=== PATIENT | female | born 1940 | race Caucasian/White ===

== ENCOUNTER 2023-07-14 14:28 | Emergency (ER) | payer OTHER, SELFPAY ==
[2023-07-14 14:38] VITALS: BP 126/51
[2023-07-14 15:15] VITALS: BMI 24.6
--- NOTE | 2023-07-14 15:27 | ED.GENMED ---
History of Present Illness
General
Chief Complaint: Abdominal Pain
Source: patient
Exam Limitations: none
Time Seen by Provider: 07/14/23 15:16
Travel History
Have you had any contact with someone who has COVID-19?: No
Do you have any symptoms of coronavirus? Fever > 100 degrees, chills, cough, shortness of breath, sore throat, loss of taste or smell, muscle aches, or headache?: No
History of Present Illness
History of Present Illness:
83-year-old female presenting with 2 apparently independent complaints. Cough and congestion for 3 to 4 days. No shortness of breath. No pleuritic chest pain. No hemoptysis. Mostly an annoying cough. In addition she notes abdominal distention
that she has had since her 20s. Feels slightly more distended recently. However bowel movements are normal she has no abdominal pain no fever and no other complaints. She is a dialysis patient and is on dialysis Tuesday and Tuesday.
Past History
Past History
ED Past Medical History: CHF, HTN, NIDDM and Valvular disease (Moderate aortic stenosis. Moderate TR)
ED Past Surgical History: Other (Paracentesis)
Review of Systems
Review of Systems
All Other Systems: Not applicable
Respiratory: Reports cough; Denies hemoptysis or trouble breathing
Cardiac: Reports no symptoms
ABD/GI: Denies abdominal pain, diarrhea, bloody stools or black stools
Phy Exam
Physical Exam
Physical Exam:
GENERAL: Alert and oriented in no apparent distress
EYE: Orbits normal.
NECK: Supple
CARDIAC: Regular rate and rhythm with mild midsystolic murmur
LUNGS: No respiratory distress. Occasional mild expiratory wheeze. Mild coarse cough at times. However no severe cough.
ABDOMEN: Distended. Bowel sounds present. Nontender. Questionable fluid wave.
NEUROLOGICAL: Alert and oriented , grossly non-focal
SKIN: Warm and dry, small areas of ecchymosis superficially to the abdominal wall.
MUSCULOSKELETAL: Mild bilateral lower extremity pitting edema. Shunt left arm
PSYCH: Normal and appropriate interaction.
Course
Orders/Labs/Results
Orders:
Orders
07/14/23 15:26
IV Insert/Care/Rem.- Treatment PRN
CR Obstruct Series W/pa Chest Urgent
Comment:
Reason For Exam: Abdominal distention
07/14/23 15:27
US Abdomen Complete/Upper Urgent
Comment:
Reason For Exam: Abdominal distention.
07/14/23 15:31
COVID-19 Antigen Urgent
Source: Nasal Swab
Complete Blood Count/With Diff Urgent
Comprehensive Metabolic Panel Urgent
Lipase Urgent
Influenza A+B Rapid Molecular Urgent
QUAN Source: Nasal Swab
Specimen Description:
Abnormal Lab Results
07/14/23
15:31
RBC 3.03 L 10^6/uL
(4.20-5.40)
Hgb 9.9 L g/dL
(12.0-16.0)
Hct 29.1 L %
(37.0-47.0)
MCH 32.7 H pg
(27.0-31.0)
RDW 15.9 H %
(11.5-14.5)
Plt Count 123 L 10^3/uL
(130-400)
MPV 10.9 H fL
(7.4-10.4)
Absolute Lymphs (auto) 1.1 L 10^3/uL
(1.2-3.4)
Absolute Monos (auto) 0.8 H 10^3/uL
(0.1-0.6)
Lymphocytes % 17.1 L %
(20.5-51.1)
Monocytes % 12.9 H %
(1.7-9.3)
Chloride 96 L mmol/L
(98-107)
Carbon Dioxide 32 H mmol/L
(22-30)
BUN 36 H mg/dl
(7-17)
Creatinine 3.7 H mg/dL
(0.6-1.0)
Glucose 113 H mg/dl
(70-99)
AST 51 H U/L
(14-36)
Alkaline Phosphatase 276 H U/L
(38-126)
Albumin 3.2 L g/dl
(3.5-5.0)
Lipase 450 H U/L
(23-300)
07/14/23 15:31
07/14/23 15:31
Vital Signs
Initial and Last Documented VS:
Initial Vital Signs
Temp Pulse Resp BP Pulse Ox
98.6 F 73 18 126/51 95
07/14/23 14:38 07/14/23 14:38 07/14/23 14:38 07/14/23 14:38 07/14/23 14:38
Last Documented Vital Signs
Temp Pulse Resp BP Pulse Ox
98.6 F 73 18 121/53 98
07/14/23 14:38 07/14/23 14:38 07/14/23 14:38 07/14/23 18:00 07/14/23 18:30
MDM/Problems Addressed
Differential Diagnosis Includes:
To independent issues I feel are likely unrelated. Some cough and congestion most consistent with bronchitis. X-ray as part of an obstruction series. COVID and flu test. As for the abdominal distention. She clinically does not have an
obstructed abdomen. She is nontender. She has bowel sounds present. She had a bowel movement this morning. Reviewing previous record she has history of ascites which is likely to be because of this distention. Clinically highly doubt SBP.
Workup in progress
*Radiology
Radiology exam reviewed: radiology read reviewed (Ileus. Cannot rule out early SBO. Gallstones. Some gallbladder wall thickening. Moderate ascites) and other (Negative obstruction series. Except for ileus)
*Pulse Oximetry
Patient hypoxic: no
*Critical Care Note
Total Time (30-74mins, 75-104mins- exclusive of procedures): Not Applicable
Data Reviewed
Review of Other/Old Records Reveals: Labs, Records, Radiology Studies, Progress Notes and Discharge Summary
Update Note
Update Note:
Patient has remained medically stable and nontoxic. The cough appears to be a bronchitis. She is not clinically in heart failure. She is in no respiratory distress. Her pulse ox is good. She is not in CHF. As for the abdomen she is totally
nontender. She has no findings consistent with acute cholecystitis. She has no white count. Her LFTs are mildly off but stable. She does have gallbladder wall thickening but I do not feel this indicates acute cholecystitis. She has moderate
ascites which she has had in the past. No findings to support SBP. Discussed with GI who will call tomorrow for close follow-up. She is clinically not obstructed. She is nontender she has no nausea or vomiting. She had bowel movement this
morning.
1952... Patient ambulated from the ER in no distress
ED Attending Note
-
Portions of this chart may have been created with voice recognition software.� Occasional wrong word or��sound alike� substitutions may have occurred due to the inherent limitations of voice recognition software.
Discharge Plan
Departure
Patient Disposition: Home (Routine Discharge)
Date of Disposition: 07/14/23
Time of Disposition: 19:07
Patient with high blood pressure during this ER visit?: Yes
Discharge Problem:
Ascites, Bronchitis, Cirrhosis, Chronic renal failure, Chronic anemia
Instructions: Fluid in the belly (ascites), Acute Bronchitis, Adult (DC), BLOOD PRESSURE
Prescriptions:
No Action
isosorbide mononitrate 30 mg tablet extended release 24 hr
15 mg PO DAILY
ferrous sulfate 325 mg (65 mg iron) Tablet
325 mg PO DAILY
montelukast 10 mg tablet
10 mg PO DAILY
insulin aspart U-100 [Novolog FlexPen U-100 Insulin] 100 unit/mL (3 mL) insulin pen
5 unit SC AC
rosuvastatin 10 mg Tablet
10 mg PO HS
I-Chioma 300 mcg-200 mg-27 mg-2 mg Tablet
1 tab PO BID
carvedilol 3.125 mg Tablet
3.125 mg PO BID Qty: 30 0RF
furosemide 40 mg Tablet
40 mg PO DAILY
polyethylene glycol 3350 17 gram Powder In Packet
17 g PO DAILY
magnesium oxide 400 mg (241.3 mg magnesium) Tablet
400 mg PO DAILY
insulin glargine [Lantus Solostar U-100 Insulin] 100 unit/mL (3 mL) Insulin Pen
10 unit SC HS
ergocalciferol (vitamin D2) 1,250 mcg (50,000 unit) Capsule
1,250 mcg PO WEEKLY
nifedipine 30 mg Tablet Extended Release 24hr
30 mg PO HS
loperamide 2 mg Capsule
2 mg PO Q4H PRN (Reason: loose stools)
calcium acetate(phosphat bind) 667 mg Capsule
667 mg PO MEALS
Referrals:
Marcia Padilla MD [Active] - Follow up in 2-3 days
Lee Stoner MD [Family Provider] - Follow up in 2-3 days
Activity Restrictions/Additional Instructions:
The GI group should call you tomorrow for close follow-up
Interventions
Interventions:
*Risk Screen - Suicide Last Done: 07/14/23 15:15
*General Assessment Last Done: 07/14/23 15:15
*Neglect/Abuse Screening Last Done: 07/14/23 15:15
ED- Fall Risk Assessment Last Done: 07/14/23 16:28
*ED COVID-19 Vaccine History Last Done: 07/14/23 15:15
YA-Balqeg-Qoqrjfevor Assessment Last Done: 07/14/23 15:15
ED- Pulmonary Assessment Last Done: 07/14/23 15:15
[2023-07-14 15:48] LABS: % Basophils 0.9 % (0-2); % Eosinophils 5.5 % (0-6); % Immature Granulocytes 0.3 % (0-0.5); % Lymphocytes 17.1 % (20.5-51.1); % Monocytes 12.9 % (1.7-9.3); % Neutrophils 63.3 % (42.2-75.2); Absolute Basophils 0.1 10^3/uL (0-0.2); Absolute Eosinophils 0.4 10^3/uL (0-0.7); Absolute Lymphocytes 1.1 10^3/uL (1.2-3.4); Absolute Monocytes 0.8 10^3/uL (0.1-0.6); Absolute Neutrophils 4.1 10^3/uL (1.4-6.5); Hematocrit 29.1 % (37.0-47.0); Hemoglobin 9.9 g/dL (12.0-16.0); Mean Corpuscular Hgb 32.7 pg (27.0-31.0); Mean Platelet Volume 10.9 fL (7.4-10.4); Nucleated Red Blood Cells % 0 %; Platelet Count 123 10^3/uL (130-400); Red Blood Cell Count 3.03 10^6/uL (4.20-5.40); Red Cell Dist. Width 15.9 % (11.5-14.5); White Blood Cell Count 6.5 10^3/uL (4.8-10.8)
[2023-07-14 16:03] LABS: ALT (SGPT) 34 U/L (0-35); AST (SGOT) 51 U/L (14-36); Albumin 3.2 g/dl (3.5-5.0); Alkaline Phosphatase 276 U/L (38-126); Blood Urea Nitrogen 36 mg/dl (7-17); Calcium 8.6 mg/dl (8.4-10.2); Carbon Dioxide 32 mmol/L (22-30); Chloride 96 mmol/L (98-107); Estimated Creatinine Clearance 10 ml/min; Glucose 113 mg/dl (70-99); Potassium 3.5 mmol/L (3.5-5.1); Sodium 138 mmol/L (135-145); Total Bilirubin 1.3 mg/dl (0.2-1.3); Total Protein 7.1 g/dl (6.3-8.2); eGFR 11.77
[2023-07-14 16:05] LABS: Lipase 450 U/L (23-300)
[2023-07-14 16:07] LABS: COVID-19 Antigen Negative (Negative)
[2023-07-14 16:49] VITALS: BP 156/62
[2023-07-14 17:00] VITALS: BP 132/52
[2023-07-14 18:00] VITALS: BP 121/53
[2023-07-14 19:00] VITALS: BP 140/59
== END 2023-07-14 20:01 | disposition home or self-care (01) ==
LOC: EMR 14:28
PROVIDERS: EMERGENCY PHYSICIAN Emergency Medicine; FAMILY PHYSICIAN Internal Medicine Cardiovascular Disease
DX: R18.8 Other ascites (principal); J40 Bronchitis, not specified as acute or chronic; N18.6 End stage renal disease; D64.9 Anemia, unspecified; I13.2 Hypertensive heart and chronic kidney disease with heart failure and with stage 5 chronic kidney disease, or end stage renal disease; I50.9 Heart failure, unspecified; E11.22 Type 2 diabetes mellitus with diabetic chronic kidney disease; I38 Endocarditis, valve unspecified; I35.0 Nonrheumatic aortic (valve) stenosis; Z99.2 Dependence on renal dialysis; K74.60 Unspecified cirrhosis of liver
CPT/HCPCS: 99284; 74022; 76700; 80053; 83690; 85025; 87502; 87811

== ENCOUNTER 2023-07-17 19:54 | Inpatient (IN) | payer OTHER, SELFPAY ==
[2023-07-17] VITALS (7 sets, daily range): BP systolic 101–123; BP diastolic 44–54; BMI 25.7; BMI 24.7
[2023-07-17 16:40] LABS: % Basophils 0.7 % (0-2); % Eosinophils 3.7 % (0-6); % Immature Granulocytes 0.4 % (0-0.5); % Lymphocytes 13.9 % (20.5-51.1); % Monocytes 12.3 % (1.7-9.3); Absolute Basophils 0.1 10^3/uL (0-0.2); Absolute Eosinophils 0.3 10^3/uL (0-0.7); Absolute Lymphocytes 1.1 10^3/uL (1.2-3.4); Absolute Neutrophils 5.5 10^3/uL (1.4-6.5); Hematocrit 25.7 % (37.0-47.0); Hemoglobin 8.9 g/dL (12.0-16.0); Mean Corp Hgb Conc. 34.6 g/dL (33.0-37.0); Mean Corpuscular Hgb 33.1 pg (27.0-31.0); Mean Corpuscular Volume 95.5 fL (81.0-99.0); Mean Platelet Volume 10.9 fL (7.4-10.4); Nucleated Red Blood Cells % 0 %; Platelet Count 126 10^3/uL (130-400); Red Blood Cell Count 2.69 10^6/uL (4.20-5.40); Red Cell Dist. Width 15.9 % (11.5-14.5)
[2023-07-17 17:01] LABS: NT-proBNP 5520 pg/ml
[2023-07-17 17:09] LABS: ALT (SGPT) 24 U/L (0-35); AST (SGOT) 42 U/L (14-36); Alkaline Phosphatase 176 U/L (38-126); Blood Urea Nitrogen 56 mg/dl (7-17); Calcium 8.5 mg/dl (8.4-10.2); Carbon Dioxide 27 mmol/L (22-30); Chloride 96 mmol/L (98-107); Estimated Creatinine Clearance 7 ml/min; Glucose 72 mg/dl (70-99); Potassium 3.9 mmol/L (3.5-5.1); Sodium 137 mmol/L (135-145); Total Bilirubin 1.3 mg/dl (0.2-1.3); Total Protein 6.6 g/dl (6.3-8.2); eGFR 7.83
[2023-07-17 17:13] LABS: Troponin I 0.073 ng/ml
--- NOTE | 2023-07-17 17:14 | ED.GENMED ---
History of Present Illness
General
Chief Complaint: Abdominal Symptoms
Source: patient
Exam Limitations: none
Time Seen by Provider: 07/17/23 17:09
Travel History
Have you had any contact with someone who has COVID-19?: No
Do you have any symptoms of coronavirus? Fever > 100 degrees, chills, cough, shortness of breath, sore throat, loss of taste or smell, muscle aches, or headache?: Yes
Symptoms:: cough
History of Present Illness
History of Present Illness:
See MDM
Past History
Past History
ED Past Medical History: CHF, HTN, NIDDM, Valvular disease (Moderate aortic stenosis. Moderate TR) and Other (ESRD)
ED Past Surgical History: Other (Paracentesis)
Social History
Tobacco: Non-smoker
Alcohol: None
Phy Exam
Physical Exam
Physical Exam:
See MDM
Course
Orders/Labs/Results
Orders:
Orders
07/17/23 16:28
Electrocardiogram (*1) Urgent
Reason for Study: Other
Other Reason for Exam: Respiratory Distress
EKG- Treatment ONCE
07/17/23 16:34
Complete Blood Count/With Diff Urgent
Comprehensive Metabolic Panel Urgent
Lipase Urgent
Comment: ADD ON
NT-proBNP Urgent
Troponin I Urgent
Comment: ADD-ON
07/17/23 16:42
Add On- LAB Stat
Comments:: troponin - blood in lab
Tests Added?: troponin
07/17/23 17:10
Add On- LAB Urgent
Tests Added?: Lipase
07/17/23 17:14
Furosemide [Lasix] 80 mg IV NOW STA
CR Chest - 2 Views Urgent
Comment:
Reason For Exam: SOB, Cough, ESRD
07/17/23 18:10
COVID-19 Antigen Urgent
Source: Nasal Swab
Influenza A+B Rapid Molecular Urgent
QUAN Source: Nasal Swab
Specimen Description:
Abnormal Lab Results
07/17/23
16:34
RBC 2.69 L 10^6/uL
(4.20-5.40)
Hgb 8.9 L g/dL
(12.0-16.0)
Hct 25.7 L %
(37.0-47.0)
MCH 33.1 H pg
(27.0-31.0)
RDW 15.9 H %
(11.5-14.5)
Plt Count 126 L 10^3/uL
(130-400)
MPV 10.9 H fL
(7.4-10.4)
Absolute Lymphs (auto) 1.1 L 10^3/uL
(1.2-3.4)
Absolute Monos (auto) 1.0 H 10^3/uL
(0.1-0.6)
Lymphocytes % 13.9 L %
(20.5-51.1)
Monocytes % 12.3 H %
(1.7-9.3)
Chloride 96 L mmol/L
(98-107)
BUN 56 H mg/dl
(7-17)
Creatinine 5.2 H* mg/dL
(0.6-1.0)
AST 42 H U/L
(14-36)
Alkaline Phosphatase 176 H U/L
(38-126)
Troponin I 0.073 H* ng/ml
Albumin 3.0 L g/dl
(3.5-5.0)
07/17/23 16:34
07/17/23 16:34
Vital Signs
Initial and Last Documented VS:
Initial Vital Signs
Temp Pulse Resp BP Pulse Ox
98.3 F 65 26 119/51 92
07/17/23 16:30 07/17/23 16:30 07/17/23 16:30 07/17/23 16:30 07/17/23 16:30
Last Documented Vital Signs
Temp Pulse Resp BP Pulse Ox
98.3 F 62 16 101/44 90
07/17/23 16:30 07/17/23 17:30 07/17/23 17:30 07/17/23 17:00 07/17/23 17:30
MDM/Problems Addressed
Differential Diagnosis Includes:
HPI and MDM Narrative:
83-year-old female presenting with shortness of breath and cough and worsening abdominal distention. She has a history of end-stage renal disease and currently on hemodialysis (M/W/F). Patient states her last dialysis was Tuesday and she is due
tomorrow. She complains of cough and chest pain. She states the chest pain occurs when she coughs. On exam, she has distended and palpable ascites on her abdomen. She is a nontender abdomen. She is a rhonchorous cough and pitting edema in both
legs. Patient states she does not make urine but prior records indicate that she is on 40 mg of Lasix a day. Given the obvious fluid overload state, will give IV Lasix. Will obtain chest x-ray and ultimately admit for dialysis and likely
paracentesis
Physical exam
General: Weak and fatigued
HEENT: protecting airway
Neck: supple
CV: No evidence of cyanosis. Regular rate and rhythm
Resp: No accessory muscle use. Rhonchorous breath sounds, crackles at bases
Abd: Distended and soft
Extremities: +2 pitting edema bilateral lower extremities
Neuro: alert
Psych: Normal affect
Skin: Intact
Problems Addressed including Acute and Chronic Conditions affecting care:
1. Pulm edema
Acuity: acute
Prognosis: unstable
Details: Patient given 80 mg IV Lasix.
2. Ascites
Acuity: acute
Prognosis: unstable
Details: Patient will require interventional radiology evaluation tomorrow to discuss paracentesis
Updates
Chest x-ray consistent with cardiomegaly and increased pulmonary vasculature. Patient already given IV Lasix. Given her symptoms and worsening ascites, will admit
Differential Diagnosis (but not limited to): Pulm edema, pneumonia, viral syndrome, ascites
Testing considered: CT abdomen/pelvis but no tenderness elicited
Drug therapy (if applicable): OTC meds, please see d/c instruction regarding Rx drugs
Amount and/or Complexity of Data Reviewed
Clinical info obtained from: Patient
External data reviewed: History of ascites requiring paracentesis in the past
Labs I independently reviewed (but not limited to): Elevated BNP. Troponin chronically elevated
Radiology: X-ray independently reviewed: Chest x-ray shows pulmonary edema and cardiomegaly
Pulse Ox: not hypoxic
EKG independently reviewed: Sinus rhythm, left axis, no STEMI, right bundle branch block
Label Press Operator: Sinus rhythm
Critical Care: The high probability of a clinically significant, sudden or life threatening deterioration of the cardiopulmonary system(s) required my full and direct attention, intervention and personal management. The aggregate critical care time
was 33 minutes. This time is in addition to time spent performing reported procedures but includes the following:
[x] Data Review and interpretation
[x] Patient assessment and monitoring of vital signs
[x] Documentation
[x] Medication orders and management
Risk of Complication:
Social Determinants of health: Good social support
Discussed with other providers: Hospitalist
Escalation of Care includes Admit/Obs: Given worsening shortness of breath and worsening ascites, will admit
Occasional wrong word or 'sound a like' substitutions may have occurred due to the inherent limitations of voice recognition software. Read the chart carefully and recognize, using context, where substitutions have occurred.
*Critical Care Note
Total Time (30-74mins, 75-104mins- exclusive of procedures): 33 min
ED Attending Note
-
Portions of this chart may have been created with voice recognition software.� Occasional wrong word or��sound alike� substitutions may have occurred due to the inherent limitations of voice recognition software.
Discharge Plan
Departure
Patient Disposition: Admit
Date of Disposition: 07/17/23
Time of Disposition: 18:14
Presentation/result/management discussed w/ accepting MD/DO: Hospitalist
Discharge Problem:
Ascites, Pulmonary edema, ESRD (end stage renal disease) on dialysis
Prescriptions:
No Action
isosorbide mononitrate 30 mg tablet extended release 24 hr
15 mg PO DAILY
ferrous sulfate 325 mg (65 mg iron) Tablet
325 mg PO DAILY
montelukast 10 mg tablet
10 mg PO DAILY
insulin aspart U-100 [Novolog FlexPen U-100 Insulin] 100 unit/mL (3 mL) insulin pen
5 unit SC AC
rosuvastatin 10 mg Tablet
10 mg PO HS
I-Chioma 300 mcg-200 mg-27 mg-2 mg Tablet
1 tab PO BID
carvedilol 3.125 mg Tablet
3.125 mg PO BID Qty: 30 0RF
furosemide 40 mg Tablet
40 mg PO DAILY
polyethylene glycol 3350 17 gram Powder In Packet
17 g PO DAILY
magnesium oxide 400 mg (241.3 mg magnesium) Tablet
400 mg PO DAILY
insulin glargine [Lantus Solostar U-100 Insulin] 100 unit/mL (3 mL) Insulin Pen
10 unit SC HS
ergocalciferol (vitamin D2) 1,250 mcg (50,000 unit) Capsule
1,250 mcg PO WE
nifedipine 30 mg Tablet Extended Release 24hr
30 mg PO HS
loperamide 2 mg Capsule
2 mg PO Q4H PRN (Reason: loose stools)
calcium acetate(phosphat bind) 667 mg Capsule
667 mg PO MEALS
Referrals:
UNKNOWN - PT NOT,INTERVIEWE [Family Provider] -
Interventions
Interventions:
*Risk Screen - Suicide Last Done: 07/17/23 16:38
*General Assessment Last Done: 07/17/23 16:38
*Neglect/Abuse Screening Last Done: 07/17/23 16:38
*ED COVID-19 Vaccine History Last Done: 07/17/23 16:38
YH-Mytqrl-Dyutkpqhhl Assessment Last Done: 07/17/23 16:38
ED- Pulmonary Assessment Last Done: 07/17/23 16:38
[2023-07-17 18:06] LABS: Lipase 127 U/L (23-300)
[2023-07-17] MEDS: LASIX 80 MG IV (18:22)
[2023-07-17 18:52] LABS: COVID-19 Antigen Negative (Negative)
--- NOTE | 2023-07-17 19:08 | HPS.HSE ---
Addendum entered and electronically signed by Shan Brown MD 07/17/23 19:46:
SOB, ESRD, Cirrhosis. No chest pain
Pt seen independently and agree with PA note
Chest profound supraclvicular muscle wasting
Lungs bibasilar rales on shallow respirations
CV reg 2/6 ritika
Abd marked ascites
Ext 1-2+edema
Imp:CHF
ESRD
ascites
P:dialysis, renal consult
paracentesis
post paracentesis consider empiric abx for potential SBP
Original Note:
Family Physician
-
Family Physician: INTERVIEWE UNKNOWN - PT NOT
Chief Complaint
-
Cough and Shortness of Breath
History of Present Illness
Pt is an 83yo F with a past medical history of HTN, HLD, ESRD, Cirrhosis, and DM-II who is presenting to the ED c/o SOB and Cough x 2-3 weeks. She states she has been experiencing a productive cough for 2-3 weeks and has not tried anything to
improve her symptoms. She states the shortness of breath has been consistent for just as long and she does not feel that she can 'fully inflate her lungs.' She admits abdominal distension which is worse recently. She denies fever, sweats or chills.
She denies abdominal pain.
Medical History
Past Medical History
Past Medical History: Reports Other
Additional Past Medical History:
ESRD on HD
Cirrhosis
Coronary Artery Disease
Chronic Diastolic Heart Failure
Essential Hypertension
Hyperlipidemia
Diabetes Mellitus, Insulin-Dependent
Anemia of Chronic Disease
Past Surgical History: Reports Other
Additional Past Surgical History:
Left Upper Ext AV Fistula
Social History
Tobacco: Non-smoker
Living: Assisted Living
Family History
Family History: Not pertinent
Allergies / Home Medications
Allergies reflects when Allergies were last updated in [facility].
Home Medications with original date entered in [facility]
Allergy/Medication List:
Allergies
Allergy/AdvReac Type Severity Reaction Status Date / Time
No Known Allergies Allergy Verified 07/17/23 16:27
Home Medications
ferrous sulfate 325 mg (65 mg iron) tablet 325 mg PO DAILY Supplement 11/26/22
insulin aspart U-100 100 unit/mL (3 mL) subcutaneous pen (Novolog FlexPen U-100 Insulin aspart) 5 unit SC AC Diabetes 11/26/22
isosorbide mononitrate 30 mg tablet,extended release 24 hr 15 mg PO DAILY Heart Disease/Condition 11/26/22
montelukast 10 mg tablet 10 mg PO DAILY Allergies 11/26/22
rosuvastatin 10 mg tablet 10 mg PO HS High Cholesterol 11/26/22
vit A 300 mcg-C 200 mg-E 27 mg-lutein 2 mg and minerals tablet (I-Chioma) 1 tab PO BID Supplement 11/26/22
carvedilol 3.125 mg tablet 3.125 mg PO BID #30 tabs 12/14/22
furosemide 40 mg tablet 40 mg PO DAILY 01/25/23
insulin glargine 100 unit/mL (3 mL) subcutaneous pen (Lantus Solostar U-100 Insulin) 10 unit SC HS 01/25/23
magnesium oxide 400 mg (241.3 mg magnesium) tablet 400 mg PO DAILY 01/25/23
polyethylene glycol 3350 17 gram oral powder packet 17 g PO DAILY 01/25/23
ergocalciferol (vitamin D2) 1,250 mcg (50,000 unit) capsule 1,250 mcg PO WE 01/27/23
calcium acetate(phosphat bind) 667 mg capsule 667 mg PO MEALS 07/14/23
loperamide 2 mg capsule 2 mg PO Q4H PRN loose stools 07/14/23
nifedipine 30 mg tablet,extended release 24 hr 30 mg PO HS 07/14/23
Review of Systems
-
A 12 point ROS was completed and negative except as noted: Yes
Constitutional: Denies Fever or Chills
Respiratory: Reports Cough and Trouble Breathing
Cardiac: Denies Chest Pain or Palpitations
Abdomen/GI: Denies Abdominal Pain, Nausea or Vomiting
Physical Exam
Vital Signs
Vital Signs
Temp Pulse Resp BP Pulse Ox
98.3 F 63 17 105/54 96
07/17/23 16:30 07/17/23 18:45 07/17/23 18:45 07/17/23 18:22 07/17/23 18:45
Physical Exam
General: Comfortable and Conversant
HEENT: Anicteric, Moist mucous membranes and Oxygen (Nasal Cannula)
Respiratory: Non Labored Respirations and Decreased Breath Sounds (Bilateral Bases); No Wheezes
Cardiac: S1/S2 and Regular Rhythm
GI: Soft, Non Tender and Distended (Positive fluid wave)
Rectal: Deferred by Provider
Musculoskeletal: Other (+1 pitting edema bilateral lower ext)
Skin: Warm and Dry
Neuro: Awake, Alert, Oriented and Nonfocal/grossly intact
Psych: Calm
Laboratory Results
-
07/17/23 16:34
07/17/23 16:34
Laboratory Results
Total Bilirubin 1.3 mg/dl (0.2-1.3) 07/17/23 16:34
AST 42 U/L (14-36) H 07/17/23 16:34
ALT 24 U/L (0-35) 07/17/23 16:34
Alkaline Phosphatase 176 U/L (38-126) H 07/17/23 16:34
Troponin I 0.073 ng/ml H* 07/17/23 16:34
Lipase 127 U/L (23-300) 07/17/23 16:34
Data Reviewed
-
Diagnostic Radiology: Report Reviewed by me
Lab Data: Labs Reviewed by me
Impression/Plan
-
Volume Overload with Ascites and Lower Extremity Edema
-Patient received Lasix 80mg IV in ED
-Consult IR for paracentesis
-Attempt to manage additional volume wit HD
-Continue usual Lasix dose
ESRD on HD on
-Consult Nephrology
-Continue calcium acetate
Coronary Artery Disease
-Continue isosorbide mononitrate
Chronic Diastolic Heart Failure
Echo November 2022: EF 70-75. Moderate Aortic Stenosis. Severe Pulmonary Hypertension. Stage II Diastolic Dysfunction
-Monitor Is&Os and Daily Weights
Essential Hypertension
-Continue carvedilol, and nifedipine
Hyperlipidemia
-Continue rosuvastatin
Diabetes Mellitus, Insulin-Dependent
-Continue Lantus
-Monitor sugars and continue coverage insulin
Anemia of Chronic Disease
-Hgb at baseline
-Continue iron supplement
DVT proph: SC Heparin
Code Status: Full Code
[2023-07-17] MEDS: PROCARDIA XL (EXTENDED RELEASE) 30 MG PO (21:41)
[2023-07-17 21:42] LABS: Glucose - Point of Care 97 mg/dl (70-99)
[2023-07-17] MEDS: CRESTOR 10 MG PO (21:43)
[2023-07-17] MEDS: COREG 3.125 MG PO (21:47)
[2023-07-17] MEDS: LANTUS 0.100000000000000006 UNITS SC (21:47)
[2023-07-17] MEDS: ROBITUSSIN DM 5 ML PO (22:21)
[2023-07-17] MEDS: HEPARIN 5000 UNITS SC (23:35)
[2023-07-17 23:54] LABS: Troponin I 0.063 ng/ml
[2023-07-18] VITALS (7 sets, daily range): BP systolic 96–145; BP diastolic 40–68; BMI 24.6; BMI 24.7
[2023-07-18 07:07] LABS: Hematocrit 28.7 % (37.0-47.0); Hemoglobin 9.6 g/dL (12.0-16.0); Mean Corp Hgb Conc. 33.4 g/dL (33.0-37.0); Mean Corpuscular Hgb 32.8 pg (27.0-31.0); Mean Platelet Volume 11.7 fL (7.4-10.4); Platelet Count 132 10^3/uL (130-400); Red Blood Cell Count 2.93 10^6/uL (4.20-5.40); Red Cell Dist. Width 15.6 % (11.5-14.5); White Blood Cell Count 7.1 10^3/uL (4.8-10.8)
[2023-07-18 07:30] LABS: Troponin I 0.061 ng/ml
[2023-07-18 07:31] LABS: Blood Urea Nitrogen 59 mg/dl (7-17); Carbon Dioxide 26 mmol/L (22-30); Chloride 101 mmol/L (98-107); Estimated Creatinine Clearance 6 ml/min; Glucose 88 mg/dl (70-99); Magnesium 2.3 mg/dl (1.6-2.3); Potassium 3.8 mmol/L (3.5-5.1); Sodium 134 mmol/L (135-145); eGFR 7.01
[2023-07-18 08:21] LABS: Glucose - Point of Care 109 mg/dl (70-99)
[2023-07-18 08:50] LABS: Glycohemoglobin (HgbA1c) 5.6 % (4.0-5.6)
[2023-07-18] MEDS: NOVOLOG FLEXPEN-MODERATE RESISTANCE SC ×3 (09:14→16:35)
[2023-07-18] MEDS: SINGULAIR 10 MG PO (09:16)
[2023-07-18] MEDS: NOVOLOG FLEXPEN 5 UNITS SC ×2 (09:16→16:42)
[2023-07-18] MEDS: MAG-TAB SR 84 MG PO (09:16)
[2023-07-18] MEDS: FEOSOL 325 MG PO (09:17)
[2023-07-18] MEDS: IMDUR (EXTENDED RELEASE) 15 MG PO (09:17)
[2023-07-18] MEDS: COREG 3.125 MG PO ×2 (09:18→20:07)
[2023-07-18] MEDS: LASIX 40 MG PO (09:18)
[2023-07-18] MEDS: PHOSLO 667 MG PO ×2 (09:19→16:44)
[2023-07-18] MEDS: MIRALAX 17 GRAMS PO (09:19)
[2023-07-18] MEDS: HEPARIN 5000 UNITS SC ×3 (09:20→23:20)
[2023-07-18] MEDS: ROBITUSSIN DM 5 ML PO ×2 (10:41→20:11)
[2023-07-18 12:39] LABS: Glucose - Point of Care 141 mg/dl (70-99)
[2023-07-18] MEDS: NOVOLOG FLEXPEN SC (12:53)
[2023-07-18] MEDS: PHOSLO PO (12:53)
[2023-07-18] MEDS: MANNITOL 12.5 GRAMS IV ×2 (13:03→14:01)
[2023-07-18] MEDS: FLEXBUMIN 25% FOR HEMODIALYSIS 12.5 GRAMS IV ×2 (13:24→15:01)
--- NOTE | 2023-07-18 13:48 | W.CON.NEPH ---
Consultation
-
Date/Time Consultation Requested: 05/16 20:23
Date/Time Consultation Performed: 05/17 1:00 PM
Requesting Provider: Stella Fountain
Performing Provider: Verna Gottlieb
Reason for Consultation: ESRD on HD
Medical History
-
Chief Complaint: ESRD on HD, volume overload
History of Present Illness:
This is an 83-year-old female who has history of hypertension on carvedilol, nifedipine, suspected CAD on Imdur and statin, ESRD (dialysis was started in December 2022Tuesday,Tuesday, Tuesday at [facility]), D:DRobert Sofia amd T2D who presents
to the hospital with worsening cough and concern for volume overload. �She admits abdominal distension which is worse recently. She denies fever, sweats or chills.� She denies abdominal pain. In the outpatient HD unit, they have been trying to
decrease her dry weight but have been limited by her hypotension. She is scheduled for HD today per her [facility] schedule.
She states that her biggest concern is her distended belly and worsening cough. She continues to make urine. Denies nausea or vomitting.
Past Medical History
1. PE.
2. Hypertension.
3. Hyperlipidemia.
4. Diastolic CHF.
5. 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
6. Nbnl-xn-lzygsnps aortic stenosis.
7. Severe pulmonary hypertension.
8. Chronic thrombocytopenia.
9. Cardiogenic cirrhosis.
10.History of ascites and paracentesis.
11.Type 2 diabetes.
12.Probably history of CAD.
Social History
Tobacco: Non-Smoker
Alcohol: None
Drug: None
Family History
One brother on HD
Family History: Not Pertinent
Allergies / Home Medications
Allergy/AdvReac Type Severity Reaction Status Date / Time
No Known Allergies Allergy Verified 02/11/24 16:27
Medication Instructions Recorded Confirmed Type
ferrous sulfate 325 mg (65 mg 325 mg PO DAILY Supplement 11/26/22 07/17/23 History
iron) tablet
insulin aspart U-100 100 unit/mL 5 unit SC AC Diabetes 11/26/22 07/17/23 History
(3 mL) subcutaneous pen (Novolog
FlexPen U-100 Insulin aspart)
isosorbide mononitrate 30 mg 15 mg PO DAILY Heart 11/26/22 07/17/23 History
tablet,extended release 24 hr Disease/Condition
montelukast 10 mg tablet 10 mg PO DAILY Allergies 11/26/22 07/17/23 History
rosuvastatin 10 mg tablet 10 mg PO HS High Cholesterol 11/26/22 07/17/23 History
vit A 300 mcg-C 200 mg-E 27 1 tab PO BID Supplement 11/26/22 07/17/23 History
mg-lutein 2 mg and minerals tablet
(I-Chioma)
carvedilol 3.125 mg tablet 3.125 mg PO BID #30 tabs 12/14/22 07/17/23 Rx
furosemide 40 mg tablet 40 mg PO DAILY Fluid 01/25/23 07/17/23 History
Retention/Swelling
insulin glargine 100 unit/mL (3 10 unit SC HS Diabetes 01/25/23 07/17/23 History
mL) subcutaneous pen (Lantus
Solostar U-100 Insulin)
magnesium oxide 400 mg (241.3 mg 400 mg PO DAILY Electrolyte 01/25/23 07/17/23 History
magnesium) tablet Repletion
polyethylene glycol 3350 17 gram 17 g PO DAILY Constipation 01/25/23 07/17/23 History
oral powder packet
ergocalciferol (vitamin D2) 1,250 1,250 mcg PO WE Supplement 01/27/23 07/17/23 History
mcg (50,000 unit) capsule
calcium acetate(phosphat bind) 667 667 mg PO MEALS Kidney Disease 07/14/23 07/17/23 History
mg capsule
loperamide 2 mg capsule 2 mg PO Q4H PRN loose stools 07/14/23 07/17/23 History
nifedipine 30 mg tablet,extended 30 mg PO HS Blood Pressure 07/14/23 07/17/23 History
release 24 hr
Review of Systems
-
History Source: Patient
Constitutional: Weight Gain
Respiratory: Cough
Cardiac: No Symptoms
Abdomen/GI: Other (distension)
: No Symptoms
Musculoskeletal: Edema
Physical Exam
Vital Signs
Vital Signs
Temp Pulse Resp BP Pulse Ox
97.1 F 55 16 96/47 97
07/18/23 07:20 07/18/23 13:08 07/18/23 07:20 07/18/23 13:08 07/18/23 09:07
Lab Results
WBC 7.1 10^3/uL (4.8-10.8) 07/18/23 06:36
RBC 2.93 10^6/uL (4.20-5.40) L 07/18/23 06:36
Hgb 9.6 g/dL (12.0-16.0) L 07/18/23 06:36
Hct 28.7 % (37.0-47.0) L 07/18/23 06:36
Plt Count 132 10^3/uL (130-400) 07/18/23 06:36
Sodium 134 mmol/L (135-145) L 07/18/23 06:36
Potassium 3.8 mmol/L (3.5-5.1) 07/18/23 06:36
Chloride 101 mmol/L (98-107) 07/18/23 06:36
Carbon Dioxide 26 mmol/L (22-30) 07/18/23 06:36
BUN 59 mg/dl (7-17) H 07/18/23 06:36
Creatinine 5.7 mg/dL (0.6-1.0) H* 07/18/23 06:36
eGFR 7.01 07/18/23 06:36
Glucose 88 mg/dl (70-99) 07/18/23 06:36
Calcium 8.0 mg/dl (8.4-10.2) L 07/18/23 06:36
Phosphorus 7.0 mg/dl (2.5-4.5) H 07/18/23 06:36
Oco-Z-Jyjurmwqzfo Pept 5520 pg/ml 07/17/23 16:34
Albumin 3.0 g/dl (3.5-5.0) L 07/17/23 16:34
Physical Exam
General: Awake, Alert and Oriented
HEENT: PERRL, EOMI and Anicteric
Respiratory: Clear
Cardiac: S1/S2
Breast: Deferred by me
Abdomen: Soft, Nontender and Nondistended
Rectal: Deferred by Provider
Genito-urinary: No Costovertebral Tender
Musculoskeletal: No Edema
Skin: No Rash, Warm and Dry
Neuro: Nonfocal/Grossly Intact
Hematologic/Lymphatic: No Cervical Lymphadenopathy
Psych: Mood/afflect pleasant
Assessment/Plan
-
Assessment:
ESRD-from 12/2022 MWF HD at [facility]
LUE AVF created 01/26
Hypokalemia
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
h/o Ascites and paracentesis
History DCHF
Type 2 diabetes
Primary hypertension
Likely history of coronary artery disease
History of heart valve problem
Severe pulmonary hypertension
Mild to moderate aortic stenosis
Moderate TR
Chronic thrombocytopenia
HLD
Plan:
HD today with 2L UF as tolerated (limited by BP)
Continue calcium acetate
Hold nifedipine on HD days
replace K PRN
Agree with para with IR
Data Reviewed
-
Radiology: Image Personally Visualized and interpreted
Labs: Labs Reviewed by me
Old Records: Reviewed
--- NOTE | 2023-07-18 14:08 | W.PN.NEPH.HD ---
Progress Note - Hemodialysis
-
Date of Service: July 18, 2023
Duration: 30 minutes and 3 hours
Potassium Bath: 3
Calcium Bath: 2.5
Opti-Dialyzer: 160
Ultrafiltration: Other
Blood Flow: 400
Dialysate Flow: 600
Heparin: none
EPO: none
--- NOTE | 2023-07-18 14:11 | W.PN.HOSP.TC ---
Today's Communication/Plan
-
see outlined plan
Assessment / Plan
Assessment / Plan
Assessment:
Acute hypoxic respiratory insufficiency on 5L
- CXR: Very mild pulmonary edema and cardiomegaly. No focal airspace process.
- wean O2 as able
Volume Overload with ascites and LE edema
Cardiogenic cirrhosis
ESRD on HD
- Nephrology following; 2L UF with HD today; hold CCB on HD days
- continue Lasix 40mg daily
- IR to perform paracentesis
Non-TN troponin elevation
- peaked at .073
Coronary Artery Disease
- continue isosorbide mononitrate
Chronic Diastolic Heart Failure
Echo November 2022: EF 70-75.� Moderate Aortic Stenosis. Severe Pulmonary Hypertension. Stage II Diastolic Dysfunction
- Monitor Is&Os and Daily Weights
- volumed managed by HD
Essential Hypertension
- continue carvedilol, and nifedipine
Hyperlipidemia
- continue rosuvastatin
type 2 Diabetes Mellitus, Insulin-Dependent
- continue Lantus
- monitor sugars and continue coverage insulin
Anemia of Chronic Disease
- Hgb at baseline
- continue iron supplement
Hypokalemia prn
DVT ppx: SC heparin
Code: Full
Anticipated Discharge: > 48 hours
Subjective/Interval History
-
Date of Service: July 18, 2023
reports distended abdomen, mild SOB with cough, asking for cough medication.
Objective Data
-
Labs:
Laboratory Results
07/18/23
06:36
WBC 7.1
Hgb 9.6 L
Hct 28.7 L
Plt Count 132
Sodium 134 L
Potassium 3.8
Chloride 101
Carbon Dioxide 26
BUN 59 H
Creatinine 5.7 H*
Glucose 88
Calcium 8.0 L
Vital Signs:
Vital Signs
Temp Pulse Resp BP Pulse Ox
97.1 F 55 16 96/47 97
07/18/23 07:20 07/18/23 13:08 07/18/23 07:20 07/18/23 13:08 07/18/23 09:07
I&O
07/17/23 07/18/23 07/19/23
06:59 06:59 06:59
Intake Total 480 / 480
Balance 480 / 480
Physical Exam
-
General: Appears Chronically Ill
HEENT: Normocephalic and Atraumatic
Respiratory: Negative Wheezes
Cardiac: Regular Rhythm and S1/S2
GI: Distended
Neuro: AO x 3
Psych: Calm
Data Reviewed
-
Total Time Spent with Patient (in minutes): 45
Labs: Labs Reviewed by me
--- NOTE | 2023-07-18 15:47 | CM ---
Spoke with patient bedside.
Patient coughing and requiring oxygen.
Patient stated she does go to HD at [address]
TC to [facility], patient is in the assisted living.
Spoke with Jorgenataliaguillermina/she is the call or contact centre manager M-F 8 am- 4 pm.
Per Geetha patient is usually independent but recently has required more care.
Ambulates with a RW.
T provides transportation to and from HD.
Patient had [facility] VN in the past.
Plan: back to [place] when stable, resume outpatient HD, possible VN needs.
[facility] (ask for Geetha)
P#[phone]
F# [phone]
[facility] ([id number], Shannan)
p#[phone]
[address]
--- NOTE | 2023-07-18 16:13 | PTCARENOTE ---
Pt AAO x3, sl forgetful at times; responds slowly; TUNICA-BILOXI. SYKES well, OOB to BR with assist x1, no c/o weakness/dizziness. VSS. Telemetry:NSR. On nc 2 lpm- pulse ox 94%, pt with occ loose, productive cough- small amts yellow mucus. Encouraging use
of IS q 1 hr while awake. Pt denies SOB; has (+) BROWN. Abd rounded, firm, octavio PO. Voiding clear yellow urine in small amts. Resting in bed at present; receiving HD; no c/o. Will continue to monitor.
[2023-07-18 16:28] LABS: Glucose - Point of Care 122 mg/dl (70-99)
[2023-07-18 21:31] LABS: Glucose - Point of Care 105 mg/dl (70-99)
[2023-07-18] MEDS: CRESTOR 10 MG PO (21:36)
[2023-07-18] MEDS: PROCARDIA XL (EXTENDED RELEASE) 30 MG PO (21:36)
[2023-07-18] MEDS: LANTUS 0.100000000000000006 UNITS SC (21:37)
[2023-07-19] VITALS (12 sets, daily range): BP systolic 57–138; BP diastolic 37–79; PULSE 55; O2SAT 97–98; BMI 24.0
[2023-07-19 07:23] LABS: Hematocrit 26.5 % (37.0-47.0); Hemoglobin 8.9 g/dL (12.0-16.0); Mean Corp Hgb Conc. 33.6 g/dL (33.0-37.0); Mean Corpuscular Hgb 33.1 pg (27.0-31.0); Mean Corpuscular Volume 98.5 fL (81.0-99.0); Platelet Count 114 10^3/uL (130-400); Red Blood Cell Count 2.69 10^6/uL (4.20-5.40); Red Cell Dist. Width 15.9 % (11.5-14.5); White Blood Cell Count 6.7 10^3/uL (4.8-10.8)
[2023-07-19 07:31] LABS: Glucose - Point of Care 82 mg/dl (70-99)
[2023-07-19 07:45] LABS: Chloride 97 mmol/L (98-107); Potassium 3.7 mmol/L (3.5-5.1); Sodium 135 mmol/L (135-145)
[2023-07-19] MEDS: NOVOLOG FLEXPEN-MODERATE RESISTANCE SC ×2 (07:55→11:32)
[2023-07-19] MEDS: MIRALAX 17 GRAMS PO (07:56)
[2023-07-19] MEDS: SINGULAIR 10 MG PO (07:56)
[2023-07-19] MEDS: PHOSLO 667 MG PO ×3 (07:56→17:01)
[2023-07-19] MEDS: HEPARIN 5000 UNITS SC ×3 (07:56→23:11)
[2023-07-19] MEDS: MAG-TAB SR 84 MG PO (07:56)
[2023-07-19] MEDS: FEOSOL 325 MG PO (07:56)
[2023-07-19] MEDS: IMDUR (EXTENDED RELEASE) 15 MG PO (07:57)
[2023-07-19 08:04] LABS: Blood Urea Nitrogen 35 mg/dl (7-17); Calcium 7.9 mg/dl (8.4-10.2); Carbon Dioxide 27 mmol/L (22-30); Estimated Creatinine Clearance 9 ml/min; Glucose 82 mg/dl (70-99); eGFR 10.11
[2023-07-19] MEDS: COREG 3.125 MG PO ×2 (08:05→21:32)
[2023-07-19] MEDS: LASIX 40 MG PO (08:06)
[2023-07-19] MEDS: NOVOLOG FLEXPEN 5 UNITS SC ×2 (08:08→17:03)
[2023-07-19 10:08] LABS: Body Fluid Albumin 1.1 g/dl; Body Fluid Amylase < 30 U/L; Body Fluid LDH 100 U/L; Body Fluid Protein 2.9 g/dl
[2023-07-19 10:20] LABS: Body Fluid Mononuclear 84.9 %; Body Fluid Polymorphonuclear 15.1 %; Body Fluid WBC 252 /CUMM
[2023-07-19 10:30] LABS: Body Fluid Second Tech SD
[2023-07-19 11:27] LABS: Glucose - Point of Care 41 mg/dl (70-99)
[2023-07-19] MEDS: NOVOLOG FLEXPEN SC (11:32)
[2023-07-19 11:43] LABS: Glucose - Point of Care 60 mg/dl (70-99)
[2023-07-19 11:57] LABS: Glucose - Point of Care 72 mg/dl (70-99)
[2023-07-19] MEDS: ROBITUSSIN DM 5 ML PO ×2 (12:23→21:31)
--- NOTE | 2023-07-19 12:44 | W.PN.NEPH.PH ---
Today's Communication / Plan
-
- albumin today
- plan for HD tomorrow
Assessment/Plan
-
Assessment:
ESRD-from 12/2022 MWF HD at [facility]
LUE AVF created 01/26
Hypokalemia
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
h/o Ascites and paracentesis
History DCHF
Type 2 diabetes
Primary hypertension
Likely history of coronary artery disease
History of heart valve problem
Severe pulmonary hypertension
Mild to moderate aortic stenosis
Moderate TR
Chronic thrombocytopenia
HLD
Plan:
HD tomorrow, ordered provided
Continue calcium acetate
Hold nifedipine on HD days
replace K PRN
s/p para with 5.5L removed, albumin today
-
-
Date of Service: July 19, 2023
CC / HPI / ROS
-
Chief Complaint:
ESRD on HD
History of Present Illness:
Ascites
acute hypoxic respiratory failure on 5L
volume overload
Review of Systems:
feeling improved s/p para
HD tomorrow
Labs
-
Labs:
WBC 6.7 10^3/uL (4.8-10.8) 07/19/23 07:04
RBC 2.69 10^6/uL (4.20-5.40) L 07/19/23 07:04
Hgb 8.9 g/dL (12.0-16.0) L 07/19/23 07:04
Hct 26.5 % (37.0-47.0) L 07/19/23 07:04
Plt Count 114 10^3/uL (130-400) L 07/19/23 07:04
Sodium 135 mmol/L (135-145) 07/19/23 07:04
Potassium 3.7 mmol/L (3.5-5.1) 07/19/23 07:04
Chloride 97 mmol/L (98-107) L 07/19/23 07:04
Carbon Dioxide 27 mmol/L (22-30) 07/19/23 07:04
BUN 35 mg/dl (7-17) H 07/19/23 07:04
Creatinine 4.2 mg/dL (0.6-1.0) H* 07/19/23 07:04
eGFR 10.11 07/19/23 07:04
Glucose 82 mg/dl (70-99) 07/19/23 07:04
Calcium 7.9 mg/dl (8.4-10.2) L 07/19/23 07:04
Phosphorus 7.0 mg/dl (2.5-4.5) H 07/18/23 06:36
Wci-G-Chujwbsbkmu Pept 5520 pg/ml 07/17/23 16:34
Albumin 3.0 g/dl (3.5-5.0) L 07/17/23 16:34
Physical Exam
-
Vital Signs:
Vital Signs
Temp Pulse Resp BP Pulse Ox
98.2 F 56 16 110/49 95
07/19/23 10:48 07/19/23 10:48 07/19/23 10:48 07/19/23 10:48 07/19/23 10:48
Respiratory:: Bilateral: CTA
Lung Excursion:: Normal
Abdomen:: Nontender and Soft
Bowel Sounds:: Normal
Extremity Edema:: +1: Bilateral:
Gross Catheter: No
[2023-07-19 12:53] LABS: Glucose - Point of Care 177 mg/dl (70-99)
--- NOTE | 2023-07-19 13:03 | W.PN.HOSP.TC ---
Today's Communication/Plan
-
hold lantus
IV Albumin
PT/OT
HD tomorrow
wean O2
Assessment / Plan
Assessment / Plan
Assessment:
Acute hypoxic respiratory insufficiency on 5L
- CXR: Very mild pulmonary edema and cardiomegaly. No focal airspace process.
- wean O2 as able; currently on 1L
Volume Overload with ascites and LE edema
Cardiogenic cirrhosis
ESRD on HD
- Nephrology following for HD/UF needs; hold CCB on HD days
- continue Lasix 40mg daily
- s/p paracentesis 07/19; 5.5L removed, no evidence of SBP. provide Albumin today
Non-IN troponin elevation
- peaked at .073
Coronary Artery Disease
- continue isosorbide mononitrate
Chronic Diastolic Heart Failure
Echo November 2022: EF 70-75.� Moderate Aortic Stenosis. Severe Pulmonary Hypertension. Stage II Diastolic Dysfunction
- Monitor Is&Os and Daily Weights
- volumed managed by HD
Essential Hypertension
- continue carvedilol and nifedipine
Hyperlipidemia
- continue rosuvastatin
type 2 Diabetes Mellitus, Insulin-Dependent
- hold Lantus due to hypoglycemia on 07/19
- monitor sugars and continue coverage insulin
Anemia of Chronic Disease
- Hgb at baseline
- continue iron supplement
Hypokalemia prn
DVT ppx: SC heparin
Code: Full
Anticipated Discharge: > 48 hours
Subjective/Interval History
-
Date of Service: July 19, 2023
s/p paracentesis 5.5 L removed
patient feels much improved
Objective Data
-
Labs:
Laboratory Results
07/19/23
07:04
WBC 6.7
Hgb 8.9 L
Hct 26.5 L
Plt Count 114 L
Sodium 135
Potassium 3.7
Chloride 97 L
Carbon Dioxide 27
BUN 35 H
Creatinine 4.2 H*
Glucose 82
Calcium 7.9 L
Vital Signs:
Vital Signs
Temp Pulse Resp BP Pulse Ox
98.2 F 56 16 110/49 95
07/19/23 10:48 07/19/23 10:48 07/19/23 10:48 07/19/23 10:48 07/19/23 10:48
I&O
07/18/23 07/19/23 07/20/23
06:59 06:59 06:59
Intake Total 1320 / 1320
Balance 1320 / 1320
Physical Exam
-
General: No Apparent Distress
HEENT: Normocephalic and Atraumatic
Respiratory: Negative Wheezes
Cardiac: Regular Rhythm and S1/S2
GI: Soft
Genito-urinary: No Costovertebral Tender
Neuro: AO x 3
Hematologic / Lymphatic: No Lymphadenopathy
Psych: Calm
Data Reviewed
-
Total Time Spent with Patient (in minutes): 46
Labs: Labs Reviewed by me
--- NOTE | 2023-07-19 13:21 | PN.CDI ---
CDI
- -
CDI:
Physician Documentation Request
Admit Date: 07/17/23 19:54
Dear Doctor Carri,
Patient admitted with volume overload with ascites and LE edema.
H&P,' She states the shortness of breath has been consistent for just as long and she does not feel that she can 'fully inflate her lungs.'
07/19 PN, 'Acute hypoxic respiratory insufficiency on 5L...'
Selected Entries
07/18/23
03:00 07/18/23
07:20 07/18/23
11:25
Nasal Cannula flow liters per minute 5 5 5
07/18/23
15:10 07/18/23
19:30 07/18/23
23:00
Nasal Cannula flow liters per minute 5 5 5
07/19/23
03:00
Nasal Cannula flow liters per minute 5
Please clarify which of the following accurately represents the patient's respiratory status:
Acute hypoxic respiratory failure
Hypoxia only
Other
Additional information for Respiratory Failure:
Recognized criteria for Respiratory Failure (Source: [facility] Apr 2013)
Symptoms
1. Tachypnea, SOB, dyspnea
2. Use of accessory muscles
3. Pallor or cyanosis
4. Anxiety or restlessness
5. Unable to speak in full sentences
Supplemental O2 of >40% (5 LPM)
Use of terms such as suspected, likely, concern for, or probable (associated with a specific diagnosis that is being evaluated, monitored, or treated as if it exists) are acceptable and can be coded in the inpatient setting, when documented at the
time of discharge.
Thank you,
Kacie MELGAR,RN,CCDS
CDI Specialist
Available via [place] text
Please use your independent medical judgment in providing your response.
--- NOTE | 2023-07-19 13:40 | PN.CDI ---
CDI
- -
CDI:
Physician Documentation Request
Admit Date: 07/17/23 19:54
Dear Doctor Carri,
Patient admitted with volume overload.
07/19 PN,' Chronic Diastolic Heart Failure...LE edema...Monitor Is&Os and Daily Weights.'
07/17 Pro BNP 5520.
07/17 Patient received IV Lasix 80 mg IV.
Please clarify in your note the diagnosis associated with the above findings:
Acute on chronic diastolic CHF
Volume overload only
Other (please specify)
Use of terms such as suspected, likely, concern for, or probable (associated with a specific diagnosis that is being evaluated, monitored, or treated as if it exists) are acceptable and can be coded in the inpatient setting, when documented at the
time of discharge.
Thank you,
Kacie MELGAR,RN,CCDS
CDI Specialist
Available via [place] text
Please use your independent medical judgment in providing your response.
[2023-07-19] MEDS: FLEXBUMIN 100 IV (14:08)
[2023-07-19] MEDS: FLEXBUMIN 50 IV (16:22)
[2023-07-19 16:48] LABS: Glucose - Point of Care 171 mg/dl (70-99)
[2023-07-19] MEDS: NOVOLOG FLEXPEN-MODERATE RESISTANCE 1 UNITS SC (17:03)
[2023-07-19 21:30] LABS: Glucose - Point of Care 168 mg/dl (70-99)
[2023-07-19] MEDS: LANTUS 0.100000000000000006 UNITS SC (21:32)
[2023-07-19] MEDS: PROCARDIA XL (EXTENDED RELEASE) 30 MG PO (21:32)
[2023-07-19] MEDS: CRESTOR 10 MG PO (21:32)
[2023-07-20] VITALS (7 sets, daily range): BP systolic 88–154; BP diastolic 41–64; BMI 21.7
--- NOTE | 2023-07-20 01:06 | PTCARENOTE ---
Patient switched from NSR to AFib. EKG done per ROAD SUPERVISOR OF ENGINES. See documented vital signs. Patient asymptomatic. ROAD SUPERVISOR OF ENGINES aware.
--- NOTE | 2023-07-20 05:06 | W.PN.UPDATE ---
Update Note
Progress Note Update
At 0026, nursing addressed patient A-fib on the monitor. Advised EKG. EKG noted Afib with right bundle branch block. Patient was NSR previously. noted Hx of AFib in the past on one EKG 12/09/22. will do another EKG in AM, not on any anticoagulants at
home. Patient denies any chest pain, shortness of breath. stable VS.
[2023-07-20 07:25] LABS: Glucose - Point of Care 164 mg/dl (70-99)
[2023-07-20] MEDS: COREG PO (07:41)
[2023-07-20] MEDS: IMDUR (EXTENDED RELEASE) PO (07:51)
[2023-07-20] MEDS: PHOSLO 667 MG PO ×3 (07:54→17:09)
[2023-07-20] MEDS: SINGULAIR 10 MG PO (07:54)
[2023-07-20] MEDS: MAG-TAB SR 84 MG PO (07:54)
[2023-07-20] MEDS: FEOSOL 325 MG PO (07:54)
[2023-07-20] MEDS: MIRALAX 17 GRAMS PO (07:55)
[2023-07-20] MEDS: HEPARIN 5000 UNITS SC (07:55)
[2023-07-20] MEDS: NOVOLOG FLEXPEN 5 UNITS SC ×3 (07:58→17:09)
[2023-07-20] MEDS: NOVOLOG FLEXPEN-MODERATE RESISTANCE 1 UNITS SC ×2 (07:58→11:35)
[2023-07-20 07:59] LABS: Hematocrit 30.1 % (37.0-47.0); Hemoglobin 10.3 g/dL (12.0-16.0); Mean Corp Hgb Conc. 34.2 g/dL (33.0-37.0); Mean Corpuscular Hgb 32.7 pg (27.0-31.0); Mean Corpuscular Volume 95.6 fL (81.0-99.0); Platelet Count 164 10^3/uL (130-400); Red Blood Cell Count 3.15 10^6/uL (4.20-5.40); White Blood Cell Count 7.3 10^3/uL (4.8-10.8)
[2023-07-20 08:48] LABS: Blood Urea Nitrogen 50 mg/dl (7-17); Calcium 8.3 mg/dl (8.4-10.2); Carbon Dioxide 24 mmol/L (22-30); Chloride 96 mmol/L (98-107); Estimated Creatinine Clearance 6 ml/min; Glucose 137 mg/dl (70-99); Magnesium 2.3 mg/dl (1.6-2.3); Potassium 3.8 mmol/L (3.5-5.1); Sodium 135 mmol/L (135-145); eGFR 7.01
--- NOTE | 2023-07-20 09:07 | CON.CAR ---
Addendum entered and electronically signed by Rogelio Al MD 07/20/23 11:23:
I saw and examined the patient.
The SALES AND MARKETING ASSOCIATE's note was reviewed and I agree with the note.
Comment: 83 y/o female with HFpEF, mild to moderate , moderate TR, severe pulm HTN, ESRD on HD, hypertension, DM2, HLD, RBBB, anemia, cirrhosis. Here with volume overload and ascites. Recently underwent paracentesis yesterday for 5.5 L.
Overnight, she developed atrial fibrillation she is not aware of the rhythm. She is rate controlled with no agents currently. Blood pressure is low normal but. Suspect this is due to fluid shifts rather than her rhythm as rates are in the 80s to
90s as I monitor her telemetry during record review. On exam, she has an irregularly irregular rhythm with a normal S1-S2. Lungs have mild bibasilar rales. Abdomen is distended but soft. We discussed the new diagnosis of atrial fibrillation.
This incurs a higher stroke risk. Therefore, anticoagulation is recommended. Eliquis will be started. Meanwhile we will continue to monitor heart rates and transition her Coreg to metoprolol when indicated for better rate control. Volume is
being controlled by nephrology. We will update her echocardiogram. Will continue to follow. Recommendations discussed with Dr. Christina.
Original Note:
Consultation
Consultation Request
Date/Time Consultation Requested: 07/20/23822
Date/Time Consultation Performed: 07/20/23839
Requesting Provider: Dr. Christina
Performing Provider: Kavita LISA for Dr. Al
Reason for Consultation: AFIB
Medical History
-
Chief Complaint: SOB, cough, abdominal distension
History of Present Illness:
83 y/o female with HFpEF, mild to moderate , moderate TR, severe pulm HTN, ESRD on HD, hypertension, DM2, HLD, RBBB, anemia, cirrhosis. She is a patient of Dr. Stoner. She presented to the hospital from [facility] with SOB,
cough, abdominal distension. She was volume overloaded and was treated with lasix, HD, and paracentesis for 5.5 L 07/19/23. She feels improved. We are consulted since she is noted to have AFIB overnight. She is not symptomatic. HR 90's-110's.
Past Medical History
Past Medical History: Other (as above)
Social History
Tobacco: Non-Smoker
Living: Assisted Living
Family History
Family History: Reviewed & Not Pertinent
Allergies / Home Medications
Allergy/AdvReac Type Severity Reaction Status Date / Time
No Known Allergies Allergy Verified 07/17/23 16:27
Medication Instructions Recorded Confirmed Type
ferrous sulfate 325 mg (65 mg 325 mg PO DAILY Supplement 11/26/22 07/17/23 History
iron) tablet
insulin aspart U-100 100 unit/mL 5 unit SC AC Diabetes 11/26/22 07/17/23 History
(3 mL) subcutaneous pen (Novolog
FlexPen U-100 Insulin aspart)
isosorbide mononitrate 30 mg 15 mg PO DAILY Heart 11/26/22 07/17/23 History
tablet,extended release 24 hr Disease/Condition
montelukast 10 mg tablet 10 mg PO DAILY Allergies 11/26/22 07/17/23 History
rosuvastatin 10 mg tablet 10 mg PO HS High Cholesterol 11/26/22 07/17/23 History
vit A 300 mcg-C 200 mg-E 27 1 tab PO BID Supplement 11/26/22 07/17/23 History
mg-lutein 2 mg and minerals tablet
(I-Chioma)
carvedilol 3.125 mg tablet 3.125 mg PO BID #30 tabs 12/14/22 07/17/23 Rx
furosemide 40 mg tablet 40 mg PO DAILY Fluid 01/25/23 07/17/23 History
Retention/Swelling
insulin glargine 100 unit/mL (3 10 unit SC HS Diabetes 01/25/23 07/17/23 History
mL) subcutaneous pen (Lantus
Solostar U-100 Insulin)
magnesium oxide 400 mg (241.3 mg 400 mg PO DAILY Electrolyte 01/25/23 07/17/23 History
magnesium) tablet Repletion
polyethylene glycol 3350 17 gram 17 g PO DAILY Constipation 01/25/23 07/17/23 History
oral powder packet
ergocalciferol (vitamin D2) 1,250 1,250 mcg PO WE Supplement 01/27/23 07/17/23 History
mcg (50,000 unit) capsule
calcium acetate(phosphat bind) 667 667 mg PO MEALS Kidney Disease 07/14/23 07/17/23 History
mg capsule
loperamide 2 mg capsule 2 mg PO Q4H PRN loose stools 07/14/23 07/17/23 History
nifedipine 30 mg tablet,extended 30 mg PO HS Blood Pressure 07/14/23 07/17/23 History
release 24 hr
Review of Systems
-
History Source: Patient and Other (and chart)
All other systems: Negative unless noted
Respiratory: Cough and Trouble Breathing
Abdomen/GI: Other (distension)
Physical Exam
Vital Signs
Temp Pulse Resp BP Pulse Ox
98.0 F 125 18 89/49 94
07/20/23 07:55 07/20/23 07:55 07/20/23 07:55 07/20/23 07:55 07/20/23 07:55
Lab Results
07/20/23 07:27
07/20/23 07:26
Troponin I 0.061 ng/ml H* 07/18/23 06:36
Tkf-R-Jpqobzgmuou Pept 5520 pg/ml 07/17/23 16:34
Physical Exam
General: Well Developed, Well Nourished and No Apparent Distress
HEENT: Normocephalic and Anicteric
Respiratory: Other (coarse breath sounds, on O2 by NC, still with coughing)
Cardiac: Irregular Rhythm and Murmur (II/ systolic murmur)
Musculoskeletal: No Edema
Skin: Warm and Dry
Neuro: Awake, Alert and Oriented
Psych: Calm
Impression / Plan
-
Volume overload, ascites:
-improved with HD, lasix, paracentesis (5.5 L 07/19/23)
-hx cirrhosis, HFpEF, renal failure
AFIB, paroxysmal:
-asymptomatic. HR 90's-110's. On coreg, but held for low BP's today. Adjust to metoprolol as below. If BP remains low today, can consider amio instead.
-[id number] score is at least 6 for age, female, HTN, DM, CHF. Denies bleeding or falls. Does have history of anemia/thrombocytopenia, so would have to monitor this over time, but would recommend Eliquis 2.5 mg PO BID. With hx cirrhosis, will check
INR first to ensure it is not very elevated.
-TSH pending
-recent echo as below- will update
HTN:
-on nifedipine, isosorbide, and coreg. Held this AM with low BP (had paracentesis yesterday for 5.5 L, and down 7.7 kg since admit)- did get some albumin. Hold CCB and Nitrate. Will transition from coreg to metoprolol tonight, with hold parameters.
ESRD:
-on HD, nephro following
DM2:
-on insulin
-management per primary team
Abnormal troponin:
-.073 peak. Has been higher in past.
-likely non-ischemic troponin elevation with excess volume, ESRD
Chronic HFpEF:
-most recent echo as below
-volume managed with HD, also on lasix
Data Reviewed
-
EKG: Tracing Personally Visualized and interpreted (AFIB bifasicular block 91 BPM)
Radiology: Report Reviewed by me (CXR 07/17/23: Very mild pulmonary edema and cardiomegaly. No focal airspace process.)
Medical Tests (Nuc Med, Echo etc): Report Reviewed by me (Echo 12/01/23: Echo 12/01/23: Hyperdynamic left ventricular systolic function, Probably stage II diastolic dysfunction, Enlarged right ventricular size, Normal function. Very dense MAC. Mild
to moderate aortic stenosis. Moderate tricuspid regurgitation.�Severe pulmonary HTN, estimated PASP 69 mmHg.)
Labs: Labs Reviewed by me
Old Records: Reviewed (Dr. Stoner OV note 01/2023: no report of hx CAD. continue current HFpEF management)
[2023-07-20 09:54] LABS: TSH Reflex To Free T4 0.88 uIU/ml (0.47-4.68)
[2023-07-20] MEDS: LASIX PO (10:03)
[2023-07-20 10:41] LABS: INR 1.32; PT 16.4 Sec (11.4-14.6)
--- NOTE | 2023-07-20 11:24 | CM ---
Addendum entered by Joanne Villar 07/20/23 16:39:
Plan: back to [place] when stable, resume outpatient HD, possible VN needs.
[place] [facility]BARAD[facility] (ask for Geetha)
P#[phone]
F# [phone]
[facility] ([id number], Shannan)
p#[phone]
[address]
M-W-

Addendum entered by Joanne Villar 07/20/23 12:58:
TC to [facility] to check costs, they need script submitted.
TC to Geetha at [place], she said there is no way she would no if it will be covered, will need to be submitted to pharmacy.
TT sent to BUSINESS DEVELOPMENT COORDINATOR.
Original Note:
Left message at [place] for Geetha Del Angelis and costs.
Await TCB.
[2023-07-20 11:32] LABS: Glucose - Point of Care 161 mg/dl (70-99)
[2023-07-20] MEDS: ROBITUSSIN DM 5 ML PO ×2 (11:34→17:53)
[2023-07-20] MEDS: ELIQUIS 2.5 MG PO ×2 (11:34→19:58)
[2023-07-20] MEDS: MANNITOL 12.5 GRAMS IV ×2 (12:30→13:53)
[2023-07-20] MEDS: FLEXBUMIN 25% FOR HEMODIALYSIS 12.5 GRAMS IV ×2 (12:35→13:52)
--- NOTE | 2023-07-20 12:41 | W.PN.HOSP.TC ---
Today's Communication/Plan
-
HD today
Echo
Assessment / Plan
Assessment / Plan
Assessment:
Acute hypoxic respiratory failure on 5L
- CXR: Very mild pulmonary edema and cardiomegaly. No focal airspace process.
- wean O2 as able; currently on 1L
Volume Overload with ascites and LE edema
Cardiogenic cirrhosis
ESRD on HD
- Nephrology following for HD/UF needs; hold CCB on HD days. Give Midodrine today
- continue Lasix 40mg daily
- s/p paracentesis 07/19; 5.5L removed, no evidence of SBP. provided Albumin post-paracentesis.
New onset Afib
- continue Coreg, possible switch to Metoprolol
- Eliquis started
- CBC Cardiology following
- Echo: pending
Non-AZ troponin elevation
- peaked at .073
Coronary Artery Disease
- continue isosorbide mononitrate
acute on chronic Diastolic Heart Failure
Echo November 2022: EF 70-75.� Moderate Aortic Stenosis. Severe Pulmonary Hypertension. Stage II Diastolic Dysfunction
- Monitor Is&Os and Daily Weights
- volumed managed by HD
Essential Hypertension
- continue carvedilol and nifedipine
Hyperlipidemia
- continue rosuvastatin
type 2 Diabetes Mellitus, Insulin-Dependent
- hold Lantus due to hypoglycemia on 07/19
- monitor sugars and continue coverage insulin
Anemia of Chronic Disease
- Hgb at baseline
- continue iron supplement
Hypokalemia prn
DVT ppx: SC heparin
Code: Full
Anticipated Discharge: 24 - 48 hours
Subjective/Interval History
-
Date of Service: July 20, 2023
overnight went into new Afib, asymptomatic
denies any new complaints
BP low on HD, midodrine/albumin given
Objective Data
-
Labs:
Laboratory Results
07/20/23 07/20/23 07/20/23
07:26 07:27 10:12
WBC 7.3
Hgb 10.3 L
Hct 30.1 L
Plt Count 164 D
PT 16.4 H
INR 1.32
Sodium 135
Potassium 3.8
Chloride 96 L
Carbon Dioxide 24
BUN 50 H
Creatinine 5.7 H*
Glucose 137 H
Calcium 8.3 L
Vital Signs:
Vital Signs
Temp Pulse Resp BP Pulse Ox
97.9 F 93 18 88/41 95
07/20/23 11:30 07/20/23 11:30 07/20/23 11:30 07/20/23 11:30 07/20/23 11:30
I&O
07/19/23 07/20/23 07/21/23
06:59 06:59 06:59
Intake Total 1320 / 1320 720 / 720
Balance 1320 / 1320 720 / 720
Physical Exam
-
General: No Apparent Distress
HEENT: Normocephalic and Atraumatic
Respiratory: Negative Wheezes or Rales
Cardiac: Irregular Rhythm
GI: Soft
Genito-urinary: No Costovertebral Tender
Hematologic / Lymphatic: No Lymphadenopathy
Psych: Calm
Data Reviewed
-
Total Time Spent with Patient (in minutes): 45
Labs: Labs Reviewed by me
[2023-07-20] MEDS: ProAmatine 10 MG PO (13:04)
--- NOTE | 2023-07-20 13:04 | W.PN.NEPH.HD ---
Assessment
-
Patient seen on HD
sbp 101 at current u/f
5L paracentesis yesterday, did receive albumin post
10mg midodrine to be provided
Progress Note - Hemodialysis
-
Date of Service: July 20, 2023
Duration: 30 minutes and 3 hours
Potassium Bath: 3
Calcium Bath: 2.5
Opti-Dialyzer: 160
Ultrafiltration: Other (even as sbp less then 100 )
Blood Flow: 400
Dialysate Flow: 600
Heparin: none
EPO: none
[2023-07-20 16:52] LABS: Glucose - Point of Care 142 mg/dl (70-99)
[2023-07-20] MEDS: NOVOLOG FLEXPEN-MODERATE RESISTANCE SC (16:53)
[2023-07-20] MEDS: TOPROL XL 25 MG PO (17:44)
[2023-07-20 21:15] LABS: Glucose - Point of Care 125 mg/dl (70-99)
[2023-07-20] MEDS: CRESTOR 10 MG PO (21:27)
[2023-07-20] MEDS: LANTUS 0.0500000000000000028 UNITS SC (21:51)
[2023-07-21] MEDS: ROBITUSSIN DM 5 ML PO (02:03)
[2023-07-21 02:51] VITALS: BP 147/60
[2023-07-21 06:00] VITALS: BMI 21.9
[2023-07-21 06:20] VITALS: BP 118/40
[2023-07-21 06:57] LABS: Hematocrit 27.2 % (37.0-47.0); Hemoglobin 9.5 g/dL (12.0-16.0); Mean Corp Hgb Conc. 34.9 g/dL (33.0-37.0); Mean Corpuscular Hgb 34.1 pg (27.0-31.0); Mean Corpuscular Volume 97.5 fL (81.0-99.0); Mean Platelet Volume 11.7 fL (7.4-10.4); Platelet Count 123 10^3/uL (130-400); Red Blood Cell Count 2.79 10^6/uL (4.20-5.40); Red Cell Dist. Width 16.1 % (11.5-14.5); White Blood Cell Count 6.9 10^3/uL (4.8-10.8)
[2023-07-21 07:31] LABS: Blood Urea Nitrogen 31 mg/dl (7-17); Calcium 8.4 mg/dl (8.4-10.2); Carbon Dioxide 25 mmol/L (22-30); Chloride 98 mmol/L (98-107); Estimated Creatinine Clearance 10 ml/min; Glucose 125 mg/dl (70-99); Potassium 3.8 mmol/L (3.5-5.1); Sodium 135 mmol/L (135-145); eGFR 12.59
[2023-07-21] MEDS: MIRALAX PO ×2 (07:57→08:01)
[2023-07-21] MEDS: PHOSLO 667 MG PO ×2 (07:57→13:04)
[2023-07-21] MEDS: FEOSOL 325 MG PO (07:58)
[2023-07-21] MEDS: MAG-TAB SR 84 MG PO (07:58)
[2023-07-21] MEDS: SINGULAIR 10 MG PO (07:58)
[2023-07-21] MEDS: ELIQUIS 2.5 MG PO (07:58)
[2023-07-21 08:09] LABS: Glucose - Point of Care 104 mg/dl (70-99)
[2023-07-21] MEDS: NOVOLOG FLEXPEN-MODERATE RESISTANCE SC (08:12)
[2023-07-21] MEDS: LASIX 40 MG PO (09:12)
[2023-07-21] MEDS: NOVOLOG FLEXPEN 5 UNITS SC ×2 (09:12→13:05)
--- NOTE | 2023-07-21 10:10 | W.PN.HOSP.TC ---
Today's Communication/Plan
-
await Echo and likely DC thereafter
Assessment / Plan
Assessment / Plan
Assessment:
Acute hypoxic respiratory failure on 5L
- CXR: Very mild pulmonary edema and cardiomegaly. No focal airspace process.
- wean O2 as able; currently on RA
Volume Overload with ascites and LE edema
Cardiogenic cirrhosis
ESRD on HD
- Nephrology following for HD/UF needs; hold CCB on HD days. Midodrine on HD days
- continue Lasix 40mg daily
- s/p paracentesis 07/19; 5.5L removed, no evidence of SBP. provided Albumin post-paracentesis.
- Echo: pending
New onset Afib
- continue Coreg, possible switch to Metoprolol
- Eliquis started
- CBC Cardiology following
- Echo: pending
Non-AZ troponin elevation
- peaked at .073
Coronary Artery Disease
- continue isosorbide mononitrate
acute on chronic Diastolic Heart Failure
Echo November 2022: EF 70-75.� Moderate Aortic Stenosis. Severe Pulmonary Hypertension. Stage II Diastolic Dysfunction
- Monitor Is&Os and Daily Weights
- volumed managed by HD
Essential Hypertension
- continue carvedilol and nifedipine
Hyperlipidemia
- continue rosuvastatin
type 2 Diabetes Mellitus, Insulin-Dependent
- hold Lantus due to hypoglycemia on 07/19
- monitor sugars and continue coverage insulin
Anemia of Chronic Disease
- Hgb at baseline
- continue iron supplement
Hypokalemia prn
DVT ppx: SC heparin
Code: Full
Anticipated Discharge: 24 - 48 hours
Subjective/Interval History
-
Date of Service: July 21, 2023
denies any complaints
Objective Data
-
Labs:
Laboratory Results
07/21/23
06:11
WBC 6.9
Hgb 9.5 L
Hct 27.2 L
Plt Count 123 L D
Sodium 135
Potassium 3.8
Chloride 98
Carbon Dioxide 25
BUN 31 H
Creatinine 3.5 H
Glucose 125 H
Calcium 8.4
Vital Signs:
Vital Signs
Temp Pulse Resp BP Pulse Ox
97.8 F 58 18 130/45 97
07/21/23 06:20 07/21/23 09:12 07/21/23 06:20 07/21/23 09:12 07/21/23 06:20
I&O
07/20/23 07/21/23 07/22/23
06:59 06:59 06:59
Intake Total 720 / 720 1500 / 1500
Output Total 350 / 350
Balance 720 / 720 1150 / 1150
Physical Exam
-
General: No Apparent Distress
HEENT: Normocephalic and Atraumatic
Respiratory: Negative Wheezes or Rales
Cardiac: Regular Rhythm and S1/S2
GI: Soft
Genito-urinary: No Costovertebral Tender
Musculoskeletal: No Edema
Neuro: AO x 3
Hematologic / Lymphatic: No Lymphadenopathy
Psych: Calm
Data Reviewed
-
Total Time Spent with Patient (in minutes): 45
Labs: Labs Reviewed by me
--- NOTE | 2023-07-21 10:35 | W.DS.TRANS ---
DC Summary - [employer]
-
Discharge Instructions:
Discharge Diagnosis/Procedures ascites s/p paracentesis 07/19, ESRD on HD, new
Afib
Diet 2 Gram Sodium,Restrict fluids to 48 oz
Additional Diets low potassium
Activity As tolerated
Bathing Restrictions None
Other Services VN
Specialty Instructions Weigh Daily
Instructions: *PCP/Other [employer] Officer Heart Failure Instructions
Stand-Alone Forms:
Changes to Home Medications: Yes
Discharge Medications:
DC Medications w/original date entered in [employer]
ferrous sulfate 325 mg (65 mg iron) tablet 325 mg PO DAILY Supplement 11/26/22
insulin aspart U-100 100 unit/mL (3 mL) subcutaneous pen (Novolog FlexPen U-100 Insulin aspart) 5 unit SC AC Diabetes 11/26/22
isosorbide mononitrate 30 mg tablet,extended release 24 hr 15 mg PO DAILY Heart Disease/Condition 11/26/22
montelukast 10 mg tablet 10 mg PO DAILY Allergies 11/26/22
rosuvastatin 10 mg tablet 10 mg PO HS High Cholesterol 11/26/22
vit A 300 mcg-C 200 mg-E 27 mg-lutein 2 mg and minerals tablet (I-Chioma) 1 tab PO BID Supplement 11/26/22
furosemide 40 mg tablet 40 mg PO DAILY Fluid Retention/Swelling 01/25/23
insulin glargine 100 unit/mL (3 mL) subcutaneous pen (Lantus Solostar U-100 Insulin) 10 unit SC HS Diabetes 01/25/23
magnesium oxide 400 mg (241.3 mg magnesium) tablet 400 mg PO DAILY Electrolyte Repletion 01/25/23
polyethylene glycol 3350 17 gram oral powder packet 17 g PO DAILY Constipation 01/25/23
ergocalciferol (vitamin D2) 1,250 mcg (50,000 unit) capsule 1,250 mcg PO WE Supplement 01/27/23
calcium acetate(phosphat bind) 667 mg capsule 667 mg PO MEALS Kidney Disease 07/14/23
loperamide 2 mg capsule 2 mg PO Q4H PRN loose stools 07/14/23
nifedipine 30 mg tablet,extended release 24 hr 30 mg PO HS Blood Pressure 07/14/23
apixaban 2.5 mg tablet (Eliquis) 2.5 mg PO BID #60 tabs 07/21/23
dextromethorphan-guaifenesin 10 mg-100 mg/5 mL oral syrup 5 ml PO Q6HPRN PRN cough #120 mL 07/21/23
metoprolol succinate 25 mg tablet,extended release 24 hr 25 mg PO QPM #30 tabs 07/21/23
sodium chloride 0.65 % nasal spray aerosol (Saline Nasal) 2 spray intranasal QIDPRN PRN nasal congestion #44 mL 07/21/23
Home Medication Changes
Toprol in place of Coreg
Pending Results: Yes
Total time spent discharging patient (in min): 45
[2023-07-21 11:15] VITALS: BP 124/64
[2023-07-21 11:30] LABS: Glucose - Point of Care 179 mg/dl (70-99)
[2023-07-21 12:04] VITALS: BP 121/40; PULSE 53; O2SAT 98
[2023-07-21] MEDS: NOVOLOG FLEXPEN-MODERATE RESISTANCE 1 UNITS SC (13:04)
--- NOTE | 2023-07-21 13:07 | CM ---
Addendum entered by Lyndsey Brown 07/21/23 13:26:
spoke with brother elsa who will transport patient back to [facility] in about 1 hour.notifed attending and floor nurse.
Original Note:
patient for discharge today back to [facility].therapy notes and clinicals reviewed by barber.
pt/ot rec home care.referral sent to [facility].
[facility] transport notified to resume dialysis transport tomorrow.
kevin from [facility] notified of discharge.
imm signed and added to chart.
[facility] (ask for Barber)
P#[phone]
F# [phone]
[facility] ([id number], Shannan)
p#[phone]
[facility]
--

[facility] home care [facility]
fax [phone].
== END 2023-07-21 15:07 | disposition home health service (06) | DRG 291 ==
LOC: 4 WEST ACU 19:54
PROVIDERS: Emergency Medicine; Nurse Practitioner; Physician Assistant Medical; Radiology Vascular & Interventional Radiology; Specialist; ADMITTING PHYSICIAN Internal Medicine; ATTENDING PHYSICIAN Internal Medicine; CONSULT PHYSICIAN Internal Medicine Cardiovascular Disease; EMERGENCY PHYSICIAN Student in an Organized Health Care Education/Training Program; OTHER PHYSICIAN Student in an Organized Health Care Education/Training Program
PROC: 5A1D70Z Performance of Urinary Filtration, Intermittent, Less than 6 Hours Per Day (ICD-10-PCS; 2023-07-18)
PROC: 0W9G3ZZ Drainage of Peritoneal Cavity, Percutaneous Approach (ICD-10-PCS; 2023-07-19)
DX: I13.2 Hypertensive heart and chronic kidney disease with heart failure and with stage 5 chronic kidney disease, or end stage renal disease (principal); I50.33 Acute on chronic diastolic (congestive) heart failure; J96.01 Acute respiratory failure with hypoxia; N18.6 End stage renal disease; R18.8 Other ascites; I5A Non-ischemic myocardial injury (non-traumatic); Z11.52 Encounter for screening for COVID-19; Z99.2 Dependence on renal dialysis; E11.22 Type 2 diabetes mellitus with diabetic chronic kidney disease; K74.60 Unspecified cirrhosis of liver; I25.10 Atherosclerotic heart disease of native coronary artery without angina pectoris; Z79.4 Long term (current) use of insulin; D63.8 Anemia in other chronic diseases classified elsewhere; I08.3 Combined rheumatic disorders of mitral, aortic and tricuspid valves; I27.20 Pulmonary hypertension, unspecified; I48.91 Unspecified atrial fibrillation; E78.00 Pure hypercholesterolemia, unspecified; E87.6 Hypokalemia; D69.6 Thrombocytopenia, unspecified; E87.70 Fluid overload, unspecified
CPT/HCPCS: 88305; 49083; 71046; 80048; 80053; 82042; 82150; 82962; 83036; 83615; 83690; 83735; 83880; 84100; 84157; 84443; 84484; 85025; 85027; 85610; 87015; 87070; 87205; 87502; 87811; 88112; 88341; 88342; 89051; 93005; 93306; 96374; 97116; 97162; 97166; 97530; 99291; G0257; P9047

== ENCOUNTER 2023-11-03 09:42 | Outpatient (RCR) | payer OTHER, SELFPAY ==
[2023-11-03 10:05] VITALS: BP 112/37
[2023-11-03] MEDS: FLEXBUMIN 100 IV (10:30)
[2023-11-03 10:35] VITALS: BP 112/37
[2023-11-03 12:00] VITALS: BP 109/38
== END 2023-11-04 23:59 | disposition home or self-care (01) ==
LOC: OID 09:42
PROVIDERS: ATTENDING PHYSICIAN Nurse Practitioner Family; FAMILY PHYSICIAN Family Medicine
DX: R18.8 Other ascites (principal); K74.60 Unspecified cirrhosis of liver; N18.6 End stage renal disease
CPT/HCPCS: 49083; 87015; 87070; 87205; 89051; 96365; 96366; P9047

== ENCOUNTER 2023-11-04 18:05 | Inpatient (IN) | payer OTHER, SELFPAY ==
[2023-11-04] VITALS (22 sets, daily range): BP systolic 79–118; BP diastolic 39–64; BMI 19.5; BMI 21.7
[2023-11-04] MEDS: NSS 500 IV (15:33)
--- NOTE | 2023-11-04 15:43 | ED.GENMED ---
History of Present Illness
<Kodak Ward PA-C - Last Filed: 11/04/23 17:56>
General
Chief Complaint: Blood Pressure Problem
Source: patient
Exam Limitations: none
Time Seen by Provider: 11/04/23 15:23
Travel History
Have you had any contact with someone who has COVID-19?: No
Do you have any symptoms of coronavirus? Fever > 100 degrees, chills, cough, shortness of breath, sore throat, loss of taste or smell, muscle aches, or headache?: No
History of Present Illness
History of Present Illness:
83-year-old female presents from dialysis center after becoming hypotensive usp through her dialysis. She then vomited en route. She denies headache chest pain or shortness of breath. She denies abdominal discomfort.
No fevers recently. No other complaints at this time
Past History
<Kodak Ward PA-C - Last Filed: 11/04/23 17:56>
Past History
ED Past Medical History: CHF, HTN, NIDDM, Valvular disease (Moderate aortic stenosis. Moderate TR) and Other (ESRD)
ED Past Surgical History: Other (Paracentesis)
Social History
Tobacco: Non-smoker
Alcohol: None
Phy Exam
<Kodak Ward PA-C - Last Filed: 11/04/23 17:56>
Physical Exam
Physical Exam:
General: Well-appearing female no acute respiratory distress
HEENT: Normocephalic atraumatic mucosa dry
Heart: Tachycardic
Lungs: Clear no obvious wheeze or rales
Abdomen soft mildly distended
Extremities: No cyanosis or edema
Course
<Kodak Ward PA-C - Last Filed: 11/04/23 17:56>
Orders/Labs/Results
Orders:
Orders
11/04/23 Dinner
Regular
11/04/23 15:29
Ammonia Urgent
Complete Blood Count/With Diff Urgent
Comprehensive Metabolic Panel Urgent
Magnesium Urgent
TSH Reflex To Free T4 Urgent
11/04/23 15:33
Electrocardiogram (*1) Urgent
Reason for Study: Fatigue / Weakness
EKG- Treatment ONCE
0.9% Sodium Chloride 500 ml [Nss] 500 ml IV BOLUS
CXR2 [CR Chest - 2 Views ] Urgent
Comment:
Reason For Exam: shortness of breath
11/04/23 17:57
Admit/Transfer Patient As Directed
Co-Sign Provider:
Level of Care: Inpatient admission
Assign to:: Telemetry
Physician / Group: Hospitalist
Diagnosis: Hypotension
Reason for Telemetry: Medication for Arrhythmia
Date to Stop Telemetry: 11/06/23
Time to Stop Telemetry: 11:00
Reason for Hospitalization: .
Expected length of stay greater than two midnights?: Yes
ELOS- Estimated Length of Stay in days: 3
I certify the patient meets the requirements for IP care: Yes
11/04/23 19:42
Ondansetron Injectable [Zofran] 4 mg IV Q6HPRN PRN
11/04/23 19:42
Consult Nephrology [NEPHROLOGY CONSULT] Routine
Consulting Provider: Angel Murrieta
Was physician already notified: Yes
Reason for consult: Renal fialure, hypokalemia
DX Deep Vein Thrombosis Video Routine
11/04/23 20:00
Heparin 5,000 units SC Q12
11/04/23 22:00
Rosuvastatin Calcium [Crestor] 10 mg PO HS
insulin glargine [Lantus Solostar U-100 Insulin] 10 unit SC HS
11/05/23 06:00
BMP [Basic Metabolic Panel] IN AM
11/05/23 07:30
Insulin Aspart Pen [Novolog Flexpen] 5 units SC AC
11/05/23 08:00
Calcium Acetate [Phoslo] 667 mg PO MEALS
11/06/23 11:00
DC Protocol for Telemetry ONCE
Abnormal Lab Results
11/04/23
15:29
RBC 2.45 L 10^6/uL
(4.20-5.40)
Hgb 7.9 L g/dL
(12.0-16.0)
Hct 23.9 L %
(37.0-47.0)
MCH 32.2 H pg
(27.0-31.0)
RDW 14.7 H %
(11.5-14.5)
Plt Count 111 L 10^3/uL
(130-400)
MPV 11.6 H fL
(7.4-10.4)
Abs Immat Gran (auto) 0.1 H 10^3/uL
(0-0.05)
Absolute Neuts (auto) 7.5 H 10^3/uL
(1.4-6.5)
Absolute Lymphs (auto) 1.0 L 10^3/uL
(1.2-3.4)
Absolute Monos (auto) 1.0 H 10^3/uL
(0.1-0.6)
Immature Gran % 0.8 H %
(0-0.5)
Neutrophils % 75.9 H %
(42.2-75.2)
Lymphocytes % 10.3 L %
(20.5-51.1)
Monocytes % 10.2 H %
(1.7-9.3)
Sodium 132 L mmol/L
(135-145)
Potassium 2.8 L mmol/L
(3.5-5.1)
Chloride 90 L mmol/L
(98-107)
BUN 28 H mg/dl
(7-17)
Creatinine 2.5 H mg/dL
(0.6-1.0)
Glucose 139 H mg/dl
(70-99)
Calcium 8.1 L mg/dl
(8.4-10.2)
AST 54 H U/L
(14-36)
Alkaline Phosphatase 371 H U/L
(38-126)
Ammonia < 9 L umol/L
(9-30)
Albumin 3.3 L g/dl
(3.5-5.0)
11/04/23 15:29
11/04/23 15:29
Vital Signs
Initial and Last Documented VS:
Initial Vital Signs
BP
79/39
11/04/23 15:25
Last Documented Vital Signs
Temp Pulse Resp BP Pulse Ox
97.1 F 109 18 108/64 97
11/04/23 17:38 11/04/23 19:25 11/04/23 19:25 11/04/23 19:25 11/04/23 19:25
Serenitylt;Richard Briones MD - Last Filed: 11/04/23 19:59>
Orders/Labs/Results
Orders:
Orders
11/04/23 Dinner
Regular
11/04/23 15:29
Ammonia Urgent
Complete Blood Count/With Diff Urgent
Comprehensive Metabolic Panel Urgent
Magnesium Urgent
TSH Reflex To Free T4 Urgent
11/04/23 15:33
Electrocardiogram (*1) Urgent
Reason for Study: Fatigue / Weakness
EKG- Treatment ONCE
0.9% Sodium Chloride 500 ml [Nss] 500 ml IV BOLUS
CXR2 [CR Chest - 2 Views ] Urgent
Comment:
Reason For Exam: shortness of breath
11/04/23 17:57
Admit/Transfer Patient As Directed
Co-Sign Provider:
Level of Care: Inpatient admission
Assign to:: Telemetry
Physician / Group: Hospitalist
Diagnosis: Hypotension
Reason for Telemetry: Medication for Arrhythmia
Date to Stop Telemetry: 11/06/23
Time to Stop Telemetry: 11:00
Reason for Hospitalization: .
Expected length of stay greater than two midnights?: Yes
ELOS- Estimated Length of Stay in days: 3
I certify the patient meets the requirements for IP care: Yes
11/04/23 19:42
Ondansetron Injectable [Zofran] 4 mg IV Q6HPRN PRN
11/04/23 19:42
Consult Nephrology [NEPHROLOGY CONSULT] Routine
Consulting Provider: Angel Murrieta
Was physician already notified: Yes
Reason for consult: Renal fialure, hypokalemia
DX Deep Vein Thrombosis Video Routine
11/04/23 20:00
Heparin 5,000 units SC Q12
11/04/23 22:00
Rosuvastatin Calcium [Crestor] 10 mg PO HS
insulin glargine [Lantus Solostar U-100 Insulin] 10 unit SC HS
11/05/23 06:00
BMP [Basic Metabolic Panel] IN AM
11/05/23 07:30
Insulin Aspart Pen [Novolog Flexpen] 5 units SC AC
11/05/23 08:00
Calcium Acetate [Phoslo] 667 mg PO MEALS
11/06/23 11:00
DC Protocol for Telemetry ONCE
Abnormal Lab Results
11/04/23
15:29
RBC 2.45 L 10^6/uL
(4.20-5.40)
Hgb 7.9 L g/dL
(12.0-16.0)
Hct 23.9 L %
(37.0-47.0)
MCH 32.2 H pg
(27.0-31.0)
RDW 14.7 H %
(11.5-14.5)
Plt Count 111 L 10^3/uL
(130-400)
MPV 11.6 H fL
(7.4-10.4)
Abs Immat Gran (auto) 0.1 H 10^3/uL
(0-0.05)
Absolute Neuts (auto) 7.5 H 10^3/uL
(1.4-6.5)
Absolute Lymphs (auto) 1.0 L 10^3/uL
(1.2-3.4)
Absolute Monos (auto) 1.0 H 10^3/uL
(0.1-0.6)
Immature Gran % 0.8 H %
(0-0.5)
Neutrophils % 75.9 H %
(42.2-75.2)
Lymphocytes % 10.3 L %
(20.5-51.1)
Monocytes % 10.2 H %
(1.7-9.3)
Sodium 132 L mmol/L
(135-145)
Potassium 2.8 L mmol/L
(3.5-5.1)
Chloride 90 L mmol/L
(98-107)
BUN 28 H mg/dl
(7-17)
Creatinine 2.5 H mg/dL
(0.6-1.0)
Glucose 139 H mg/dl
(70-99)
Calcium 8.1 L mg/dl
(8.4-10.2)
AST 54 H U/L
(14-36)
Alkaline Phosphatase 371 H U/L
(38-126)
Ammonia < 9 L umol/L
(9-30)
Albumin 3.3 L g/dl
(3.5-5.0)
11/04/23 15:29
11/04/23 15:29
Vital Signs
Initial and Last Documented VS:
Initial Vital Signs
BP
79/39
11/04/23 15:25
Last Documented Vital Signs
Temp Pulse Resp BP Pulse Ox
97.1 F 109 18 108/64 97
11/04/23 17:38 11/04/23 19:25 11/04/23 19:25 11/04/23 19:25 11/04/23 19:25
<Kodak Ward PA-C - Last Filed: 11/04/23 17:56>
MDM/Problems Addressed
Differential Diagnosis Includes:
Patient with fatigue and hypotensive from dialysis center. She was unable to complete her full session of dialysis. Initial pressures here 79/49. She is tachycardic. She is alert and answering questions. Will try small fluid bolus EKG and labs
<Kodak Ward PA-C - Last Filed: 11/04/23 17:56>
*Critical Care Note
Total Time (30-74mins, 75-104mins- exclusive of procedures): Not Applicable
<Kodak Ward PA-C - Last Filed: 11/04/23 17:56>
Update Note
Update Note:
Patient reexamined multiple times. She responds to verbal stimuli but remains fatigued. Blood pressure improved after fluid bolus. Hemoglobin 7.9 potassium is 2.8. Discussed this with nephrology. She recommended holding off on replenishing
potassium as the initial blood draw was done right after dialysis was performed. Recommendation was to wait 6 hours from initial draw and recheck potassium and replace potassium if needed based on those results. Nonetheless, patient is volume
depleted hypotensive as well will admit for further evaluation
Updated patient's brother, Kenneth Salas at [phone]
ED Attending Note
<Kodak Ward PA-C - Last Filed: 11/04/23 17:56>
-
Portions of this chart may have been created with voice recognition software.� Occasional wrong word or��sound alike� substitutions may have occurred due to the inherent limitations of voice recognition software.
<Richard Briones MD - Last Filed: 11/04/23 19:59>
ED Attending Note
Patient seen and examined by attending physician: Yes
ED Attending Note:
Patient with history of end-stage renal disease on hemodialysis (Tuesday, Tuesday, Tuesday), presents to ED from dialysis center secondary to low blood pressure noted, approximately usp through her dialysis session. Patient reports having had
nausea sensation, which caused her to have 1 vomiting episode, in route to the hospital. Denies dizziness/chest pain/sob/palpitations. Denies recent illness. Denies recent change in medications.
Physical Exam
General: no apparent distress, not acutely ill. afebrile. hypotensive. weak appearing.
Head: nc/at. eomi
Neck: supple. no meningeal signs.
Heart: s1/s2 regular rate and rhythm, no murmur. equal radial pulses.
Lungs: no acute respiratory distress. clear bilaterally
Abdomen: normal bowel sounds. not tender. no distention.
Neuro: alert and oriented. no focal neurological deficits
Skin: no rash
Psychiatric: well kept. interactive and cooperative
Extremities: no edema. no calf tenderness.
During observation, patient noted to have a large heme positive melena, along with worsening anemia. Pt will require further evaluation and treatment.
Type and screen ordered. Protonix gtt started.
GI () notified via [employer].
Discharge Plan
Departure
Patient Disposition: Admit
Date of Disposition: 11/04/23
Time of Disposition: 17:55
Presentation/result/management discussed w/ accepting MD/DO: Hospitalist
Discharge Problem:
Hypotension
Interventions
Interventions:
*Risk Screen - Suicide Last Done: 11/04/23 15:27
*General Assessment Last Done: 11/04/23 15:27
*Neglect/Abuse Screening Last Done: 11/04/23 15:27
ED- Fall Risk Assessment Last Done: 11/04/23 15:27
*ED COVID-19 Vaccine History Last Done: 11/04/23 15:27
*Nursing Disposition Last Done: 11/04/23 19:25
ED- Cardiac Assessment Last Done: 11/04/23 15:27
ED- Neurological Assessment Last Done: 11/04/23 15:27
ED- Pulmonary Assessment Last Done: 11/04/23 15:27
Discharge Date and Time
Discharge Date/Time: 11/04/23 19:41
[2023-11-04 15:47] LABS: % Basophils 0.5 % (0-2); % Eosinophils 2.3 % (0-6); % Immature Granulocytes 0.8 % (0-0.5); % Lymphocytes 10.3 % (20.5-51.1); % Monocytes 10.2 % (1.7-9.3); % Neutrophils 75.9 % (42.2-75.2); Absolute Basophils 0.1 10^3/uL (0-0.2); Absolute Eosinophils 0.2 10^3/uL (0-0.7); Absolute Immature Granulocytes 0.1 10^3/uL (0-0.05); Absolute Neutrophils 7.5 10^3/uL (1.4-6.5); Hematocrit 23.9 % (37.0-47.0); Hemoglobin 7.9 g/dL (12.0-16.0); Mean Corp Hgb Conc. 33.1 g/dL (33.0-37.0); Mean Corpuscular Hgb 32.2 pg (27.0-31.0); Mean Corpuscular Volume 97.6 fL (81.0-99.0); Mean Platelet Volume 11.6 fL (7.4-10.4); Nucleated Red Blood Cells % 0 %; Platelet Count 111 10^3/uL (130-400); Red Blood Cell Count 2.45 10^6/uL (4.20-5.40); Red Cell Dist. Width 14.7 % (11.5-14.5); White Blood Cell Count 9.9 10^3/uL (4.8-10.8)
[2023-11-04 16:03] LABS: ALT (SGPT) 33 U/L (0-35); AST (SGOT) 54 U/L (14-36); Albumin 3.3 g/dl (3.5-5.0); Alkaline Phosphatase 371 U/L (38-126); Blood Urea Nitrogen 28 mg/dl (7-17); Calcium 8.1 mg/dl (8.4-10.2); Carbon Dioxide 29 mmol/L (22-30); Chloride 90 mmol/L (98-107); Estimated Creatinine Clearance 16 ml/min; Glucose 139 mg/dl (70-99); Magnesium 1.9 mg/dl (1.6-2.3); Potassium 2.8 mmol/L (3.5-5.1); Sodium 132 mmol/L (135-145); Total Bilirubin 1.3 mg/dl (0.2-1.3); Total Protein 6.6 g/dl (6.3-8.2); eGFR 18.85
[2023-11-04 16:10] LABS: Ammonia < 9 umol/L (9-30)
[2023-11-04 16:45] LABS: TSH Reflex To Free T4 1.42 uIU/ml (0.47-4.68)
--- NOTE | 2023-11-04 17:17 | PHANOTE ---
med rec note- called rubi at [phone], spoke to nurse who's going to fax patient medication list over
--- NOTE | 2023-11-04 17:56 | HPS.HSE ---
Family Physician
-
Family Physician: Chris Rasheed
Chief Complaint
-
Vomiting during dialysis
History of Present Illness
83 years old female was transferred from dialysis unit after experiencing vomiting and low blood pressure during dialysis. Patient lives at [place]. patient denied chest pain or abdominal pain. She denied diarrhea but reported constipation. She
was not nauseous at time I saw her. In the ER she was hypotensive and responded to IV fluid. She was also noted to have hypokalemia. Patient denies fever or chills. She did not have leukocytosis. No diarrhea in the emergency room.
Medical History
Past Medical History
Past Medical History: Reports Other (End-stage renal disease on dialysis, hypertension, hyperlipidemia, diastolic heart failure, moderate TR/mild to moderate aortic stenosis, severe pulmonary hypertension, diabetes, history of ascites and
cardiogenic cirrhosis, chronic thrombocytopenia, history of PE,)
Past Surgical History: Reports Other (No recent major surgery)
Social History
Tobacco: Non-smoker
Alcohol: None
Drug: None
Personal: Single
Living: Long Term
Employment: Not Employed
Family History
Family History: Not pertinent
Allergies / Home Medications
Allergies reflects when Allergies were last updated in [facility].
Home Medications with original date entered in [facility]
Allergy/Medication List:
Allergies
Allergy/AdvReac Type Severity Reaction Status Date / Time
No Known Allergies Allergy Verified 07/17/23 16:27
Home Medications
insulin aspart U-100 100 unit/mL (3 mL) subcutaneous pen (Novolog FlexPen U-100 Insulin aspart) 5 unit SC AC Diabetes 11/26/22
isosorbide mononitrate 30 mg tablet,extended release 24 hr 15 mg PO DAILY Heart Disease/Condition 11/26/22
montelukast 10 mg tablet 10 mg PO DAILY Allergies 11/26/22
rosuvastatin 10 mg tablet 10 mg PO HS High Cholesterol 11/26/22
vit A 300 mcg-C 200 mg-E 27 mg-lutein 2 mg and minerals tablet (I-Chioma) 1 tab PO BID Supplement 11/26/22
furosemide 40 mg tablet 40 mg PO DAILY Fluid Retention/Swelling 01/25/23
insulin glargine 100 unit/mL (3 mL) subcutaneous pen (Lantus Solostar U-100 Insulin) 10 unit SC HS Diabetes 01/25/23
magnesium oxide 400 mg (241.3 mg magnesium) tablet 400 mg PO DAILY Electrolyte Repletion 01/25/23
polyethylene glycol 3350 17 gram oral powder packet 17 g PO DAILY Constipation 01/25/23
ergocalciferol (vitamin D2) 1,250 mcg (50,000 unit) capsule 1,250 mcg PO WE Supplement 01/27/23
calcium acetate(phosphat bind) 667 mg capsule 667 mg PO MEALS Kidney Disease 07/14/23
loperamide 2 mg capsule 2 mg PO Q4H PRN loose stools 07/14/23
carvedilol 3.125 mg tablet 3.125 mg PO BID 11/04/23
Review of Systems
-
History Source: Patient
A 12 point ROS was completed and negative except as noted: Yes
Constitutional: Denies Fever
EENT: Denies Sore Throat
Respiratory: Denies Cough
Cardiac: Denies Chest Pain
Abdomen/GI: Reports Vomiting and Constipated; Denies Abdominal Pain
: Denies Dysuria
Musculoskeletal: Denies Joint Pain
Skin: Denies Itching
Neurological: Reports Weakness; Denies Numbness
Endocrine: Denies Temp Intolerance
Hematologic/Lymphatic: Denies Bruising
Psych: Denies Panic Disorder
Physical Exam
Vital Signs
Vital Signs
Temp Pulse Resp BP Pulse Ox
97.1 F 103 20 118/51 100
11/04/23 17:38 11/04/23 17:38 11/04/23 17:38 11/04/23 17:38 11/04/23 17:38
Physical Exam
General: No Apparent Distress, Comfortable and Appears Chronically Ill
HEENT: Moist mucous membranes and Atraumatic
Respiratory: Decreased Breath Sounds; No Wheezes
Cardiac: S1/S2 and Regular Rhythm
GI: Soft, Non Tender and Distended
Rectal: No Maroon Stools
Genito-urinary: No costovertebral tender
Musculoskeletal: No Cyanosis and No Edema
Neuro: Awake, Alert and Oriented; No Slurred Speech, Facial Droop or Tremors
Psych: Calm and Intact Judgment/Insight; No Agitated
Laboratory Results
-
11/04/23 15:
11/04/23 15:
Laboratory Results
Total Bilirubin 1.3 mg/dl (0.2-1.3) 11/04/23 15:
AST 54 U/L (14-36) H 11/04/23 15:
ALT 33 U/L (0-35) 11/04/23 15:
Alkaline Phosphatase 371 U/L (38-126) H 11/04/23 15:29
Impression/Plan
-
83 years old female who had an episode of hypotension and vomiting during dialysis
#Vomiting
Patient denied abdominal pain. She reported chronic constipation but no recent diarrhea. No fever or chills. No leukocytosis.
Probably suffered vasovagal episode during dialysis and threw up. Will continue with as needed Zofran for now. Will check abdominal x-ray. Patient has history of chronic ascites/cardiogenic cirrhosis.
# Hypotension. Likely hypovolemic versus Bp medication induced. Patient has history of hypertension in the past. She is on blood pressure medication. Will hold them. Will give fluid limited volume. Currently blood pressure, systolic around 101
in the emergency room.
Because of chronic medical conditions. Will check blood culture. Will also check urine culture if possible. Patient denied abdominal pain or chest pain.
Check a.m. cortisol/ACTH test.
Eventual PT/OT
#Cirrhosis , cardiogenic
#History CHF -preserved EF
Echo November 2022: EF 70-75%.
# Hypokalemia, replace
# Hyponatremia, give mild IVF, recheck BMP
# Hx of Metabolic acidosis
# Hyperlipidemia
# Type 2 diabetes
Continue with insulin monitor blood pressure. Avoid hypoglycemia
# Hx of Primary hypertension
# Anemia of chronic disease
#Severe pulmonary hypertension
No hypoxia while resting
Check ambulatory oxygen level
#Mild to moderate aortic stenosis
Moderate TR
# History of thrombocytopenia
Total time spent to see the patient, examine the patient on the floor, review data and lab results, discuss treatment plan with patient, ER doctor, nursing staff around 75 minutes
[2023-11-04] MEDS: VANCOCIN 300 MG IV (18:42)
[2023-11-04] MEDS: VANCOCIN 300 ML IV (18:42)
[2023-11-04] MEDS: KCL 270 MEQ IV (19:15)
[2023-11-04] MEDS: PROTONIX IV 80 MG IV (19:17)
[2023-11-04] MEDS: PROTONIX 100 IV (19:28)
--- NOTE | 2023-11-04 20:50 | PTCARENOTE ---
Pt arrived to floor from ER via stretcher. pt stood and took a few steps to the bed with assistance. Pt aox3, placed on tele, HR elevated at 125, hypotensive 102/40. Pt asymptomatic, but with some weakness and very drowsy. MARIA L Lucia aware. Will
review chart and follow plan of care.
[2023-11-04 20:56] LABS: Hematocrit 22.4 % (37.0-47.0); Hemoglobin 7.9 g/dL (12.0-16.0)
[2023-11-04 21:16] LABS: Glucose - Point of Care 177 mg/dl (70-99)
[2023-11-04] MEDS: HEPARIN 5000 UNITS SC (22:01)
[2023-11-04] MEDS: CRESTOR 10 MG PO (22:03)
[2023-11-04] MEDS: LANTUS 0.100000000000000006 UNITS SC (22:20)
[2023-11-05] VITALS (9 sets, daily range): BP systolic 98–110; BP diastolic 38–79; PULSE 70; O2SAT 100; BMI 21.8
--- NOTE | 2023-11-05 08:15 | CON.GI ---
Addendum entered and electronically signed by Damian Johnson MD 11/05/23 09:30:
Patient seen and examined, agree with PA note. Patient presents from dialysis with hypotension and vomiting. On presentation emergency room she was hypotensive, did respond to fluid bolus. She had had a paracentesis the day before which was
negative for SBP. She did have vomiting, though denies any hematemesis. She had a large dark brown bowel movement by her report which was heme positive. She has brown stool today which is also heme positive though again no gross bleeding. She
had seen Dr. Lam in the past for cardiogenic cirrhosis, and had declined endoscopy for varices evaluation in the past. She is feeling much better today, and denies any further lightheadedness, abdominal pain, has no fevers or chills, and
feeling well. On exam she has mild ascites that was nontender, had brown heme positive stool per PA. Her hemoglobin is slightly lower than her baseline though she is been hemodynamically stable. At this point her hypotension was likely
combination of paracentesis and dialysis, without signs of significant bleeding now, no hematemesis and brown stool. Will continue supportive care, and close observation, though hold on endoscopy for now.
Original Note:
Consultation
-
Date/Time Consultation Requested: 11/05/23 0151
Date/Time Consultation Performed: 11/05/23 0800
Requesting Provider: Linda LISA
Performing Provider: Dr. Johnson / Alyssa Rodriguez PA-C
Reason for Consultation: melena
Medical History
Chief Complaint / HPI
Chief Complaint: melena
History of Present Illness:
This is an 83 year old female with a past medical history of cardiogenic cirrhosis, CHF, DM, HTN, PAD, ESRD (on HD ), atrial fibrillation (on Eliquis), severe pulmonary hypertension, , chronic anemia who presented from hemodialysis yesterday
with vomiting and hypotension. She responded to fluids in the ER, BP improved. Vomiting has resolved and patient denies any abdominal pain, nausea, fevers or chills. No diarrhea or constipation currently, but does get some alternating bowel habits.
Patient denies seeing any black or bloody stools. Patient is known to our GI practice and sees Dr. Lam, last seen in the office on 10/11/23. She sees Cardiology, Dr. Stoner, at [place]. She underwent outpatient paracentesis on 11/03/23 for
ascites and reports feeling better afterwards. Labs reviewed: hemoglobin 7.9 with normal MCV (baseline Hgb 8-10), WBC 9.9, platelets 111, Na 132, K 2.8, Cl 90, CO2 29, BUN 28, creatinine 2.5, bili 1.3, AST 54, ALT 33, alk phos 371. Ammonia <9. Her
last dose of Eliquis was 11/03 in the AM (called [facility] to confirm).
Past Medical History
Past Medical History: Other (cardiogenic cirrhosis, CHF, DM, HTN, PAD, ESRD (on HD --), atrial fibrillation (on Eliquis), severe pulmonary hypertension, , chronic anemia)
Past Surgical History: Other (AV fistula for hemodialysis, paracentesis)
Social History
Tobacco: Non-Smoker
Alcohol: None
Drug: None
Living: Care Home
Family History
Family History: Other (No family history of GI malignancies)
Allergies / Home Medications
Allergy/AdvReac Type Severity Reaction Status Date / Time
No Known Allergies Allergy Verified 07/17/23 16:27
�Medication �Instructions �Recorded
insulin aspart U-100 100 unit/mL 5 unit SC AC Diabetes 11/26/22
(3 mL) subcutaneous pen (Novolog
FlexPen U-100 Insulin aspart)
isosorbide mononitrate 30 mg 15 mg PO DAILY Heart 11/26/22
tablet,extended release 24 hr Disease/Condition
montelukast 10 mg tablet 10 mg PO DAILY Allergies 11/26/22
rosuvastatin 10 mg tablet 10 mg PO HS High Cholesterol 11/26/22
vit A 300 mcg-C 200 mg-E 27 1 tab PO BID Supplement 11/26/22
mg-lutein 2 mg and minerals tablet
(I-Chioma)
furosemide 40 mg tablet 40 mg PO DAILY Fluid 01/25/23
Retention/Swelling
insulin glargine 100 unit/mL (3 10 unit SC HS Diabetes 01/25/23
mL) subcutaneous pen (Lantus
Solostar U-100 Insulin)
magnesium oxide 400 mg (241.3 mg 400 mg PO DAILY Electrolyte 01/25/23
magnesium) tablet Repletion
polyethylene glycol 3350 17 gram 17 g PO DAILYPRN PRN CONSTIPATION 01/25/23
oral powder packet
ergocalciferol (vitamin D2) 1,250 1,250 mcg PO WEEKLY Supplement 01/27/23
mcg (50,000 unit) capsule
calcium acetate(phosphat bind) 667 667 mg PO MEALS Kidney Disease 07/14/23
mg capsule
loperamide 2 mg capsule 2 mg PO Q4HPRN PRN loose stools 07/14/23
apixaban 2.5 mg tablet (Eliquis) 2.5 mg PO BID Blood Clot 11/04/23
Prevention/Tx
carvedilol 3.125 mg tablet 3.125 mg PO BID Blood Pressure 11/04/23
dextromethorphan-guaifenesin 10 5 ml PO Q6HPRN PRN COUGH 11/04/23
mg-100 mg/5 mL oral syrup (Chest
Congestion Relief DM)
metoprolol succinate 25 mg 25 mg PO QPM Blood Pressure 11/04/23
tablet,extended release 24 hr
(Toprol XL)
midodrine 5 mg tablet 5 mg PO DAILYPRN PRN FOR LOW BP 11/04/23
LESS THAN 100
sodium chloride 0.65 % nasal spray 2 spray intranasal QIDPRN PRN 11/04/23
aerosol DRYNESS
Review of Systems
-
History Source: Patient
All other systems: A 12 pt ROS was Negative except as stated above in HPI
Vital Signs
Temp Pulse Resp BP Pulse Ox
97.6 F 70 12 99/39 96
11/05/23 03:00 11/05/23 03:00 11/05/23 03:00 11/05/23 03:00 11/05/23 03:00
Physical Exam
Exam
General: Well Developed, Well Nourished and No Apparent Distress
Respiratory: Clear
Cardiac: Regular Rhythm
GI: Soft, Non Tender, Normal Bowel Sounds and Distended
Rectal: Brown and Hem Positive
Skin: Warm and Dry
Neuro: Awake, Alert and Oriented
Psych: Calm
Results
WBC 9.9 10^3/uL (4.8-10.8) 11/04/23 15:29
Hgb Cancelled 11/04/23 22:00
Hct Cancelled 11/04/23 22:00
MCV 97.6 fL (81.0-99.0) 11/04/23 15:29
Plt Count 111 10^3/uL (130-400) L 11/04/23 15:29
Absolute Neuts (auto) 7.5 10^3/uL (1.4-6.5) H 11/04/23 15:29
Sodium 132 mmol/L (135-145) L 11/04/23 15:
Potassium 2.8 mmol/L (3.5-5.1) L 11/04/23 15:
Chloride 90 mmol/L (98-107) L 11/04/23 15:29
Carbon Dioxide 29 mmol/L (22-30) 11/04/23 15:
BUN 28 mg/dl (7-17) H 11/04/23 15:
Creatinine 2.5 mg/dL (0.6-1.0) H 11/04/23 15:
Calcium 8.1 mg/dl (8.4-10.2) L 11/04/23 15:
Total Bilirubin 1.3 mg/dl (0.2-1.3) 11/04/23 15:29
AST 54 U/L (14-36) H 11/04/23 15:29
ALT 33 U/L (0-35) 11/04/23 15:29
Alkaline Phosphatase 371 U/L (38-126) H 11/04/23 15:29
Diagnostic Image Results:
Prior GI Procedures: No records available.
EGD: 'years ago'
Colonoscopy: 'years ago'
Assessment / Plan
-
83 year old female with a history of cardiogenic cirrhosis, CHF, DM, HTN, PAD, ESRD (on HD ), atrial fibrillation (on Eliquis), severe pulmonary hypertension, , chronic anemia who presented from hemodialysis yesterday with vomiting and
hypotension. Vomiting has resolved and patient denies any abdominal pain, nausea, fevers or chills. No diarrhea or constipation currently, but does get some alternating bowel habits. No black or bloody stools. Patient is known to our GI practice and
sees Dr. Lam, last seen in the office on 10/11/23. At that time, endoscopy for surveillance of esophageal varices was considered but per Dr. Lam, decision was made to hold off on this due to patient's age and significant comorbidities. She
sees Cardiology, Dr. Stoner, at [place]. She underwent outpatient paracentesis on 11/03/23 for ascites and reports feeling better afterwards. Labs reviewed: hemoglobin 7.9 with normal MCV (baseline Hgb 8-10), WBC 9.9, platelets 111, Na 132, K 2.8,
Cl 90, CO2 29, BUN 28, creatinine 2.5, bili 1.3, AST 54, ALT 33, alk phos 371. Ammonia <9. Her last dose of Eliquis was 11/03 in the AM.
IMPRESSION / PLAN:
Anemia, acute on chronic with heme-positive stools (on anticoagulation)
- Hgb 7.9, not far from her baseline 8-10
- continue to trend Hgb, transfuse if falls below 7
- hold Eliquis (last dose 11/03 AM)
- to consider endoscopy after Eliquis washout, although patient with multiple significant comorbidities -- to discuss further with Dr. Johnson
Cirrhosis, cardiogenic
- pt underwent paracentesis 11/02
- AST 54, ALT 33, alk phos 371. Ammonia <9
- platelets 111
- will order PT/INR
Vomiting - resolved
Other medical problems managed as per hospitalist. We will follow.
-
-
Thank you for consultation and allowing me to participate in the patient's care. Please call the director of curriculum and instruction GI physician during the after hours with any questions or concerns.
[2023-11-05 08:21] LABS: Glucose - Point of Care 160 mg/dl (70-99)
[2023-11-05 08:47] LABS: % Basophils 0.6 % (0-2); % Eosinophils 1.6 % (0-6); % Immature Granulocytes 0.3 % (0-0.5); % Lymphocytes 9.6 % (20.5-51.1); % Monocytes 10.1 % (1.7-9.3); % Neutrophils 77.8 % (42.2-75.2); Absolute Basophils 0.1 10^3/uL (0-0.2); Absolute Eosinophils 0.1 10^3/uL (0-0.7); Absolute Lymphocytes 0.8 10^3/uL (1.2-3.4); Absolute Monocytes 0.9 10^3/uL (0.1-0.6); Absolute Neutrophils 6.8 10^3/uL (1.4-6.5); Hematocrit 21.2 % (37.0-47.0); Mean Corpuscular Hgb 33.2 pg (27.0-31.0); Mean Corpuscular Volume 100.5 fL (81.0-99.0); Mean Platelet Volume 11.3 fL (7.4-10.4); Nucleated Red Blood Cells % 0 %; Platelet Count 104 10^3/uL (130-400); Red Blood Cell Count 2.11 10^6/uL (4.20-5.40); Red Cell Dist. Width 15.1 % (11.5-14.5); White Blood Cell Count 8.7 10^3/uL (4.8-10.8)
[2023-11-05 09:05] LABS: Blood Urea Nitrogen 37 mg/dl (7-17); Calcium 6.6 mg/dl (8.4-10.2); Carbon Dioxide 24 mmol/L (22-30); Chloride 103 mmol/L (98-107); Estimated Creatinine Clearance 13 ml/min; Glucose 126 mg/dl (70-99); Potassium 3.7 mmol/L (3.5-5.1); Sodium 136 mmol/L (135-145); eGFR 15.77
[2023-11-05] MEDS: NSS (PRESERVATIVE FREE) 1 ML IV (09:30)
[2023-11-05] MEDS: CORTROSYN 0.25 MG IV (09:30)
[2023-11-05 09:37] LABS: ACTH Stim Cortisol 0 Min 37.9 ug/dl
[2023-11-05] MEDS: HEPARIN 5000 UNITS SC ×2 (09:40→21:04)
[2023-11-05] MEDS: PHOSLO 667 MG PO ×3 (09:41→17:03)
[2023-11-05] MEDS: PROTONIX IV 40 MG IV (09:41)
[2023-11-05] MEDS: NSS (PRESERVATIVE FREE) 10 ML IV (09:41)
[2023-11-05] MEDS: NOVOLOG FLEXPEN 5 UNITS SC ×3 (10:59→17:03)
[2023-11-05 11:02] LABS: ACTH Stim Cortisol 30 Min 55.2 ug/dl
[2023-11-05 11:06] LABS: INR 1.53; PT 18.2 Sec (11.4-14.6)
--- NOTE | 2023-11-05 11:25 | W.PN.HOSP.TC ---
Today's Communication/Plan
-
.
Assessment / Plan
Assessment / Plan
Physical Exam
General: No Apparent Distress, Comfortable and Appears Chronically Ill
HEENT: Moist mucous membranes and Atraumatic
Respiratory: Decreased Breath Sounds; No Wheezes
Cardiac: S1/S2 and Regular Rhythm
GI: Soft, Non Tender and Distended
Rectal: No Maroon Stools
Genito-urinary: No costovertebral tender
Musculoskeletal: No Cyanosis and No Edema
Neuro: Awake, Alert and Oriented; No Slurred Speech, Facial Droop or Tremors
Psych: Calm and Intact Judgment/Insight; No Agitated
83 years old female who had an episode of hypotension and vomiting during dialysis
#Vomiting
No Nausea this morning
abdominal pain. She reported chronic constipation but no recent diarrhea. No fever or chills. No leukocytosis. She had BM in hospital
Probably suffered vasovagal episode during dialysis and threw up. C/W as needed Zofran / IV PPI for now. Patient has history of chronic ascites/cardiogenic cirrhosis.
# Hypotension. Likely hypovolemic. Patient has history of hypertension in the past. She is on blood pressure medication. Normal reaction to ACTH test.
Resume low dose BB.
Blood culture is pending. Patient denied abdominal pain or chest pain.
Eventual PT/OT
# ESRD on HD
Next HD on Tuesday
Appreciate nephrology help
# Anemia of chronic disease with chronic blood loss anemia form GI loss
With hx of liver cirrhosis, will avoid blood transfusion unless HGB less than 7
c/w PPI
Check iron level.
#Cirrhosis , cardiogenic
with hx of recurrent ascites.
#History CHF -preserved EF
Echo November 2022: EF 70-75%.
# Hypokalemia, s/p IV KCl.
# Hyponatremia, s/p IVF.
# Hyperlipidemia
# Type 2 diabetes
Continue with insulin monitor blood pressure. Avoid hypoglycemia
# Hx of Primary hypertension, now hypotension.
Lower dose of BB to avoid tachycardia, hold Lasix and Imdur
#Severe pulmonary hypertension
No hypoxia while resting
Check ambulatory oxygen level upon dc.
#Mild to moderate aortic stenosis
Moderate TR
# History of thrombocytopenia
Total time spent to see the patient, examine the patient on the floor, review data and lab results, discuss treatment plan with patient, nursing staff around 55 minutes
Anticipated Discharge: 24 - 48 hours
Subjective/Interval History
-
Date of Service: November 05, 2023
No chest pain
No abdominal pain
She feels better, denies nausea
Objective Data
-
Labs:
Laboratory Results
11/05/23 11/05/23
08:23 10:34
WBC 8.7
Hgb 7.0 L
Hct 21.2 L
Plt Count 104 L
PT 18.2 H
INR 1.53
Sodium 136
Potassium 3.7 D
Chloride 103
Carbon Dioxide 24
BUN 37 H
Creatinine 2.9 H
Glucose 126 H
Calcium 6.6 L* D
Vital Signs:
Vital Signs
Temp Pulse Resp BP Pulse Ox
98.3 F 71 14 102/42 95
11/05/23 07:00 11/05/23 07:00 11/05/23 07:00 11/05/23 07:00 11/05/23 07:00
I&O
11/04/23 11/05/23 11/06/23
06:59 06:59 06:59
Intake Total 910 / 910
Balance 910 / 910
[2023-11-05 11:30] LABS: ACTH Stim Cortisol 60 Min 57.3 ug/dl
--- NOTE | 2023-11-05 11:35 | W.CON.NEPH ---
Consultation
-
Date/Time Consultation Requested: 11/04/2023 19:42
Date/Time Consultation Performed: 11/05/2023 11:36AM
Requesting Provider: Christine Danielle
Performing Provider: Verna Gottlieb
Reason for Consultation: ESRD on HD
Medical History
-
Chief Complaint: ESRD on HD
History of Present Illness:
Ms. Salas is an 83 YOF with PMH of ESRD on HD, HTN, DLD, HFpEF, hx of PE who presents to the hospital after experiencing vomiting and low blood pressure during dialysis. She states that she feels back to her normal self at this point. She responded
well to IVF. Her K was low on initial presentation (checked immediately after HD), but now has normalized without supplementation.
Past Medical History
End-stage renal disease on dialysis
hypertension
hyperlipidemia
diastolic heart failure
moderate TR/mild to moderate aortic stenosis
severe pulmonary hypertension
diabetes
history of ascites and cardiogenic cirrhosis
chronic thrombocytopenia
history of PE
Past Medical History: Other
Past Surgical History: None
Social History
Tobacco: Non-Smoker
Alcohol: None
Drug: None
Personal: Single
Living: [facility]
Employment: Not Employed
Family History
Family History: Not Pertinent
Allergies / Home Medications
Allergy/AdvReac Type Severity Reaction Status Date / Time
No Known Allergies Allergy Verified 07/17/23 16:27
�Medication �Instructions �Recorded �Confirmed �Type
insulin aspart U-100 100 unit/mL 5 unit SC AC Diabetes 11/26/22 11/04/23 History
(3 mL) subcutaneous pen (Novolog
FlexPen U-100 Insulin aspart)
isosorbide mononitrate 30 mg 15 mg PO DAILY Heart 11/26/22 11/04/23 History
tablet,extended release 24 hr Disease/Condition
montelukast 10 mg tablet 10 mg PO DAILY Allergies 11/26/22 11/04/23 History
rosuvastatin 10 mg tablet 10 mg PO HS High Cholesterol 11/26/22 11/04/23 History
vit A 300 mcg-C 200 mg-E 27 1 tab PO BID Supplement 11/26/22 11/04/23 History
mg-lutein 2 mg and minerals tablet
(I-Chioma)
furosemide 40 mg tablet 40 mg PO DAILY Fluid 01/25/23 11/04/23 History
Retention/Swelling
insulin glargine 100 unit/mL (3 10 unit SC HS Diabetes 01/25/23 11/04/23 History
mL) subcutaneous pen (Lantus
Solostar U-100 Insulin)
magnesium oxide 400 mg (241.3 mg 400 mg PO DAILY Electrolyte 01/25/23 11/04/23 History
magnesium) tablet Repletion
polyethylene glycol 3350 17 gram 17 g PO DAILYPRN PRN CONSTIPATION 01/25/23 11/04/23 History
oral powder packet
ergocalciferol (vitamin D2) 1,250 1,250 mcg PO WEEKLY Supplement 01/27/23 11/04/23 History
mcg (50,000 unit) capsule
calcium acetate(phosphat bind) 667 667 mg PO MEALS Kidney Disease 07/14/23 11/04/23 History
mg capsule
loperamide 2 mg capsule 2 mg PO Q4HPRN PRN loose stools 07/14/23 11/04/23 History
apixaban 2.5 mg tablet (Eliquis) 2.5 mg PO BID Blood Clot 11/04/23 11/04/23 History
Prevention/Tx
carvedilol 3.125 mg tablet 3.125 mg PO BID Blood Pressure 11/04/23 11/04/23 History
dextromethorphan-guaifenesin 10 5 ml PO Q6HPRN PRN COUGH 11/04/23 11/04/23 History
mg-100 mg/5 mL oral syrup (Chest
Congestion Relief DM)
metoprolol succinate 25 mg 25 mg PO QPM Blood Pressure 11/04/23 11/04/23 History
tablet,extended release 24 hr
(Toprol XL)
midodrine 5 mg tablet 5 mg PO DAILYPRN PRN FOR LOW BP 11/04/23 11/04/23 History
LESS THAN 100
sodium chloride 0.65 % nasal spray 2 spray intranasal QIDPRN PRN 11/04/23 11/04/23 History
aerosol DRYNESS
Review of Systems
-
History Source: Patient
All other systems: Negative unless noted
Constitutional: Fatigue
Abdomen/GI: Vomiting and Constipated
Physical Exam
Vital Signs
Vital Signs
Temp Pulse Resp BP Pulse Ox
98.3 F 71 14 102/42 95
11/05/23 07:00 11/05/23 07:00 11/05/23 07:00 11/05/23 07:00 11/05/23 07:00
Lab Results
WBC 8.7 10^3/uL (4.8-10.8) 11/05/23 08:23
RBC 2.11 10^6/uL (4.20-5.40) L 11/05/23 08:23
Hgb 7.0 g/dL (12.0-16.0) L 11/05/23 08:23
Hct 21.2 % (37.0-47.0) L 11/05/23 08:23
Plt Count 104 10^3/uL (130-400) L 11/05/23 08:23
Sodium 136 mmol/L (135-145) 11/05/23 08:23
Potassium 3.7 mmol/L (3.5-5.1) D 11/05/23 08:23
Chloride 103 mmol/L (98-107) 11/05/23 08:23
Carbon Dioxide 24 mmol/L (22-30) 11/05/23 08:23
BUN 37 mg/dl (7-17) H 11/05/23 08:23
Creatinine 2.9 mg/dL (0.6-1.0) H 11/05/23 08:23
eGFR 15.77 11/05/23 08:23
Glucose 126 mg/dl (70-99) H 11/05/23 08:23
Calcium 6.6 mg/dl (8.4-10.2) L* D 11/05/23 08:23
Albumin 3.3 g/dl (3.5-5.0) L 11/04/23 15:29
Physical Exam
General: Awake, Alert, Oriented, No Distress and Nontoxic
HEENT: PERRL, EOMI, Anicteric, Conjunctivae Clear, Ear/Nose Intact, Hearing Normal, Oropharynx Clear/Moist, Dentition Intact, Facial Symmetry, Neck Supple, Trachea Midline, No JVD and No Thyromegaly
Respiratory: Clear and Wheezes
Cardiac: S1/S2, Regular Rate/Rhythm and No Edema
Breast: Deferred by me
Abdomen: Soft, Nontender, Normal Bowel Sounds and Other (distended)
Rectal: Hem Positive and Deferred by Provider
Genito-urinary: No Costovertebral Tender
Musculoskeletal: No Clubbing, No Cyanosis and No Edema
Skin: No Rash, Warm, Dry, No Clubbing and No Cyanosis
Neuro: Nonfocal/Grossly Intact
Hematologic/Lymphatic: No Cervical Lymphadenopathy
Psych: Mood/afflect pleasant
Data Reviewed
-
Radiology: Image Personally Visualized and interpreted (some congestion noted)
Labs: Labs Reviewed by me, Discussed with Physician and Discussed with Patient
Old Records: Reviewed
Assessment/Plan
-
Assessment:
ESRD-from 12/2022 MWF HD at [facility]
LUE AVF created 01/26
Hypokalemia
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
h/o Ascites and paracentesis
History DCHF
Type 2 diabetes
Primary hypertension
Likely history of coronary artery disease
History of heart valve problem
Severe pulmonary hypertension
Mild to moderate aortic stenosis
Moderate TR
Chronic thrombocytopenia
HLD
Plan:
HD planned for Tuesday
patient feels much improved
calcium low (replete as able)
Continue calcium acetate
replace K if needed
[2023-11-05 12:30] LABS: Glucose - Point of Care 216 mg/dl (70-99)
--- NOTE | 2023-11-05 16:24 | CM ---
Reviewed chart, patient lives aloneeeeee
--- NOTE | 2023-11-05 16:26 | CM ---
Reviewed chart, met with patient to obtain information for assessment. Patient stated that she lives alone at [facility]. No steps to enter apartment. She described herself as independent with her ADLs, personal care, dressing and bathing.
She uses a walker for long distances. She can do some laundry and she receives her meals in the dining room. It sounded like she gets some assistance with cleaning.
Patient stated that she is current with [facility] (Will double check)
She believes that she has been to a SNF but was not positive. (Patient appeared a little forgetful).
Patient has a prescription plan and uses [facility] for her medications.
Her PCP is, Dr. Chris Rasheed.
Patient stated that she would like to return home with resumption of services through [facility]. Will need to watch for other needs.
Plan: Case management will continue to follow and assist with discharge planning. Tentative home with services.
--- NOTE | 2023-11-05 16:30 | PTCARENOTE ---
Please coordinate discharge with brother, Kenneth Salas [phone] he will provide transportation at time of discharge.
[2023-11-05 17:03] LABS: Glucose - Point of Care 264 mg/dl (70-99)
[2023-11-05] MEDS: CRESTOR 10 MG PO (21:04)
[2023-11-05 21:20] LABS: Glucose - Point of Care 206 mg/dl (70-99)
[2023-11-05] MEDS: LANTUS 0.100000000000000006 UNITS SC (22:11)
[2023-11-06 03:00] VITALS: BP 117/56
[2023-11-06 06:00] VITALS: BMI 22.1
[2023-11-06 06:30] LABS: Hematocrit 22.1 % (37.0-47.0); Hemoglobin 7.6 g/dL (12.0-16.0); Mean Corp Hgb Conc. 34.4 g/dL (33.0-37.0); Mean Corpuscular Hgb 33.2 pg (27.0-31.0); Mean Corpuscular Volume 96.5 fL (81.0-99.0); Mean Platelet Volume 11.6 fL (7.4-10.4); Platelet Count 132 10^3/uL (130-400); Red Blood Cell Count 2.29 10^6/uL (4.20-5.40); Red Cell Dist. Width 14.7 % (11.5-14.5); White Blood Cell Count 13.2 10^3/uL (4.8-10.8)
[2023-11-06 06:48] LABS: Blood Urea Nitrogen 65 mg/dl (7-17); Calcium 7.9 mg/dl (8.4-10.2); Carbon Dioxide 26 mmol/L (22-30); Chloride 91 mmol/L (98-107); Estimated Creatinine Clearance 8 ml/min; Glucose 164 mg/dl (70-99); Iron 76 ug/dl (37-170); Potassium 4.3 mmol/L (3.5-5.1); Sodium 132 mmol/L (135-145); eGFR 8.62
[2023-11-06 07:00] VITALS: BP 104/30
[2023-11-06 08:21] LABS: Glucose - Point of Care 143 mg/dl (70-99)
[2023-11-06] MEDS: NSS (PRESERVATIVE FREE) 10 ML IV (08:25)
[2023-11-06] MEDS: HEPARIN 5000 UNITS SC (08:26)
[2023-11-06] MEDS: PROTONIX IV 40 MG IV (08:26)
[2023-11-06] MEDS: PHOSLO 667 MG PO ×3 (08:26→17:02)
[2023-11-06] MEDS: NOVOLOG FLEXPEN 5 UNITS SC ×3 (08:32→17:05)
--- NOTE | 2023-11-06 10:51 | W.PN.NEPH.PH ---
Today's Communication / Plan
-
- HD tomorrow
Assessment/Plan
-
Assessment:
ESRD-from 12/2022 MWF HD at [facility]
LUE AVF created 01/26
Hypokalemia
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
h/o Ascites and paracentesis
History DCHF
Type 2 diabetes
Primary hypertension
Likely history of coronary artery disease
History of heart valve problem
Severe pulmonary hypertension
Mild to moderate aortic stenosis
Moderate TR
Chronic thrombocytopenia
HLD
Plan:
HD planned for Tuesday
patient feels much improved
calcium low (replete as able)
Continue calcium acetate
replace K if needed
-
-
Date of Service: November 06, 2023
CC / HPI / ROS
-
Chief Complaint:
ESRD on HD
History of Present Illness:
presented with n/v in HD, now resolved
MWF HD
Review of Systems:
comfortable
no complaints
Labs
-
Labs:
WBC 13.2 10^3/uL (4.8-10.8) H 11/06/23 05:48
RBC 2.29 10^6/uL (4.20-5.40) L 11/06/23 05:48
Hgb 7.6 g/dL (12.0-16.0) L 11/06/23 05:48
Hct 22.1 % (37.0-47.0) L 11/06/23 05:48
Plt Count 132 10^3/uL (130-400) D 11/06/23 05:48
Sodium 132 mmol/L (135-145) L 11/06/23 05:48
Potassium 4.3 mmol/L (3.5-5.1) 11/06/23 05:48
Chloride 91 mmol/L (98-107) L 11/06/23 05:48
Carbon Dioxide 26 mmol/L (22-30) 11/06/23 05:48
BUN 65 mg/dl (7-17) H 11/06/23 05:48
Creatinine 4.8 mg/dL (0.6-1.0) H* 11/06/23 05:48
eGFR 8.62 11/06/23 05:48
Glucose 164 mg/dl (70-99) H 11/06/23 05:48
Calcium 7.9 mg/dl (8.4-10.2) L 11/06/23 05:48
Albumin 3.3 g/dl (3.5-5.0) L 11/04/23 15:29
Physical Exam
-
Vital Signs:
Vital Signs
Temp Pulse Resp BP Pulse Ox
98.0 F 70 15 104/30 97
11/06/23 07:00 11/06/23 07:00 11/06/23 07:00 11/06/23 07:00 11/06/23 07:00
Cardiovascular:: Regular rate and rhythm
Respiratory:: Bilateral: Coarse
Lung Excursion:: Normal
Abdomen:: Nontender and Soft
Bowel Sounds:: Normal
Extremity Edema:: None: Bilateral:
Gross Catheter: No
[2023-11-06 11:32] LABS: Glucose - Point of Care 214 mg/dl (70-99)
--- NOTE | 2023-11-06 13:02 | W.PN.HOSP.TC ---
Addendum entered and electronically signed by Lolis King MD 11/06/23 16:13:
Addendum
d/w GI, ok to resume Eliquis.
End
Addendum entered and electronically signed by Lolis King MD 11/06/23 14:53:
Addendum
Severe protein caloric malnutrition due to chronic illness
End
Original Note:
Today's Communication/Plan
-
.
Assessment / Plan
Assessment / Plan
Physical Exam
General: No Apparent Distress, Comfortable and Appears Chronically Ill
HEENT: Moist mucous membranes and Atraumatic
Respiratory: Decreased Breath Sounds; No Wheezes
Cardiac: S1/S2 and Regular Rhythm
GI: Soft, Non Tender and Distended
Rectal: No Maroon Stools
Genito-urinary: No costovertebral tender
Musculoskeletal: No Cyanosis and No Edema
Neuro: Awake, Alert and Oriented; No Slurred Speech, Facial Droop or Tremors
Psych: Calm and Intact Judgment/Insight; No Agitated
83 years old female who had an episode of hypotension and vomiting during dialysis
#Vomiting, resolved. She is tolerating diet. No Nausea this morning
No abdominal pain. She reported chronic constipation but no recent diarrhea. No fever or chills. No leukocytosis. She had BM in hospital
Probably suffered vasovagal episode during dialysis and threw up. C/W as needed Zofran / IV PPI for now. Patient has history of chronic ascites/cardiogenic cirrhosis. Negative C. difficile ( no diarrhea in hospital or at home).
# Hypotension. Likely hypovolemic. Patient has history of hypertension in the past. She is on blood pressure medication. Normal reaction to ACTH test.
Resume low dose BB with holding parameters.
Blood culture is no growth . Patient denied abdominal pain or chest pain.
Eventual PT/OT
# ESRD on HD
Next HD on Tuesday
Appreciate nephrology help
# Anemia of chronic disease with chronic blood loss anemia form GI loss
With hx of liver cirrhosis, will avoid blood transfusion unless HGB less than 7
c/w PPI
Normal iron level.
#Cirrhosis , cardiogenic
with hx of recurrent ascites.
She had paracentesis on November 02 but reported did not show that amount to drain, Can call IR on Tuesday.
#History CHF -preserved EF
Echo November 2022: EF 70-75%.
# Hypokalemia, s/p IV KCl.
# Hyponatremia, s/p IVF.
# Hyperlipidemia
# Type 2 diabetes
Continue with insulin monitor blood pressure. Avoid hypoglycemia
# Hx of Primary hypertension, now hypotension.
Lower dose of BB to avoid tachycardia, hold Lasix and Imdur
#Severe pulmonary hypertension
No hypoxia while resting
Check ambulatory oxygen level upon dc.
#Mild to moderate aortic stenosis
Moderate TR
# History of thrombocytopenia
Total time spent to see the patient, examine the patient on the floor, review data and lab results, discuss treatment plan with patient, nursing staff around 55 minutes
Anticipated Discharge: 24 - 48 hours
Subjective/Interval History
-
Date of Service: November 06, 2023
Objective Data
-
Labs:
Laboratory Results
11/06/23
05:48
WBC 13.2 H
Hgb 7.6 L
Hct 22.1 L
Plt Count 132 D
Sodium 132 L
Potassium 4.3
Chloride 91 L
Carbon Dioxide 26
BUN 65 H
Creatinine 4.8 H*
Glucose 164 H
Calcium 7.9 L
Vital Signs:
Vital Signs
Temp Pulse Resp BP Pulse Ox
98.0 F 70 15 104/30 97
11/06/23 07:00 11/06/23 07:00 11/06/23 07:00 11/06/23 07:00 11/06/23 07:00
I&O
11/05/23 11/06/23 11/07/23
06:59 06:59 06:59
Intake Total 1769
Balance 1769
[2023-11-06 15:00] VITALS: BP 105/40
--- NOTE | 2023-11-06 16:09 | W.PN.GI.CBS2 ---
Today's Communication / Plan
-
possible para mon cardiac cirrhosis, resume eliquis, gi signing off
Assessment / Plan
-
83 year old female with a history of cardiogenic cirrhosis, CHF, DM, HTN, PAD, ESRD (on HD --), atrial fibrillation (on Eliquis), severe pulmonary hypertension, , chronic anemia who presented from hemodialysis yesterday with vomiting and
hypotension. Vomiting has resolved and patient denies any abdominal pain, nausea, fevers or chills. No diarrhea or constipation currently, but does get some alternating bowel habits. No black or bloody stools. Patient is known to our GI practice and
sees Dr. Lam, last seen in the office on 10/11/23. At that time, endoscopy for surveillance of esophageal varices was considered but per Dr. Lam, decision was made to hold off on this due to patient's age and significant comorbidities. She
sees Cardiology, Dr. Stoner, at [place]. She underwent outpatient paracentesis on 11/03/23 for ascites and reports feeling better afterwards. Labs reviewed: hemoglobin 7.9 with normal MCV (baseline Hgb 8-10), WBC 9.9, platelets 111, Na 132, K 2.8,
Cl 90, CO2 29, BUN 28, creatinine 2.5, bili 1.3, AST 54, ALT 33, alk phos 371. Ammonia <9. Her last dose of Eliquis was 11/03 in the AM.
IMPRESSION / PLAN:
Anemia, acute on chronic with heme-positive stools (on anticoagulation)
- Hgb in 7s, not far from her baseline 8-10
- OK to resume Eliquis
Cirrhosis, cardiogenic
- pt underwent paracentesis 11/02 - may need repeat on Tuesday
- has outpatient cardiology appt
Vomiting - resolved
GI will sign off pls call with ?s
Subjective
Subjective
Date of Service: November 06, 2023
brown BM recorded in flowsheet
pt with no complaints
Objective
Data Reviewed
Laboratory Data:
Laboratory Results
11/06/23 05:48
11/06/23 05:48
Laboratory Results
PT 18.2 Sec (11.4-14.6) H 11/05/23 10:34
INR 1.53 11/05/23 10:34
Magnesium 1.9 mg/dl (1.6-2.3) 11/04/23 15:29
Total Bilirubin 1.3 mg/dl (0.2-1.3) 11/04/23 15:29
AST 54 U/L (14-36) H 11/04/23 15:29
ALT 33 U/L (0-35) 11/04/23 15:29
Alkaline Phosphatase 371 U/L (38-126) H 11/04/23 15:29
Vital Signs and I&O:
Vital Signs
Temp Pulse Resp BP Pulse Ox
97.8 F 66 16 105/40 100
11/06/23 15:00 11/06/23 15:00 11/06/23 15:00 11/06/23 15:00 11/06/23 15:00
I&O
11/05/23 11/06/23 11/07/23
06:59 06:59 06:59
Intake Total 910 / 910 1770 / 1770
Balance 910 / 910 1770 / 1770
Physical Exam
Physical Exam
GI: Distended and Non Tender
[2023-11-06 16:31] LABS: Glucose - Point of Care 202 mg/dl (70-99)
[2023-11-06] MEDS: CRESTOR 10 MG PO (20:33)
[2023-11-06] MEDS: COREG 1.5625 MG PO (20:33)
[2023-11-06] MEDS: ELIQUIS 2.5 MG PO (20:36)
[2023-11-06 21:50] LABS: Glucose - Point of Care 213 mg/dl (70-99)
[2023-11-06] MEDS: LANTUS 0.100000000000000006 UNITS SC (22:09)
[2023-11-06 23:00] VITALS: BP 127/56
[2023-11-06 23:31] VITALS: BP 127/56
[2023-11-07 06:17] VITALS: BMI 22.5
[2023-11-07 07:06] VITALS: BP 121/50
[2023-11-07] MEDS: PROTONIX IV 40 MG IV (07:17)
[2023-11-07] MEDS: NSS (PRESERVATIVE FREE) 10 ML IV (07:17)
[2023-11-07] MEDS: PHOSLO 667 MG PO ×3 (07:17→17:25)
[2023-11-07] MEDS: ELIQUIS 2.5 MG PO ×2 (07:17→20:32)
[2023-11-07] MEDS: COREG 1.5625 MG PO (07:20)
[2023-11-07 08:27] LABS: Glucose - Point of Care 162 mg/dl (70-99)
[2023-11-07] MEDS: NOVOLOG FLEXPEN 5 UNITS SC ×3 (08:41→17:25)
--- NOTE | 2023-11-07 08:56 | W.PN.HOSP.TC ---
Today's Communication/Plan
-
Plan for abdominal paracentesis.
Assessment / Plan
Assessment / Plan
Physical Exam
General: No Apparent Distress, Comfortable and Appears Chronically Ill
HEENT: Moist mucous membranes and Atraumatic
Respiratory: Decreased Breath Sounds; No Wheezes
Cardiac: S1/S2 and Regular Rhythm
GI: Soft, Non Tender and Distended
Rectal: No Maroon Stools
Genito-urinary: No costovertebral tender
Musculoskeletal: No Cyanosis and No Edema
Neuro: Awake, Alert and Oriented; No Slurred Speech, Facial Droop or Tremors
Psych: Calm and Intact Judgment/Insight; No Agitated
A/P:
83 years old female who had an episode of hypotension and vomiting during dialysis
#Cirrhosis , cardiogenic
with hx of recurrent ascites.
She had paracentesis on November 02 but reported did not show that amount to drain. Called IR today and planning for paracentesis tomorrow.
#Vomiting, resolved. She is tolerating diet. No Nausea this morning
No abdominal pain. She reported chronic constipation but no recent diarrhea. No fever or chills. No leukocytosis. She had BM in hospital
Probably suffered vasovagal episode during dialysis and threw up. C/W as needed Zofran / IV PPI for now. Patient has history of chronic ascites/cardiogenic cirrhosis. Negative C. difficile ( no diarrhea in hospital or at home).
# Hypotension. Likely hypovolemic. Patient has history of hypertension in the past. She is on blood pressure medication. Normal reaction to ACTH test.
Resume low dose BB with holding parameters.
Blood culture is no growth . Patient denied abdominal pain or chest pain.
Eventual PT/OT
# ESRD on HD
Next HD on Tuesday
Appreciate nephrology help
# Anemia of chronic disease with chronic blood loss anemia form GI loss
With hx of liver cirrhosis, will avoid blood transfusion unless HGB less than 7
c/w PPI
Normal iron level.
#History CHF -preserved EF
Echo November 2022: EF 70-75%.
# Hypokalemia, s/p IV KCl.
# Hyponatremia, s/p IVF.
# Hyperlipidemia
# Type 2 diabetes
Continue with insulin monitor blood pressure. Avoid hypoglycemia
# Hx of Primary hypertension, now hypotension.
Lower dose of BB to avoid tachycardia, hold Lasix and Imdur
#Severe pulmonary hypertension
No hypoxia while resting
Check ambulatory oxygen level upon dc.
#Mild to moderate aortic stenosis
Moderate TR
# History of thrombocytopenia
Total time spent to see the patient, examine the patient on the floor, review data and lab results, discuss treatment plan with patient, nursing staff around 55 minutes
Anticipated Discharge: 24 - 48 hours
Subjective/Interval History
-
Date of Service: November 07, 2023
Patient complains of cough, complains of abdominal distention. Afebrile
Objective Data
-
Vital Signs:
Vital Signs
Temp Pulse Resp BP Pulse Ox
98.6 F 69 16 127/56 99
11/06/23 23:00 11/06/23 23:00 11/06/23 23:00 11/06/23 23:00 11/06/23 23:00
I&O
11/06/23 11/07/23 11/08/23
06:59 06:59 06:59
Intake Total 1770 / 1770 1140 / 1140
Balance 1770 / 1770 1140 / 1140
[2023-11-07] MEDS: ROBITUSSIN 100 MG PO (12:09)
[2023-11-07] MEDS: ProAmatine 5 MG PO (12:32)
--- NOTE | 2023-11-07 12:58 | W.PN.NEPH.HD ---
Assessment
-
pt seen during HD
vitals stable but BPs soft
will give midodrine to aid in UF
for paracentesis today after HD
she seem to have cardiogenic cirrhosis per GI
d/c plan
Progress Note - Hemodialysis
-
Date of Service: November 07, 2023
Duration: 30 minutes and 3 hours
Potassium Bath: 3
Calcium Bath: 2.5
Opti-Dialyzer: 160
Ultrafiltration: Other (2kg)
Blood Flow: 400
Dialysate Flow: 600
Heparin: no
EPO: 6000
[2023-11-07 13:11] LABS: Glucose - Point of Care 158 mg/dl (70-99)
[2023-11-07] MEDS: RETACRIT 6000 UNITS IV (13:41)
--- NOTE | 2023-11-07 13:59 | CM ---
Reviewed chart, patient doing well in PT/OT per notes. Will return back to [facility].
Plan: Case management will continue to follow and assist with discharge planning. Home when stable.
[2023-11-07] MEDS: FLEXBUMIN 25% FOR HEMODIALYSIS 12.5 GRAMS IV ×2 (14:27→15:19)
[2023-11-07 15:10] VITALS: BP 115/54
[2023-11-07 17:34] LABS: Glucose - Point of Care 142 mg/dl (70-99)
[2023-11-07 20:09] LABS: Hepatitis B Surface Antigen Negative (Negative)
[2023-11-07] MEDS: COREG PO (20:32)
[2023-11-07] MEDS: CRESTOR 10 MG PO (20:32)
[2023-11-07 21:25] LABS: Glucose - Point of Care 233 mg/dl (70-99)
[2023-11-07] MEDS: LANTUS 0.100000000000000006 UNITS SC (21:44)
[2023-11-07 23:04] VITALS: BP 113/51
[2023-11-08 06:00] VITALS: BMI 22.0
[2023-11-08 07:03] LABS: Glucose - Point of Care 135 mg/dl (70-99)
[2023-11-08 07:34] VITALS: BP 104/65
[2023-11-08] MEDS: PHOSLO 667 MG PO ×2 (08:01→11:52)
[2023-11-08] MEDS: ELIQUIS 2.5 MG PO (08:01)
[2023-11-08] MEDS: NOVOLOG FLEXPEN 5 UNITS SC ×2 (08:01→11:52)
[2023-11-08] MEDS: COREG 1.5625 MG PO (08:01)
[2023-11-08 08:02] LABS: Hematocrit 23.2 % (37.0-47.0); Hemoglobin 7.7 g/dL (12.0-16.0); Mean Corp Hgb Conc. 33.2 g/dL (33.0-37.0); Mean Corpuscular Hgb 33.6 pg (27.0-31.0); Mean Corpuscular Volume 101.3 fL (81.0-99.0); Mean Platelet Volume 11.4 fL (7.4-10.4); Platelet Count 126 10^3/uL (130-400); Red Blood Cell Count 2.29 10^6/uL (4.20-5.40); White Blood Cell Count 10.5 10^3/uL (4.8-10.8)
[2023-11-08] MEDS: PROTONIX 40 MG PO (08:02)
--- NOTE | 2023-11-08 08:15 | W.PN.HOSP.TC ---
Today's Communication/Plan
-
Discharge planning today
Assessment / Plan
Assessment / Plan
Physical Exam
General: No Apparent Distress, Comfortable and Appears Chronically Ill
HEENT: Moist mucous membranes and Atraumatic
Respiratory: Decreased Breath Sounds; No Wheezes
Cardiac: S1/S2 and Regular Rhythm
GI: Soft, Non Tender and Distended
Rectal: No Maroon Stools
Genito-urinary: No costovertebral tender
Musculoskeletal: No Cyanosis and No Edema
Neuro: Awake, Alert and Oriented; No Slurred Speech, Facial Droop or Tremors
Psych: Calm and Intact Judgment/Insight; No Agitated
A/P:
83 years old female who had an episode of hypotension and vomiting during dialysis
#Cirrhosis , cardiogenic
with hx of recurrent ascites.
She had paracentesis on November 02 but reported did not show that amount to drain. Paracentesis today. Seen post paracentesis and doing well. Plan to discharge today.
#Vomiting, resolved. She is tolerating diet. No Nausea this morning
No abdominal pain. She reported chronic constipation but no recent diarrhea. No fever or chills. No leukocytosis. She had BM in hospital
Probably suffered vasovagal episode during dialysis and threw up. C/W as needed Zofran / IV PPI for now. Patient has history of chronic ascites/cardiogenic cirrhosis. Negative C. difficile ( no diarrhea in hospital or at home).
# Hypotension. Likely hypovolemic. Patient has history of hypertension in the past. She is on blood pressure medication. Normal reaction to ACTH test.
Resume low dose BB with holding parameters.
Blood culture is no growth . Patient denied abdominal pain or chest pain.
Eventual PT/OT
# ESRD on HD
Next HD on Tuesday
Appreciate nephrology help
# Anemia of chronic disease with chronic blood loss anemia form GI loss
With hx of liver cirrhosis, will avoid blood transfusion unless HGB less than 7
c/w PPI
Normal iron level.
#History CHF -preserved EF
Echo November 2022: EF 70-75%.
# Hypokalemia, s/p IV KCl.
# Hyponatremia, s/p IVF.
# Hyperlipidemia
# Type 2 diabetes
Continue with insulin monitor blood pressure. Avoid hypoglycemia
# Hx of Primary hypertension, now hypotension.
Lower dose of BB to avoid tachycardia, hold Lasix and Imdur
#Severe pulmonary hypertension
No hypoxia while resting
Check ambulatory oxygen level upon dc.
#Mild to moderate aortic stenosis
Moderate TR
# History of thrombocytopenia
Anticipated Discharge: Today
Subjective/Interval History
-
Date of Service: November 08, 2023
No new complaints. Feels well and conversant today.
Objective Data
-
Labs:
Laboratory Results
11/08/23
07:15
WBC 10.5
Hgb 7.7 L
Hct 23.2 L
Plt Count 126 L
Sodium Pending
Potassium Pending
Chloride Pending
Carbon Dioxide Pending
BUN Pending
Creatinine Pending
Glucose Pending
Calcium Pending
Total Bilirubin Pending
AST Pending
ALT Pending
Alkaline Phosphatase Pending
Vital Signs:
Vital Signs
Temp Pulse Resp BP Pulse Ox
98.3 F 80 17 104/65 97
11/08/23 07:34 11/08/23 07:34 11/08/23 07:34 11/08/23 08:01 11/08/23 07:34
I&O
11/07/23 11/08/23 11/09/23
06:59 06:59 06:59
Intake Total 1140 / 1140 1080 / 1080
Balance 1140 / 1140 1080 / 1080
[2023-11-08 08:33] LABS: ALT (SGPT) 28 U/L (0-35); AST (SGOT) 37 U/L (14-36); Albumin 3.2 g/dl (3.5-5.0); Alkaline Phosphatase 200 U/L (38-126); Blood Urea Nitrogen 56 mg/dl (7-17); Calcium 8.7 mg/dl (8.4-10.2); Carbon Dioxide 24 mmol/L (22-30); Chloride 93 mmol/L (98-107); Estimated Creatinine Clearance 7 ml/min; Glucose 115 mg/dl (70-99); Sodium 132 mmol/L (135-145); Total Bilirubin 1.3 mg/dl (0.2-1.3); Total Protein 6.4 g/dl (6.3-8.2); eGFR 8.01
[2023-11-08 10:00] VITALS: BP 105/75; BP_SYST 71
[2023-11-08 11:14] VITALS: BP 91/43
[2023-11-08 11:44] LABS: Glucose - Point of Care 206 mg/dl (70-99)
[2023-11-08 11:46] LABS: Body Fluid Mononuclear 88.8 %; Body Fluid Polymorphonuclear 11.2 %; Body Fluid WBC 600 /CUMM
[2023-11-08 11:58] LABS: Body Fluid Second Tech CMB
--- NOTE | 2023-11-08 12:06 | W.DCSUMMARY ---
Discharge Summary
Discharge Data
Date of Admission: 11/04/23
Date of Discharge: 11/08/23
-
Pending Results: No
Hospital Course
Patient 83 years old female with history of cardiogenic cirrhosis, CHF, diabetes mellitus, hypertension, PVD, end-stage renal disease on hemodialysis, atrial fibrillation, pulmonary hypertension, , who came into the hospital with episode of
hypotension and nausea and vomiting during dialysis prior to admission. GI was consulted. Blood cultures and stool cultures negative. Patient responded to fluid bolus and GI also noticed she had a paracentesis day before that was negative for
SBP. She did have some heme positive stool but GI also noticed there was no active gross bleeding. There has been discussion about endoscopy evaluation but patient has declined for evaluation of varices. Patient was restarted on anticoagulation
while in the hospital and hemoglobin remained stable. Patient also had repeat therapeutic paracentesis on 11/07. Patient has felt symptomatically much improved. She has tolerated hemodialysis throughout this hospital stay as well. Blood pressure
has remained stable. Hemoglobin upon discharge 7.7 and she has remained with a hemoglobin over 7 throughout this hospital stay. Will have her follow-up with renal, GI, and PCP as outpatient. No other events were noticed. Patient is being
discharge in stable condition back to the [facility] today.
Discharge duration: 36 minutes
Discharge Plan
-
Patient Disposition: Assisted Living
Discharge Diagnosis/Procedures: Cardiogenic cirrhosis. End-stage renal disease on hemodialysis. Hypertension. Ascites. Anemia. Chronic diastolic congestive heart failure.
Diet: Low Cholesterol, 2 Gram Sodium and Diabetic, Carb Controlled
Activity: As tolerated
Blood Work: Please PCP to order CBC, CMP, magnesium within 1 week
Specialty Instructions: Weigh Daily- Call MD for wt gain/loss 3 lbs overnight/5 lbs in 1 week
Referrals:
Damian Johnson MD [Active] - in two to four weeks
Angel Murrieta MD [Active] - in one to two weeks
Chris Rasheed DO [Family Provider] - in less than 1 week
Prescriptions:
New
pantoprazole 40 mg Tablet,Delayed Release (Dr/Ec)
40 mg PO DAILY 30 Days Qty: 30 0RF
Continued
isosorbide mononitrate 30 mg tablet extended release 24 hr
15 mg PO DAILY
montelukast 10 mg tablet
10 mg PO DAILY
insulin aspart U-100 [Novolog FlexPen U-100 Insulin] 100 unit/mL (3 mL) insulin pen
5 unit SC AC
rosuvastatin 10 mg Tablet
10 mg PO HS
I-[place] 300 mcg-200 mg-27 mg-2 mg Tablet
1 tab PO BID
furosemide 40 mg Tablet
40 mg PO DAILY
polyethylene glycol 3350 17 gram Powder In Packet
17 g PO DAILYPRN PRN (Reason: CONSTIPATION)
magnesium oxide 400 mg (241.3 mg magnesium) Tablet
400 mg PO DAILY
insulin glargine [Lantus Solostar U-100 Insulin] 100 unit/mL (3 mL) Insulin Pen
10 unit SC HS
ergocalciferol (vitamin D2) 1,250 mcg (50,000 unit) Capsule
1,250 mcg PO WEEKLY
loperamide 2 mg Capsule
2 mg PO Q4HPRN PRN (Reason: loose stools)
calcium acetate(phosphat bind) 667 mg Capsule
667 mg PO MEALS
carvedilol 3.125 mg Tablet
3.125 mg PO BID
midodrine 5 mg Tablet
5 mg PO DAILYPRN PRN (Reason: FOR LOW BP LESS THAN 100)
dextromethorphan-guaifenesin [Chest Congestion Relief DM] 10-100 mg/5 mL Syrup
5 ml PO Q6HPRN PRN (Reason: COUGH)
metoprolol succinate [Toprol XL] 25 mg Tablet Extended Release 24 Hr
25 mg PO QPM
sodium chloride 0.65 % Aerosol,[place]
2 spray INTRANASAL QIDPRN PRN (Reason: DRYNESS)
Eliquis 2.5 mg Tablet
2.5 mg PO BID
Discharge Orders:
Discharge Patient (As Directed); Ordered 11/08/23
Ordered By: Tonio Granger
Discharge Date and Time
Discharge Date/Time: 11/08/23 14:49
Print Language: GREEK
--- NOTE | 2023-11-08 13:28 | CM ---
Received notification that patient is medically stable for discharge. Placed a call to [facility] and spoke with RN named, Chaparrita who confirmed that patient can come back today # For report [phone] fax# [phone].
Met with patient to update. Patient is agreeable to discharge today. Reviewed IMM. Patient stated that one of her brothers will pick her up. Placed a call to both of her brothers however had to leave voice mail messages.
Placed a call to [facility] and spoke with transportation who also confirmed that they can send a passenger coach driver out.
Family told RN that she would be picked up by brothers. Updated transportation at [facility].
Plan: Case management will continue to follow and assist with discharge planning. Return to [facility].
[2023-11-08 14:38] VITALS: BP 100/47
== END 2023-11-08 14:49 | disposition home or self-care (01) | DRG 312 ==
LOC: 3 WEST ACU 18:05
PROVIDERS: Internal Medicine; Nurse Practitioner Gerontology; Physician Assistant; Radiology Vascular & Interventional Radiology; ADMITTING PHYSICIAN Internal Medicine; ATTENDING PHYSICIAN Hospitalist; CONSULT PHYSICIAN Internal Medicine Gastroenterology; EMERGENCY PHYSICIAN Emergency Medicine; FAMILY PHYSICIAN Family Medicine; OTHER PHYSICIAN Student in an Organized Health Care Education/Training Program
PROC: 5A1D70Z Performance of Urinary Filtration, Intermittent, Less than 6 Hours Per Day (ICD-10-PCS; 2023-11-07)
PROC: 0W9G3ZZ Drainage of Peritoneal Cavity, Percutaneous Approach (ICD-10-PCS; 2023-11-08)
DX: I95.3 Hypotension of hemodialysis (principal); N18.6 End stage renal disease; E43 Unspecified severe protein-calorie malnutrition; E87.1 Hypo-osmolality and hyponatremia; I13.2 Hypertensive heart and chronic kidney disease with heart failure and with stage 5 chronic kidney disease, or end stage renal disease; I50.32 Chronic diastolic (congestive) heart failure; R18.8 Other ascites; K92.1 Melena; Z68.1 Body mass index [BMI] 19.9 or less, adult; D62 Acute posthemorrhagic anemia; D69.6 Thrombocytopenia, unspecified; I27.20 Pulmonary hypertension, unspecified; D63.8 Anemia in other chronic diseases classified elsewhere; I08.2 Rheumatic disorders of both aortic and tricuspid valves; E11.22 Type 2 diabetes mellitus with diabetic chronic kidney disease; E11.51 Type 2 diabetes mellitus with diabetic peripheral angiopathy without gangrene; K76.1 Chronic passive congestion of liver; Z99.2 Dependence on renal dialysis; E87.6 Hypokalemia; I48.91 Unspecified atrial fibrillation; K59.09 Other constipation; I25.10 Atherosclerotic heart disease of native coronary artery without angina pectoris; E78.5 Hyperlipidemia, unspecified; R06.02 Shortness of breath; R09.89 Other specified symptoms and signs involving the circulatory and respiratory systems; R05.9 Cough, unspecified; Z98.890 Other specified postprocedural states; Z79.01 Long term (current) use of anticoagulants; Z79.4 Long term (current) use of insulin; Z79.899 Other long term (current) drug therapy; Z86.711 Personal history of pulmonary embolism
CPT/HCPCS: 49083; 71046; 80048; 80053; 82140; 82533; 82962; 83540; 83735; 84443; 85014; 85018; 85025; 85027; 85610; 86850; 86900; 86901; 87040; 87045; 87046; 87070; 87077; 87324; 87340; 87427; 87449; 89051; 93005; 96361; 96365; 96366; 96375; 97162; 97166; 99285; P9047; Q5106

== ENCOUNTER 2023-12-30 15:24 | Emergency (ER) | payer OTHER, SELFPAY ==
[2023-12-30 15:27] VITALS: BP 98/46
[2023-12-30 15:28] VITALS: BP 98/46
[2023-12-30 15:31] VITALS: BMI 25.0
--- NOTE | 2023-12-30 15:48 | ED.GENMED ---
History of Present Illness
<Tino Kaye DO - Last Filed: 12/30/23 15:50>
General
Chief Complaint: Abdominal Symptoms
Time Seen by Provider: 12/30/23 15:27
<Yvonne Worley DO, Resident - Last Filed: 12/30/23 17:26>
History of Present Illness
History of Present Illness:
Patient is an 83-year-old female presenting to ED from [facility] after dialysis with history of cardiogenic cirrhosis. She has been experiencing abdominal pain, distention and weight gain. Nursing staff states that [facility] refused to reaccept her
until she was 'drained.' She reports no headaches, shortness of breath, chest pain, nausea, vomiting, diarrhea, or pain elsewhere.
Past History
<Yvonne Worley DO, Resident - Last Filed: 12/30/23 17:26>
Past History
ED Past Medical History: CHF, HTN, NIDDM, Valvular disease (Moderate aortic stenosis. Moderate TR) and Other (ESRD)
ED Past Surgical History: Other (Paracentesis)
Social History
Tobacco: Non-smoker
Alcohol: None
Phy Exam
<Yvonne Worley DO, Resident - Last Filed: 12/30/23 17:26>
General Physical Exam
General Presentation: well appearing and mild distress
General age: appears stated age
General Skin: warm and dry
General Habitus: elderly
General Mental: alert
Cardiovascular Exam
Cardiovascular Exam: regular rate/rhythm, no edema, no gallop, no JVD, no murmur and normal peripheral pulses
Pulmonary Exam
Pulmonary Exam: lungs clear, no respiratory distress, chest non tender, no stridor and other (cough with phlegm )
Gastrointestinal Exam
Gastrointestinal Exam: normal bowel sounds, distended, tender (mild, RUQ) and other
Skin Exam
Skin Exam: normal color and warm/dry
Psychiatric Exam
Psychiatric Exam: normal mood/affect
Course
<Tino Kaye DO - Last Filed: 12/30/23 15:50>
Orders/Labs/Results
Orders:
Orders
12/30/23 15:33
ECG [Electrocardiogram (*1)] Urgent
Reason for Study: Bradycardia / Tachycardia
12/30/23 15:34
EKG- Treatment ONCE
12/30/23 15:59
[facility] CONSULT Urgent
Consulting Provider: Catarino Will
Was physician already notified: Yes
Reason for Consult/Procedure: Ascities
Acknowledgement that appropriate orders are entered: Yes
12/30/23 16:34
Body Fluid Cell Count Routine
What is the Body Fluid: peritoneal
Date Specimen was Collected: 12/30/23
Time Specimen was Collected: 16:35
Vital Signs
Initial and Last Documented VS:
Initial Vital Signs
Temp Pulse Resp BP
98.0 F 40 17 98/46
12/30/23 15:27 12/30/23 15:27 12/30/23 15:27 12/30/23 15:27
Last Documented Vital Signs
Temp Pulse Resp BP Pulse Ox
98.3 F 41 17 105/42 100
12/30/23 16:11 12/30/23 17:03 12/30/23 17:03 12/30/23 17:03 12/30/23 16:11
<Yvonne Worley DO, Resident - Last Filed: 12/30/23 17:26>
Orders/Labs/Results
Orders:
Orders
12/30/23 15:33
ECG [Electrocardiogram (*1)] Urgent
Reason for Study: Bradycardia / Tachycardia
12/30/23 15:34
EKG- Treatment ONCE
12/30/23 15:59
[facility] CONSULT Urgent
Consulting Provider: Catarino Will
Was physician already notified: Yes
Reason for Consult/Procedure: Ascities
Acknowledgement that appropriate orders are entered: Yes
12/30/23 16:34
Body Fluid Cell Count Routine
What is the Body Fluid: peritoneal
Date Specimen was Collected: 12/30/23
Time Specimen was Collected: 16:35
Vital Signs
Initial and Last Documented VS:
Initial Vital Signs
Temp Pulse Resp BP
98.0 F 40 17 98/46
12/30/23 15:27 12/30/23 15:27 12/30/23 15:27 12/30/23 15:27
Last Documented Vital Signs
Temp Pulse Resp BP Pulse Ox
98.3 F 41 17 105/42 100
12/30/23 16:11 12/30/23 17:03 12/30/23 17:03 12/30/23 17:03 12/30/23 16:11
<Yvonne Worley DO, Resident - Last Filed: 12/30/23 17:26>
MDM/Problems Addressed
Differential Diagnosis Includes:
Cirrhosis
MDM/Problems Addressed:
Patient is an 83-year-old female presenting to the ED with history of cardiogenic cirrhosis, currently distended. INR on 11/04 was 1.53. Consulted with interventional radiology and they stated no need for repeat coags. Interventional radiology
performed paracentesis and patient and removed 5350 mL of clear higinio-colored fluid from the left side. Fluid sent for cell count.
Chronic conditions affecting care:
cardiogenic cirrhosis
Acute Exacerbation and/or Progression of Chronic Illness:
cardiogenic cirrhosis
<Yvonne Worley DO, Resident - Last Filed: 12/30/23 17:26>
*Radiology
Radiology exam reviewed: radiology read reviewed (ultrasound-guided paracentesis, yielding 5350 milliliters of ascitic fluid. Fluid was sent for laboratory analysis. )
*Pulse Oximetry
Patient hypoxic: no
*EKG
Interpreted by ED Provider?: Yes
EKG Intrepretation Date: 12/30/23
Interpretation: abnormal
Comparison EKG: changes noted
Heart Rate: 41
Rate: bradycardiac
Rhythm: other
[place]: left axis deviation
Interval: other
QRS Pattern: wide non-specific
*Merchandise Presentation Associate Interpretation
Rate: bradycardiac
Interpretation: abnormal
Heart Rate: 41
Rhythm: other
*Critical Care Note
Total Time (30-74mins, 75-104mins- exclusive of procedures): Not Applicable
ED Attending Note
<Tino Kaye DO - Last Filed: 12/30/23 15:50>
ED Attending Note
Patient seen and examined by attending physician: Yes
I performed a history and physical exam of patient and discussed management with resident, I reviewed resident's note and agree with documented findings and plan of care.: Yes
ED Attending Note:
I have seen and evaluated the patient with a [id number] encounter. I have spoken to the resident and involved in the medical history, the physical exam, medical decision making.
Evaluation and management service: agree unless noted differently below.
Results interpretation: agree unless noted differently below.
Focused HPI: 83-year-old female presenting for evaluation of abdominal ascites. Patient had dialysis today and went back to her nursing facility. Due to her large abdomen, she was sent to the emergency department for evaluation. Patient has had
paracentesis in the past
Physical exam: Sitting in bed comfortably. Distended abdomen that is nontender
Medical Decision Making: Will discuss case with interventional radiology for paracentesis. Patient is afebrile and has a nontender abdomen
<Yvonne Worley DO, Resident - Last Filed: 12/30/23 17:26>
-
Portions of this chart may have been created with voice recognition software.� Occasional wrong word or��sound alike� substitutions may have occurred due to the inherent limitations of voice recognition software.
Discharge Plan
Departure
Prescriptions:
No Action
isosorbide mononitrate 30 mg tablet extended release 24 hr
15 mg PO DAILY
montelukast 10 mg tablet
10 mg PO DAILY
insulin aspart U-100 [Novolog FlexPen U-100 Insulin] 100 unit/mL (3 mL) insulin pen
5 unit SC AC
rosuvastatin 10 mg Tablet
10 mg PO HS
I-Chioma 300 mcg-200 mg-27 mg-2 mg Tablet
1 tab PO BID
furosemide 40 mg Tablet
40 mg PO DAILY
polyethylene glycol 3350 17 gram Powder In Packet
17 g PO DAILYPRN PRN (Reason: CONSTIPATION)
magnesium oxide 400 mg (241.3 mg magnesium) Tablet
400 mg PO DAILY
insulin glargine [Lantus Solostar U-100 Insulin] 100 unit/mL (3 mL) Insulin Pen
10 unit SC HS
ergocalciferol (vitamin D2) 1,250 mcg (50,000 unit) Capsule
1,250 mcg PO WEEKLY
loperamide 2 mg Capsule
2 mg PO Q4HPRN PRN (Reason: loose stools)
calcium acetate(phosphat bind) 667 mg Capsule
667 mg PO MEALS
carvedilol 3.125 mg Tablet
3.125 mg PO BID
midodrine 5 mg Tablet
5 mg PO DAILYPRN PRN (Reason: FOR LOW BP LESS THAN 100)
dextromethorphan-guaifenesin [Chest Congestion Relief DM] 10-100 mg/5 mL Syrup
5 ml PO Q6HPRN PRN (Reason: COUGH)
metoprolol succinate [Toprol XL] 25 mg Tablet Extended Release 24 Hr
25 mg PO QPM
sodium chloride 0.65 % Aerosol,[place]
2 spray INTRANASAL QIDPRN PRN (Reason: DRYNESS)
Eliquis 2.5 mg Tablet
2.5 mg PO BID
pantoprazole 40 mg Tablet,Delayed Release (Dr/Ec)
40 mg PO DAILY 30 Days Qty: 30 0RF
Referrals:
Chidi Li MD [Family Provider] -
Interventions
Interventions:
EA-Qoniic-Uyfgxnnkkk Assessment Last Done: 12/30/23 16:22
Discharge Date and Time
Print Language: ETHIOPIAN
Consult Summary - [facility]
<Yvonne Worley DO, Resident - Last Filed: 12/30/23 17:26>
-
Interventional radiology was consulted regarding potential paracentesis for patient. Interventional radiology stated no need for repeat blood work. Interventional radiology performed paracentesis and patient and removed 5350 mL of clear
higinio-colored fluid from the left side.
[2023-12-30 16:00] VITALS: BP 101/38
[2023-12-30 16:11] VITALS: BP 105/44; BP_SYST 42
[2023-12-30 17:03] VITALS: BP 105/42
[2023-12-30 17:18] LABS: Body Fluid Mononuclear 87.7 %; Body Fluid Polymorphonuclear 12.3 %; Body Fluid WBC 171 /CUMM
[2023-12-30 17:25] LABS: Body Fluid Second Tech DW
[2023-12-30 18:51] VITALS: BP 110/49
== END 2023-12-30 19:05 | disposition home or self-care (01) ==
LOC: EMR 15:24
PROVIDERS: CONSULT PHYSICIAN Radiology Vascular & Interventional Radiology; EMERGENCY PHYSICIAN Student in an Organized Health Care Education/Training Program; FAMILY PHYSICIAN Specialist
DX: K76.1 Chronic passive congestion of liver (principal)
CPT/HCPCS: 99284; 49083; 89051; 93005

== ENCOUNTER 2024-01-01 15:43 | Inpatient (IN) | payer OTHER, SELFPAY ==
[2024-01-01] VITALS (45 sets, daily range): BP systolic 92–139; BP diastolic 27–57; PULSE 39–40; BMI 22.6
[2024-01-01 13:34] LABS: % Basophils 0.7 % (0-2); % Eosinophils 3.4 % (0-6); % Immature Granulocytes 0.6 % (0-0.5); % Lymphocytes 12.7 % (20.5-51.1); % Monocytes 10.7 % (1.7-9.3); % Neutrophils 71.9 % (42.2-75.2); Absolute Basophils 0.1 10^3/uL (0-0.2); Absolute Eosinophils 0.3 10^3/uL (0-0.7); Absolute Immature Granulocytes 0.1 10^3/uL (0-0.05); Absolute Lymphocytes 1.2 10^3/uL (1.2-3.4); Absolute Neutrophils 6.7 10^3/uL (1.4-6.5); Mean Corp Hgb Conc. 32.3 g/dL (33.0-37.0); Mean Platelet Volume 12.3 fL (7.4-10.4); Nucleated Red Blood Cells % 0 %; Platelet Count 119 10^3/uL (130-400); Red Blood Cell Count 3.23 10^6/uL (4.20-5.40); Red Cell Dist. Width 16.8 % (11.5-14.5); White Blood Cell Count 9.4 10^3/uL (4.8-10.8)
[2024-01-01] MEDS: CALCIUM GLUCONATE 1000 MG IV (13:37)
[2024-01-01] MEDS: NSS 250 IV (13:43)
--- NOTE | 2024-01-01 13:46 | CON.CAR ---
Consultation
Consultation Request
Date/Time Consultation Requested: 01/01/2024
Date/Time Consultation Performed: 01/01/2024
Requesting Provider: Dr. Muniz
Performing Provider: Dr. Butt
Reason for Consultation: Bradycardia/heart block
Medical History
-
History of Present Illness:
83-year-old woman resident of [facility] with complex medical history noted below who presented with hypotension and bradycardia. Patient noted to have complete heart block and heart rate of 37 initially given 250 mL of saline and atropine. Heart
remains 37-40 blood pressures 95. Patient without complaints of chest pain or shortness of breath no lightheadedness or dizziness. Currently appears comfortable and answering questions. She has a history of PAF and is maintained on Eliquis as
well as metoprolol 25 mg a day. No other rate slowing medications.
Labs notable for potassium 4.7 creatinine 6.9, bicarbonate 32, hemoglobin 10.0
Past medical history
Heart failure with preserved ejection fraction
Mild aortic stenosis based on echocardiogram 07/2023
Cirrhosis
Ascites with paracentesis last week
Diabetes hypertension
Peripheral vascular disease
ESRD on hemodialysis
Atrial fibrillation
Chronic anticoagulation with Eliquis
pulmonary hypertension
Right bundle branch block with left anterior fascicular block
Anemia
Heme positive stool 11/04/2023
Social history lives at [facility]. She has 2 brothers that would be POA if she could not answer for herself. I spoke with her brother Eliezer and updated him on information. Both patient and Eliezer would be agreeable to temporary pacing if required
both understanding procedure and risks. Brother Ramy is listed as first contact but apparently is recovering from pelvic fracture
Past Medical History
Past Medical History: Other (As above)
Family History
Family History: Other (Negative for CAD)
Allergies / Home Medications
Allergy/AdvReac Type Severity Reaction Status Date / Time
No Known Allergies Allergy Verified 01/01/24 13:21
�Medication �Instructions �Recorded �Confirmed �Type
insulin aspart U-100 100 unit/mL 5 unit SC AC Diabetes 11/26/22 11/04/23 History
(3 mL) subcutaneous pen (Novolog
FlexPen U-100 Insulin aspart)
isosorbide mononitrate 30 mg 15 mg PO DAILY Heart 11/26/22 11/04/23 History
tablet,extended release 24 hr Disease/Condition
montelukast 10 mg tablet 10 mg PO DAILY Allergies 11/26/22 11/04/23 History
rosuvastatin 10 mg tablet 10 mg PO HS High Cholesterol 11/26/22 11/04/23 History
vit A 300 mcg-C 200 mg-E 27 1 tab PO BID Supplement 11/26/22 11/04/23 History
mg-lutein 2 mg and minerals tablet
(I-Chioma)
furosemide 40 mg tablet 40 mg PO DAILY Fluid 01/25/23 11/04/23 History
Retention/Swelling
insulin glargine 100 unit/mL (3 10 unit SC HS Diabetes 01/25/23 11/04/23 History
mL) subcutaneous pen (Lantus
Solostar U-100 Insulin)
magnesium oxide 400 mg (241.3 mg 400 mg PO DAILY Electrolyte 01/25/23 11/04/23 History
magnesium) tablet Repletion
polyethylene glycol 3350 17 gram 17 g PO DAILYPRN PRN CONSTIPATION 01/25/23 11/04/23 History
oral powder packet
ergocalciferol (vitamin D2) 1,250 1,250 mcg PO WEEKLY Supplement 01/27/23 11/04/23 History
mcg (50,000 unit) capsule
calcium acetate(phosphat bind) 667 667 mg PO MEALS Kidney Disease 07/14/23 11/04/23 History
mg capsule
loperamide 2 mg capsule 2 mg PO Q4HPRN PRN loose stools 07/14/23 11/04/23 History
apixaban 2.5 mg tablet (Eliquis) 2.5 mg PO BID Blood Clot 11/04/23 11/04/23 History
Prevention/Tx
carvedilol 3.125 mg tablet 3.125 mg PO BID Blood Pressure 11/04/23 11/04/23 History
dextromethorphan-guaifenesin 10 5 ml PO Q6HPRN PRN COUGH 11/04/23 11/04/23 History
mg-100 mg/5 mL oral syrup (Chest
Congestion Relief DM)
metoprolol succinate 25 mg 25 mg PO QPM Blood Pressure 11/04/23 11/04/23 History
tablet,extended release 24 hr
(Toprol XL)
midodrine 5 mg tablet 5 mg PO DAILYPRN PRN FOR LOW BP 11/04/23 11/04/23 History
LESS THAN 100
sodium chloride 0.65 % nasal spray 2 spray intranasal QIDPRN PRN 11/04/23 11/04/23 History
aerosol DRYNESS
pantoprazole 40 mg tablet,delayed 40 mg PO DAILY 30 days #30 tabs 11/08/23 Rx
release
Review of Systems
-
All other systems: Negative unless noted
Physical Exam
Lab Results
01/01/24 13:25
Physical Exam
General: Other (Awake no distress laying flat oriented to month and year knows she is at [facility] for slow heart rate and lower blood pressure)
HEENT: Normocephalic and Anicteric
Respiratory: Clear, Wheezes and Crackles
Cardiac: Regular Rhythm (Bradycardic. Systolic murmur)
GI: Soft, Non Tender, Normal Bowel Sounds and Other (Distended but soft no mass detected)
Skin: Warm, Dry and Rash (No rash)
Neuro: Awake and Alert
Hematologic/Lymphatic: No Lymphadenopathy
Psych: Calm and Other (Cooperative)
Impression / Plan
-
Complete heart block.. Patient with heart rate 37-40 currently with systolic blood pressure 95 mentating appropriately and not in distress. Patient did have some lower blood pressures on presentation which responded to 250 mL of saline. In
discussion with patient she would want a pacemaker. I did review issues with her brother. In addition discussion with interventional cardiology. Based on all discussions we will proceed as follows
-Admit to ICU.
-Low-dose dopamine
-If patient with issues with longer pauses or further issues with hypotension then would proceed with temporary pacing
-Otherwise plan for permanent pacemaker tomorrow
-Hold Eliquis
-Stop metoprolol
.
PAF. Monitor for recurrence.
-Anticoagulation on hold
.
ESRD. Treatment as directed by nephrology
.
Cirrhosis. Patient labeled as having cirrhosis details unclear. Patient's had ascites and previous paracentesis with last one being last week.
.
Aortic stenosis mild to moderate
Data Reviewed
-
EKG: Report Reviewed by me
Radiology: Report Reviewed by me
Medical Tests (Nuc Med, Echo etc): Report Reviewed by me
Labs: Discussed with Physician
[2024-01-01 13:50] LABS: ALT (SGPT) 20 U/L (0-35); AST (SGOT) 33 U/L (14-36); Albumin 3.4 g/dl (3.5-5.0); Alkaline Phosphatase 131 U/L (38-126); Blood Urea Nitrogen 64 mg/dl (7-17); Calcium 9.2 mg/dl (8.4-10.2); Carbon Dioxide 32 mmol/L (22-30); Chloride 91 mmol/L (98-107); Glucose 221 mg/dl (70-99); Magnesium 2.5 mg/dl (1.6-2.3); Potassium 4.7 mmol/L (3.5-5.1); Sodium 134 mmol/L (135-145); Total Bilirubin 1.2 mg/dl (0.2-1.3); Total Protein 6.6 g/dl (6.3-8.2); eGFR 5.57
[2024-01-01 14:17] LABS: Troponin I 0.218 ng/ml
--- NOTE | 2024-01-01 14:32 | EDRN ---
This RN witnessed telephone consent obtained from patient's brother and Tahir TOBIAS by Dr. Butt, technical business systems analyst for temporary pacing wire.
--- NOTE | 2024-01-01 14:34 | ED.GENMED ---
History of Present Illness
General
Chief Complaint: Blood Pressure Problem
Source: patient and ambulance crew
Exam Limitations: none
Time Seen by Provider: 01/01/24 13:24
History of Present Illness
History of Present Illness:
83-year-old female sent for hypotension/bradycardia/general weakness. No other specific complaints. Patient's only complaint is some vague abdominal symptoms but this has been ongoing. Frequent paracentesis.
Past History
Past History
ED Past Medical History: CHF, HTN, NIDDM, Valvular disease (Moderate aortic stenosis. Moderate TR) and Other (ESRD)
ED Past Surgical History: Other (Paracentesis)
Social History
Tobacco: Non-smoker
Alcohol: None
Review of Systems
Review of Systems
All Other Systems: Not applicable
Constitutional: Denies fever
Respiratory: Reports no symptoms
Cardiac: Denies chest pain or syncope
Phy Exam
Physical Exam
Physical Exam:
GENERAL: Alert and oriented. Chronically ill-appearing. Hypotensive.
EYE: Orbits normal.
NECK: Supple, no significant adenopathy.
ENT: Pharynx without erythema
CARDIAC: Bradycardic relatively regular
LUNGS: Clear breath sounds,normal
ABDOMEN: Mildly distended but soft. No rebound or guarding no mass or hernia. Reducible periumbilical hernia
NEUROLOGICAL: Alert and oriented , grossly non-focal
SKIN: Warm and dry, no rash or lesion, no discoloration, skin intact.
MUSCULOSKELETAL: Mild bilateral lower extremity pitting edema
PSYCH: Normal and appropriate interaction.
Course
Orders/Labs/Results
Orders:
Orders
01/01/24 13:23
Electrocardiogram (*1) Urgent
Reason for Study: Bradycardia / Tachycardia
01/01/24 13:24
EKG- Treatment ONCE
01/01/24 13:25
Complete Blood Count/With Diff Urgent
Comprehensive Metabolic Panel Urgent
Magnesium Urgent
Troponin I Urgent
01/01/24 13:35
Calcium Gluconate 1,000 mg IV NOW STA
01/01/24 13:42
0.9% Sodium Chloride 250 ml [Nss] 250 ml IV BOLUS
01/01/24 14:38
DOPamine 400 MG/D5W 250 ML [DOPamine 400 MG] 400 mg in 250 ml IV NOW
Initial dose in mcg/kg/min, then titrate:: 5
Titrate to keep:: MAP > 65 mmHg
Titrate by mcg/kg/min:: 1-2 mcg/kg/min
Frequency of titrations (minutes):: 15
Maximum dose in ICU in mcg/kg/min:: 20
Maximum dose in IMU in mcg/kg/min:: 10
Begin to taper infusion when:: Remained at goal for 4hrs
Taper by mcg/kg/min:: 1-2 mcg/kg/min
Frequency of taper (minutes) if patient maintains goal:: 30
Taper to off?: Yes
If infusion off & no longer maintaining goal:: Contact Provider
01/01/24 14:44
Admit Patient As Directed
Co-Sign Provider:
Level of Care: Inpatient admission
Assign to:: ICU
Physician / Group: garrett
Diagnosis: 3rd deg AVB
Reason for Hospitalization: 3rd deg AVB
Expected length of stay greater than two midnights?: Yes
ELOS- Estimated Length of Stay in days: 3
I certify the patient meets the requirements for IP care: Yes
PRN Pain Medication Management As Directed
May give lesser potent ordered pain med per pt: Yes
preference::
Protocol:: Medication orders for pain may be administered in a
manner that supports deferring to patient preference
when the pt is:
- Requesting an ordered lesser potent pain medication.
Least to most potent pain medications are defined
as: acetaminophen < NSAID < tramadol < opioids
(morphine, oxycodone, hydromorphone).
- Requesting a lesser dose of the same medication IF
ORDERED.
- Requesting a less intrusive route of administration
if both routes are prescribed by the provider (PO <
IV).
01/01/24 14:45
DOPamine 400 MG/D5W 250 ML [DOPamine 400 MG] 400 mg in 250 ml IV PER PROTOCOL
Initial dose in mcg/kg/min, then titrate:: 5
Titrate to keep:: Heart Rate
Keep Heart Rate (bpm) greater than:: 55
Titrate by mcg/kg/min:: 1-2 mcg/kg/min
Frequency of titrations (minutes):: 15
Maximum dose in ICU in mcg/kg/min:: 20
Maximum dose in IMU in mcg/kg/min:: 10
Begin to taper infusion when:: Remained at goal for 4hrs
Taper by mcg/kg/min:: 1-2 mcg/kg/min
Frequency of taper (minutes) if patient maintains goal:: 30
Taper to off?: Yes
If infusion off & no longer maintaining goal:: Contact Provider
01/01/24 15:10
Admit/Transfer Patient As Directed
Co-Sign Provider:
Level of Care: Inpatient admission
Assign to:: ICU
Physician / Group: Garrett
Diagnosis: 3rd deg HB
Reason for Hospitalization: 3rd deg HB
Expected length of stay greater than two midnights?: Yes
ELOS- Estimated Length of Stay in days: 4
I certify the patient meets the requirements for IP care: Yes
PRN Pain Medication Management As Directed
May give lesser potent ordered pain med per pt: Yes
preference::
Protocol:: Medication orders for pain may be administered in a
manner that supports deferring to patient preference
when the pt is:
- Requesting an ordered lesser potent pain medication.
Least to most potent pain medications are defined
as: acetaminophen < NSAID < tramadol < opioids
(morphine, oxycodone, hydromorphone).
- Requesting a lesser dose of the same medication IF
ORDERED.
- Requesting a less intrusive route of administration
if both routes are prescribed by the provider (PO <
IV).
01/01/24 15:12
Code Status As Directed
Resuscitation Status: Full Code
01/01/24 15:14
Echo 2D MMode Color/Doppler [Echo 2D MMode Color/Doppler] Routine
Reason for Study: 3rd deg HB
01/01/24 15:15
Top Closer Consult Routine
Consulting Provider: Dedrick Lantigua
Was physician already notified: Yes
Reason for consult: ICU pt
01/01/24 15:27
Ondansetron Injectable [Zofran] 4 mg IV NOW STA
01/01/24 16:44
0.9% Sodium Chloride 1000 ml [Nss] 1,000 ml IV 50 mls/hr
Dextrose 50%-Water [Dextrose 50% Syringe] 12.5 grams IV [id number] PRN
Glucagon [GlucaGen] 1 mg IM PRN PRN
01/01/24 16:44
NEPHROLOGY CONSULT Routine
Consulting Provider: Ciarra Collazo
Was physician already notified: Yes
Reason for consult: ESRD on HD
PALLIATIVE CARE CONSULT Routine
Consulting Provider: Kitty Erwin
Was physician already notified: Yes
Reason for Consult: goals of care
Activity As Directed
Activity Level: With Assistance
Bedside Glucose Monitoring As Directed
Frequency: AC&HS
Additional Instructions:: Change to q6h if pt on TPN, tube feeding or not eating
INT (Intravenous Needle Therapy) As Directed
Comment: Place 2 IV catheters of the largest bore possible until stable
Orthostatic Vital Signs As Directed
Orthostatic VS Frequency: Now
Comment: then every four hours for twenty-four hours
Vital Signs As Directed
Frequency: Per unit guidelines
01/01/24 17:30
calcium acetate(phosphat bind) 1,334 mg PO MEALS
01/01/24 18:00
Insulin Aspart Corrective Mod [Novolog Flexpen-Moderate Resistance] See Protocol SC Q6
01/01/24 20:00
Apixaban [Eliquis] 2.5 mg PO BID
01/01/24 22:00
Rosuvastatin Calcium [Crestor] 10 mg PO HS
insulin glargine [Lantus Solostar U-100 Insulin] 8 unit SC HS
01/02/24 Breakfast
NPO
Allow oral meds: Yes
Allow clear liquids: No
Basic Metabolic Panel IN AM
Complete Blood Count/No Diff IN AM
Glycohemoglobin (HgbA1c) IN AM
01/02/24 08:00
Montelukast Sodium [Singulair] 10 mg PO DAILY
01/03/24 06:00
Basic Metabolic Panel IN AM
Complete Blood Count/No Diff IN AM
01/04/24 06:00
Basic Metabolic Panel IN AM
Complete Blood Count/No Diff IN AM
01/05/24 06:00
Basic Metabolic Panel IN AM
Complete Blood Count/No Diff IN AM
01/06/24 06:00
Basic Metabolic Panel IN AM
Complete Blood Count/No Diff IN AM
01/07/24 06:00
Basic Metabolic Panel IN AM
Complete Blood Count/No Diff IN AM
01/08/24 06:00
Basic Metabolic Panel IN AM
Complete Blood Count/No Diff IN AM
Abnormal Lab Results
01/01/24
13:25
RBC 3.23 L 10^6/uL
(4.20-5.40)
Hgb 10.0 L g/dL
(12.0-16.0)
Hct 31.0 L %
(37.0-47.0)
MCHC 32.3 L g/dL
(33.0-37.0)
RDW 16.8 H %
(11.5-14.5)
Plt Count 119 L 10^3/uL
(130-400)
MPV 12.3 H fL
(7.4-10.4)
Abs Immat Gran (auto) 0.1 H 10^3/uL
(0-0.05)
Absolute Neuts (auto) 6.7 H 10^3/uL
(1.4-6.5)
Absolute Monos (auto) 1.0 H 10^3/uL
(0.1-0.6)
Immature Gran % 0.6 H %
(0-0.5)
Lymphocytes % 12.7 L %
(20.5-51.1)
Monocytes % 10.7 H %
(1.7-9.3)
Sodium 134 L mmol/L
(135-145)
Chloride 91 L mmol/L
(98-107)
Carbon Dioxide 32 H mmol/L
(22-30)
BUN 64 H mg/dl
(7-17)
Creatinine 6.9 H* mg/dL
(0.6-1.0)
Glucose 221 H mg/dl
(70-99)
Magnesium 2.5 H mg/dl
(1.6-2.3)
Alkaline Phosphatase 131 H U/L
(38-126)
Troponin I 0.218 H* ng/ml
Albumin 3.4 L g/dl
(3.5-5.0)
01/01/24 13:25
01/01/24 13:25
Vital Signs
Initial and Last Documented VS:
Initial Vital Signs
Pulse Resp Pulse Ox
37 17 96
01/01/24 13:41 01/01/24 13:41 01/01/24 13:41
Last Documented Vital Signs
Temp Pulse Resp BP Pulse Ox
97.7 F 57 14 120/40 54
01/01/24 13:47 01/01/24 16:52 01/01/24 16:52 01/01/24 16:30 01/01/24 14:15
*Radiology
Radiology exam reviewed: radiology read reviewed (Pancolitis. Moderate ascites. Cirrhosis. Cholelithiasis.)
*Pulse Oximetry
Patient hypoxic: no
*EKG
Interpretation: abnormal
Comparison EKG: changes noted
Heart Rate: 39
Rate: bradycardiac
Rhythm: other (Third-degree heart block)
[place]: normal axis
Interval: third degree heart block
Ischemia: non-specific ST changes
*[facility] Human Resources Manager Interpretation
Rate: bradycardiac
Interpretation: abnormal
Heart Rate: 38
*Critical Care Note
Total Time (30-74mins, 75-104mins- exclusive of procedures): 45
Update Note
Update Note:
1610... Patient has had some episodes of nausea vomiting here. Reexamined. Abdomen is distended and mildly positive fluid wave but soft. Periumbilical hernia still easily reducible. Doubt obstructive issue but we will get a CT scan. Hospitalist
aware of the situation. Remains bradycardic but with stable blood pressure.
ED Attending Note
-
Portions of this chart may have been created with voice recognition software.� Occasional wrong word or��sound alike� substitutions may have occurred due to the inherent limitations of voice recognition software.
Discharge Plan
Departure
Patient Disposition: Admit
Date of Disposition: 01/01/24
Time of Disposition: 14:29
Presentation/result/management discussed w/ accepting MD/DO: Cardiology
Discharge Problem:
Third-degree heart block, ESRD (end stage renal disease) on dialysis, Hypotension, Cirrhosis, Ascites, Pancolitis
Interventions
Interventions:
*Risk Screen - Suicide Last Done: 01/01/24 13:21
*General Assessment Last Done: 01/01/24 13:21
*Neglect/Abuse Screening Last Done: 01/01/24 13:21
ED- Fall Risk Assessment Last Done: 01/01/24 13:31
*Nursing Disposition Last Done: 01/01/24 16:59
ED- Cardiac Assessment Last Done: 01/01/24 13:31
ED- Neurological Assessment Last Done: 01/01/24 13:31
ED- Pulmonary Assessment Last Done: 01/01/24 13:31
Discharge Date and Time
Discharge Date/Time: 01/01/24 17:00
[2024-01-01] MEDS: DOPamine 400 MG 250 IV (14:44)
--- NOTE | 2024-01-01 14:51 | HPS.HSE ---
Family Physician
-
Family Physician: Linwood Chavez
Chief Complaint
-
Hypotension, bradycardia, generalized weakness
History of Present Illness
83 y/o F with PMHx:
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
ESRD
Essential HTN in the past, then hypotension
DM2
Valvular disease: Mod /TR
HLD
Anemia of chronic disease
Severe pulmonary HTN
Thrombocytopenia
Atrial fibrillation, unknown type
Peripheral arterial disease
Who presents from [facility] with reports of hypotension, bradycardia, and lethargy. The patient is a very poor historian. At this time the only thing she complains about is abdominal distention due to her ascites. She currently denies chest pain or
shortness of breath. She denies syncope. The patient could not give an extensive subjective history. The case was discussed with Dr. Muniz. In the ER the patient was found to be in third-degree heart block and hypotensive.
Medical History
Past Medical History
Past Medical History: Reports Other (as per HPI)
Past Surgical History: Reports Other (N/A)
Social History
Tobacco: Non-smoker
Alcohol: None
Drug: None
Family History
Family History: Not pertinent
Allergies / Home Medications
Allergies reflects when Allergies were last updated in [facility].
Home Medications with original date entered in [facility]
Allergy/Medication List:
Allergies
Allergy/AdvReac Type Severity Reaction Status Date / Time
No Known Allergies Allergy Verified 01/01/24 13:21
Home Medications
insulin aspart U-100 100 unit/mL (3 mL) subcutaneous pen (Novolog FlexPen U-100 Insulin aspart) 5 unit SC AC Diabetes 11/26/22
isosorbide mononitrate 30 mg tablet,extended release 24 hr 15 mg PO DAILY Heart Disease/Condition 11/26/22
montelukast 10 mg tablet 10 mg PO DAILY Allergies 11/26/22
rosuvastatin 10 mg tablet 10 mg PO HS High Cholesterol 11/26/22
furosemide 40 mg tablet 40 mg PO DAILY Fluid Retention/Swelling 01/25/23
insulin glargine 100 unit/mL (3 mL) subcutaneous pen (Lantus Solostar U-100 Insulin) 10 unit SC HS Diabetes 01/25/23
magnesium oxide 400 mg (241.3 mg magnesium) tablet 400 mg PO DAILY Electrolyte Repletion 01/25/23
polyethylene glycol 3350 17 gram oral powder packet 17 g PO DAILYPRN PRN CONSTIPATION 01/25/23
ergocalciferol (vitamin D2) 1,250 mcg (50,000 unit) capsule 1,250 mcg PO QWEEK Supplement 01/27/23
calcium acetate(phosphat bind) 667 mg capsule 1,334 mg PO MEALS Kidney Disease 07/14/23
loperamide 2 mg capsule 2 mg PO Q4HPRN PRN loose stools 07/14/23
apixaban 2.5 mg tablet (Eliquis) 2.5 mg PO BID Blood Clot Prevention/Tx 11/04/23
dextromethorphan-guaifenesin 10 mg-100 mg/5 mL oral syrup (Chest Congestion Relief DM) 5 ml PO Q6HPRN PRN COUGH 11/04/23
metoprolol succinate 25 mg tablet,extended release 24 hr (Toprol XL) 25 mg PO QPM Blood Pressure 11/04/23
midodrine 5 mg tablet 5 mg PO DAILYPRN PRN FOR LOW BP LESS THAN 100 11/04/23
sodium chloride 0.65 % nasal spray aerosol 2 spray intranasal QIDPRN PRN nasal conjestion 11/04/23
vit A 300 mcg-C 200 mg-E 27 mg-lutein 2 mg and minerals tablet (Ocuvite with Lutein) 1 tab PO BID 01/01/24
Review of Systems
-
History Source: Patient (but limited due to acuity and pt's baseline cognition)
A 12 point ROS was completed and negative except as noted: Yes
Physical Exam
Vital Signs
Vital Signs
Temp Pulse Resp BP Pulse Ox
97.7 F 37 15 103/42 100
01/01/24 13:47 01/01/24 14:00 01/01/24 14:00 01/01/24 14:00 01/01/24 14:00
Physical Exam
General: Other (.)
Laboratory Results
-
01/01/24 13:25
01/01/24 13:25
Laboratory Results
Total Bilirubin 1.2 mg/dl (0.2-1.3) 01/01/24 13:25
AST 33 U/L (14-36) 01/01/24 13:25
ALT 20 U/L (0-35) 01/01/24 13:25
Alkaline Phosphatase 131 U/L (38-126) H 01/01/24 13:25
Troponin I 0.218 ng/ml H* 01/01/24 13:25
Impression/Plan
-
Gen: NAD, AAOx2.
Eyes: EOMI, PERRLA, no scleral icterus.
Neck: supple.
CV: bradycardic, reg rhythm, +S1/S2, 2/6 systolic murmur
Resp: CTAB anteriorly, no rales, wheezes, or rhonchi.
Abd: +BS, soft, NT, severe distention with ascites
Skin: No rashes.
Neuro: CN 2-12 intact, non-focal.
Psych: Normal mood and affect.
Echo 07/21/23: EF 65-70%. No RWMA. Dilated RV with normal systolic function. Mild to moderate MS. Mild MR/. Mod TR. PASP 53mmHg
Third degree heart block:
-ECG with complete HB @ 39, RBBB, L-axis dev, (read by me)
-discussed with Dr. Butt
-No temporary pacemaker at this moment
-Start dopamine infusion at 5mcg/kg/hr, titrate to HR>55
-NPO in case pt needs procedure
-check echo
Other problems:
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
ESRD: c/s renal for HD M/W/F
Essential HTN in the past, then hypotension: Hold Imdur/BB.
DM2: Cont Lantus at 8U, hold premeal insulin, SSI/accuchecks, check a1c
Valvular disease: mild to moderate MS. Mild MR/. Mod TR.
HLD: cont statin
Anemia of chronic disease
Severe pulmonary HTN
Thrombocytopenia
Atrial fibrillation, unknown type: Hold BB, cont Eliquis
Peripheral arterial disease
FULL code as per discussion with pt in the ER.
Considering overwhelming burden of pathology palliative care consultation is reasonable.
Total critical care time spent = 39 min
[2024-01-01] MEDS: ZOFRAN 4 MG IV ×2 (15:28→15:59)
--- NOTE | 2024-01-01 16:17 | W.CON.NEPH ---
Consultation
-
Date/Time Consultation Requested: 01/01/24 1516
Date/Time Consultation Performed: 01/01/24 1600
Requesting Provider: Eric Aviles
Performing Provider: Ciarra Looney
Reason for Consultation: ESRD
Medical History
-
Chief Complaint: hypotension, bradycardia
History of Present Illness:
Ms. Salas is an 83 YOF with PMH of ESRD on HD MWF at [facility], HTN however lately hypotension on prn midodrine, DLD, HFpEF, cardiac cirrhosis, hx of PE, PAF on ELiquis who presents to the hospital for hypotension sbp in 70s, bradycardia HR
37, nausea and vomiting brown fluid. She c/o of lightheadedness too. note she got 5.3lit of paracentesis on 12/29. on 12/27 during HD rounds pt noted josué at 40 which quickly improved and was able to tolerate HD. She was told to decrease BB and
contact cards. Now she noted in [facility], potential plan of pacer tomorrow. She started on Dopamine gtt and received 250cc NS. Her k is at 4.7. Last HD was on 12/29. currently she offers no CP or sob. Seem mildly confused and unable to provide detailed
history.
No reported fever.
Past Medical History
End-stage renal disease on dialysis
hypertension
hyperlipidemia
diastolic heart failure
moderate TR/mild to moderate aortic stenosis
severe pulmonary hypertension
diabetes
history of ascites and cardiogenic cirrhosis
chronic thrombocytopenia
history of PE
Past Medical History: Other
Past Surgical History: None
Social History
lives at [place]
Tobacco: Non-Smoker
Alcohol: None
Drug: None
Personal: Single
Living: Detention
Employment: Not Employed
Family History
Family History: Not Pertinent
Allergies / Home Medications
Allergy/AdvReac Type Severity Reaction Status Date / Time
No Known Allergies Allergy Verified 01/01/24 13:21
�Medication �Instructions �Recorded �Confirmed �Type
insulin aspart U-100 100 unit/mL 5 unit SC AC Diabetes 11/26/22 01/01/24 History
(3 mL) subcutaneous pen (Novolog
FlexPen U-100 Insulin aspart)
isosorbide mononitrate 30 mg 15 mg PO DAILY Heart 11/26/22 01/01/24 History
tablet,extended release 24 hr Disease/Condition
montelukast 10 mg tablet 10 mg PO DAILY Allergies 11/26/22 01/01/24 History
rosuvastatin 10 mg tablet 10 mg PO HS High Cholesterol 11/26/22 01/01/24 History
furosemide 40 mg tablet 40 mg PO DAILY Fluid 01/25/23 01/01/24 History
Retention/Swelling
insulin glargine 100 unit/mL (3 10 unit SC HS Diabetes 01/25/23 01/01/24 History
mL) subcutaneous pen (Lantus
Solostar U-100 Insulin)
magnesium oxide 400 mg (241.3 mg 400 mg PO DAILY Electrolyte 01/25/23 01/01/24 History
magnesium) tablet Repletion
polyethylene glycol 3350 17 gram 17 g PO DAILYPRN PRN CONSTIPATION 01/25/23 01/01/24 History
oral powder packet
ergocalciferol (vitamin D2) 1,250 1,250 mcg PO QWEEK Supplement 01/27/23 01/01/24 History
mcg (50,000 unit) capsule
calcium acetate(phosphat bind) 667 1,334 mg PO MEALS Kidney Disease 07/14/23 01/01/24 History
mg capsule
loperamide 2 mg capsule 2 mg PO Q4HPRN PRN loose stools 07/14/23 01/01/24 History
apixaban 2.5 mg tablet (Eliquis) 2.5 mg PO BID Blood Clot 11/04/23 01/01/24 History
Prevention/Tx
dextromethorphan-guaifenesin 10 5 ml PO Q6HPRN PRN COUGH 11/04/23 01/01/24 History
mg-100 mg/5 mL oral syrup (Chest
Congestion Relief DM)
metoprolol succinate 25 mg 25 mg PO QPM Blood Pressure 11/04/23 01/01/24 History
tablet,extended release 24 hr
(Toprol XL)
midodrine 5 mg tablet 5 mg PO DAILYPRN PRN FOR LOW BP 11/04/23 01/01/24 History
LESS THAN 100
sodium chloride 0.65 % nasal spray 2 spray intranasal QIDPRN PRN 11/04/23 01/01/24 History
aerosol nasal conjestion
vit A 300 mcg-C 200 mg-E 27 1 tab PO BID 01/01/24 01/01/24 History
mg-lutein 2 mg and minerals tablet
(Ocuvite with Lutein)
Review of Systems
-
unable to obtain as pt seem confused
Physical Exam
Vital Signs
Vital Signs
Temp Pulse Resp BP Pulse Ox
97.7 F 40 19 120/41 54
01/01/24 13:47 01/01/24 15:45 01/01/24 15:45 01/01/24 15:45 01/01/24 14:15
Lab Results
WBC 9.4 10^3/uL (4.8-10.8) 01/01/24 13:25
RBC 3.23 10^6/uL (4.20-5.40) L 01/01/24 13:25
Hgb 10.0 g/dL (12.0-16.0) L 01/01/24 13:25
Hct 31.0 % (37.0-47.0) L 01/01/24 13:25
Plt Count 119 10^3/uL (130-400) L 01/01/24 13:25
Sodium 134 mmol/L (135-145) L 01/01/24 13:25
Potassium 4.7 mmol/L (3.5-5.1) 01/01/24 13:25
Chloride 91 mmol/L (98-107) L 01/01/24 13:25
Carbon Dioxide 32 mmol/L (22-30) H 01/01/24 13:25
BUN 64 mg/dl (7-17) H 01/01/24 13:25
Creatinine 6.9 mg/dL (0.6-1.0) H* 01/01/24 13:25
eGFR 5.57 01/01/24 13:25
Glucose 221 mg/dl (70-99) H 01/01/24 13:25
Calcium 9.2 mg/dl (8.4-10.2) 01/01/24 13:25
Albumin 3.4 g/dl (3.5-5.0) L 01/01/24 13:25
Physical Exam
General: Awake, Alert, Oriented, No Distress and Nontoxic
HEENT: EOMI and Anicteric
Respiratory: Clear, Normal Excursion and Nonlabored Respirations
Cardiac: S1/S2 and Murmur
Breast: Deferred by me
Abdomen: Soft, Nontender and Other (distended)
Musculoskeletal: No Cyanosis and No Edema
Skin: No Rash and Other (spider angiomas on chest)
Neuro: Nonfocal/Grossly Intact
Psych: Other (less responsive)
Data Reviewed
-
Labs: Labs Reviewed by me and Discussed with Nurse
Assessment/Plan
-
Assessment:
[facility]
Hypotension
ESRD-from 12/2022 MWF HD at [facility]
LUE AVF created 01/26
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
h/o Ascites and paracentesis last on 12/29 5.3lit
History DCHF
Type 2 diabetes
Primary hypertension
Likely history of coronary artery disease
History of heart valve problem
Severe pulmonary hypertension
Mild to moderate aortic stenosis
Moderate TR
Chronic thrombocytopenia
HLD
Plan:
A/w hypotension ,josué noted [facility] plan Pacer tomorrow
will arrange HD based on timing of procedure ideally prefer post pacer
cont dopamine gtt per cards
BP seem to improve now
lytes acceptable
renal diet and FR when diet starts
d/w nursing
[2024-01-01] MEDS: NSS 1000 IV (17:10)
[2024-01-01 17:21] LABS: Glucose - Point of Care 168 mg/dl (70-99)
[2024-01-01] MEDS: NOVOLOG FLEXPEN-MODERATE RESISTANCE 1 UNITS SC ×2 (17:33→23:50)
--- NOTE | 2024-01-01 17:39 | PTCARENOTE ---
Rec'd patient from ED. Patient alert. HR in the 30's. 3rd degree avb. Dopamine gtt infusing. Dr. Butt at bedside. RN advised to wean down Dopamine gtt. Goal is to wean down to a rate of 2 mcg/kg/min with SBP >90. Patient with n/v. Suspected side
effect of dopamine. Additional anti emetic orders obtained from MD.
[2024-01-01] MEDS: PHOSLO PO (18:54)
--- NOTE | 2024-01-01 20:00 | PTCARENOTE ---
Rec'd pt resting in bed, drowsy, easily awakens, [place], disoriented to time, cooperative, 3' Heart block, to keep sbp > 90, to attempt to wean dopa as octavio, presently at 5 jose, weak distal pulses, skin warm/dry, O2 2 liters nc, lungs decr, sat 98, hypo
bowel sounds, ascites, NPO, no n/v. oliguric, purewick in place, L arm fistula w/ bruit/ thrill
[2024-01-01 20:11] LABS: INR 1.82; PT 20.9 Sec (11.4-14.6)
[2024-01-01 20:12] LABS: APTT 34.6 Sec (23.4-35.0)
--- NOTE | 2024-01-01 21:12 | PTCARENOTE ---
NSS on hold 2' CXR reading per CERTIFIED FRAUD EXAMINER
[2024-01-01] MEDS: LANTUS 0.08 UNITS SC (22:09)
[2024-01-01] MEDS: CRESTOR PO (22:13)
[2024-01-01 22:19] LABS: Glucose - Point of Care 215 mg/dl (70-99)
--- NOTE | 2024-01-01 22:30 | PTCARENOTE ---
Dr Butt updated on pt status
[2024-01-01 23:13] LABS: Glucose - Point of Care 183 mg/dl (70-99)
[2024-01-02] VITALS (88 sets, daily range): BP systolic 86–121; BP diastolic 30–51; PULSE 20; BMI 22.7
--- NOTE | 2024-01-02 00:19 | PTCARENOTE ---
sys reviewed, no changes noted, CHG bath done, linens changed
--- NOTE | 2024-01-02 04:04 | PTCARENOTE ---
sys reviewed, changes noted
[2024-01-02 04:12] LABS: Hematocrit 29.1 % (37.0-47.0); Hemoglobin 9.7 g/dL (12.0-16.0); Mean Corp Hgb Conc. 33.3 g/dL (33.0-37.0); Mean Corpuscular Hgb 31.3 pg (27.0-31.0); Mean Corpuscular Volume 93.9 fL (81.0-99.0); Mean Platelet Volume 12.6 fL (7.4-10.4); Platelet Count 144 10^3/uL (130-400); Red Cell Dist. Width 16.5 % (11.5-14.5); White Blood Cell Count 11.6 10^3/uL (4.8-10.8)
[2024-01-02 04:32] LABS: Blood Urea Nitrogen 68 mg/dl (7-17); Calcium 8.7 mg/dl (8.4-10.2); Carbon Dioxide 27 mmol/L (22-30); Chloride 95 mmol/L (98-107); Estimated Creatinine Clearance 5 ml/min; Glucose 180 mg/dl (70-99); Potassium 5.3 mmol/L (3.5-5.1); Sodium 134 mmol/L (135-145); eGFR 5.39
[2024-01-02 04:57] LABS: Troponin I 0.197 ng/ml
--- NOTE | 2024-01-02 05:14 | PTCARENOTE ---
bladder scanned for 128ml
[2024-01-02 05:20] LABS: Glucose - Point of Care 182 mg/dl (70-99)
[2024-01-02] MEDS: NOVOLOG FLEXPEN-MODERATE RESISTANCE 1 UNITS SC ×2 (05:55→12:53)
[2024-01-02] MEDS: SINGULAIR PO (07:22)
[2024-01-02] MEDS: PHOSLO PO ×2 (07:22→12:55)
[2024-01-02] MEDS: DOPamine 400 MG 250 IV (07:32)
[2024-01-02] MEDS: COMPAZINE 5 MG IV (07:36)
--- NOTE | 2024-01-02 07:44 | W.PN.HOSP.TC ---
Addendum entered and electronically signed by Hardy Garcia MD 01/02/24 16:00:
Correction:
Patient was seen and examined. No new significant symptoms or complaints.
Physical Exam
Gen: Not in acute distress
HEENT: Normocephalic
Neck: Supple.
CV: Bradycardic, reg rhythm, +S1/S2, 2/6 systolic murmur
Resp: Crackles Bilaterally
Abd: +BS, soft, NT, severe distention with ascites
Skin: Warm. Dry.
Neuro: CN 2-12 intact, non-focal.
Psych: Appropriate mood and affect
Original Note:
Today's Communication/Plan
-
Pacemaker placed today
Continue to monitor cardiac rhythm
Resume Eliquis tomorrow AM as per cardiology
Assessment / Plan
Assessment / Plan
Physical Exam
Physical Exam was not performed as patient was not present in her room at the time of attempted patient encounter.

Echo 07/21/23: EF 65-70%. No RWMA. Dilated RV with normal systolic function. Mild to moderate MS. Mild MR/. Mod TR. PASP 53mmHg
Assessment/Plan
Complete Heart Block status post successful implantation of MRI compatible dual chamber [employer] pacemaker on January 02, 2024
Third degree heart block
-Pacemaker placed today
-ECG with complete HB @ 39, RBBB, L-axis dev, (read by me)
-Dr. Tucker discussed with field health officer Dr. Butt
-Hold Eliquis and resume on 01/03/24 morning, as per cardiology
-Dopamine if needed
Other problems:
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 Patient's had ascites and previous paracentesis with last one being last week. Consider GI consult - bleeding risk vs risk of stroke with
PAF.
ESRD: c/s renal for HD M//
Essential HTN in the past, then hypotension: Hold Imdur/BB.
DM2: Cont Lantus at 8U, hold premeal insulin, SSI/accuchecks, check a1c
Valvular disease: mild to moderate MS. Mild MR/. Mod TR.
HLD: cont statin
Anemia of chronic disease
Severe pulmonary HTN
Thrombocytopenia
Atrial fibrillation, unknown type: Hold BB; Hold Eliquis and resume on 01/03/24 morning, as per cardiology
Peripheral arterial disease
FULL code as per discussion with pt in the ER.
Considering overwhelming burden of pathology palliative care was consulted, evaluation and recommendations appreciated.
Anticipated Discharge: 24 - 48 hours
Subjective/Interval History
-
Date of Service: January 02, 2024
Patient was not present in her room at the time of attempted patient encounter. Chart reviewed.
Objective Data
-
Labs:
Laboratory Results
01/01/24 01/02/24
19:48 03:34
WBC 11.6 H
Hgb 9.7 L
Hct 29.1 L
Plt Count 144 D
PT 20.9 H
INR 1.82
APTT 34.6
Sodium 134 L
Potassium 5.3 H
Chloride 95 L
Carbon Dioxide 27
BUN 68 H
Creatinine 7.1 H*
Glucose 180 H
Calcium 8.7
Vital Signs:
Vital Signs
Temp Pulse Resp BP Pulse Ox
98.2 F 32 14 101/35 94
01/02/24 07:12 01/02/24 05:45 01/02/24 05:45 01/02/24 05:45 01/02/24 05:09
I&O
01/01/24 01/02/24 01/03/24
06:59 06:59 06:59
Intake Total 426.2 / 426.2
Balance 426.2 / 426.2
--- NOTE | 2024-01-02 08:01 | PTCARENOTE ---
report received, assessments per work list. patient ELISABETH, orientedX3. interventionalist in, consent obtained for permanent pacemaker. patient to have HD post pacer placement. dopamine per work list. patient denies pain, c/o nausea. medicated with
compazine per prn order. in CHB, rates 30's. dopamine to keep systolic>90. lungs with basilar crackles. diminished breath sounds. abdomen distended, ascites, + bowel sounds. small smear of stool. purewick in place. HD RN updated. complete pre
procedure care given. call olivares in reach
--- NOTE | 2024-01-02 08:31 | CON.INTV ---
Addendum entered and electronically signed by Shawn Gunderson MD 01/05/24 19:06:
After patient received her pacemaker, she was downgraded to IVU. [employer]/Pulmonary service now signed off. Thank you for allowing us to be involved in the care of this patient. Please reconsult if there are any additional questions/concerns,
or if patient's respiratory status deteriorates.
Original Note:
Consultation
Consultation Request
Date/Time Consultation Requested: 01/01/20241514
Date/Time Consultation Performed: 01/02/2024846
Requesting Provider: Dr. Tucker
Performing Provider: Dr. Gunderson
Reason for Consultation: Heart block, hypotension
Medical History
-
Chief Complaint: AMS, low heart rate + low BP
History of Present Illness:
83-year-old female with a past medical history of cirrhosis likely due to FIELD versus cardiac complicated by recurrent ascites requiring large-volume paracenteses, ESRD on HD MWF, chronic HFpEF with dilated RV, hypertension, CAD, chronic anemia,
aortic stenosis, and history of A-fib on Eliquis who presents with hypotension, bradycardia and altered mental status. 1 mg IV atropine given en route here to the hospital. In the ER she was bradycardic to the mid 30s, hypotensive to 95/40,
breathing at 17 breaths/min, saturating 96% and afebrile to 97.7 �F. Labs showed hemoglobin of 10, platelets of 119, sodium 134, serum bicarbonate 32, glucose 221, and troponin-I 0.218. CT A/P obtained as patient was reporting abdominal distention
with vomiting, and this showed moderate ascites with pancolitis with diffuse gastric wall thickening suggesting gastritis, severe hepatic cirrhosis with chronic bilateral kidney disease and very severe calcific atherosclerotic disease. CXR showed
moderate acute interstitial cardiogenic pulmonary edema with small right-sided pleural effusion. Patient was started on dopamine, given IV fluids with 250mL bolus of NS 0.9%, and given calcium gluconate and zofran, and admitted to ICU on dopamine
gtt. critical care services now consulted for additional management/recommendations.
Patient seen and evaluated this morning. Currently on dopamine at 10 mcg/kg/min, heart rate 29, patient awake and alert. BP 118/40 although nauseous this AM. She is on 2 L/min nasal cannula. Awaiting to go down for pacemaker. She feels okay
although she is sleepy, has off-and-on abdominal discomfort, currently not having any nausea, no headache, chest pain, fevers or chills.
PMHx: End-stage liver failure/cirrhosis, ascites with history of recurrent large-volume paracentesis, ESRD on HD MWF, history of heart failure with dilated RV, hypertension, CAD, chronic anemia, pulmonary hypertension, aortic stenosis,
thrombocytopenia, history of A-fib on Eliquis
PSHx: Tunneled right hemodialysis catheter
Past Medical History
Past Medical History: Other (Above as per HPI)
Past Surgical History: Other (Above as per HPI)
Social History
Tobacco: Non-smoker
Alcohol: None
Drug: None
Family History
Family History: Other (Cardiac disease: Mother + father; kidney disease: Younger brother (on dialysis))
Allergies / Home Medications
Allergies
Allergy/AdvReac Type Severity Reaction Status Date / Time
No Known Allergies Allergy Verified 01/01/24 13:21
Home Medications
�Medication �Instructions �Recorded �Confirmed �Last Taken �Type
insulin aspart U-100 100 unit/mL 5 unit SC AC Diabetes 11/26/22 01/01/24 07/17/23 History
(3 mL) subcutaneous pen (Novolog
FlexPen U-100 Insulin aspart)
isosorbide mononitrate 30 mg 15 mg PO DAILY Heart 11/26/22 01/01/24 11/03/23 History
tablet,extended release 24 hr Disease/Condition
montelukast 10 mg tablet 10 mg PO DAILY Allergies 11/26/22 01/01/24 11/03/23 History
rosuvastatin 10 mg tablet 10 mg PO HS High Cholesterol 11/26/22 01/01/24 11/02/23 History
furosemide 40 mg tablet 40 mg PO DAILY Fluid 01/25/23 01/01/24 11/03/23 History
Retention/Swelling
insulin glargine 100 unit/mL (3 10 unit SC HS Diabetes 01/25/23 01/01/24 11/02/23 History
mL) subcutaneous pen (Lantus
Solostar U-100 Insulin)
magnesium oxide 400 mg (241.3 mg 400 mg PO DAILY Electrolyte 01/25/23 01/01/24 11/03/23 History
magnesium) tablet Repletion
polyethylene glycol 3350 17 gram 17 g PO DAILYPRN PRN CONSTIPATION 01/25/23 01/01/24 07/17/23 History
oral powder packet
ergocalciferol (vitamin D2) 1,250 1,250 mcg PO QWEEK Supplement 01/27/23 01/01/24 07/13/23 History
mcg (50,000 unit) capsule
calcium acetate(phosphat bind) 667 1,334 mg PO MEALS Kidney Disease 07/14/23 01/01/24 11/03/23 History
mg capsule
loperamide 2 mg capsule 2 mg PO Q4HPRN PRN loose stools 07/14/23 01/01/24 07/08/23 History
apixaban 2.5 mg tablet (Eliquis) 2.5 mg PO BID Blood Clot 11/04/23 01/01/24 Unknown History
Prevention/Tx
dextromethorphan-guaifenesin 10 5 ml PO Q6HPRN PRN COUGH 11/04/23 01/01/24 Unknown History
mg-100 mg/5 mL oral syrup (Chest
Congestion Relief DM)
metoprolol succinate 25 mg 25 mg PO QPM Blood Pressure 11/04/23 01/01/24 Unknown History
tablet,extended release 24 hr
(Toprol XL)
midodrine 5 mg tablet 5 mg PO DAILYPRN PRN FOR LOW BP 11/04/23 01/01/24 Unknown History
LESS THAN 100
sodium chloride 0.65 % nasal spray 2 spray intranasal QIDPRN PRN 11/04/23 01/01/24 Unknown History
aerosol nasal conjestion
vit A 300 mcg-C 200 mg-E 27 1 tab PO BID 01/01/24 01/01/24 Unknown History
mg-lutein 2 mg and minerals tablet
(Ocuvite with Lutein)
Review of Systems
-
History Source: Patient
All other systems: Negative unless noted
Vitals / Labs / Diagnostic Testing
Vital Signs
Temp Pulse Resp BP Pulse Ox
98.2 F 32 14 100/35 93
01/02/24 07:12 01/02/24 09:00 01/02/24 09:00 01/02/24 09:00 01/02/24 09:13
Lab Data
01/02/24 03:34
01/02/24 03:34
Laboratory Results
01/01/24
19:48
PT 20.9 H
INR 1.82
APTT 34.6
Diagnostic Testing:
Physical Exam
-
HEENT: Normocephalic and Anicteric
Cardiovascular: Murmur (NANCY heard at RUSB, grade IV/), Peripheral Edema (Negative) and Other (Bradycardic)
Respiratory: Wheeze (negative), Rales (negative), Rhonchi (negative) and Accessory Resp Muscle Use (negative)
GI: Soft, Non Distended, Non Tender and Normal Bowel Sounds
Neurology: Awake and Alert
Skin: Warm and Dry
General: Comfortable, Fever (negative) and Chills (negative)
Assessment
-
Assessment: 83-year-old female with a past medical history of cirrhosis likely due to FIELD versus cardiac complicated by recurrent ascites requiring large-volume paracenteses, ESRD on HD MWF, chronic HFpEF with dilated RV, hypertension, CAD,
chronic anemia, aortic stenosis, and history of A-fib on Eliquis who presents with hypotension, bradycardia and altered mental status. 1 mg IV atropine given en route here to the hospital. In the ER she was bradycardic to the mid 30s, hypotensive
to 95/40, breathing at 17 breaths/min, saturating 96% and afebrile to 97.7 �F. Labs showed hemoglobin of 10, platelets of 119, sodium 134, serum bicarbonate 32, glucose 221, and troponin-I 0.218. CT A/P obtained as patient was reporting abdominal
distention with vomiting, and this showed moderate ascites with pancolitis with diffuse gastric wall thickening suggesting gastritis, severe hepatic cirrhosis with chronic bilateral kidney disease and very severe calcific atherosclerotic disease.
CXR showed moderate acute interstitial cardiogenic pulmonary edema with small right-sided pleural effusion. Patient was started on dopamine, given IV fluids with 250mL bolus of NS 0.9%, and given calcium gluconate and zofran, and admitted to ICU on
dopamine gtt. critical care services now consulted for additional management/recommendations.
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
stenosis, thrombocytopenia, history of A-fib on Eliquis
Impression:
#Bradyarrhythmia due to complete heart block
#Acute respiratory failure with hypoxia on supplemental oxygen due to acute pulmonary edema with small right-sided pleural effusion due to acute decompensated heart failure/acute HFpEF
#Nausea and vomiting with gastritis and pancolitis seen on CT A/P from 01/01/2024
#Chronic anemia (baseline Hb: 8-10g/dL)
#Thrombocytopenia chronic with platelet count ranging between 23�169 over the last year)
#Elevated INR (1.82)
#Hypochloremic, hyponatremia
#Hyperglycemia
#Elevated troponin (peaked at 0.218 on 01/01/2024)
#End-stage liver disease likely due to MASH versus cardiac cirrhosis c/b recurrent ascites and paraesophageal varices around the distal esophagus (seen on CT A/P from 01/01/2024)
#History of chronic HFpEF with dilated right ventricle (seen on TTE from 07/2023)
Plan:
- Patient awaiting pacemaker implantation this morning due to symptomatic bradycardia with complete heart block
- Continue with dopamine wean as tolerated to keep HR>50, MAP>65 --> if BP continues to be low with SBP <90/MAP <65, then would start Levophed
- Hold home antihypertensives for now given patient is hypotensive requiring inotropic support --> resume home meds once clinically safe and after PPM is implanted
- Cardiology/EP on board and recommendations appreciated
- Replete electrolytes with K>4, Mg>2
- Keep MAP>65, goal HR>50
- Goal serum albumin >3g/dL
- Continue fluid removal with HD (plan for today after PPM implantation) and aim to remove 2-3L or more as BP tolerates given the acute fluid overload seen on chest imaging
- Repeat CXR tomorrow
- Start ABx for pancolitis findings seen on CT A/P --> give ancef + flagyl x 5 days assuming her nausea/vomiting improving she remains afebrile for at least 48 hours prior to stopping antibiotics
- Continue supplemental O2 and wean as tolerated to keep SpO2 >90-94%
- prn nebulized bronchodilators
- Incentive spirometer encouraged
- No need to continue trending troponin given it peaked at 0.218 on admission
- Transfuse as needed to maintain Hb >7 g/dL, platelets >50k
- Careful not to raise hematocrit too high as patient has paraesophageal varices due to FIELD-cirrhosis
- Maintain euglycemia with goal BG 140-180 with ISS moderate resistance scale
- DVT ppx: Eliquis
Critical care statement: A total of 40 minutes of critical care time was provided for this patient today. This includes management of unstable vital signs, evaluation of the patient at bedside, reviewing the patient's pertinent medical records
including radiographs, microbiology, laboratory evaluations, and discussion with primary team, consultants, pharmacy, nutrition, physical therapy, case management, charge nurse, critical care nursing, and respiratory therapy.
Data:
CT Abd/Pelvis without contrast 01-01-2024:
1. MODERATE ASCITES throughout the abdomen and pelvis.
2. MODERATE PANCOLITIS. Diagnostic possibilities are (1) acute infectious colitis or (2) less likely portal colopathy given the diffuse distribution.
3. Moderate air distention of the stomach and mild diffuse gastric wall thickening suggesting gastritis.
4. SEVERE HEPATIC CIRRHOSIS.
5. SEVERE CHRONIC BILATERAL KIDNEY DISEASE.
6. Very severe calcific atherosclerotic disease.
7. Cholelithiasis.
8. Mild cardiomegaly.
9. Severe calcific atherosclerotic plaque in the coronary arteries and thoracic aorta.
10. Multilevel grade 1 anterolistheses in the lumbar spine secondary to severe facet joint arthrosis.
[2024-01-02 08:36] LABS: Glycohemoglobin (HgbA1c) 5.7 % (4.0-5.6)
--- NOTE | 2024-01-02 09:52 | PTCARENOTE ---
patient remains in complete heart block. heart rate 20's. unable to obtain automatic blood pressure. patient drowsy but easily arouses. dopamine adjustment per work list. manual blood pressure per work list. senior research executive at bedside. report given to
labor training manager. patient brother updated on phone. pacer pads placed on patient
--- NOTE | 2024-01-02 10:29 | PTCARENOTE ---
hand off report to EP staff at bedside. transport to EP by EP staff
--- NOTE | 2024-01-02 11:03 | W.CON.PAL ---
Consultation
-
Date/Time Consultation Performed: 01/03/24
Requesting Provider: Dr. Tucker
Performing Provider:
Reason for Consult: Goals of Care Discussion
Primary Diagnosis: 3rd degree AV block
Related Diagnosis: ESRD
Consult Requested By: Patient's Physician
Primary Care Physician: Dr. Davis
Reason for Admission
Illness Course/HPI
Maryjo is a 83 y/ofemale with pmhx of ESRD on HD MWF, Aortic stenosis, cirrhosis (? cause), HTN, Who was hospitlalized on 12/31 with symptomatic bradycardia, wekaness and hypotension. Patient was off floor yesterday for PPM insertion, consult
completed today 01/02. Patient received HD yesterday as well.
Since PPM insertion, patient reports improvement in energy level, feeling much better. Still requiring dopamine drip. No active symptoms or complaints.
Spoke to patient and then called her brother Kenneth her medical POA. Patient is slightly confused at time of visit.
Justin lives at the [facility] with level 2 support - she receives assistance with bathing and toileting and medication management per patient. She ambulates with walker at baseline and keeps track of her own weights and blood pressures. Patient
has long-term care policy but not able to use yet as functional status has been too good.
She has been having more frequent issues with ascities and paracentesis need in the past 2-3 months.
She is the eldest of 4 siblings, has 3 brothers who are her next of kin - brother Ramy and Tahir are medical POAs per advanced directive, but Ramy currently unavailable due to health issues.
Of note on her advanced directive did write that she would not want dialysis at end of life, this was completed in 2007, and in the past 2-3 years she clearly accepted dialysis. recommended that they update the living will as an outpatient to make
sure it reflects her wishes.
Brother wishes for her to remain full code at this time, but if condition was declining would follow advanced directives.
Review of Advanced Directives
Advanced Care Documentation Status: Complete
Type of Documentation: Living Will and Medical Power of Digital Media Intern
Location of Advanced Care Documentation: [facility]
Surrogate Decision Maker (name & contact): Lm Mccann and Tahir
Preferences Regarding Medical Care at End of Life: Comfort focused
Goals of Care Discussion
Patient Goals & Values Discussion
Summary of Patient's Goals of Care [Text6]:
Goals are treatment oriented at this time
Interested in outpatient palliative care
Remains Full Code
Objective Data
-
Objective Data:
Vital Signs
Temp Pulse Resp BP Pulse Ox
98.2 F 34 17 108/30 96
01/02/24 07:12 01/02/24 10:00 01/02/24 10:00 01/02/24 10:14 01/02/24 09:51
Laboratory Results
01/02/24 03:34
01/02/24 03:34
PT 20.9 Sec (11.4-14.6) H 01/01/24 19:48
INR 1.82 01/01/24 19:48
APTT 34.6 Sec (23.4-35.0) 01/01/24 19:48
Hemoglobin A1c 5.7 % (4.0-5.6) H 01/02/24 03:34
Total Protein 6.6 g/dl (6.3-8.2) 01/01/24 13:25
Albumin 3.4 g/dl (3.5-5.0) L 01/01/24 13:25
Palliative Performance Scale
Palliative Performance Scale:
PPS Level Ambulation Activity & Evidence of Disease Self Care Intake Conscious Level
100% Full Normal Activity & Work; Full Intake Full
No Evidence of Disease
90% Full Normal Activity & Work; Full Normal Full
Some Evidence of Disease
80% Full Normal Activity with Effort Full Normal or Full
Some Evidence of Disease Reduced
70% Reduced Unable Normal Job/Work Full Normal or Full
Significant Disease Reduced
60% Reduced Unable Hobby/Housework Occasional Normal or Full or Confusion
Significant Disease Assistance Reduced
50% Mainly Sit/Lie Unable to do Any Work Considerable Normal or Full or Confusion
Extensive Disease Assistance Req'd Reduced
40% Mainly in Bed Unable to do Most Activity Mainly Assistance Normal or Full or Drowsy;
Extensive Disease Reduced +/- Confusion
30% Totally Bed Unable to do Any Activity Total Care Normal or Full or Drowsy;
Bound Extensive Disease Reduced +/- Confusion
20% Totally Bed Bound Unable to do Any Activity Total Care Minimal to Full or Drowsy;
Extensive Disease Sips +/- Confusion
10% Totally Bed Bound Unable to do Any Activity Total Care Mouth Care Drowsy or Coma;
Extensive Disease Only +/- Confusion
0%
PPS Score Level:
50
Physical Exam
-
General: No Apparent Distress and Comfortable
HEENT: Moist Mucous Membranes
Respiratory: Clear to Auscultation
Cardiac: Other (pacemaker bandage)
GI: Soft, Distended and Ascites
Neuro: Awake
Psych: Confused
Assessment / Plan
-
Assessment/Plan:
Goals of care: treatment oriented
Plan for outpatient palliative care follow up
Discharge needs may be rehab vs. back to [facility] with caregivers -pending pt eval
Still requiring dopamine drip, not yet ready for discharge.
Remains full code
Care Reviewed
Time
Start Date: 01/03/24
Start Time: 11:00
Stop Date: 01/03/24
Stop Time: 12:20
Time Spent:
80
--- NOTE | 2024-01-02 11:04 | W.PN.PAL2 ---
Today's Communication
-
Patient off floor this morning for pacemaker insertion. palliative care will visit tomorrow for consult.
Assessment / Plan
-
Assessment/Plan:
Based on the current condition, prognosis, comorbidities, patient's goals & wishes as discussed above, the palliative care team has made the following recommendations:
Focus & Plan of Care:
Hospice Care:
Palliative Care:
Advanced Care Directives, Resuscitation & Out of Hospital Medical Orders:
Pain & Symptom Management:
Discharge Planning Needs:
Other:
The above recommendations were discussed with the patient/family and medical team.
Objective Data
-
Objective Data:
Vital Signs
Temp Pulse Resp BP Pulse Ox
98.2 F 34 17 108/30 96
01/02/24 07:12 01/02/24 10:00 01/02/24 10:00 01/02/24 10:14 01/02/24 09:51
Laboratory Results
01/02/24 03:34
01/02/24 03:34
PT 20.9 Sec (11.4-14.6) H 01/01/24 19:48
INR 1.82 01/01/24 19:48
APTT 34.6 Sec (23.4-35.0) 01/01/24 19:48
Hemoglobin A1c 5.7 % (4.0-5.6) H 01/02/24 03:34
Total Protein 6.6 g/dl (6.3-8.2) 01/01/24 13:25
Albumin 3.4 g/dl (3.5-5.0) L 01/01/24 13:25
Palliative Performance Scale
Palliative Performance Scale:
PPS Level Ambulation Activity & Evidence of Disease Self Care Intake Conscious Level
100% Full Normal Activity & Work; Full Intake Full
No Evidence of Disease
90% Full Normal Activity & Work; Full Normal Full
Some Evidence of Disease
80% Full Normal Activity with Effort Full Normal or Full
Some Evidence of Disease Reduced
70% Reduced Unable Normal Job/Work Full Normal or Full
Significant Disease Reduced
60% Reduced Unable Hobby/Housework Occasional Normal or Full or Confusion
Significant Disease Assistance Reduced
50% Mainly Sit/Lie Unable to do Any Work Considerable Normal or Full or Confusion
Extensive Disease Assistance Req'd Reduced
40% Mainly in Bed Unable to do Most Activity Mainly Assistance Normal or Full or Drowsy;
Extensive Disease Reduced +/- Confusion
30% Totally Bed Unable to do Any Activity Total Care Normal or Full or Drowsy;
Bound Extensive Disease Reduced +/- Confusion
20% Totally Bed Bound Unable to do Any Activity Total Care Minimal to Full or Drowsy;
Extensive Disease Sips +/- Confusion
10% Totally Bed Bound Unable to do Any Activity Total Care Mouth Care Drowsy or Coma;
Extensive Disease Only +/- Confusion
0%
PPS Score Level:
--- NOTE | 2024-01-02 11:56 | W.PN.CD ---
Today's Communication / Plan
-
- PPM today
Impression / Plan
-
Complete heart block..
-CHB with junctional escape to 30s.
-on dopamine - BP is stable but had severe PAD with difficult to assess pulses. Titrate as needed. May need temp wire and arterial line. will assess in lab.
- Normal mentation this AM.
- permanent pacemaker today
- Hold Eliquis today - restart tomorrow AM
- Restart metoprolol post PPM
.
PAF. Monitor for recurrence.
-Anticoagulation on hold
.
ESRD. Treatment as directed by nephrology
-HD today after PPM
.
Cirrhosis.
- Patient labeled as having cirrhosis details unclear. Patient's had ascites and previous paracentesis with last one being last week.
- Consider GI consult - bleeding risk vs risk of stroke with PAF.
.
Aortic stenosis mild to moderate
Physical Exam
Vital Signs/Labs
Vital Signs
Temp Pulse Resp BP Pulse Ox
98.2 F 29 18 108/30 95
01/02/24 07:12 01/02/24 10:15 01/02/24 10:15 01/02/24 10:14 01/02/24 10:15
01/01/24 01/02/24 01/03/24
06:59 06:59 06:59
Actual Weight 58.2 kg
01/02/24 03:34
01/02/24 03:34
PT 20.9 Sec (11.4-14.6) H 01/01/24 19:48
INR 1.82 01/01/24 19:48
APTT 34.6 Sec (23.4-35.0) 01/01/24 19:48
Magnesium 2.5 mg/dl (1.6-2.3) H 01/01/24 13:25
LAB Results
01/01/24 01/01/24 01/02/24
13:25 19:48 03:34
Troponin I 0.218 H* 0.200 H* 0.197 H*
Physical Exam
Constitutional: No acute distress and Comfortable
EENT: Anicteric and Moist mucous membranes
Cardiovascular: Rhythm & rate is regular, JVD present and Systolic murmur present
Respiratory: Respiratory effort normal and Crackles Present
GI: Soft, Non tender and Distention present
Neuro/Psych: Alert, Oriented, AO x 3 and Motor deficits absent
Data Reviewed
-
Date of Service: January 02, 2024
Medical Decision Making: Reviewed Test Results, Independent Historian Assessment, Test Interpretation and Review of Case with other Provider
EKG: Tracing Personally Visualized and interpreted
Echo: Report Reviewed by me
X-Ray/CT/US/MRI/NUC/PET: Image Personally Visualized and interpreted
Labs: Labs Reviewed by me
Old Records: Reviewed
Critical Care Time (in minutes): 35
--- NOTE | 2024-01-02 12:01 | ITS.CL.PACE ---
Structural Shop Helper - Pacemaker Implant
Pacemaker Implant
Procedure Report:
Dual Chamber Pacemaker Placement:
Ms. Salas is a very pleasant 83 yrs old woman with complete heart block, ESRF, on HD with left arm AV fistuale, Cirrhosis with pleural effusion and ascites and PAF on Eliquis, HFpEF, with severe symptomatic bradycardia and AV block with need for
pressor support in the ICU is recommended for PPM placement.�
Indications: Complete AV block
Date of the Procedure: 12/13/22
Pre-Operative Diagnosis: Complete AV block
Post-Operative Diagnosis: Complete AV block
Procedure Performed: DUAL CHAMBER PACEMAKER IMPLANTATION
Performing Physician:
Aundrea Rider MD
Anesthesia:
See anesthesia records
Pre-operative antibiotics:
Ancef
Detailed Description of the Procedure:
The patient was identified using hospital identification and informed consent obtained for the procedure. The risks were explained including, but not limited to: Bleeding, infection, arrhythmia, stroke, vascular/cardiac/lung puncture, surgery,
pacemaker dependency/device malfunction. All questions were answered.
The patient was brought to the electrophysiology laboratory in stable condition in fasting state. Continuous electrocardiographic and hemodynamic monitoring was initiated. The initial rhythm was normal sinus with complete heart block and junctional
escape.
The procedure site was meticulously prepared with surgical scrub and allowed to dry with no pooling. Sterile draping was applied to cover the procedure site. The image intensifier was draped with sterile bag and positioned over the patient.
A surgical pause and time out was performed immediately prior to the procedure with review of her medical history, recent labs, allergies and medications with site of procedure identified and consent noted in the chart. Antibiotics pre operatively
given. All team members concurred.
The right infraclavicular region was prepped and draped in the usual sterile fashion. Local anesthesia was administered subcutaneously using 1% lidocaine / Bupivacaine. The right cephalic vein cutdown was performed with an incision at the
delto-pectoral groove, and vascular sheaths were introduced for lead access. These were advanced into the right ventricle and the right atrium.
The right ventricular lead was secured in position with an active fixation technique at the apical septal location.
The RA lead was attached in the right atrial appendage with passive adolfo fixation.
Patient went into atrial fibrillation with ventricular ectopy with lead placement.
There was excellent sensing, pacing, and impedance from the leads, with no diaphragmatic stimulation at 10 V output.�Bovie cautery, antibiotics, and fluoroscopy were used.
The sheaths were withdrawn, and the thresholds remained acceptable. The leads were secured in position at the venous entry site with 0-silk. A pocket was fashioned contiguous to the incision. The electrode terminals were connected to the pulse
generator, which was placed into the pocket.
The generator was anchored to the underlying fascia using the 0-silk sutures.
The wound was irrigated thoroughly with antibiotic solution.
A Tyrx pouch was installed around the generator and the leads.
The wound was closed in 3 layers using 2-0 VLoc followed by 2 layers of 4-0 VLoc sutures. Steri-Strips and a bandage were applied externally.�
Procedure End:
The procedure was tolerated well.
Estimated Blood loss:
5 cc
Specimens Removed:
No cultures and no specimens were obtained. No intraoperative pathology was identified.
Fluoro time:
3.9 min / 9.9mGy
Urine output:
None
Packs / Drains/ Tubes:
None
Instrument / Sponge Count Correct:
Yes
Complications of the Procedure:
None
Condition of Patient at Time of Transfer:
Hemodynamically stable with no neurological or vascular compromise.
Device information:�
Generator: [employer] Model: W1DR01; Serial # [id number]�
Atrial Lead: Medtronic; Model: 4574-45; Serial # [id number]�
Measured data in the right atrium was sensing of 0.4 mV of AF waves, impedance of 608 ohms and threshold not tested due to AF. �
RV Lead: [employer]; Model: 5076-52; Serial # [id number]
Measured data in the RV lead was sensing of 8.2 mV, impedance of 855 ohms and threshold of 1.0 V at 0.4ms�
Jhony parameter settings were DDDR 60-130 bpm. �
����������� Mode Switch: On
����������� Paced AV interval: 180ms
����������� Sensed AV interval: 150 ms.
����������� Rate Adaptive A-V Interval: Off
With AF detected appropriately, device has switched to VVIR mode
Output� parameters:
����������������������� Amplitude (V)������������� Pulse Width (ms)������� Sensitivity (mV)
����������� RA: ����� 3.5 ����������������� ����������� 0.4������������������ 0.15
����������� RV:������ 3.5������������������ ����������� 0.4������������������ 0.9
Summary:
Successful implantation of MRI compatible dual chamber Medtronic pacemaker
Results/Recommendations:
-Please follow up CXR�
1. Please provide patient with adequate pain control�
Instructions to be given to patient:�
- Please follow up with [facility] at [address] [place] [address] ([phone]) to get your wound checked within 14 days of your discharge.
- Do not wet incision site until after it is evaluated at cardiology clinic. No showers until then. Sponge baths are OK.�
- Do not lift left elbow above shoulder, particularly with sudden jerking movements, for 1 month�
- Do not lift anything weighing more than 10 pounds with the left arm for 1 month�
- If you notice any fevers, shortness of breath, lightheadedness, chest pain, or worsening swelling in the wound site, please contact the arrhythmia clinic, contact your sec accountant, or present to the hospital for evaluation.�
Aundrea Rider MD
Electrophysiology
[2024-01-02 12:54] LABS: Glucose - Point of Care 160 mg/dl (70-99)
--- NOTE | 2024-01-02 13:08 | PTCARENOTE ---
patient received back from EP lab. monitor v pacing, av pacing at times. right chest wall dressing in place, immobilizer on. patient very drowsy. c/o sacrum discomfort. repositioned after cxr taken. dopamine per work list. HD nurse at bedside to
begin HD
--- NOTE | 2024-01-02 13:51 | W.PN.NEPH.HD ---
Assessment
-
Patient seen on dialysis
Systolic blood pressure stable but remains on some dopamine post pacemaker placed
Progress Note - Hemodialysis
-
Date of Service: January 02, 2024
Duration: 30 minutes and 3 hours
Potassium Bath: 2
Calcium Bath: 2.5
Opti-Dialyzer: 160
Ultrafiltration: Other
Blood Flow: 400
Dialysate Flow: 600
Heparin: none
EPO: 3ooo
[2024-01-02] MEDS: RETACRIT 3000 UNITS IV (14:32)
--- NOTE | 2024-01-02 14:51 | CM ---
CM following re: discharge planning.
Reviewed pt's chart, met with pt during dialysis treatment.
Pt is an 83 year old female, admitted with primary dx of hypotension, bradycardia, and lethargy
Reviewed chart, met with patient. Pt is not a great historian, information obtained from [facility] RN. Patient lives alone at [facility], has no children, has 2 brothers. Per RN from [facility], pt ambulates with a walker at baseline,
known to [facility]. Pt is on HD, [facility], [facility], chair time 10:40 a.m. [facility] transport
PCP is, Dr. Chris Rasheed
Pharmacy: [facility] .
D/C plan: return back to [facility] with resumption of services through [facility], resumptions of outpatient HD treatment at [facility] and [place] staff support
CM will follow with discharge plan updates as hospitalization progresses
--- NOTE | 2024-01-02 16:13 | PTCARENOTE ---
patient continues with HD, sleeping unless disturbed. IVU level of care. right chest wall dressing dry and intact
[2024-01-02 17:11] LABS: Glucose - Point of Care 122 mg/dl (70-99)
[2024-01-02] MEDS: NOVOLOG FLEXPEN-MODERATE RESISTANCE SC (17:20)
[2024-01-02] MEDS: PHOSLO 1334 MG PO (17:41)
[2024-01-02] MEDS: ANCEF 5 IV (17:41)
--- NOTE | 2024-01-02 18:05 | PTCARENOTE ---
report to IVU RN, transfer without issue
--- NOTE | 2024-01-02 18:11 | PTCARENOTE ---
Patient received as transfer from ICU. V-paced via new RCW ppm, site cdi. HD treatment recently completed, dressing to LUE fistula. Patient AAO X 3, very [place]. Turned and repositioned. Patient updated to plan of care, in agreement. Dopamine infusing,
see work list for infusion rates and titrations.
[2024-01-02] MEDS: FLAGYL 500 MG 100 IV (21:09)
[2024-01-02 22:10] LABS: Glucose - Point of Care 196 mg/dl (70-99)
[2024-01-02] MEDS: CRESTOR 10 MG PO (22:42)
[2024-01-02] MEDS: LANTUS 0.08 UNITS SC (22:42)
--- NOTE | 2024-01-02 23:46 | PTCARENOTE ---
Received patient at change of shift. Sitting and eating dinner. AOX3. Assisted to bedside commode. Large BM. Dopamine drip infusing per protocol. IV site patent. Per IV guidelines, central line needed for Dopamine drip after 24 hours. Currently drip
running through 20 G in forearm. Updated Radha Lowe NP. Currently attempting to taper drip off. Discussed plan with Radha Lowe and Aurelia QUIÑONES team. Will evaluate need according to drip needs. V-paced 60s. 95% on room air. Right chest site
CDI. Right arm sling intact. Reviewed activity restrictions with patient and verbalized understanding. Call olivares within reach.
[2024-01-03] VITALS (55 sets, daily range): BP systolic 77–114; BP diastolic 21–81
[2024-01-03] MEDS: DOPamine 400 MG 250 IV (00:50)
[2024-01-03] MEDS: FLAGYL 500 MG 100 IV ×3 (04:19→20:23)
[2024-01-03 04:20] LABS: Hematocrit 28.9 % (37.0-47.0); Hemoglobin 9.5 g/dL (12.0-16.0); Mean Corp Hgb Conc. 32.9 g/dL (33.0-37.0); Mean Corpuscular Volume 94.4 fL (81.0-99.0); Mean Platelet Volume 12.2 fL (7.4-10.4); Platelet Count 113 10^3/uL (130-400); Red Blood Cell Count 3.06 10^6/uL (4.20-5.40); Red Cell Dist. Width 16.9 % (11.5-14.5); White Blood Cell Count 11.3 10^3/uL (4.8-10.8)
[2024-01-03 04:33] LABS: Blood Urea Nitrogen 50 mg/dl (7-17); Calcium 8.5 mg/dl (8.4-10.2); Carbon Dioxide 29 mmol/L (22-30); Chloride 92 mmol/L (98-107); Estimated Creatinine Clearance 7 ml/min; Glucose 171 mg/dl (70-99); Magnesium 2.1 mg/dl (1.6-2.3); Phosphorus 7.4 mg/dl (2.5-4.5); Potassium 4.6 mmol/L (3.5-5.1); Sodium 131 mmol/L (135-145); eGFR 8.01
[2024-01-03 04:39] LABS: NT-proBNP > 27000 pg/ml
--- NOTE | 2024-01-03 04:46 | PTCARENOTE ---
Dopamine drip continued. Updated Radha Lowe NP. Discussed plan and midline placed for drip by Aurelia QUIÑONES team. Patient tolerated well. No other complaints at this time. Paced rhythm overnight 60s-70s. Current BP 106/46. Right chest site CDI.
Call olivares within reach.
--- NOTE | 2024-01-03 06:39 | PTCARENOTE ---
Patient was assisted from the bedside to the chair x2 assist. She was steady on her feet. Denies any lightheadedness or dizziness. HR in mid 60s. Reinforced right upper extremity restrictions. Call olivares within reach.
--- NOTE | 2024-01-03 07:54 | W.PN.CD ---
Today's Communication / Plan
-
- Stable for discharge from cardiac stand point.
Impression / Plan
-
Complete heart block..
-CHB with junctional escape to 30s s/p dual chamber PPM - Medtronic 01/02/24
-feeling much better.
- Restart Eliquis today
- Restart metoprolol at 25 mg BID (home dose 25 mg QD)
.
PAF. Monitor for recurrence.
-Went into AF but Eliquis held for twodays for PPMimplant.
-DCCV deferred for now. 4 weeks of anticoagulation.
.
ESRD. Treatment as directed by nephrology
-HD after PPM
.
Cirrhosis.
- Patient labeled as having cirrhosis details unclear.
- Patient's had ascites and previous paracentesis with last one being last week.
Aortic stenosis mild to moderate
Physical Exam
Vital Signs/Labs
Vital Signs
Temp Pulse Resp BP Pulse Ox
98.7 F 73 16 106/46 94
01/03/24 04:31 01/03/24 05:15 01/03/24 04:31 01/03/24 05:00 01/03/24 04:45
01/02/24 01/03/24 01/04/24
06:59 06:59 06:59
Actual Weight 58.2 kg
01/03/24 03:53
01/03/24 03:53
PT 20.9 Sec (11.4-14.6) H 01/01/24 19:48
INR 1.82 01/01/24 19:48
APTT 34.6 Sec (23.4-35.0) 01/01/24 19:48
Magnesium 2.1 mg/dl (1.6-2.3) 01/03/24 03:53
01/03/24
03:53
Dsi-D-Gupazpvrqml Pept > 47481
LAB Results
01/01/24 01/01/24 01/02/24
13:25 19:48 03:34
Troponin I 0.218 H* 0.200 H* 0.197 H*
Physical Exam
Constitutional: No acute distress and Comfortable
EENT: Anicteric and Moist mucous membranes
Cardiovascular: Rhythm & rate is regular, Pedal edema is absent, JVD pressure is normal and Systolic murmur absent
Respiratory: Respiratory effort normal, Lungs clear to auscul. and Crackles Absent
GI: Soft, Non tender and Normal bowel sounds
Neuro/Psych: Alert, Oriented and AO x 3
Other: Cardiac Device Site (Pressure dressing removed. )
Data Reviewed
-
Date of Service: January 03, 2024
Medical Decision Making: Reviewed Test Results, Independent Historian Assessment, Test Interpretation and Review of Case with other Provider
EKG: Tracing Personally Visualized and interpreted
X-Ray/CT/US/MRI/NUC/PET: Image Personally Visualized and interpreted
Labs: Labs Reviewed by me
Old Records: Reviewed
[2024-01-03 08:09] LABS: Glucose - Point of Care 205 mg/dl (70-99)
[2024-01-03] MEDS: SINGULAIR 10 MG PO (08:11)
[2024-01-03] MEDS: PHOSLO 1334 MG PO ×3 (08:11→17:26)
[2024-01-03] MEDS: NOVOLOG FLEXPEN-MODERATE RESISTANCE 3 UNITS SC (08:12)
[2024-01-03] MEDS: ELIQUIS 2.5 MG PO ×2 (08:12→20:22)
--- NOTE | 2024-01-03 09:15 | W.PN.NEPH.PH ---
Today's Communication / Plan
-
Dialysis tomorrow either here at the hospital or at her outpatient unit
Assessment/Plan
-
Assessment:
CHB
Hypotension
ESRD-[facility] 12/2022 MWF HD [facility]
LUE AVF created 01/26
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
h/o Ascites and paracentesis last on 12/29 5.3lit
History DCHF
Type 2 diabetes
Primary hypertension
Likely history of coronary artery disease
History of heart valve problem
Severe pulmonary hypertension
Mild to moderate aortic stenosis
Moderate TR
Chronic thrombocytopenia
HLD
Plan:
A/w hypotension ,josué noted CHB plan Pacer was placed on 01/02/2024
Patient looking well this morning
If patient is still here we will dialyze her tomorrow
Blood pressure remains low side
renal diet and FR when diet starts
d/w nursing
-
-
Date of Service: January 03, 2024
CC / HPI / ROS
-
Chief Complaint:
End-stage renal disease
History of Present Illness:
ESRD Tuesday
Remains on the hypotensive side
Status post pacemaker placement on January 02, 2024
Review of Systems:
no chest pain or sob
Labs
-
Labs:
WBC 11.3 10^3/uL (4.8-10.8) H 01/03/24 03:53
RBC 3.06 10^6/uL (4.20-5.40) L 01/03/24 03:53
Hgb 9.5 g/dL (12.0-16.0) L 01/03/24 03:53
Hct 28.9 % (37.0-47.0) L 01/03/24 03:53
Plt Count 113 10^3/uL (130-400) L D 01/03/24 03:53
Sodium 131 mmol/L (135-145) L 01/03/24 03:53
Potassium 4.6 mmol/L (3.5-5.1) 01/03/24 03:53
Chloride 92 mmol/L (98-107) L 01/03/24 03:53
Carbon Dioxide 29 mmol/L (22-30) 01/03/24 03:53
BUN 50 mg/dl (7-17) H 01/03/24 03:53
Creatinine 5.1 mg/dL (0.6-1.0) H* 01/03/24 03:53
eGFR 8.01 01/03/24 03:53
Glucose 171 mg/dl (70-99) H 01/03/24 03:53
Calcium 8.5 mg/dl (8.4-10.2) 01/03/24 03:53
Phosphorus 7.4 mg/dl (2.5-4.5) H 01/03/24 03:53
Umy-S-Xnhhrhydrnq Pept > 56280 pg/ml 01/03/24 03:53
Albumin 3.4 g/dl (3.5-5.0) L 01/01/24 13:25
Physical Exam
-
Vital Signs:
Vital Signs
Temp Pulse Resp BP Pulse Ox
98.2 F 73 16 106/46 96
01/03/24 08:00 01/03/24 05:15 01/03/24 08:00 01/03/24 05:00 01/03/24 08:00
Cardiovascular:: Regular rate and rhythm
Respiratory:: Bilateral: CTA
Lung Excursion:: Normal
Abdomen:: Distended, Nontender and Soft
Bowel Sounds:: Normal
Extremity Edema:: None: Bilateral:
Gross Catheter: No
--- NOTE | 2024-01-03 12:29 | PN.CDI ---
CDI
- -
CDI:
Physician Documentation Request
Admit Date: 01/01/24 15:43
Dear Doctor Radha,
.
Clinical Indicators:
Patient admitted with Complete Heart Block; s/p PPM 01/01.
PMH includes ESRD on HD
01/01 (09:52) RN note, '..heart rate 20's. unable to obtain automatic blood pressure. patient drowsy but easily arouses.'
Dopamine (ordered to keep SBP >90) requirements: 5 -13 mcg/kg/min.
BP trend:
01/02/24
14:45 01/02/24
15:30 01/02/24
23:30
Blood pressure 86/45 89/41 87/39
MAP (cuff-Jacinta Monitor) 58 56 54
Please clarify which of the following is the most likely etiology of the above symptoms and treatment rendered:
Cardiogenic shock
Shock, other (please specify)
Hypotension Only- indicate type/etiology, due to hemodialysis, chronic, drug induced (indicate drug), etc.
Other, please specify
Use of terms such as suspected, likely, concern for, or probable (associated with a specific diagnosis that is being evaluated, monitored, or treated as if it exists) are acceptable and can be coded in the inpatient setting, when documented at the
time of discharge.
Thank you,
Rosy Yoon RN BSN
CDI Specialist
available via tiger text
Please use your independent medical judgment in providing your response.
--- NOTE | 2024-01-03 12:53 | PN.CDI ---
CDI
- -
CDI:
Physician Documentation Request
Admit Date: 01/01/24 15:43
Dear Doctor Radha,
Clinical Indicators:
Patient admitted with CHB; s/p PPM 01/01.
12/31 CXR report : Moderate acute interstitial cardiogenic pulmonary edema
01/01 PN, 'Cardiogenic cirrhosis (Chronic HFpEF) '
01/01 [employer] PN, 'acute pulmonary edema with small right-sided pleural effusion due to acute decompensated heart failure/acute HFpEF'
02 requirements: 1-3 L NC
Due to potentially conflicting documentation, please clarify the acuity of the HFpEF:
Acute on chronic HFpEF
Chronic HFpEF only (documentation complete)
Other, please specify
Use of terms such as suspected, likely, concern for, or probable (associated with a specific diagnosis that is being evaluated, monitored, or treated as if it exists) are acceptable and can be coded in the inpatient setting, when documented at the
time of discharge.
Thank you,
Rosy Yoon RN BSN
CDI Specialist
available via tiger text
Please use your independent medical judgment in providing your response.
--- NOTE | 2024-01-03 13:03 | PN.CDI ---
CDI
- -
CDI:
Physician Documentation Request
Admit Date: 01/01/24 15:43
Dear Doctor Radha,
Clinical Indicators:
Patient admitted with Complete Heart Block; s/p PPM 01/01.
Troponin trend:
01/01/24 01/01/24 01/02/24
13:25 19:48 03:34
Troponin I 0.218 H* 0.200 H* 0.197 H*
Based on the above, could you clarify in the progress notes, the appropriate diagnosis, if significant, that supports the above abnormalities and additional evaluation, monitoring and/or treatment rendered:
Non ischemic myocardial injury
Troponin elevation only
Other, please specify
Use of terms such as suspected, likely, concern for, or probable (associated with a specific diagnosis that is being evaluated, monitored, or treated as if it exists) are acceptable and can be coded in the inpatient setting, when documented at the
time of discharge.
Thank you,
Rosy Yoon RN BSN
CDI Specialist
available via tiger text
Please use your independent medical judgment in providing your response.
[2024-01-03 13:22] LABS: Glucose - Point of Care 142 mg/dl (70-99)
[2024-01-03] MEDS: TOPROL XL PO (13:58)
[2024-01-03] MEDS: NOVOLOG FLEXPEN-MODERATE RESISTANCE SC (13:58)
--- NOTE | 2024-01-03 16:16 | W.PN.HOSP.TC ---
Today's Communication/Plan
-
Blood pressure still low, patient will be started on Toprol XL as per cardiology and see how she does
Will consult GI due to cirrhosis and possible re-accumulation of fluid in her abdomen, as well as for gastritis and pancolitis
Assessment / Plan
Assessment / Plan
Physical Exam
Gen: Not in acute distress
HEENT: Normocephalic
Neck: Supple.
CV: bradycardic, reg rhythm, +S1/S2, 2/6 systolic murmur
Resp: CTAB anteriorly, no rales, wheezes, or rhonchi.
Abd: +BS, soft, NT, severe distention with ascites
Skin: No rashes.
Neuro: CN 2-12 intact, non-focal.
Psych: Normal mood and affect.

Echo 07/21/23: EF 65-70%. No RWMA. Dilated RV with normal systolic function. Mild to moderate MS. Mild MR/. Mod TR. PASP 53mmHg
Assessment/Plan
Complete Heart Block status post successful implantation of MRI compatible dual chamber Medtronic pacemaker on January 02, 2024
Third degree heart block
-Pacemaker placed today
-ECG with complete HB @ 39, RBBB, L-axis dev, (read by me)
-Dr. Tucker discussed with city supervisor Dr. Butt
-Eliquis restarted on January 03, 2024
-Metoprolol restarted at 25 mg BID (home dose 25 mg QD)
-DCCV deferred -- 4 weeks of anticoagulation
Gastritis and Pancolitis Seen on CT Imaging
-Continue antibiotics
-Given cirrhosis and above findings, will consult GI
Non-Ischemic Myocardial Injury
Suspected Acute on Chronic HFpEF
Concern for Cardiogenic Shock
Other problems:
Cardiogenic cirrhosis (Chronic HFpEF) with recurrent ascites and paracenteses: Hold Lasix/Imdur for now. Patient's had ascites and previous paracentesis with last one being last week. Consider GI consult - bleeding risk vs risk of stroke with PAF.
ESRD: c/s renal for HD M/W/F
Essential HTN in the past, then hypotension: Hold Imdur/BB.
DM2: Cont Lantus at 8U, hold premeal insulin, SSI/accuchecks, a1c 5.7%
Valvular disease: mild to moderate MS. Mild MR/. Mod TR.
HLD: cont statin
Anemia of chronic disease
Severe pulmonary HTN
Thrombocytopenia
Atrial fibrillation, unknown type: Continue Eliquis
Peripheral arterial disease
FULL code as per discussion with pt in the ER.
Considering overwhelming burden of pathology palliative care was consulted, evaluation and recommendations appreciated: Dr. Kitty Erwin on 01/03/24 mentioned that patient and her brother are both interested in outpatient palliative care follow-up.
Anticipated Discharge: 24 - 48 hours
Subjective/Interval History
-
Date of Service: January 03, 2024
Patient was seen and examined. She reported feeling 'pretty good' and denied any new symptoms or complaints.
Objective Data
-
Labs:
Laboratory Results
01/03/24
03:53
WBC 11.3 H
Hgb 9.5 L
Hct 28.9 L
Plt Count 113 L D
Sodium 131 L
Potassium 4.6
Chloride 92 L
Carbon Dioxide 29
BUN 50 H
Creatinine 5.1 H*
Glucose 171 H
Calcium 8.5
Vital Signs:
Vital Signs
Temp Pulse Resp BP Pulse Ox
98.2 F 63 16 93/40 97
01/03/24 08:00 01/03/24 11:15 01/03/24 08:00 01/03/24 11:00 01/03/24 08:00
I&O
01/02/24 01/03/24 01/04/24
06:59 06:59 06:59
Intake Total 426.2 / 437.8 301.8 / 301.8
Balance 426.2 / 437.8 301.8 / 301.8
[2024-01-03] MEDS: NOVOLOG FLEXPEN-MODERATE RESISTANCE 1 UNITS SC (17:24)
[2024-01-03] MEDS: ANCEF 5 IV (17:25)
[2024-01-03 17:30] LABS: Glucose - Point of Care 187 mg/dl (70-99)
--- NOTE | 2024-01-03 19:19 | PTCARENOTE ---
Dopamine weaned off as ordered. Pt denies any pain, sob or lightheadedness. OOB with assist to the recliner chair and to the BR. Gait steady.
[2024-01-03] MEDS: TOPROL XL 25 MG PO (20:23)
[2024-01-03 22:37] LABS: Glucose - Point of Care 146 mg/dl (70-99)
[2024-01-03] MEDS: ROBITUSSIN DM 5 ML PO (22:40)
[2024-01-03] MEDS: LANTUS 0.08 UNITS SC (22:40)
[2024-01-03] MEDS: CRESTOR 10 MG PO (22:40)
[2024-01-04] VITALS (17 sets, daily range): BP systolic 79–117; BP diastolic 21–51; BMI 23.4
--- NOTE | 2024-01-04 03:07 | PTCARENOTE ---
Pt received start of shift, HR AV/V paced. Pt OOB in chair. Assisted to bathroom - BM. PT c/o cough that pt states is chronic 'probably from growing up around all that second-hand smoke'. TT ROBOTICS TECHNICIAN So jay Guaman ordered and administered - see
AUG.
[2024-01-04] MEDS: FLAGYL 500 MG 100 IV ×3 (04:30→19:52)
[2024-01-04 04:49] LABS: Hematocrit 26.2 % (37.0-47.0); Hemoglobin 8.8 g/dL (12.0-16.0); Mean Corp Hgb Conc. 33.6 g/dL (33.0-37.0); Mean Corpuscular Hgb 31.2 pg (27.0-31.0); Mean Corpuscular Volume 92.9 fL (81.0-99.0); Mean Platelet Volume 11.6 fL (7.4-10.4); Platelet Count 103 10^3/uL (130-400); Red Blood Cell Count 2.82 10^6/uL (4.20-5.40); Red Cell Dist. Width 17.2 % (11.5-14.5); White Blood Cell Count 8.1 10^3/uL (4.8-10.8)
[2024-01-04 05:16] LABS: Blood Urea Nitrogen 71 mg/dl (7-17); Carbon Dioxide 27 mmol/L (22-30); Chloride 92 mmol/L (98-107); Estimated Creatinine Clearance 6 ml/min; Glucose 139 mg/dl (70-99); Potassium 4.3 mmol/L (3.5-5.1); Sodium 129 mmol/L (135-145); eGFR 5.99
[2024-01-04] MEDS: ROBITUSSIN DM 5 ML PO ×2 (05:39→22:33)
[2024-01-04] MEDS: MANNITOL 25% 12.5 GRAMS IV ×2 (07:32→08:32)
[2024-01-04] MEDS: RETACRIT 4000 UNITS IV (07:33)
[2024-01-04 08:54] LABS: Glucose - Point of Care 118 mg/dl (70-99)
[2024-01-04] MEDS: NOVOLOG FLEXPEN-MODERATE RESISTANCE SC ×2 (09:07→16:16)
[2024-01-04] MEDS: ProAmatine 5 MG PO ×2 (09:10→17:05)
--- NOTE | 2024-01-04 09:28 | PN.CDI ---
CDI
- -
CDI:
Physician Documentation Request
Admit Date: 01/01/24 15:43
Dear Doctor Radha,
Clinical Indicators:
Patient admitted with Complete Heart Block; s/p PPM 01/01.
12/31 RN skin/wound assessment: Sacrum Stage 2 Pressure Injury, POA
Treatment: Silicone border foam dressing
Physician documentation of the type and location of wounds is required for compliant documentation. Based on the above clinical findings and your assessment, please provide the following in your progress note:
1. Location of the ulcer/wound, including laterality.
2. Type (etiology) of ulcer/wound:
- Pressure (decubitus) ulcer
- Other
- Unable to determine
3. If a pressure ulcer, please also include the stage* of the ulcer:
- Stage 1 - Skin intact, non-blanchable redness
- Stage 2 - Partial thickness loss of dermis, includes intact or open blister
- Stage 3 - Full thickness tissue not including bone, tendon or muscle
- Stage 4 - Full thickness tissue loss, including exposed bone, tendon or muscle
- Unstageable - Full thickness loss in which the base of the ulcer is covered by slough (yellow, gil, arroyo, green or brown) and/or eschar (gil, brown or black) in the wound bed.
- Unable to determine
Use of terms such as suspected, likely, concern for, or probable (associated with a specific diagnosis that is being evaluated, monitored, or treated as if it exists) are acceptable and can be coded in the inpatient setting, when documented at the
time of discharge.
Thank you,
Rosy Yoon RN BSN
CDI Specialist
available via tiger text
Please use your independent medical judgment in providing your response.
*Source: National Pressure Ulcer Advisory Panel (NPUAP)
--- NOTE | 2024-01-04 10:42 | CON.GI ---
Addendum entered and electronically signed by Chayo Bhatt DO 01/04/24 17:03:
I saw and examined the patient.
The DAIRY BAR MANAGER or PA's note was reviewed and I agree with the note.
Comment:
Ruchi is an 83-year-old female with multiple medical comorbidities including cardiogenic cirrhosis, CHF, diabetes, hypertension, peripheral arterial disease, ESRD on hemodialysis, A-fib on Eliquis severe pulmonary hypertension, aortic stenosis,
chronic anemia admitted to [facility] with hypotension and bradycardia, found to have complete heart block with junctional escape requiring pressor support, now status post pacemaker placement on 01/01. Her cardiogenic cirrhosis has been
complicated by ascites, status post paracentesis on 12/29 at which time 5350 mL were removed. On 12/[address] scan that was obtained which demonstrated moderate ascites, evidence of periesophageal varices, moderate pancolitis, gastritis and
hepatic cirrhosis which GI is being asked to evaluate.
Patient is a somewhat limited historian, complains of loose stool today but otherwise does not report any issues moving her bowels. States she gets frequent paracentesis. It is unclear the level of insight she has to her disease processes. Labs
notable for hemoglobin drop to 8.8 from 10 on admission. Platelets dropped to 103, INR 1.8. At time of arrival, her alkaline phosphatase was slightly elevated to 131 which was an improvement from 200 in the beginning of November but otherwise total
bilirubin and transaminases were normal, albumin 3.4. Since that time no repeat liver enzymes were obtained. Unable to calculate a MELD.
I am not sure what to make of the findings on her CAT scan with very minimal symptoms, limited today which is after the imaging was obtained. It is possible this reflects portal colopathy though as the radiologist notes it is somewhat difficult to
be seen in a diffuse distribution like this.
It is important to note this was performed without oral or IV contrast, I recommend completing stool studies as well as repeating CAT scan with oral contrast only to better assess the bowels as sometimes this could be reflective of underdistention.
It is possible she has worsening decompensation of her cardiac cirrhosis, as evidenced by her worsening thrombocytopenia and more frequent requirement of paracentesis. I would like to be able to better assess her ascitic fluid profile to determine
the SAAG, no albumin obtained on most recent fluid studies. She denies having prior EGD or colonoscopy, will touch base with patient's brother who helps with decision-making to determine their goals of care moving forward as she does have evidence
of varices in the esophagus and could discuss performing an endoscopy and possibly colonoscopy based on the imaging findings of colitis.
Addendum entered and electronically signed by MARIA L Montes 01/04/24 16:55:
left message with brother on contact list to discuss ascites and plan.
Original Note:
Consultation
-
Date/Time Consultation Requested: 01/04
Date/Time Consultation Performed: 01/04/24 1045
Requesting Provider: Hardy Garcia MD
Performing Provider: MARIA L Zendejas
Reason for Consultation: cirrhosis, gastrititis, pancolitis
Medical History
Chief Complaint / HPI
Chief Complaint: weakness
History of Present Illness:
This is an 83 year old female with a past medical history of cardiogenic cirrhosis, CHF, DM, HTN, PAD, ESRD on HD, atrial fibrillation (on Eliquis), severe pulmonary hypertension, , anemia with hx GI evaluation in 2022 and recently in November with
anemia and ascites. She now presents 12/31 with hypotension, bradycardia and weakness. She was noted with complete heart block with junction escape requiring pressor support. She went 01/01 for pacer and also completed para for 5350 on 12/29. Asked
to evaluate for abnormal CT from 12/31 with moderate ascites, moderate pancolitis, gastritis, hepatic cirrhosis.
In reviewing with patient she is a limited historian but currently states she is feeling improved from admission. She denies odynophagia, GERD, nausea, vomiting, abdominal pain, diarrhea, constipation or rectal bleeding. She denies hx EGD or
colonoscopy in past. Labs notable for hbg 8.8 drop from 10 on admission, platelets with drop to 103, INR 1.8 (with use of Eliquis), normal bili/AST/ALT 12/31 , albumin 3.4.
Past Medical History
Past Medical History: Other (cardiogenic cirrhosis, CHF, DM, HTN, PAD, ESRD (on HD --), atrial fibrillation (on Eliquis), severe pulmonary hypertension, , chronic anemia)
Past Surgical History: Other (AV fistula for hemodialysis, paracentesis)
Social History
Tobacco: Non-Smoker
Alcohol: None
Drug: None
Living: Assisted
Family History
Family History: Other (No family history of GI malignancies or liver disease )
Allergies / Home Medications
Allergy/AdvReac Type Severity Reaction Status Date / Time
No Known Allergies Allergy Verified 01/01/24 13:21
�Medication �Instructions �Recorded
insulin aspart U-100 100 unit/mL 5 unit SC AC Diabetes 11/26/22
(3 mL) subcutaneous pen (Novolog
FlexPen U-100 Insulin aspart)
isosorbide mononitrate 30 mg 15 mg PO DAILY Heart 11/26/22
tablet,extended release 24 hr Disease/Condition
montelukast 10 mg tablet 10 mg PO DAILY Allergies 11/26/22
rosuvastatin 10 mg tablet 10 mg PO HS High Cholesterol 11/26/22
furosemide 40 mg tablet 40 mg PO DAILY Fluid 01/25/23
Retention/Swelling
insulin glargine 100 unit/mL (3 10 unit SC HS Diabetes 01/25/23
mL) subcutaneous pen (Lantus
Solostar U-100 Insulin)
magnesium oxide 400 mg (241.3 mg 400 mg PO DAILY Electrolyte 01/25/23
magnesium) tablet Repletion
polyethylene glycol 3350 17 gram 17 g PO DAILYPRN PRN CONSTIPATION 01/25/23
oral powder packet
ergocalciferol (vitamin D2) 1,250 1,250 mcg PO QWEEK Supplement 01/27/23
mcg (50,000 unit) capsule
calcium acetate(phosphat bind) 667 1,334 mg PO MEALS Kidney Disease 07/14/23
mg capsule
loperamide 2 mg capsule 2 mg PO Q4HPRN PRN loose stools 07/14/23
apixaban 2.5 mg tablet (Eliquis) 2.5 mg PO BID Blood Clot 11/04/23
Prevention/Tx
dextromethorphan-guaifenesin 10 5 ml PO Q6HPRN PRN COUGH 11/04/23
mg-100 mg/5 mL oral syrup (Chest
Congestion Relief DM)
metoprolol succinate 25 mg 25 mg PO QPM Blood Pressure 11/04/23
tablet,extended release 24 hr
(Toprol XL)
midodrine 5 mg tablet 5 mg PO DAILYPRN PRN FOR LOW BP 11/04/23
LESS THAN 100
sodium chloride 0.65 % nasal spray 2 spray intranasal QIDPRN PRN 11/04/23
aerosol nasal conjestion
vit A 300 mcg-C 200 mg-E 27 1 tab PO BID Supplement 01/01/24
mg-lutein 2 mg and minerals tablet
(Ocuvite with Lutein)
Review of Systems
-
History Source: Patient
Constitutional: Reports Fatigue
EENT: Reports No Symptoms
Respiratory: Reports No Symptoms
Cardiac: Reports No Symptoms
Abdomen/GI: Reports Other (abd distention)
: Reports No Symptoms
Musculoskeletal: Reports No Symptoms
Skin: Reports No Symptoms
Neurological: Reports Weakness
Endocrine: Reports No Symptoms
Hematologic/Lymphatic: Reports No Symptoms
Vital Signs
Temp Pulse Resp BP Pulse Ox
98.2 F 60 16 98/26 96
01/04/24 07:30 01/04/24 07:30 01/04/24 07:30 01/04/24 04:09 01/04/24 07:30
Physical Exam
Exam
General: Well Developed, Well Nourished, No Apparent Distress and Comfortable
HEENT: Normocephalic and Anicteric
Cardiac: Regular Rhythm, Murmur and Other (paced on monitor )
GI: Soft, Non Tender and Distended
Musculoskeletal: No Clubbing and No Cyanosis
Skin: Warm and Dry
Neuro: Awake, Alert and Other (forgetful to some questions)
Psych: Calm
Results
WBC 8.1 10^3/uL (4.8-10.8) 01/04/24 04:26
Hgb 8.8 g/dL (12.0-16.0) L 01/04/24 04:26
Hct 26.2 % (37.0-47.0) L 01/04/24 04:26
MCV 92.9 fL (81.0-99.0) 01/04/24 04:26
Plt Count 103 10^3/uL (130-400) L 01/04/24 04:26
Absolute Neuts (auto) 6.7 10^3/uL (1.4-6.5) H 01/01/24 13:25
PT 20.9 Sec (11.4-14.6) H 01/01/24 19:48
INR 1.82 01/01/24 19:48
APTT 34.6 Sec (23.4-35.0) 01/01/24 19:48
Sodium 129 mmol/L (135-145) L 01/04/24 04:26
Potassium 4.3 mmol/L (3.5-5.1) 01/04/24 04:26
Chloride 92 mmol/L (98-107) L 01/04/24 04:26
Carbon Dioxide 27 mmol/L (22-30) 01/04/24 04:26
BUN 71 mg/dl (7-17) H 01/04/24 04:26
Creatinine 6.5 mg/dL (0.6-1.0) H* 01/04/24 04:26
Calcium 8.0 mg/dl (8.4-10.2) L 01/04/24 04:26
Total Bilirubin 1.2 mg/dl (0.2-1.3) 01/01/24 13:25
AST 33 U/L (14-36) 01/01/24 13:25
ALT 20 U/L (0-35) 01/01/24 13:25
Alkaline Phosphatase 131 U/L (38-126) H 01/01/24 13:25
Diagnostic Image Results:
01/01/24- CT Abd/pel Without Iv Or Oral
1. MODERATE ASCITES throughout the abdomen and pelvis.
2. MODERATE PANCOLITIS. Diagnostic possibilities are (1) acute infectious colitis or (2) less likely portal colopathy given the diffuse distribution.
3. Moderate air distention of the stomach and mild diffuse gastric wall thickening suggesting gastritis.
4. SEVERE HEPATIC CIRRHOSIS.
5. SEVERE CHRONIC BILATERAL KIDNEY DISEASE.
6. Very severe calcific atherosclerotic disease.
7. Cholelithiasis.
8. Mild cardiomegaly.
9. Severe calcific atherosclerotic plaque in the coronary arteries and thoracic aorta.
10. Multilevel grade 1 anterolistheses in the lumbar spine secondary to severe facet joint arthrosis.
Prior GI Procedures:
EGD: none
Colonoscopy: none
Assessment / Plan
-
This is an 83 year old female with a past medical history of cardiogenic cirrhosis, CHF, DM, HTN, PAD, ESRD on HD, atrial fibrillation (on Eliquis), severe pulmonary hypertension, , anemia with hx GI evaluation in 2022 and recently in November with
anemia and ascites. She now presents 12/31 with hypotension, bradycardia and weakness. She was noted with complete heart block with junction escape requiring pressor support. She went 01/01 for pacer and also completed para for 5350 on 12/29. Asked
to evaluate for abnormal CT from 12/31 with moderate ascites, moderate pancolitis, gastritis, hepatic cirrhosis. Labs notable for hbg 8.8 drop from 10 on admission, platelets with drop to 103, INR 1.8 (with use of Eliquis), normal bili/AST/ALT 12/31 ,
albumin 3.4.
prior liver work up 2022 with neg hep Bs ag and hep C ab, MERRY none detected, SLA 2
07/2023 SAAG 1.9 protein 2.9
-cirrhosis -- cardiogenic vs liver noted on follow up CT
-ascites
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
-CT with pancolitis
-CT with gastritis
-complete heart block s/p pacer
-elevated trop
-anemia
-thrombocytopenia
-hypoalbuminemia
other med problems:
-CHF
-DM
-HTN
-PAD
-ESRD on HD
-Afib on Eliquis
-pulm HTN
-
PLAN:
Etiology of cirrhosis related to cardiac - congestive as noted completed heart block on admission and prior SAAG in 06.14 with fluid protein 2.9 but now pt has developed hypoalbuminemia, thrombocytopenia and Elevated INR(but INR not accurate
with Eliquis use)
would recommend with next tap to check albumin and Protein in paracentesis tap to recalculate SAAG
currently off diuretics -- management per renal with ESRD
pancolitis may be colonopathy vs other no pain on exam and currently on abx course
will review need for EGD with Dr. Bhatt with noted changes of paraesophageal varices and gastritis on imaging if proceeding she currently remains on Eliquis vs consider OP testing
trend hbg with anemia and some drop since admission but can be chronic with renal disease- will add iron studiees
s/p palliative care consult await recs
will review with Dr. Bhatt for further recs
-
-
-
Thank you for consultation and allowing me to participate in the patient's care. Please call the correctional supervisor GI physician during the after hours with any questions or concerns.
--- NOTE | 2024-01-04 10:50 | W.PN.NEPH.HD ---
Assessment
-
pt seen during HD
BP are soft, s/p midodrine , start schedule midodrine now
AVF functions well
UF as tolerates, CXR 01/02mild pulm edema
her wts are disproportionate likely from ascites -GI follows
renal dose abx
renal diet and FR to continue
agree consulting palliative care
Progress Note - Hemodialysis
-
Date of Service: January 04, 2024
Duration: 30 minutes and 3 hours
Potassium Bath: 3
Calcium Bath: 2.5
Opti-Dialyzer: 160
Ultrafiltration: Other (1kg)
Blood Flow: 400
Dialysate Flow: 600
Heparin: no
EPO: 4000
[2024-01-04] MEDS: ELIQUIS 2.5 MG PO ×2 (10:53→19:52)
[2024-01-04] MEDS: SINGULAIR 10 MG PO (11:00)
[2024-01-04 11:53] LABS: Glucose - Point of Care 93 mg/dl (70-99)
[2024-01-04] MEDS: PHOSLO 1334 MG PO ×2 (12:15→17:02)
[2024-01-04] MEDS: PHOSLO PO (12:27)
[2024-01-04 13:30] LABS: Iron 42 ug/dl (37-170)
[2024-01-04 13:39] LABS: Percent Saturation 21 % (20-50); Total Iron Binding Capacity 193 ug/dl (265-497)
[2024-01-04] MEDS: TOPROL XL PO (13:55)
--- NOTE | 2024-01-04 15:09 | CM ---
CM following for DC planning needs.
Reviewed DC plans: plan to return to [facility] once medically stable. BrotherTahir will transport.
Pt. is open to [facility]; plan to resume once return.
Should patient require new medication or medication changes, will need paper RX upon return.
CM to follow.
--- NOTE | 2024-01-04 16:26 | W.PN.HOSP.TC ---
Today's Communication/Plan
-
Dialysis today
GI to evaluate for repeat EGD and another paracentesis, appreciate GI
Start Toprol XL as long as within parameters can give it, patient also has Midodrine
Assessment / Plan
Assessment / Plan
Physical Exam
Gen: Not in acute distress
HEENT: Normocephalic
Neck: Supple.
CV: bradycardic, reg rhythm, +S1/S2, 2/6 systolic murmur
Resp: CTAB anteriorly, no rales, wheezes, or rhonchi.
Abd: +BS, soft, NT, severe distention with ascites
Skin: No rashes.
Neuro: CN 2-12 intact, non-focal.
Psych: Normal mood and affect.

Echo 07/21/23: EF 65-70%. No RWMA. Dilated RV with normal systolic function. Mild to moderate MS. Mild MR/. Mod TR. PASP 53mmHg
Assessment/Plan
Complete Heart Block status post successful implantation of MRI compatible dual chamber [employer] pacemaker on January 02, 2024
Third degree heart block
-Pacemaker placed today
-ECG with complete HB @ 39, RBBB, L-axis dev, (read by me)
-Dr. Tucker discussed with director river restoration Dr. Butt
-Eliquis restarted on January 03, 2024
-Metoprolol restarted at 25 mg BID (home dose 25 mg QD)
-DCCV deferred -- 4 weeks of anticoagulation
Gastritis and Pancolitis Seen on CT Imaging
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
-Continue antibiotics
-Given cirrhosis and above findings, consulted GI, evaluation and recommendations appreciated
-GI to evaluate for repeat paracentesis and EGD
Non-Ischemic Myocardial Injury
Suspected Acute on Chronic HFpEF
Concern for Cardiogenic Shock
Sacrum Stage 2 Pressure Injury, POA
-Continue wound care
Other problems:
ESRD: c/s renal for HD M/W/
Essential HTN in the past, then hypotension: Hold Imdur/BB.
DM2: Cont Lantus at 8U, hold premeal insulin, SSI/accuchecks, a1c 5.7%
Valvular disease: mild to moderate MS. Mild MR/. Mod TR.
HLD: cont statin
Anemia of chronic disease
Severe pulmonary HTN
Thrombocytopenia
Atrial fibrillation, unknown type: Continue Eliquis
Peripheral arterial disease
FULL code as per discussion with pt in the ER.
Considering overwhelming burden of pathology palliative care was consulted, evaluation and recommendations appreciated: Dr. Kitty Erwin on 01/03/24 mentioned that patient and her brother are both interested in outpatient palliative care follow-up.
Anticipated Discharge: > 48 hours
Subjective/Interval History
-
Date of Service: January 04, 2024
Objective Data
-
Labs:
Laboratory Results
01/04/24
04:26
WBC 8.1
Hgb 8.8 L
Hct 26.2 L
Plt Count 103 L
Sodium 129 L
Potassium 4.3
Chloride 92 L
Carbon Dioxide 27
BUN 71 H
Creatinine 6.5 H*
Glucose 139 H
Calcium 8.0 L
Vital Signs:
Vital Signs
Temp Pulse Resp BP Pulse Ox
98.2 F 60 16 98/26 98
01/04/24 11:03 01/04/24 07:30 01/04/24 11:03 01/04/24 04:09 01/04/24 08:00
I&O
01/03/24 01/04/24 01/05/24
06:59 06:59 06:59
Intake Total 301.8 / 301.8 240 / 240
Balance 301.8 / 301.8 240 / 240
[2024-01-04] MEDS: NOVOLOG FLEXPEN-MODERATE RESISTANCE 1 UNITS SC (17:00)
[2024-01-04 17:01] LABS: Glucose - Point of Care 170 mg/dl (70-99)
[2024-01-04] MEDS: ANCEF 5 IV (17:04)
[2024-01-04] MEDS: FLUSH (NSS) 1 FLUSH IV (17:04)
[2024-01-04] MEDS: TOPROL XL 25 MG PO (19:52)
[2024-01-04 21:51] LABS: Glucose - Point of Care 165 mg/dl (70-99)
[2024-01-04] MEDS: LANTUS 0.08 UNITS SC (22:32)
[2024-01-04] MEDS: CRESTOR 10 MG PO (22:33)
[2024-01-05] VITALS (8 sets, daily range): BP systolic 96–126; BP diastolic 23–60; BMI 23.4
[2024-01-05] MEDS: FLAGYL 500 MG 100 IV ×3 (03:37→19:45)
[2024-01-05 04:48] LABS: Hematocrit 28.5 % (37.0-47.0); Hemoglobin 9.3 g/dL (12.0-16.0); Mean Corp Hgb Conc. 32.6 g/dL (33.0-37.0); Mean Corpuscular Hgb 31.7 pg (27.0-31.0); Mean Corpuscular Volume 97.3 fL (81.0-99.0); Red Blood Cell Count 2.93 10^6/uL (4.20-5.40); Red Cell Dist. Width 17.3 % (11.5-14.5); White Blood Cell Count 7.7 10^3/uL (4.8-10.8)
[2024-01-05 05:23] LABS: Blood Urea Nitrogen 41 mg/dl (7-17); Carbon Dioxide 28 mmol/L (22-30); Chloride 97 mmol/L (98-107); Estimated Creatinine Clearance 8 ml/min; Glucose 125 mg/dl (70-99); Potassium 3.5 mmol/L (3.5-5.1); Sodium 132 mmol/L (135-145); eGFR 9.31
[2024-01-05 07:21] LABS: Platelet Count 86 10^3/uL (130-400)
[2024-01-05 07:37] LABS: Glucose - Point of Care 118 mg/dl (70-99)
[2024-01-05] MEDS: NOVOLOG FLEXPEN-MODERATE RESISTANCE SC ×2 (07:39→16:56)
[2024-01-05] MEDS: ProAmatine 5 MG PO ×3 (08:40→18:31)
[2024-01-05] MEDS: ELIQUIS 2.5 MG PO ×2 (08:40→19:45)
[2024-01-05] MEDS: PHOSLO 1334 MG PO ×2 (08:40→16:53)
[2024-01-05] MEDS: SINGULAIR 10 MG PO (08:40)
--- NOTE | 2024-01-05 10:22 | W.PN.GI.CBS2 ---
Addendum entered and electronically signed by Chayo Bhatt DO 01/05/24 13:41:
I saw and examined the patient.
The DYE PADDER OPERATOR or PA's note was reviewed and I agree with the note.
Comment: Agree with plans as outlined below-- need to determine goals of care. Multiple attempts have been made to reach her 2 brothers, awaiting call back to discuss. Given cardiac cirrhosis and periesophageal varices on imaging, it is reasonable
to discuss EGD to evaluate varices and intervene if possible to prevent future life-threatening GI bleeding. I am unsure what to make of the rest of her imaging findings, given she is asymptomatic, 'gastritis' and 'diffuse colitis.' Will discuss
colonoscopy with her brothers, but without symptoms, I would recommend simply repeating CT A/P w/ PO contrast as an outpatient. Will await discussion with her brothers to determine next steps. No signs of GI bleeding at this time. Please include
albumin and protein in next paracentesis so we are able to calculate her SAAG.
Original Note:
Today's Communication / Plan
-
feeling better
diarrhea improved no abdominal pain
would recommend with next tap to check albumin and Protein in paracentesis tap to recalculate SAAG but currently fluid stable and no need for tap today
hold stool studies as diarrhea improved
I left message with both brothers Ramy and Eliezer to discuss overall plan as patient with some limitation in history
reviewed with patient with recent pacer and stable GI symptoms and hbg consider OP follow up to discuss EGD for variceal screening and ?colonoscopy with colitis
iron studies stable not consistent with iron deficiency may be related to CKD cont to trend
repeat INR and LFT's in AM to calculate MELD
s/p palliative care consult await recs
Assessment / Plan
-
This is an 83 year old female with a past medical history of cardiogenic cirrhosis, CHF, DM, HTN, PAD, ESRD on HD, atrial fibrillation (on Eliquis), severe pulmonary hypertension, , anemia with hx GI evaluation in 2022 and recently in November with
anemia and ascites. She now presents 12/31 with hypotension, bradycardia and weakness. She was noted with complete heart block with junction escape requiring pressor support. She went 01/01 for pacer and also completed para for 5350 on 12/29. Asked
to evaluate for abnormal CT from 12/31 with moderate ascites, moderate pancolitis, gastritis, hepatic cirrhosis. Labs notable for hbg 8.8 drop from 10 on admission, platelets with drop to 103, INR 1.8 (with use of Eliquis), normal bili/AST/ALT 12/31 ,
albumin 3.4.
prior liver work up 2022 with neg hep Bs ag and hep C ab, MERRY none detected, SLA 2
07/2023 SAAG 1.9 protein 2.9
-cirrhosis -- cardiogenic vs liver noted on follow up CT
-ascites
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
-CT with pancolitis
-CT with gastritis
-complete heart block s/p pacer
-elevated trop
-anemia
-thrombocytopenia
-hyponatremia
-hypoalbuminemia
other med problems:
-CHF
-DM
-HTN
-PAD
-ESRD on HD
-Afib on Eliquis
-pulm HTN
-
PLAN:
Etiology of cirrhosis related to cardiac - congestive as noted completed heart block on admission and prior SAAG in 06.14 with fluid protein 2.9 but now pt has developed hypoalbuminemia, thrombocytopenia and Elevated INR(but INR not accurate
with Eliquis use)
pt feeling much better today-- appetite good
would recommend with next tap to check albumin and Protein in paracentesis tap to recalculate SAAG but currently fluid stable and no need for tap today
currently off diuretics -- management per renal with ESRD
pancolitis may be colonopathy vs other no pain on exam and currently on abx course
hold stool studies as diarrhea improved
I left message with both brothers Ramy and Eliezer to discuss overall plan as patient with some limitation in history
reviewed with patient with recent pacer and stable GI symptoms and hbg consider OP follow up to discuss EGD for variceal screening and ?colonoscopy with colitis
iron studies stable not consistent with iron deficiency may be related to CKD cont to trend
repeat INR and LFT's in AM to calculate MELD
s/p palliative care consult await recs
-
Subjective
Subjective
Date of Service: January 05, 2024
01/04 brown soft stool no further diarrhea, on ADA diet
Objective
Data Reviewed
Laboratory Data:
Laboratory Results
01/05/24 03:36
01/05/24 03:36
Laboratory Results
PT 20.9 Sec (11.4-14.6) H 01/01/24 19:48
INR 1.82 01/01/24 19:48
APTT 34.6 Sec (23.4-35.0) 01/01/24 19:48
Phosphorus 7.4 mg/dl (2.5-4.5) H 01/03/24 03:53
Magnesium 2.1 mg/dl (1.6-2.3) 01/03/24 03:53
Total Bilirubin 1.2 mg/dl (0.2-1.3) 01/01/24 13:25
AST 33 U/L (14-36) 01/01/24 13:25
ALT 20 U/L (0-35) 01/01/24 13:25
Alkaline Phosphatase 131 U/L (38-126) H 01/01/24 13:25
Vital Signs and I&O:
Vital Signs
Temp Pulse Resp BP Pulse Ox
97.7 F 61 20 96/38 94
01/05/24 07:31 01/05/24 09:15 01/05/24 07:31 01/05/24 08:40 01/05/24 07:31
I&O
01/04/24 01/05/24 01/06/24
06:59 06:59 06:59
Intake Total 240 / 240 120 / 120
Balance 240 / 240 120 / 120
Physical Exam
Physical Exam
HEENT: Anicteric and Moist mucous membranes
Cardiology: Normal Sinus Rhythm (paced )
Pulmonary: Clear
GI: Soft, Distended and Non Tender
Neuro: Non Focal
[2024-01-05] MEDS: TOPROL XL 25 MG PO (10:47)
[2024-01-05 11:08] LABS: ALT (SGPT) < 10 U/L (0-35); AST (SGOT) 39 U/L (14-36); Albumin 2.6 g/dl (3.5-5.0); Alkaline Phosphatase 185 U/L (38-126); Direct Bilirubin 0.6 mg/dl (0.0-0.4); Total Bilirubin 0.9 mg/dl (0.2-1.3); Total Protein 5.5 g/dl (6.3-8.2)
--- NOTE | 2024-01-05 11:25 | W.PN.PAL2 ---
Today's Communication
-
0
Assessment / Plan
-
Assessment/Plan:
Overall She feels improved since insertion of PPM
Goals: treatment oriented at this time. Agreeable to outpatient palliative care.
Please discuss EGD/colonsocopy planning with brother eliezer per patients request.
Reason for Admission
Illness Course/HPI
Maryjo is a 83 y/ofemale with pmhx of ESRD on HD MWF, Aortic stenosis, cirrhosis (? cause), HTN, Who was hospitlalized on 12/31 with symptomatic bradycardia, wekaness and hypotension. PPPM Inserted 01/01. Initial consult completed 01/02. Patient
received HD yesterday as well.
Since PPM insertion, patient reports improvement in energy level, feeling much better.
Palliative Care follow up
She is off of dopamine drip at present time. reports mild backache but no other complaints at todays visits.
She appears more clear today compared to my prior visit.
Patient reports she was seen by GI doctor, and they talked about EGD/colonoscopy and other workup. She is open and agreeable to workup, but wants them to schedule with her brother eliezer if this is to be done as an outpatient. Agreeable to
outpatient palliative care.
Functional Status & Support Systems
Current Functional Status:
Justin lives at the [facility] with level 2 support - she receives assistance with bathing and toileting and medication management per patient. She ambulates with walker at baseline and keeps track of her own weights and blood pressures. Patient
has long-term care policy but not able to use yet as functional status has been too good.
She has been having more frequent issues with ascities and paracentesis need in the past 2-3 months.
Review of Advanced Directives
Advanced Care Documentation Status: Complete
Type of Documentation: Living Will and Medical Power of Filtrose Crusher
Location of Advanced Care Documentation: [facility]
Surrogate Decision Maker (name & contact): Brothers Ramy and Tahir
Preferences Regarding Medical Care at End of Life: Comfort focused
Goals of Care Discussion
Patient Goals & Values Discussion
Summary of Patient's Goals of Care [Text6]:
Goals are treatment oriented.
Brothers Eliezer & Ramy are medical poas. Ramy currently in hospital/rehab.
She would be agreeable to EGD/Colonsocopy if needed - but would want to coordinate with her brother.
Pain & Symptom Assessment
[place] Symptom Scale 0=none, 10=worst
Pain: 1
Tired: 0
Drowsy: 0
Nausea: 0
Appetite: 0
Shortness of Breath: 0
Depressed: 0
Anxiety: 0
[place]
Objective Data
-
Objective Data:
Vital Signs
Temp Pulse Resp BP Pulse Ox
97.7 F 60 20 105/23 94
01/05/24 07:31 01/05/24 10:47 01/05/24 07:31 01/05/24 10:47 01/05/24 07:31
Laboratory Results
01/05/24 03:36
01/05/24 03:36
PT 20.9 Sec (11.4-14.6) H 01/01/24 19:48
INR 1.82 01/01/24 19:48
APTT 34.6 Sec (23.4-35.0) 01/01/24 19:48
Hemoglobin A1c 5.7 % (4.0-5.6) H 01/02/24 03:34
Total Protein 5.5 g/dl (6.3-8.2) L 01/05/24 03:36
Albumin 2.6 g/dl (3.5-5.0) L 01/05/24 03:36
Palliative Performance Scale
Palliative Performance Scale:
PPS Level Ambulation Activity & Evidence of Disease Self Care Intake Conscious Level
100% Full Normal Activity & Work; Full Intake Full
No Evidence of Disease
90% Full Normal Activity & Work; Full Normal Full
Some Evidence of Disease
80% Full Normal Activity with Effort Full Normal or Full
Some Evidence of Disease Reduced
70% Reduced Unable Normal Job/Work Full Normal or Full
Significant Disease Reduced
60% Reduced Unable Hobby/Housework Occasional Normal or Full or Confusion
Significant Disease Assistance Reduced
50% Mainly Sit/Lie Unable to do Any Work Considerable Normal or Full or Confusion
Extensive Disease Assistance Req'd Reduced
40% Mainly in Bed Unable to do Most Activity Mainly Assistance Normal or Full or Drowsy;
Extensive Disease Reduced +/- Confusion
30% Totally Bed Unable to do Any Activity Total Care Normal or Full or Drowsy;
Bound Extensive Disease Reduced +/- Confusion
20% Totally Bed Bound Unable to do Any Activity Total Care Minimal to Full or Drowsy;
Extensive Disease Sips +/- Confusion
10% Totally Bed Bound Unable to do Any Activity Total Care Mouth Care Drowsy or Coma;
Extensive Disease Only +/- Confusion
0%
PPS Score Level:
50
Physical Exam
-
General: Other (frail elderly female)
HEENT: Moist Mucous Membranes
GI: Distended and Ascites
Neuro: Awake and Alert
Psych: Calm
Care Reviewed
Data Reviewed
Reviewed with: Patient
Time
Start Date: 01/05/24
Start Time: 10:29
Stop Date: 01/05/24
Stop Time: 10:50
Time Spent:
21 mins
[2024-01-05 11:33] LABS: Glucose - Point of Care 152 mg/dl (70-99)
[2024-01-05] MEDS: NOVOLOG FLEXPEN-MODERATE RESISTANCE 1 UNITS SC (11:52)
--- NOTE | 2024-01-05 13:19 | W.PN.NEPH.PH ---
Today's Communication / Plan
-
- HD tomorrow
Assessment/Plan
-
Assessment:
CHB
Hypotension
ESRD-from 12/2022 MWF HD at [facility]
LUE AVF created 01/26
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
h/o Ascites and paracentesis last on 12/29 5.3lit
History DCHF
Type 2 diabetes
Primary hypertension
Likely history of coronary artery disease
History of heart valve problem
Severe pulmonary hypertension
Mild to moderate aortic stenosis
Moderate TR
Chronic thrombocytopenia
HLD
Plan:
A/w hypotension,josué noted CHB plan Pacer was placed on 01/02/2024
Patient looking well this morning
If patient is still here we will dialyze her tomorrow
Blood pressure remains low side
renal diet and FR when diet starts
d/w patient
-
-
Date of Service: January 05, 2024
CC / HPI / ROS
-
Chief Complaint:
End-stage renal disease
History of Present Illness:
ESRD Tuesday
Remains on the hypotensive side
Status post pacemaker placement on January 02, 2024
Review of Systems:
no chest pain or sob
Labs
-
Labs:
WBC 7.7 10^3/uL (4.8-10.8) 01/05/24 03:36
RBC 2.93 10^6/uL (4.20-5.40) L 01/05/24 03:36
Hgb 9.3 g/dL (12.0-16.0) L 01/05/24 03:36
Hct 28.5 % (37.0-47.0) L 01/05/24 03:36
Plt Count 86 10^3/uL (130-400) L 01/05/24 03:36
Sodium 132 mmol/L (135-145) L 01/05/24 03:36
Potassium 3.5 mmol/L (3.5-5.1) 01/05/24 03:36
Chloride 97 mmol/L (98-107) L 01/05/24 03:36
Carbon Dioxide 28 mmol/L (22-30) 01/05/24 03:36
BUN 41 mg/dl (7-17) H 01/05/24 03:36
Creatinine 4.5 mg/dL (0.6-1.0) H* 01/05/24 03:36
eGFR 9.31 01/05/24 03:36
Glucose 125 mg/dl (70-99) H 01/05/24 03:36
Calcium 8.0 mg/dl (8.4-10.2) L 01/05/24 03:36
Phosphorus 7.4 mg/dl (2.5-4.5) H 01/03/24 03:53
Laf-N-Bplwaazfpbl Pept > 42975 pg/ml 01/03/24 03:53
Albumin 2.6 g/dl (3.5-5.0) L 01/05/24 03:36
Physical Exam
-
Vital Signs:
Vital Signs
Temp Pulse Resp BP Pulse Ox
97.3 F 60 20 105/23 98
01/05/24 12:35 01/05/24 10:47 01/05/24 12:35 01/05/24 10:47 01/05/24 12:35
Cardiovascular:: Regular rate and rhythm
Respiratory:: Bilateral: CTA
Lung Excursion:: Normal
Abdomen:: Distended, Nontender and Soft
Bowel Sounds:: Normal
Extremity Edema:: None: Bilateral:
Gross Catheter: No
--- NOTE | 2024-01-05 13:22 | W.PN.HOSP.TC ---
Today's Communication/Plan
-
Appreciate GI -- they are waiting to discuss patient's case with her brothers
Assessment / Plan
Assessment / Plan
Physical Exam
Gen: Not in acute distress
HEENT: Normocephalic
Neck: Supple.
CV: reg rate and rhythm, +S1/S2, 2/6 systolic murmur
Resp: CTAB anteriorly, no rales, wheezes, or rhonchi.
Abd: +BS, soft, NT, severe distention with ascites
Skin: No rashes.
Neuro: CN 2-12 intact, non-focal.
Psych: Normal mood and affect.

Echo 07/21/23: EF 65-70%. No RWMA. Dilated RV with normal systolic function. Mild to moderate MS. Mild MR/. Mod TR. PASP 53mmHg
Assessment/Plan
Complete Heart Block status post successful implantation of MRI compatible dual chamber Medtronic pacemaker on January 02, 2024
Third degree heart block
-Pacemaker placed today
-ECG with complete HB @ 39, RBBB, L-axis dev, (read by me)
-Dr. Tucker discussed with electrical manufacturing engineer Dr. Butt
-Eliquis restarted on January 03, 2024
-Metoprolol restarted at 25 mg BID (home dose 25 mg QD)
-DCCV deferred -- 4 weeks of anticoagulation
Gastritis and Pancolitis Seen on CT Imaging
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
-Continue antibiotics
-Given cirrhosis and above findings, consulted GI, evaluation and recommendations appreciated
-Per GI, given cardiac cirrhosis and periesophageal varices on imaging, it is reasonable to discuss EGD to evaluate varices and intervene if possible to prevent future life-threatening GI bleeding.
-GI will discuss colonoscopy with her brothers, but without symptoms, but they would recommend simply repeating CT A/P w/ PO contrast as an outpatient.
-GI is waiting to discuss patient's case with her brothers
-Will need to include albumin and protein in next paracentesis so SAAG can be calculated
Non-Ischemic Myocardial Injury
Suspected Acute on Chronic HFpEF
Concern for Cardiogenic Shock
Sacrum Stage 2 Pressure Injury, POA
-Continue wound care
Other problems:
ESRD: c/s renal for HD M/W/
Essential HTN in the past, then hypotension: Hold Imdur/BB.
DM2: Cont Lantus at 8U, hold premeal insulin, SSI/accuchecks, a1c 5.7%
Valvular disease: mild to moderate MS. Mild MR/. Mod TR.
HLD: cont statin
Anemia of chronic disease
Severe pulmonary HTN
Thrombocytopenia
Atrial fibrillation, unknown type: Continue Eliquis
Peripheral arterial disease
FULL code as per discussion with pt in the ER.
Considering overwhelming burden of pathology palliative care was consulted, evaluation and recommendations appreciated: Dr. Kitty Erwin on 01/03/24 mentioned that patient and her brother are both interested in outpatient palliative care follow-up.
Anticipated Discharge: Within 24 hours
Subjective/Interval History
-
Date of Service: January 05, 2024
Patient was seen and examined. She denied any new symptoms or complaints.
Objective Data
-
Labs:
Laboratory Results
01/05/24
03:36
WBC 7.7
Hgb 9.3 L
Hct 28.5 L
Plt Count 86 L
Sodium 132 L
Potassium 3.5
Chloride 97 L
Carbon Dioxide 28
BUN 41 H
Creatinine 4.5 H*
Glucose 125 H
Calcium 8.0 L
Total Bilirubin 0.9
AST 39 H
ALT < 10
Alkaline Phosphatase 185 H
Vital Signs:
Vital Signs
Temp Pulse Resp BP Pulse Ox
97.3 F 60 20 105/23 98
01/05/24 12:35 01/05/24 10:47 01/05/24 12:35 01/05/24 10:47 01/05/24 12:35
I&O
01/04/24 01/05/24 01/06/24
06:59 06:59 06:59
Intake Total 240 / 240 120 / 120
Balance 240 / 240 120 / 120
[2024-01-05] MEDS: PHOSLO PO (14:06)
--- NOTE | 2024-01-05 14:25 | CM ---
Addendum entered by SHENG Mays 01/05/24 15:39:
Recd call from brother Tahir. Other brother, Ramy is hospitalized at the moment.
Tahir states that he has not recd call from MD but he is aware a message was left on his brother's home answering machine. I have relayed his number to and Hospitalist.
Brother can transport patient but he is questioning whether pt. should travel via ambulance.
Reviewed plan to DC to [place] [facility] w/ ? VN.
Will follow.
Original Note:
CM following for DC planning needs.
Met w/ patient at bedside. Patient with some confusion but pleasant.
Plan is to return to [facility]. Brother will transport pt.
Error to prior CM notes; patient is NOT current w/ [facility]call to [facility], she was with [facility] until October but VN has been discontinued since then. Can re-refer if VN is needed.
CM will cont. to follow.
--- NOTE | 2024-01-05 16:39 | PTCARENOTE ---
Pt AOx2, disoriented to time. No complaints of pain or discomfort. Assist x1 OOB with walker. Blood sugars monitored. VSS, paced on tele monitor. Call olivares within reach.
[2024-01-05 16:53] LABS: Glucose - Point of Care 124 mg/dl (70-99)
[2024-01-05] MEDS: ANCEF 5 IV (18:31)
[2024-01-05] MEDS: TOPROL XL PO (19:45)
[2024-01-05] MEDS: FLUSH (NSS) 2 FLUSH IV (19:45)
[2024-01-05 22:20] LABS: Glucose - Point of Care 126 mg/dl (70-99)
[2024-01-05] MEDS: CRESTOR 10 MG PO (22:46)
[2024-01-05] MEDS: LANTUS 0.08 UNITS SC (22:46)
[2024-01-06] VITALS (33 sets, daily range): BP systolic 49–109; BP diastolic 17–72; BMI 24.2
--- NOTE | 2024-01-06 00:42 | PTCARENOTE ---
OOB in chair for most of the evening. To BR with supervision, using rolling walker, steady. Forgetful, some confusion but pleasant. No complaints. Sleeping at intervals.
[2024-01-06] MEDS: FLUSH (NSS) 2 FLUSH IV (04:13)
[2024-01-06] MEDS: FLAGYL 500 MG 100 IV ×3 (04:13→19:34)
[2024-01-06 07:42] LABS: Glucose - Point of Care 125 mg/dl (70-99)
[2024-01-06] MEDS: NOVOLOG FLEXPEN-MODERATE RESISTANCE SC ×2 (07:42→11:53)
[2024-01-06] MEDS: ProAmatine 5 MG PO ×4 (07:42→17:42)
[2024-01-06] MEDS: PHOSLO 1334 MG PO ×3 (07:49→16:35)
[2024-01-06 08:26] LABS: Hematocrit 30.9 % (37.0-47.0); Hemoglobin 10.2 g/dL (12.0-16.0); Mean Corpuscular Hgb 31.3 pg (27.0-31.0); Mean Corpuscular Volume 94.8 fL (81.0-99.0); Platelet Count 111 10^3/uL (130-400); Red Blood Cell Count 3.26 10^6/uL (4.20-5.40); Red Cell Dist. Width 17.3 % (11.5-14.5); White Blood Cell Count 9.3 10^3/uL (4.8-10.8)
[2024-01-06] MEDS: MANNITOL 25% 12.5 GRAMS IV ×2 (08:32→09:35)
[2024-01-06] MEDS: FLEXBUMIN 25% FOR HEMODIALYSIS 12.5 GRAMS IV ×2 (08:33→09:35)
[2024-01-06 08:35] LABS: INR 2.25; PT 24.7 Sec (11.4-14.6)
[2024-01-06] MEDS: RETACRIT 6000 UNITS IV (08:35)
--- NOTE | 2024-01-06 08:41 | W.PN.NEPH.HD ---
Assessment
-
Patient seen on dialysis
Systolic blood pressure dropped to 77 UF turned off
5 mg midodrine given
Progress Note - Hemodialysis
-
Date of Service: January 06, 2024
Duration: 30 minutes and 3 hours
Potassium Bath: 3
Calcium Bath: 2.5
Opti-Dialyzer: 160
Ultrafiltration: Other (UF removed his systolic blood pressure dropped)
Blood Flow: 400
Dialysate Flow: 600
Heparin: no
EPO: 4000
[2024-01-06 08:58] LABS: ALT (SGPT) < 10 U/L (0-35); AST (SGOT) 46 U/L (14-36); Albumin 2.6 g/dl (3.5-5.0); Alkaline Phosphatase 220 U/L (38-126); Blood Urea Nitrogen 59 mg/dl (7-17); Carbon Dioxide 23 mmol/L (22-30); Chloride 97 mmol/L (98-107); Estimated Creatinine Clearance 6 ml/min; Glucose 138 mg/dl (70-99); Sodium 131 mmol/L (135-145); Total Bilirubin 0.9 mg/dl (0.2-1.3); Total Protein 5.5 g/dl (6.3-8.2); eGFR 7.01
--- NOTE | 2024-01-06 09:01 | PTCARENOTE ---
Assumed care of pt from night RN. Pt is Ox3 but forgetful. She is being started on HD. VSS, B/ P 70-80's, Midodrine 5 mg given x2 as per AUG. PPM site to right chest remains CDI. US of abd scheduled for tomorrow.
--- NOTE | 2024-01-06 09:01 | W.PN.GI.CBS2 ---
Addendum entered and electronically signed by Walter Nash MD 01/06/24 14:44:
The patient was seen and examined by me independently in collaboration with the nurse practitioner.
Past medical history/social history/medications/allergies/family history reviewed.
Lab data and imaging data reviewed.
Plan US to evaluate for ascites - due to hypotension will wait for tomorrow.
No need for inpatient scopes this can be addressed outpatient.
Addendum entered and electronically signed by MARIA L Montes 01/06/24 11:53:
BP still 80's hold para for today. Can consider Tuesday if still her. I spoke with Dr. Scott brice to set up weekly para PRN no albumin needed.
Original Note:
Today's Communication / Plan
-
Etiology of cirrhosis related to cardiac - congestive as noted completed heart block on admission and prior SAAG in 06.14 with fluid protein 2.9 but now pt has developed hypoalbuminemia, thrombocytopenia and Elevated INR(but INR not accurate
with Eliquis use)
MELD 3.0---30 but very difficulty to follow as pt on HD with high creat and INR 2.5 with Eliquis use
pt with some hypotension with HD this am prior pulling off fluid
can consider tap later today but will hold for now with hypotension reassess ability to do vs next few days
would recommend with next tap to check albumin and Protein in paracentesis tap to recalculate SAAG but currently fluid stable
check US doppler can do in AM
currently off diuretics -- management per renal with ESRD
pancolitis may be colonopathy vs other no pain on exam and currently on abx course
I spoke with updated brother kristina [phone] yesterday to discuss goals of care and left update on his voicemailt today -- hold on scopes for now with recent pacer, hypotension etc. and reassess on office follow up 02/08 with Alyssa schmidt. I
updated Dr. Lam and Alyssa on admission
consider OP EGD with noted esophageal varices/gastric thickening on CT and colonoscopy with change in stool pattern/colitis but to discuss risk vs benefit in OP visit
iron studies stable not consistent with iron deficiency may be related to CKD cont to trend
s/p palliative care consult
Assessment / Plan
-
This is an 83 year old female with a past medical history of cardiogenic cirrhosis, CHF, DM, HTN, PAD, ESRD on HD, atrial fibrillation (on Eliquis), severe pulmonary hypertension, , anemia with hx GI evaluation in 2022 and recently in November with
anemia and ascites. She now presents 12/31 with hypotension, bradycardia and weakness. She was noted with complete heart block with junction escape requiring pressor support. She went 01/01 for pacer and also completed para for 5350 on 12/29. Asked
to evaluate for abnormal CT from 12/31 with moderate ascites, moderate pancolitis, gastritis, hepatic cirrhosis. Labs notable for hbg 8.8 drop from 10 on admission, platelets with drop to 103, INR 1.8 (with use of Eliquis), normal bili/AST/ALT 12/31 ,
albumin 3.4.
prior liver work up 2022 with neg hep Bs ag and hep C ab, MERRY none detected, SLA 2
07/2023 SAAG 1.9 protein 2.9
-cirrhosis -- cardiogenic vs liver noted on follow up CT
-ascites
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
-CT with pancolitis
-CT with gastritis
-complete heart block s/p pacer
-elevated trop
-anemia
-thrombocytopenia
-hyponatremia
-hypoalbuminemia
other med problems:
-CHF
-DM
-HTN
-PAD
-ESRD on HD
-Afib on Eliquis
-pulm HTN
-
PLAN:
Etiology of cirrhosis related to cardiac - congestive as noted completed heart block on admission and prior SAAG in July 07.9 with fluid protein 2.9 but now pt has developed hypoalbuminemia, thrombocytopenia and Elevated INR(but INR not accurate
with Eliquis use)
MELD 3.0---30 but very difficulty to follow as pt on HD with high creat and INR 2.5 with Eliquis use
pt with some hypotension with HD this am prior pulling off fluid
can consider tap later today but will hold for now with hypotension reassess ability to do vs next few days
would recommend with next tap to check albumin and Protein in paracentesis tap to recalculate SAAG but currently fluid stable
check US doppler can do in AM
currently off diuretics -- management per renal with ESRD
pancolitis may be colonopathy vs other no pain on exam and currently on abx course
I spoke with updated brother kristina [phone] yesterday to discuss goals of care and left update on his voicemailt today -- hold on scopes for now with recent pacer, hypotension etc. and reassess on office follow up 02/08 with Alyssa schmidt. I
updated Dr. Lam and Alyssa on admission
consider OP EGD with noted esophageal varices/gastric thickening on CT and colonoscopy with change in stool pattern/colitis but to discuss risk vs benefit in OP visit
iron studies stable not consistent with iron deficiency may be related to CKD cont to trend
s/p palliative care consult
-
Subjective
Subjective
Date of Service: January 06, 2024
01/04 brown stools on ADA diet concern for some hypotension with HD this am to 70's
Objective
Data Reviewed
Laboratory Data:
Laboratory Results
01/06/24 07:48
01/06/24 07:48
Laboratory Results
PT 24.7 Sec (11.4-14.6) H 01/06/24 07:48
INR 2.25 01/06/24 07:48
APTT 34.6 Sec (23.4-35.0) 01/01/24 19:48
Phosphorus 7.4 mg/dl (2.5-4.5) H 01/03/24 03:53
Magnesium 2.1 mg/dl (1.6-2.3) 01/03/24 03:53
Total Bilirubin 0.9 mg/dl (0.2-1.3) 01/06/24 07:48
AST 46 U/L (14-36) H 01/06/24 07:48
ALT < 10 U/L (0-35) 01/06/24 07:48
Alkaline Phosphatase 220 U/L (38-126) H 01/06/24 07:48
Vital Signs and I&O:
Vital Signs
Temp Pulse Resp BP Pulse Ox
97.8 F 60 20 88/32 97
01/06/24 07:31 01/06/24 08:15 01/06/24 07:31 01/06/24 08:15 01/06/24 07:31
I&O
01/05/24 01/06/24 01/07/24
06:59 06:59 06:59
Intake Total 120 / 120 200 / 200
Balance 120 / 120 200 / 200
Physical Exam
Physical Exam
HEENT: Anicteric and Moist mucous membranes
Cardiology: Normal Sinus Rhythm
Pulmonary: Clear
GI: Soft, Distended and Non Tender
Extremities: No Edema
Neuro: Other (forgetful )
[2024-01-06 09:34] LABS: AFP Male/Tumor Marker 1.74 ng/ml
[2024-01-06 11:46] LABS: Glucose - Point of Care 105 mg/dl (70-99)
[2024-01-06] MEDS: ELIQUIS 2.5 MG PO ×2 (13:35→19:34)
[2024-01-06] MEDS: TOPROL XL 25 MG PO (13:36)
[2024-01-06] MEDS: SINGULAIR 10 MG PO (13:36)
--- NOTE | 2024-01-06 14:01 | W.PN.HOSP.TC ---
Today's Communication/Plan
-
Abdominal Ultrasound in the morning
Paracentesis this admission after blood pressure improves
Assessment / Plan
Assessment / Plan
Physical Exam
Gen: Not in acute distress
HEENT: Normocephalic
Neck: Supple.
CV: reg rate and rhythm, +S1/S2, 2/6 systolic murmur
Resp: CTAB anteriorly, no rales, wheezes, or rhonchi.
Abd: +BS, soft, NT, severe distention with ascites
Skin: Warm. Dry.
Neuro: CN 2-12 intact, non-focal.
Psych: Normal mood and affect.

Echo 07/21/23: EF 65-70%. No RWMA. Dilated RV with normal systolic function. Mild to moderate MS. Mild MR/. Mod TR. PASP 53mmHg
Assessment/Plan
Complete Heart Block status post successful implantation of MRI compatible dual chamber Medtronic pacemaker on January 02, 2024
Third degree heart block
-Pacemaker placed today
-ECG with complete HB @ 39, RBBB, L-axis dev, (read by me)
-Dr. Tucker discussed with centrifugal drier operator Dr. Butt
-Eliquis restarted on January 03, 2024
-Metoprolol restarted at 25 mg BID (home dose 25 mg QD)
-DCCV deferred -- 4 weeks of anticoagulation
Gastritis and Pancolitis Seen on CT Imaging
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
-Continue antibiotics
-Given cirrhosis and above findings, consulted GI, evaluation and recommendations appreciated
-Per GI, given cardiac cirrhosis and periesophageal varices on imaging, it is reasonable to discuss EGD to evaluate varices and intervene if possible to prevent future life-threatening GI bleeding.
-GI will discuss colonoscopy with her brothers, but without symptoms, but they would recommend simply repeating CT A/P w/ PO contrast as an outpatient.
-GI spoke with patient's family on 01/05/24: no plan for any scope procedures while inpatient
-Paracentesis will need to be done this admission
-Abdominal ultrasound in the morning
-Will need to include albumin and protein in next paracentesis so SAAG can be calculated
Non-Ischemic Myocardial Injury
Suspected Acute on Chronic HFpEF
Concern for Cardiogenic Shock
Sacrum Stage 2 Pressure Injury, POA
-Continue wound care
Other problems:
ESRD: c/s renal for HD M/W/
Hypotension associated with dialysis -- continue Midodrine
Essential HTN in the past, then hypotension: Hold Imdur/BB.
DM2: Cont Lantus at 8U, hold premeal insulin, SSI/accuchecks, a1c 5.7%
Valvular disease: mild to moderate MS. Mild MR/. Mod TR.
HLD: cont statin
Anemia of chronic disease
Severe pulmonary HTN
Thrombocytopenia
Atrial fibrillation, unknown type: Continue Eliquis
Peripheral arterial disease
FULL code as per discussion with pt in the ER.
Considering overwhelming burden of pathology palliative care was consulted, evaluation and recommendations appreciated: Dr. Kitty Erwin on 01/03/24 mentioned that patient and her brother are both interested in outpatient palliative care follow-up.
Anticipated Discharge: > 48 hours
Subjective/Interval History
-
Date of Service: January 06, 2024
Patient was seen and examined. She was getting dialysis and denied any new symptoms or complaints.
Objective Data
-
Labs:
Laboratory Results
01/06/24
07:48
WBC 9.3
Hgb 10.2 L
Hct 30.9 L
Plt Count 111 L D
PT 24.7 H
INR 2.25
Sodium 131 L
Potassium 4.0
Chloride 97 L
Carbon Dioxide 23
BUN 59 H
Creatinine 5.7 H*
Glucose 138 H
Calcium 8.0 L
Total Bilirubin 0.9
AST 46 H
ALT < 10
Alkaline Phosphatase 220 H
Vital Signs:
Vital Signs
Temp Pulse Resp BP Pulse Ox
98.2 F 62 20 83/26 97
01/06/24 11:31 01/06/24 11:45 01/06/24 11:31 01/06/24 11:45 01/06/24 08:51
I&O
01/05/24 01/06/24 01/07/24
06:59 06:59 06:59
Intake Total 120 / 120 200 / 200
Balance 120 / 120 200 / 200
--- NOTE | 2024-01-06 14:45 | CM ---
Addendum entered by SHENG Mays 01/06/24 15:31:
Recd return call from Gunner @ [facility]; provided clinical update.
Will follow up on Tuesday
Original Note:
CM following for DC planning needs.
Met w/ patient at bedside. Pt. reports that she is feeling well.
Message left for [facility] RN, Gunner [phone] to provide update; await call back.
DC plan remains for return to [facility] once stable. Transport via family v. ambulance, based on confusion and RN input.
Will follow-up on Tuesday.
CM will cont. to follow.
[2024-01-06 15:55] LABS: Glucose - Point of Care 193 mg/dl (70-99)
[2024-01-06] MEDS: NOVOLOG FLEXPEN-MODERATE RESISTANCE 1 UNITS SC (16:34)
[2024-01-06] MEDS: ANCEF 5 IV (16:35)
--- NOTE | 2024-01-06 19:13 | PTCARENOTE ---
Addendum entered by Louann Rivera RN 01/06/24 19:18:
Pacemaker site at R chest wall. Site c/d/i.
Original Note:
Pt. recevied at change of shift. Pt. seen in room sitting comfortably in the chair. Pt. AOx3, but forgetful at times. Tele reading Vpaced in the 60s. No complaints at this time. Continuing to monitor the pt. at this time.
[2024-01-06] MEDS: TOPROL XL PO (19:34)
[2024-01-06 20:47] LABS: Glucose - Point of Care 155 mg/dl (70-99)
[2024-01-06] MEDS: CRESTOR 10 MG PO (22:14)
[2024-01-06] MEDS: LANTUS 0.08 UNITS SC (22:15)
[2024-01-07] VITALS (16 sets, daily range): BP systolic 79–117; BP diastolic 29–74; BMI 24.1
[2024-01-07] MEDS: FLAGYL 500 MG 100 IV ×2 (03:48→12:16)
[2024-01-07 03:59] LABS: Hematocrit 29.4 % (37.0-47.0); Hemoglobin 9.4 g/dL (12.0-16.0); Mean Corpuscular Hgb 31.2 pg (27.0-31.0); Mean Corpuscular Volume 97.7 fL (81.0-99.0); Mean Platelet Volume 11.6 fL (7.4-10.4); Platelet Count 88 10^3/uL (130-400); Red Blood Cell Count 3.01 10^6/uL (4.20-5.40); Red Cell Dist. Width 17.4 % (11.5-14.5); White Blood Cell Count 8.1 10^3/uL (4.8-10.8)
[2024-01-07] MEDS: ProAmatine 5 MG PO ×2 (04:05→08:16)
[2024-01-07 04:11] LABS: Blood Urea Nitrogen 41 mg/dl (7-17); Calcium 8.3 mg/dl (8.4-10.2); Carbon Dioxide 30 mmol/L (22-30); Chloride 97 mmol/L (98-107); Estimated Creatinine Clearance 9 ml/min; Glucose 146 mg/dl (70-99); Potassium 3.5 mmol/L (3.5-5.1); Sodium 135 mmol/L (135-145); eGFR 11.05
--- NOTE | 2024-01-07 04:12 | PTCARENOTE ---
Addendum entered by Louann Rivera RN 01/07/24 04:44:
BP retaken: 102/35
Original Note:
3am VS taken. BP taken 3 times, all 80s/20s-40s. Pt. asymptomatic. GRINDER LAP notified. 5mg Midodrine given. BP to be retaken. Continuing to monitor pt. at this time.
--- NOTE | 2024-01-07 06:54 | W.PN.GI.CBS2 ---
Addendum entered and electronically signed by Walter Nash MD 01/07/24 17:27:
I saw and examined the patient.
The INCIDENT RESPONSE ANALYST or PA's note was reviewed and I agree with the note.
Comment: 83 yo f with cardiac cirrhosis plan for us tomorrow suspect needs para on Tue.
will need repeat fluid studies checked.
appreciate pall care input plan pall care follow up outpatient.
pt will discuss op if endoscopic procedures are necessary at this juncture no need for inpatient scopes.
Addendum entered and electronically signed by MARIA L Montes 01/07/24 10:39:
notified by staff no ability to do US today will plan for AM and resume diet today
Original Note:
Today's Communication / Plan
-
Etiology of cirrhosis related to cardiac - congestive as noted completed heart block on admission and prior SAAG in 06.14 with fluid protein 2.9 but now pt has developed hypoalbuminemia, thrombocytopenia and Elevated INR(but INR not accurate
with Eliquis use) as well as concern for esophageal varices and hepatic cirrhosis on imaging
MELD 3.0---30 but very difficulty to follow as pt on HD with high creat and INR 2.5 with Eliquis use
noted marked hypotension 01/05 now improving
plan for US abdomen with doppler this am, NPO this am for study then resume diet
I reviewed with IR for para possible over vs Tuesday-- she is stable but would like to do prior to discharge
-- sent message to office to arrange OP weekly para as needed. I discussed 01/[address] Chavez no albumin needed with chronic HD unless noted hypotension post tap
will add to check albumin and Protein in paracentesis tap to recalculate SAAG but currently fluid stable along with cell count ets
currently off diuretics -- management per renal with ESRD
pt also with pancolitis, gastric thickening, EV and change in stool pattern--- reassess on office follow up 02/08 with Alyssa schmidt ability to proceed with EGD/colon. I updated Dr. Lam and Alyssa on admission
reviewed with Dr. Garcia
spoke with brother kristina 01/04 and left detailed message 01/05
s/p palliative care consult
Assessment / Plan
-
This is an 83 year old female with a past medical history of cardiogenic cirrhosis, CHF, DM, HTN, PAD, ESRD on HD, atrial fibrillation (on Eliquis), severe pulmonary hypertension, , anemia with hx GI evaluation in 2022 and recently in November with
anemia and ascites. She now presents 12/31 with hypotension, bradycardia and weakness. She was noted with complete heart block with junction escape requiring pressor support. She went 01/01 for pacer and also completed para for [id number] on 12/29. Asked
to evaluate for abnormal CT from 12/31 with moderate ascites, moderate pancolitis, gastritis, hepatic cirrhosis. Labs notable for hbg 8.8 drop from 10 on admission, platelets with drop to 103, INR 1.8 (with use of Eliquis), normal bili/AST/ALT 12/31 ,
albumin 3.4.
prior liver work up 2022 with neg hep Bs ag and hep C ab, MERRY none detected, SLA 2
07/2023 SAAG 1.9 protein 2.9
-cirrhosis -- cardiogenic vs liver noted on follow up CT
-ascites
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
-CT with pancolitis
-CT with gastritis
-complete heart block s/p pacer
-hypotension 01/05
-elevated trop
-anemia- iron studies not c/w WANG
-thrombocytopenia
-hyponatremia
-hypoalbuminemia
other med problems:
-CHF
-DM
-HTN
-PAD
-ESRD on HD
-Afib on Eliquis
-pulm HTN
-
PLAN:
Etiology of cirrhosis related to cardiac - congestive as noted completed heart block on admission and prior SAAG in July 07.9 with fluid protein 2.9 but now pt has developed hypoalbuminemia, thrombocytopenia and Elevated INR(but INR not accurate
with Eliquis use) as well as concern for esophageal varices and hepatic cirrhosis on imaging
MELD 3.0---30 but very difficulty to follow as pt on HD with high creat and INR 2.5 with Eliquis use
noted marked hypotension 01/05 now improving
plan for US abdomen with doppler this am, NPO this am for study then resume diet
I reviewed with IR for para possible over weekend vs Tuesday-- she is stable but would like to do prior to discharge
-- sent message to office to arrange OP weekly para as needed. I discussed 01/[address] Chavez no albumin needed with chronic HD unless noted hypotension post tap
will add to check albumin and Protein in paracentesis tap to recalculate SAAG but currently fluid stable along with cell count ets
currently off diuretics -- management per renal with ESRD
pt also with pancolitis, gastric thickening, EV and change in stool pattern--- reassess on office follow up 02/08 with Alyssa schmidt ability to proceed with EGD/colon. I updated Dr. Lam and Alyssa on admission
reviewed with Dr. Garcia
s/p palliative care consult
-
Subjective
Subjective
Date of Service: January 07, 2024
01/05 brown stool, NPO for US this am noted hypotension 01/05 with improved BP this am
Objective
Data Reviewed
Laboratory Data:
Laboratory Results
01/07/24 03:35
01/07/24 03:35
Laboratory Results
PT 24.7 Sec (11.4-14.6) H 01/06/24 07:48
INR 2.25 01/06/24 07:48
APTT 34.6 Sec (23.4-35.0) 01/01/24 19:48
Phosphorus 7.4 mg/dl (2.5-4.5) H 01/03/24 03:53
Magnesium 2.1 mg/dl (1.6-2.3) 01/03/24 03:53
Total Bilirubin 0.9 mg/dl (0.2-1.3) 01/06/24 07:48
AST 46 U/L (14-36) H 01/06/24 07:48
ALT < 10 U/L (0-35) 01/06/24 07:48
Alkaline Phosphatase 220 U/L (38-126) H 01/06/24 07:48
Vital Signs and I&O:
Vital Signs
Temp Pulse Resp BP Pulse Ox
98.3 F 60 16 102/35 95
01/07/24 03:53 01/07/24 04:42 01/06/24 22:33 01/07/24 04:42 01/07/24 03:40
I&O
01/05/24 01/06/24 01/07/24
06:59 06:59 06:59
Intake Total 120 / 120 200 / 200 50 / 50
Output Total 100 / 100
Balance 120 / 120 200 / 200 -50 / -50
Physical Exam
Physical Exam
HEENT: Anicteric and Moist mucous membranes
Cardiology: Normal Sinus Rhythm and Other (paced )
Pulmonary: Other (decreased )
GI: Soft, Distended and Non Tender
Extremities: No Edema
Neuro: Non Focal
[2024-01-07 07:16] LABS: Glucose - Point of Care 154 mg/dl (70-99)
[2024-01-07] MEDS: SINGULAIR 10 MG PO (08:16)
[2024-01-07] MEDS: ELIQUIS 2.5 MG PO ×2 (08:16→19:55)
[2024-01-07] MEDS: TOPROL XL PO (08:30)
--- NOTE | 2024-01-07 08:30 | PTCARENOTE ---
Received patient [id number] shift. Pt AAOx3, forgetful at times. VSS, 100% AV paced on hospital monitor. Patient NPO for US abdomen, verbalized understanding of NPO status. Medications administered as ordered. Blood glucose 154, Pt refused am insulin
because she is not eating. Educated patient on importance of insulin coverage. Patient demonstrates use of call olivares system, fall precautions maintained. Will continue to monitor.
--- NOTE | 2024-01-07 10:22 | W.PN.HOSP.TC ---
Today's Communication/Plan
-
Can resume diet after abdominal ultrasound today
IR consulted for paracentesis today
Assessment / Plan
Assessment / Plan
Physical Exam
Gen: Not in acute distress
HEENT: Normocephalic
Neck: Supple.
CV: reg rate and rhythm, +S1/S2, 2/6 systolic murmur
Resp: CTAB anteriorly, no rales, wheezes, or rhonchi.
Abd: +BS, soft, NT, severe distention with ascites
Skin: Warm. Dry.
Neuro: CN 2-12 intact, non-focal.
Psych: Normal mood and affect.

Echo 07/21/23: EF 65-70%. No RWMA. Dilated RV with normal systolic function. Mild to moderate MS. Mild MR/. Mod TR. PASP 53mmHg
Assessment/Plan
Complete Heart Block status post successful implantation of MRI compatible dual chamber Medtronic pacemaker on January 02, 2024
Third degree heart block
-Pacemaker placed today
-ECG with complete HB @ 39, RBBB, L-axis dev, (read by me)
-Dr. Tucker discussed with hand shoe cutter Dr. Butt
-Eliquis restarted on January 03, 2024
-Metoprolol restarted at 25 mg BID (home dose 25 mg QD)
-DCCV deferred -- 4 weeks of anticoagulation
Gastritis and Pancolitis Seen on CT Imaging
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
-Continue antibiotics
-Given cirrhosis and above findings, consulted GI, evaluation and recommendations appreciated
-Per GI, given cardiac cirrhosis and periesophageal varices on imaging, it is reasonable to discuss EGD to evaluate varices and intervene if possible to prevent future life-threatening GI bleeding.
-GI will discuss colonoscopy with her brothers, but without symptoms, but they would recommend simply repeating CT A/P w/ PO contrast as an outpatient.
-GI spoke with patient's family on 01/05/24: no plan for any scope procedures while inpatient
-Paracentesis will need to be done this admission -- IR consulted
-Abdominal ultrasound today, can resume diet after that
-Will need to include albumin and protein in next paracentesis so SAAG can be calculated
Non-Ischemic Myocardial Injury
Suspected Acute on Chronic HFpEF
Concern for Cardiogenic Shock
Sacrum Stage 2 Pressure Injury, POA
-Continue wound care
Other problems:
ESRD: c/s renal for HD M/W/
Hypotension associated with dialysis -- continue Midodrine --> dose increased (to 10 mg TID) on January 07, 2024 given patient's low blood pressures
Essential HTN in the past, then hypotension: Continue beta jackie.
DM2: Cont Lantus at 8U, hold premeal insulin, SSI/accuchecks, a1c 5.7%
Valvular disease: mild to moderate MS. Mild MR/. Mod TR.
HLD: cont statin
Anemia of chronic disease
Severe pulmonary HTN
Thrombocytopenia
Atrial fibrillation, unknown type: Continue Eliquis
Peripheral arterial disease
FULL code as per discussion with pt in the ER.
Considering overwhelming burden of pathology palliative care was consulted, evaluation and recommendations appreciated: Dr. Kitty Erwin on 01/03/24 mentioned that patient and her brother are both interested in outpatient palliative care follow-up.
Anticipated Discharge: > 48 hours
Subjective/Interval History
-
Date of Service: January 07, 2024
Patient was seen and examined. She denied any new symptoms.
Objective Data
-
Labs:
Laboratory Results
01/07/24
03:35
WBC 8.1
Hgb 9.4 L
Hct 29.4 L
Plt Count 88 L D
Sodium 135
Potassium 3.5
Chloride 97 L
Carbon Dioxide 30
BUN 41 H
Creatinine 3.9 H
Glucose 146 H
Calcium 8.3 L
Vital Signs:
Vital Signs
Temp Pulse Resp BP Pulse Ox
98.2 F 60 16 91/74 95
01/07/24 07:00 01/07/24 08:30 01/07/24 07:00 01/07/24 08:30 01/07/24 10:08
I&O
01/06/24 01/07/24 01/08/24
06:59 06:59 06:59
Intake Total 200 / 200 50 / 50
Output Total 100 / 100
Balance 200 / 200 -50 / -50
[2024-01-07] MEDS: NOVOLOG FLEXPEN-MODERATE RESISTANCE SC ×3 (10:55→16:08)
[2024-01-07] MEDS: PHOSLO PO (10:56)
--- NOTE | 2024-01-07 11:21 | W.PN.NEPH.PH ---
Today's Communication / Plan
-
Next dialysis on Tuesday
Assessment/Plan
-
Assessment:
CHB
Hypotension
ESRD-from 12/2022 [facility]
LUE AVF created 01/26
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
h/o Ascites and paracentesis last on 12/29 5.3lit
History DCHF
Type 2 diabetes
Primary hypertension
Likely history of coronary artery disease
History of heart valve problem
Severe pulmonary hypertension
Mild to moderate aortic stenosis
Moderate TR
Chronic thrombocytopenia
HLD
Plan:
A/w hypotension,josué noted CHB plan Pacer was placed on 01/02/2024
Patient looking well this morning
Next dialysis will be planned for Tuesday
Blood pressure remains low side in setting of cardiac cirrhosis
Paracentesis not to be done today due to no available staff from ultrasound
Attempt tomorrow
-
-
Date of Service: January 07, 2024
CC / HPI / ROS
-
Chief Complaint:
End-stage renal disease
History of Present Illness:
ESRD Tuesday
Remains on the hypotensive side
Status post pacemaker placement on January 02, 2024
Review of Systems:
no chest pain or sob
Abdominal distention noted
Labs
-
Labs:
WBC 8.1 10^3/uL (4.8-10.8) 01/07/24 03:35
RBC 3.01 10^6/uL (4.20-5.40) L 01/07/24 03:35
Hgb 9.4 g/dL (12.0-16.0) L 01/07/24 03:35
Hct 29.4 % (37.0-47.0) L 01/07/24 03:35
Plt Count 88 10^3/uL (130-400) L D 01/07/24 03:35
Sodium 135 mmol/L (135-145) 01/07/24 03:35
Potassium 3.5 mmol/L (3.5-5.1) 01/07/24 03:35
Chloride 97 mmol/L (98-107) L 01/07/24 03:35
Carbon Dioxide 30 mmol/L (22-30) 01/07/24 03:35
BUN 41 mg/dl (7-17) H 01/07/24 03:35
Creatinine 3.9 mg/dL (0.6-1.0) H 01/07/24 03:35
eGFR 11.05 01/07/24 03:35
Glucose 146 mg/dl (70-99) H 01/07/24 03:35
Calcium 8.3 mg/dl (8.4-10.2) L 01/07/24 03:35
Phosphorus 7.4 mg/dl (2.5-4.5) H 01/03/24 03:53
Zcr-K-Jahuyiqixer Pept > 08671 pg/ml 01/03/24 03:53
Albumin 2.6 g/dl (3.5-5.0) L 01/06/24 07:48
Physical Exam
-
Vital Signs:
Vital Signs
Temp Pulse Resp BP Pulse Ox
98.2 F 60 16 91/74 95
01/07/24 07:00 01/07/24 08:30 01/07/24 07:00 01/07/24 08:30 01/07/24 10:08
Cardiovascular:: Regular rate and rhythm
Respiratory:: Bilateral: CTA
Lung Excursion:: Normal
Abdomen:: Distended, Nontender and Soft
Bowel Sounds:: Normal
Extremity Edema:: None: Bilateral:
Gross Catheter: No
[2024-01-07 11:23] LABS: Glucose - Point of Care 139 mg/dl (70-99)
[2024-01-07] MEDS: PHOSLO 1334 MG PO ×2 (12:15→17:19)
[2024-01-07] MEDS: ProAmatine 10 MG PO ×2 (12:15→17:19)
[2024-01-07 16:07] LABS: Glucose - Point of Care 149 mg/dl (70-99)
[2024-01-07] MEDS: TOPROL XL 25 MG PO (21:16)
[2024-01-07] MEDS: CRESTOR 10 MG PO (21:17)
[2024-01-07 21:21] LABS: Glucose - Point of Care 149 mg/dl (70-99)
--- NOTE | 2024-01-07 22:38 | PTCARENOTE ---
Received pt at handoff. Tele- AV paced. POX 95% RA. Pt currently offers no c/o. Pt NPO for abdominal u/s and verbalizes understanding. Medications ordered as administered. Currently in bed; call elise w/in reach.
[2024-01-08] VITALS (9 sets, daily range): BP systolic 81–111; BP diastolic 37–93; BMI 24.3
[2024-01-08] MEDS: LANTUS SC (00:28)
--- NOTE | 2024-01-08 00:36 | PTCARENOTE ---
Addendum entered by Pratima Rooney RN 01/08/24 06:40:
Pt transported to U/S this AM via stretcher and nursing assist.
Original Note:
Per dayshift RN, pt has been NPO since dinner d/t possible U/S during 7p-7a shift. Confirmed w/ computer technical support specialist that pt will have U/S in AM during dayshift. Kelli Martinez CENTRAL MELT SPECIALIST made aware and new orders placed. Lantus dose decreased to 5 units per
Kelli Martinez d/t NPO status. See AUG.
[2024-01-08] MEDS: LANTUS 0.05 UNITS SC (00:52)
[2024-01-08 04:17] LABS: Hematocrit 31.8 % (37.0-47.0); Hemoglobin 10.4 g/dL (12.0-16.0); Mean Corp Hgb Conc. 32.7 g/dL (33.0-37.0); Mean Corpuscular Hgb 31.2 pg (27.0-31.0); Mean Corpuscular Volume 95.5 fL (81.0-99.0); Mean Platelet Volume 11.2 fL (7.4-10.4); Platelet Count 105 10^3/uL (130-400); Red Blood Cell Count 3.33 10^6/uL (4.20-5.40); Red Cell Dist. Width 17.4 % (11.5-14.5)
[2024-01-08 04:52] LABS: Blood Urea Nitrogen 57 mg/dl (7-17); Calcium 8.2 mg/dl (8.4-10.2); Carbon Dioxide 24 mmol/L (22-30); Chloride 97 mmol/L (98-107); Estimated Creatinine Clearance 7 ml/min; Glucose 134 mg/dl (70-99); Potassium 3.7 mmol/L (3.5-5.1); Sodium 133 mmol/L (135-145); eGFR 7.65
[2024-01-08] MEDS: ProAmatine 10 MG PO ×3 (08:44→17:19)
[2024-01-08] MEDS: TOPROL XL 25 MG PO ×2 (08:45→20:43)
[2024-01-08] MEDS: PHOSLO 1334 MG PO ×3 (08:45→17:19)
[2024-01-08] MEDS: ELIQUIS 2.5 MG PO ×2 (08:45→19:33)
[2024-01-08] MEDS: SINGULAIR 10 MG PO (08:45)
[2024-01-08] MEDS: NOVOLOG FLEXPEN-MODERATE RESISTANCE SC (08:47)
--- NOTE | 2024-01-08 09:56 | W.PN.NEPH.PH ---
Today's Communication / Plan
-
Dialysis tomorrow
Eventual paracentesis
Assessment/Plan
-
Assessment:
CHB
Hypotension
ESRD-[facility] 12/2022 [facility]
LUE AVF created 01/26
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
h/o Ascites and paracentesis last on 12/29 5.3lit
History DCHF
Type 2 diabetes
Primary hypertension
Likely history of coronary artery disease
History of heart valve problem
Severe pulmonary hypertension
Mild to moderate aortic stenosis
Moderate TR
Chronic thrombocytopenia
HLD
Plan:
A/w hypotension,josué noted CHB plan Pacer was placed on 01/02/2024
Patient looking well this morning
Next dialysis will be planned for Tuesday, orders provided
Blood pressure remains low side in setting of cardiac cirrhosis, on midodrine [id number]
Paracentesis not to be done today due to no available staff from ultrasound
Attempt tomorrow
-
-
Date of Service: January 08, 2024
CC / HPI / ROS
-
Chief Complaint:
End-stage renal disease
History of Present Illness:
ESRD Tuesday
Remains on the hypotensive side with midodrine support
Status post pacemaker placement on January 02, 2024
Review of Systems:
no chest pain or sob
Abdominal distention noted
Labs
-
Labs:
WBC 10.0 10^3/uL (4.8-10.8) 01/08/24 03:35
RBC 3.33 10^6/uL (4.20-5.40) L 01/08/24 03:35
Hgb 10.4 g/dL (12.0-16.0) L 01/08/24 03:35
Hct 31.8 % (37.0-47.0) L 01/08/24 03:35
Plt Count 105 10^3/uL (130-400) L 01/08/24 03:35
Sodium 133 mmol/L (135-145) L 01/08/24 03:35
Potassium 3.7 mmol/L (3.5-5.1) 01/08/24 03:35
Chloride 97 mmol/L (98-107) L 01/08/24 03:35
Carbon Dioxide 24 mmol/L (22-30) 01/08/24 03:35
BUN 57 mg/dl (7-17) H 01/08/24 03:35
Creatinine 5.3 mg/dL (0.6-1.0) H* 01/08/24 03:35
eGFR 7.65 01/08/24 03:35
Glucose 134 mg/dl (70-99) H 01/08/24 03:35
Calcium 8.2 mg/dl (8.4-10.2) L 01/08/24 03:35
Phosphorus 7.4 mg/dl (2.5-4.5) H 01/03/24 03:53
Fzk-N-Hjqqwynjigr Pept > 55944 pg/ml 01/03/24 03:53
Albumin 2.6 g/dl (3.5-5.0) L 01/06/24 07:48
Physical Exam
-
Vital Signs:
Vital Signs
Temp Pulse Resp BP Pulse Ox
97.7 F 60 20 107/54 95
01/08/24 07:08 01/08/24 09:00 01/08/24 07:08 01/08/24 08:45 01/08/24 08:30
Cardiovascular:: Regular rate and rhythm
Respiratory:: Bilateral: Coarse
Lung Excursion:: Normal
Abdomen:: Distended
Bowel Sounds:: Normal
Extremity Edema:: +1: Bilateral:
Gross Catheter: No
[2024-01-08 12:31] LABS: Glucose - Point of Care 176 mg/dl (70-99)
[2024-01-08] MEDS: NOVOLOG FLEXPEN-MODERATE RESISTANCE 1 UNITS SC ×2 (12:31→17:23)
--- NOTE | 2024-01-08 13:14 | W.PN.HOSP.TC ---
Today's Communication/Plan
-
Hopefully paracentesis tomorrow
Blood pressure improved with increasing Midodrine yesterday
Appreciate GI
Assessment / Plan
Assessment / Plan
Physical Exam
Gen: Not in acute distress
HEENT: Normocephalic
Neck: Supple.
CV: reg rate and rhythm, +S1/S2, 2/6 systolic murmur
Resp: CTAB anteriorly, no rales, wheezes, or rhonchi.
Abd: +BS, soft, NT, severe distention with ascites
Skin: Warm. Dry.
Neuro: CN 2-12 intact, non-focal.
Psych: Normal mood and affect.

Echo 07/21/23: EF 65-70%. No RWMA. Dilated RV with normal systolic function. Mild to moderate MS. Mild MR/. Mod TR. PASP 53mmHg

ABDOMINAL ULTRASOUND ( PER RADIOLOGIST'S REPORT)
IMPRESSION:
Findings consistent with hepatic cirrhosis with moderate volume ascites. There is a 2.1 x 2.4 x 1.9 cm hypoechoic focus in the left hepatic lobe suspicious for lesion. Recommend either multiphasic CT or MRI for further evaluation. The portal veins
appear patent. Slow flow is noted within the left portal vein.
There is a bladder wall thickening with cholelithiasis and sludge. Findings may be sequelae of chronic liver disease given negative Munoz's sign.
There is increased echogenicity of the bilateral kidneys with poor corticomedullary differentiation consistent with medical renal disease. No hydronephrosis.

Assessment/Plan
Complete Heart Block status post successful implantation of MRI compatible dual chamber Medtronic pacemaker on January 02, 2024
Third degree heart block
-Pacemaker placed today
-ECG with complete HB @ 39, RBBB, L-axis dev, (read by me)
-Dr. Tucker discussed with detective and intelligence analyst Dr. Butt
-Eliquis restarted on January 03, 2024
-Metoprolol restarted at 25 mg BID (home dose 25 mg QD)
-DCCV deferred -- 4 weeks of anticoagulation
Gastritis and Pancolitis Seen on CT Imaging
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
-Continue antibiotics
-Given cirrhosis and above findings, consulted GI, evaluation and recommendations appreciated
-Per GI, given cardiac cirrhosis and periesophageal varices on imaging, it is reasonable to discuss EGD to evaluate varices and intervene if possible to prevent future life-threatening GI bleeding.
-GI will discuss colonoscopy with her brothers, but without symptoms, but they would recommend simply repeating CT A/P w/ PO contrast as an outpatient.
-GI spoke with patient's family on 01/05/24: no plan for any scope procedures while inpatient
-Paracentesis will need to be done this admission -- IR consulted
-Abdominal ultrasound done -- results are above -- patient will need multiphasic CT or MRI for further evaluation of liver lesion
-Will need to include albumin and protein in next paracentesis so SAAG can be calculated
Non-Ischemic Myocardial Injury
Suspected Acute on Chronic HFpEF
Concern for Cardiogenic Shock
Sacrum Stage 2 Pressure Injury, POA
-Continue wound care
Other problems:
ESRD: c/s renal for HD M//
Hypotension associated with dialysis -- continue Midodrine --> dose increased (to 10 mg TID) on January 07, 2024 given patient's low blood pressures --> blood pressures improved
Essential HTN in the past, then hypotension: Continue beta jackie.
DM2: Cont Lantus at 8U, hold premeal insulin, SSI/accuchecks, a1c 5.7%
Valvular disease: mild to moderate MS. Mild MR/. Mod TR.
HLD: cont statin
Anemia of chronic disease
Severe pulmonary HTN
Thrombocytopenia
Atrial fibrillation, unknown type: Continue Eliquis
Peripheral arterial disease
FULL code as per discussion with pt in the ER.
Considering overwhelming burden of pathology palliative care was consulted, evaluation and recommendations appreciated: Dr. Kitty Erwin on 01/03/24 mentioned that patient and her brother are both interested in outpatient palliative care follow-up.
Anticipated Discharge: 24 - 48 hours
Subjective/Interval History
-
Date of Service: January 08, 2024
Patient was seen and examined. She denied any new symptoms or complaints.
Objective Data
-
Labs:
Laboratory Results
01/08/24
03:35
WBC 10.0
Hgb 10.4 L
Hct 31.8 L
Plt Count 105 L
Sodium 133 L
Potassium 3.7
Chloride 97 L
Carbon Dioxide 24
BUN 57 H
Creatinine 5.3 H*
Glucose 134 H
Calcium 8.2 L
Vital Signs:
Vital Signs
Temp Pulse Resp BP Pulse Ox
98.2 F 60 16 110/80 95
01/08/24 11:56 01/08/24 12:36 01/08/24 11:56 01/08/24 12:36 01/08/24 08:30
I&O
01/07/24 01/08/24 01/09/24
06:59 06:59 06:59
Intake Total 50 / 50 340 / 340
Output Total 100 / 100
Balance -50 / -50 340 / 340
--- NOTE | 2024-01-08 16:51 | PTCARENOTE ---
received patient this am,monitor shows AV paced, VSS.patient is able to voice concerns, TYONEK, slurred/garbled speech but this is not new. right arm midline flushes well. left arm has fistula +thrill + bruit. RCW Acuseal D/I,no pain at site,no
oozing,no hematoma. abd.is distended, patient will have dialysis tomorrow and paracentesis on Tuesday .
--- NOTE | 2024-01-08 17:07 | W.PN.GI.CBS2 ---
Today's Communication / Plan
-
HD mon, para tues, outpatient MRI
Assessment / Plan
-
This is an 83 year old female with a past medical history of cardiogenic cirrhosis, CHF, DM, HTN, PAD, ESRD on HD, atrial fibrillation (on Eliquis), severe pulmonary hypertension, , anemia with hx GI evaluation in 2022 and recently in November with
anemia and ascites. She now presents 12/31 with hypotension, bradycardia and weakness. She was noted with complete heart block with junction escape requiring pressor support. She went 01/01 for pacer and also completed para for 5350 on 12/29. Asked
to evaluate for abnormal CT from 12/31 with moderate ascites, moderate pancolitis, gastritis, hepatic cirrhosis. Labs notable for hbg 8.8 drop from 10 on admission, platelets with drop to 103, INR 1.8 (with use of Eliquis), normal bili/AST/ALT 12/31 ,
albumin 3.4.
prior liver work up 2022 with neg hep Bs ag and hep C ab, MERRY none detected, SLA 2
07/2023 SAAG 1.9 protein 2.9
-cirrhosis -- cardiogenic vs liver noted on follow up CT
-ascites
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
-CT with pancolitis
-CT with gastritis
-complete heart block s/p pacer
-hypotension 01/05
-elevated trop
-anemia- iron studies not c/w WANG
-thrombocytopenia
-hyponatremia
-hypoalbuminemia
other med problems:
-CHF
-DM
-HTN
-PAD
-ESRD on HD
-Afib on Eliquis
-pulm HTN
-
US with hepatic lesion
PLAN:
Etiology of cirrhosis related to cardiac - congestive as noted completed heart block on admission and prior SAAG in July 07.9 with fluid protein 2.9 but now pt has developed hypoalbuminemia, thrombocytopenia and Elevated INR(but INR not accurate
with Eliquis use) as well as concern for esophageal varices and hepatic cirrhosis on imaging
MELD 3.0---30 but very difficulty to follow as pt on HD with high creat and INR 2.5 with Eliquis use
plan HD Mon and para - I d/w hospitalist and nephrology and IR concern about fluid shifts doing both tomorrow and BP - I called brother Tahir previously and then left a VM to update him of new plan
Next para to check: albumin, protein, cell count, cell culture, and cytology
Liver lesion, normal AFP - I sent a msg to my office to set up outpatient MRI d/w renal nothing with HD needs to be done
Evelina sent message to office to arrange OP weekly para as needed. Evelina discussed 01/[address] Chavez no albumin needed with chronic HD unless noted hypotension post tap
currently off diuretics -- management per renal with ESRD
pt also with pancolitis, gastric thickening, EV and change in stool pattern--- reassess on office follow up 02/08 with Alyssa schmidt ability to proceed with EGD/colon. Evelina updated Dr. Lam and Alyssa on admission
s/p palliative care consult
I d/w nephrology, IR, hospitalist, RN and pt brother today in coordination of care
Hopefully can be dc on Tuesday after para
-
Subjective
Subjective
Date of Service: January 08, 2024
abd distention tolerating diet
Objective
Data Reviewed
Laboratory Data:
Laboratory Results
01/08/24 03:35
01/08/24 03:35
Laboratory Results
PT 24.7 Sec (11.4-14.6) H 01/06/24 07:48
INR 2.25 01/06/24 07:48
APTT 34.6 Sec (23.4-35.0) 01/01/24 19:48
Phosphorus 7.4 mg/dl (2.5-4.5) H 01/03/24 03:53
Magnesium 2.1 mg/dl (1.6-2.3) 01/03/24 03:53
Total Bilirubin 0.9 mg/dl (0.2-1.3) 01/06/24 07:48
AST 46 U/L (14-36) H 01/06/24 07:48
ALT < 10 U/L (0-35) 01/06/24 07:48
Alkaline Phosphatase 220 U/L (38-126) H 01/06/24 07:48
Vital Signs and I&O:
Vital Signs
Temp Pulse Resp BP Pulse Ox
97.5 F 60 20 101/85 98
01/08/24 15:51 01/08/24 16:00 01/08/24 15:51 01/08/24 15:54 01/08/24 15:54
I&O
01/07/24 01/08/24 01/09/24
06:59 06:59 06:59
Intake Total 50 / 50 340 / 340
Output Total 100 / 100
Balance -50 / -50 340 / 340
Physical Exam
Physical Exam
GI: Distended and Non Tender
[2024-01-08 17:23] LABS: Glucose - Point of Care 155 mg/dl (70-99)
[2024-01-08 21:42] LABS: Glucose - Point of Care 188 mg/dl (70-99)
[2024-01-08] MEDS: CRESTOR 10 MG PO (22:35)
[2024-01-08] MEDS: LANTUS 0.08 UNITS SC (22:35)
--- NOTE | 2024-01-08 23:35 | PTCARENOTE ---
Received patient at handoff. Alert and Oriented x3. Tele- AV paced. Assessment completed as documented. Dialysis scheduled for 0700. Patient verbalizes understanding. Currently in bed, call olivares within reach.
[2024-01-09] VITALS (30 sets, daily range): BP systolic 63–117; BP diastolic 23–90; BMI 24.8
[2024-01-09 05:34] LABS: Hemoglobin 10.7 g/dL (12.0-16.0)
[2024-01-09 05:56] LABS: Carbon Dioxide 25 mmol/L (22-30); Chloride 94 mmol/L (98-107); Potassium 3.8 mmol/L (3.5-5.1); Sodium 132 mmol/L (135-145)
[2024-01-09] MEDS: NOVOLOG FLEXPEN-MODERATE RESISTANCE SC ×2 (07:30→11:41)
[2024-01-09] MEDS: TOPROL XL PO ×2 (07:30→20:06)
[2024-01-09] MEDS: PHOSLO PO (07:30)
[2024-01-09] MEDS: ProAmatine 10 MG PO ×4 (07:44→17:15)
--- NOTE | 2024-01-09 07:52 | PTCARENOTE ---
Received patient this morning resting in bed, given Pre HD midodrine, HD nurse beginning dialysis.
[2024-01-09] MEDS: RETACRIT 4000 UNITS IV (09:09)
[2024-01-09] MEDS: MANNITOL 25% 12.5 GRAMS IV (10:12)
[2024-01-09] MEDS: FLEXBUMIN 25% FOR HEMODIALYSIS 12.5 GRAMS IV (10:13)
--- NOTE | 2024-01-09 10:23 | W.PN.GI.CBS2 ---
Today's Communication / Plan
-
para tomorrow, outpatient MRI
Assessment / Plan
-
This is an 83 year old female with a past medical history of cardiogenic cirrhosis, CHF, DM, HTN, PAD, ESRD on HD, atrial fibrillation (on Eliquis), severe pulmonary hypertension, , anemia with hx GI evaluation in 2022 and recently in November with
anemia and ascites. She now presents 12/31 with hypotension, bradycardia and weakness. She was noted with complete heart block with junction escape requiring pressor support. She went 01/01 for pacer and also completed para for 5350 on 12/29. Asked
to evaluate for abnormal CT from 12/31 with moderate ascites, moderate pancolitis, gastritis, hepatic cirrhosis. Labs notable for hbg 8.8 drop from 10 on admission, platelets with drop to 103, INR 1.8 (with use of Eliquis), normal bili/AST/ALT 12/31 ,
albumin 3.4.
prior liver work up 2022 with neg hep Bs ag and hep C ab, MERRY none detected, SLA 2
07/2023 SAAG 1.9 protein 2.9
-cirrhosis -- cardiogenic vs liver noted on follow up CT
-ascites
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
-CT with pancolitis
-CT with gastritis
-complete heart block s/p pacer
-hypotension 01/05
-elevated trop
-anemia- iron studies not c/w WANG
-thrombocytopenia
-hyponatremia
-hypoalbuminemia
other med problems:
-CHF
-DM
-HTN
-PAD
-ESRD on HD
-Afib on Eliquis
-pulm HTN
-
US with hepatic lesion
PLAN:
Etiology of cirrhosis related to cardiac - congestive as noted completed heart block on admission and prior SAAG in July 07.9 with fluid protein 2.9 but now pt has developed hypoalbuminemia, thrombocytopenia and Elevated INR(but INR not accurate
with Eliquis use) as well as concern for esophageal varices and hepatic cirrhosis on imaging
MELD 3.0---30 but very difficulty to follow as pt on HD with high creat and INR 2.5 with Eliquis use
plan HD Tue and para - I d/w hospitalist and nephrology and IR yesterday concern about fluid shifts doing both tomorrow and BP - I called brother Tahir and updated him
Next para to check: albumin, protein, cell count, cell culture, and cytology
Liver lesion, normal AFP - I sent a msg to my office to set up outpatient MRI d/w renal nothing with HD needs to be done
Evelina sent message to office to arrange OP weekly para as needed. Eevlina discussed 01/[address] Chavez no albumin needed with chronic HD unless noted hypotension post tap
currently off diuretics -- management per renal with ESRD
pt also with pancolitis, gastric thickening, EV and change in stool pattern--- reassess on office follow up 02/08 with Alyssa schmidt ability to proceed with EGD/colon. Evelina updated Dr. Lam and Alyssa on admission
s/p palliative care consult
I d/w nephrology, IR, hospitalist, RN and pt brother today in coordination of care
Hopefully can be dc on Tuesday after para
-
Subjective
Subjective
Date of Service: January 09, 2024
bloated no other gi complaints
Objective
Data Reviewed
Laboratory Data:
Laboratory Results
01/09/24 04:47
01/09/24 04:47
Laboratory Results
PT 24.7 Sec (11.4-14.6) H 01/06/24 07:48
INR 2.25 01/06/24 07:48
APTT 34.6 Sec (23.4-35.0) 01/01/24 19:48
Phosphorus 7.4 mg/dl (2.5-4.5) H 01/03/24 03:53
Magnesium 2.1 mg/dl (1.6-2.3) 01/03/24 03:53
Total Bilirubin 0.9 mg/dl (0.2-1.3) 01/06/24 07:48
AST 46 U/L (14-36) H 01/06/24 07:48
ALT < 10 U/L (0-35) 01/06/24 07:48
Alkaline Phosphatase 220 U/L (38-126) H 01/06/24 07:48
Vital Signs and I&O:
Vital Signs
Temp Pulse Resp BP Pulse Ox
98 F 60 20 111/48 100
01/09/24 07:14 01/09/24 08:04 01/09/24 07:14 01/09/24 08:04 01/09/24 08:04
I&O
01/08/24 01/09/24 01/10/24
06:59 06:59 06:59
Intake Total 340 / 340
Balance 340 / 340
Physical Exam
Physical Exam
GI: Distended and Non Tender
[2024-01-09 11:41] LABS: Glucose - Point of Care 112 mg/dl (70-99)
--- NOTE | 2024-01-09 12:33 | W.PN.NEPH.HD ---
Assessment
-
- feeling well
- hungry
- for tap tomorrow
Progress Note - Hemodialysis
-
Date of Service: January 09, 2024
Duration: 30 minutes and 3 hours
Potassium Bath: 3
Calcium Bath: 2.5
Opti-Dialyzer: 160
Ultrafiltration: Other
Blood Flow: 400
Dialysate Flow: 600
[2024-01-09] MEDS: ELIQUIS 2.5 MG PO ×2 (13:07→21:56)
[2024-01-09] MEDS: PHOSLO 1334 MG PO ×2 (13:08→17:15)
[2024-01-09] MEDS: SINGULAIR 10 MG PO (13:08)
[2024-01-09] MEDS: ROBITUSSIN DM 5 ML PO (13:17)
--- NOTE | 2024-01-09 14:17 | PTCARENOTE ---
HD completed, BP low during dialysis, given midodrine as ordered. BP now improved, patient ate lunch and is tolerating sitting oob in the chair.
--- NOTE | 2024-01-09 14:45 | W.PN.HOSP.TC ---
Today's Communication/Plan
-
Paracentesis in AM
Assessment / Plan
Assessment / Plan
83yo F with PMHX of pulmonary HTN, HLD, chronic HFpEF, cardiogenic liver cirrhosis s/p recurrent paracenthesis, ESRD, DM, afib, PAD came with lethargy and bradycardy, found complete AVB, had PPM placed
A/P:
#Complete AVB
#Afib, paroxysmal
#Chronic HFpEF
PPM placed by cardiology on 01/02/24 ([employer])
Eliquis restarted on 01/09/24
#Cardiogenic liver cirrhosis with ascites
s/p recurrent paracenthesis
Repeat paracenthesis before d/c
#Liver lesion
#Pancolitis on GT
#Gastritis on CT
MRI as outpatient as well as endoscopy - GI to arrange
#Anemia 2/2 ESRD
follow Hgb
Nephro for Epo
#non-ischemic miocardial injury
#Sacral pressure ulcer, stage 2, POA
wound care, offloading
#HLD
#Pulm HTN
#CHronic thrombocytopenia 2/2 liver cirrhosis (since 11/26)
cont home meds
follow CBC
DVT ppx on Eliquis
Full code
I have spent at least 36min reviewing chart, test results, communication with consultants and direct patient care
Anticipated Discharge: 24 - 48 hours
Subjective/Interval History
-
Date of Service: January 09, 2024
Objective Data
-
Labs:
Laboratory Results
01/09/24
04:47
Hgb 10.7 L
Hct 32.0 L
Sodium 132 L
Potassium 3.8
Chloride 94 L
Carbon Dioxide 25
Vital Signs:
Vital Signs
Temp Pulse Resp BP Pulse Ox
97.7 F 60 20 104/90 97
01/09/24 10:55 01/09/24 13:00 01/09/24 10:55 01/09/24 12:30 01/09/24 11:33
I&O
01/08/24 01/09/24 01/10/24
06:59 06:59 06:59
Intake Total 340 / 340
Balance 340 / 340
Review of Systems
-
History Source: Patient
Constitutional: Reports No Symptoms
Physical Exam
-
General: No Apparent Distress
HEENT: Normocephalic
Respiratory: Clear to Auscultation
Cardiac: Regular Rhythm
GI: Soft, Nontender and Distended
Musculoskeletal: No Clubbing, No Cyanosis and No Edema
Skin: Warm
Neuro: Awake, Alert and Oriented
Psych: Calm
--- NOTE | 2024-01-09 15:00 | CM ---
Reviewed chart. Met with Ms. Salas to review discharge plans. She states she has been able to ambulate to the bathroom with a rolling walker. Prior to admission she resides at [facility]. Telephone call to [facility] to
review discharge plans with them. Left message. Will need to see her current functional level to see if she will have any skilled care needs. Medical work-up in progress. The discharge plan is to return to [facility] with resumption
of outpatient dialysis at [facility] when medically stable.
[2024-01-09] MEDS: NOVOLOG FLEXPEN-MODERATE RESISTANCE 3 UNITS SC (17:18)
[2024-01-09 17:19] LABS: Glucose - Point of Care 211 mg/dl (70-99)
--- NOTE | 2024-01-09 17:39 | W.PN.PAL2 ---
Today's Communication
-
Planned for outpatient palliative follow up after discharge
Assessment / Plan
-
Assessment/Plan:
Based on the current condition, prognosis, comorbidities, patient's goals & wishes as discussed above, the palliative care team has made the following recommendations:
Encounter for palliative care:
- s/p PPM. Planned for discharge home hopefully tomorrow after paracentesis.
- further GI workup as an outpatient
- planned for outpatient palliative follow up - will call to schedule once discharged
Please call with questions.
The above recommendations were discussed with the patient/family and medical team.
Reason for Admission
Illness Course/HPI
Seen at bedside this PM. Awake and alert, sitting in bedside chair. Denies pain/SOB. Had HD today. Abdomen distended, planned for para tomorrow and then likely DC home. Anxious for further GI workup as an outpatient.
Pain & Symptom Assessment
Hitchcock Symptom Scale 0=none, 10=worst
Pain: 0
Objective Data
-
Objective Data:
Vital Signs
Temp Pulse Resp BP Pulse Ox
98 F 61 16 104/46 100
01/09/24 15:19 01/09/24 15:19 01/09/24 15:19 01/09/24 15:18 01/09/24 15:19
Laboratory Results
01/09/24 04:47
01/09/24 04:47
PT 24.7 Sec (11.4-14.6) H 01/06/24 07:48
INR 2.25 01/06/24 07:48
APTT 34.6 Sec (23.4-35.0) 01/01/24 19:48
Hemoglobin A1c 5.7 % (4.0-5.6) H 01/02/24 03:34
Total Protein 5.5 g/dl (6.3-8.2) L 01/06/24 07:48
Albumin 2.6 g/dl (3.5-5.0) L 01/06/24 07:48
Palliative Performance Scale
Palliative Performance Scale:
PPS Level Ambulation Activity & Evidence of Disease Self Care Intake Conscious Level
100% Full Normal Activity & Work; Full Intake Full
No Evidence of Disease
90% Full Normal Activity & Work; Full Normal Full
Some Evidence of Disease
80% Full Normal Activity with Effort Full Normal or Full
Some Evidence of Disease Reduced
70% Reduced Unable Normal Job/Work Full Normal or Full
Significant Disease Reduced
60% Reduced Unable Hobby/Housework Occasional Normal or Full or Confusion
Significant Disease Assistance Reduced
50% Mainly Sit/Lie Unable to do Any Work Considerable Normal or Full or Confusion
Extensive Disease Assistance Req'd Reduced
40% Mainly in Bed Unable to do Most Activity Mainly Assistance Normal or Full or Drowsy;
Extensive Disease Reduced +/- Confusion
30% Totally Bed Unable to do Any Activity Total Care Normal or Full or Drowsy;
Bound Extensive Disease Reduced +/- Confusion
20% Totally Bed Bound Unable to do Any Activity Total Care Minimal to Full or Drowsy;
Extensive Disease Sips +/- Confusion
10% Totally Bed Bound Unable to do Any Activity Total Care Mouth Care Drowsy or Coma;
Extensive Disease Only +/- Confusion
0%
PPS Score Level:
Palliative Performance Scale:
PPS Level Ambulation Activity & Evidence of Disease Self Care Intake Conscious Level
100% Full Normal Activity & Work; Full Intake Full
No Evidence of Disease
90% Full Normal Activity & Work; Full Normal Full
Some Evidence of Disease
80% Full Normal Activity with Effort Full Normal or Full
Some Evidence of Disease Reduced
70% Reduced Unable Normal Job/Work Full Normal or Full
Significant Disease Reduced
60% Reduced Unable Hobby/Housework Occasional Normal or Full or Confusion
Significant Disease Assistance Reduced
50% Mainly Sit/Lie Unable to do Any Work Considerable Normal or Full or Confusion
Extensive Disease Assistance Req'd Reduced
40% Mainly in Bed Unable to do Most Activity Mainly Assistance Normal or Full or Drowsy;
Extensive Disease Reduced +/- Confusion
30% Totally Bed Unable to do Any Activity Total Care Normal or Full or Drowsy;
Bound Extensive Disease Reduced +/- Confusion
20% Totally Bed Bound Unable to do Any Activity Total Care Minimal to Full or Drowsy;
Extensive Disease Sips +/- Confusion
10% Totally Bed Bound Unable to do Any Activity Total Care Mouth Care Drowsy or Coma;
Extensive Disease Only +/- Confusion
0%
PPS Score Level:
50
Physical Exam
-
General: No Apparent Distress and Appears Chronically Ill
Respiratory: Decreased Breath Sounds
Cardiac: Other (paced rhythm )
GI: Distended and Ascites
Skin: Warm
Neuro: AO x 3
Psych: Calm
Care Reviewed
Time
Start Date: 01/09/24
Start Time: 13:30
Stop Date: 01/09/24
Stop Time: 13:55
Time Spent:
25 minutes
--- NOTE | 2024-01-09 20:30 | PTCARENOTE ---
2000 dose of Toprol XL 25mg held d/t admin parameters. BP 96/34. See MAR.
[2024-01-09 21:56] LABS: Glucose - Point of Care 172 mg/dl (70-99)
[2024-01-09] MEDS: LANTUS 0.08 UNITS SC (21:56)
[2024-01-09] MEDS: CRESTOR 10 MG PO (21:56)
[2024-01-10 02:59] VITALS: BP 97/41
[2024-01-10 03:43] LABS: % Basophils 0.7 % (0-2); % Eosinophils 4.8 % (0-6); % Immature Granulocytes 0.4 % (0-0.5); % Lymphocytes 16.3 % (20.5-51.1); % Monocytes 17.1 % (1.7-9.3); % Neutrophils 60.7 % (42.2-75.2); Absolute Basophils 0.1 10^3/uL (0-0.2); Absolute Eosinophils 0.5 10^3/uL (0-0.7); Absolute Lymphocytes 1.5 10^3/uL (1.2-3.4); Absolute Monocytes 1.6 10^3/uL (0.1-0.6); Absolute Neutrophils 5.7 10^3/uL (1.4-6.5); Hematocrit 29.5 % (37.0-47.0); Hemoglobin 9.9 g/dL (12.0-16.0); Mean Corp Hgb Conc. 33.6 g/dL (33.0-37.0); Mean Corpuscular Hgb 30.9 pg (27.0-31.0); Mean Corpuscular Volume 92.2 fL (81.0-99.0); Mean Platelet Volume 11.4 fL (7.4-10.4); Nucleated Red Blood Cells % 0 %; Platelet Count 99 10^3/uL (130-400); Red Cell Dist. Width 17.6 % (11.5-14.5); White Blood Cell Count 9.4 10^3/uL (4.8-10.8)
[2024-01-10 03:46] LABS: ALT (SGPT) < 10 U/L (0-35); AST (SGOT) 52 U/L (14-36); Albumin 2.8 g/dl (3.5-5.0); Alkaline Phosphatase 272 U/L (38-126); Blood Urea Nitrogen 54 mg/dl (7-17); Calcium 8.2 mg/dl (8.4-10.2); Carbon Dioxide 27 mmol/L (22-30); Chloride 96 mmol/L (98-107); Estimated Creatinine Clearance 8 ml/min; Glucose 153 mg/dl (70-99); Potassium 3.6 mmol/L (3.5-5.1); Sodium 133 mmol/L (135-145); Total Bilirubin 0.9 mg/dl (0.2-1.3); Total Protein 5.6 g/dl (6.3-8.2); eGFR 8.84
[2024-01-10 06:00] VITALS: BMI 24.9
[2024-01-10 07:12] VITALS: BP 114/39
[2024-01-10 07:19] LABS: Glucose - Point of Care 150 mg/dl (70-99)
[2024-01-10] MEDS: PHOSLO 1334 MG PO ×2 (08:30→13:02)
[2024-01-10] MEDS: NOVOLOG FLEXPEN-MODERATE RESISTANCE 1 UNITS SC ×2 (08:30→13:03)
[2024-01-10] MEDS: ProAmatine 10 MG PO ×2 (08:31→13:02)
[2024-01-10] MEDS: ELIQUIS 2.5 MG PO (08:35)
[2024-01-10] MEDS: SINGULAIR 10 MG PO (08:36)
[2024-01-10 09:18] VITALS: BP 110/41; BP_SYST 61
[2024-01-10 10:02] VITALS: BP 113/66
[2024-01-10 10:33] VITALS: BP 111/43
[2024-01-10 10:33] LABS: Body Fluid Mononuclear 94.2 %; Body Fluid Polymorphonuclear 5.8 %; Body Fluid WBC 155 /CUMM
[2024-01-10 10:45] LABS: Body Fluid Second Tech SS
[2024-01-10 10:53] LABS: Body Fluid Albumin < 1.0 g/dl; Body Fluid Protein < 2.0 g/dl
[2024-01-10 11:14] VITALS: BP 97/30
--- NOTE | 2024-01-10 11:15 | W.PN.HOSP.TC ---
Today's Communication/Plan
-
medically stable for D/C
Assessment / Plan
Assessment / Plan
83yo F with PMHX of pulmonary HTN, HLD, chronic HFpEF, cardiogenic liver cirrhosis s/p recurrent paracentesis, ESRD, DM, afib, PAD came with lethargy and bradycardia, found complete AVB, had PPM placed. HD reinitialized. US liver showed lesion that
GI will follow in the clinic. also they will arrange recurrent paracentesis and EGD/Colonoscopy. Brother was informed and verbalized understanding of the instructions. Paracentesis on 01/10/24 showed transudative fluid with low WBC that does not meed
SBP criteria. Echo showed progressive MS and that will be followed with cardiology upon d/c - referral provided. No added salt diet enforced. Lasix was not reinitiated by cardio 2/2 hypotension. Volume mgmt with HD
A/P:
#Complete AVB
#Afib, paroxysmal
#Chronic HFpEF
PPM placed by cardiology on 01/02/24 ([employer])
Eliquis restarted on 01/09/24
#Cardiogenic liver cirrhosis with ascites
s/p recurrent paracentesis
Repeat paracentesis before d/c
#Liver lesion
#Pancolitis on GT
#Gastritis on CT
MRI as outpatient as well as endoscopy - GI to arrange
#Anemia 2/2 ESRD
follow Hgb
Nephro for Epo
#non-ischemic miocardial injury
#Sacral pressure ulcer, stage 2, POA
wound care, offloading
#HLD
#Pulm HTN
#CHronic thrombocytopenia 2/2 liver cirrhosis (since 11/26)
#chonic Alk.phos elevation 2/2 liver cirrhosis
cont home meds
follow CBC
#Moderate MS
#Moderate
outpatient cardiology
DVT ppx on Eliquis
Full code
I have spent at least 36min reviewing chart, test results, communication with consultants and direct patient care
Anticipated Discharge: Within 24 hours
Subjective/Interval History
-
Date of Service: January 10, 2024
Objective Data
-
Labs:
Laboratory Results
01/10/24
03:05
WBC 9.4
Hgb 9.9 L
Hct 29.5 L
Plt Count 99 L
Sodium 133 L
Potassium 3.6
Chloride 96 L
Carbon Dioxide 27
BUN 54 H
Creatinine 4.7 H*
Glucose 153 H
Calcium 8.2 L
Total Bilirubin 0.9
AST 52 H
ALT < 10
Alkaline Phosphatase 272 H
Vital Signs:
Vital Signs
Temp Pulse Resp BP Pulse Ox
98.2 F 60 18 113/66 100
01/10/24 11:11 01/10/24 10:02 01/10/24 11:11 01/10/24 10:02 01/10/24 11:11
I&O
01/09/24 01/10/24 01/11/24
06:59 06:59 06:59
Intake Total 480 / 480
Balance 480 / 480
Review of Systems
-
History Source: Patient
All other systems: Reviewed and negative
Physical Exam
-
General: No Apparent Distress
HEENT: Normocephalic and Atraumatic
Respiratory: Clear to Auscultation
Cardiac: Regular Rhythm and S1/S2
GI: Soft, Nontender and Nondistended
Genito-urinary: No Costovertebral Tender
Musculoskeletal: No Clubbing, No Cyanosis and No Edema
Skin: Warm
Neuro: Awake, Alert, Oriented and AO x 3
Psych: Calm
--- NOTE | 2024-01-10 11:22 | W.PN.NEPH.PH ---
Today's Communication / Plan
-
- HD tomorrow
Assessment/Plan
-
Assessment:
CHB
Hypotension
ESRD-from 12/2022 MWF HD [facility]
LUE AVF created 01/26
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
h/o Ascites and paracentesis last on 12/29 5.3lit
History DCHF
Type 2 diabetes
Primary hypertension
Likely history of coronary artery disease
History of heart valve problem
Severe pulmonary hypertension
Mild to moderate aortic stenosis
Moderate TR
Chronic thrombocytopenia
HLD
Plan:
A/w hypotension,josué noted CHB plan Pacer was placed on 01/02/2024
Patient looking well this morning
Next dialysis will be planned for tomorrow, orders provided
Blood pressure remains low side in setting of cardiac cirrhosis, on midodrine [id number]
Paracentesis done today, removed almost 7L fluid
-
-
Date of Service: January 10, 2024
CC / HPI / ROS
-
Chief Complaint:
End-stage renal disease
History of Present Illness:
ESRD Tuesday
Remains on the hypotensive side with midodrine support
Status post pacemaker placement on January 02, 2024
Review of Systems:
no chest pain or sob
Abdominal distention noted
Labs
-
Labs:
WBC 9.4 10^3/uL (4.8-10.8) 01/10/24 03:05
RBC 3.20 10^6/uL (4.20-5.40) L 01/10/24 03:05
Hgb 9.9 g/dL (12.0-16.0) L 01/10/24 03:05
Hct 29.5 % (37.0-47.0) L 01/10/24 03:05
Plt Count 99 10^3/uL (130-400) L 01/10/24 03:05
Sodium 133 mmol/L (135-145) L 01/10/24 03:05
Potassium 3.6 mmol/L (3.5-5.1) 01/10/24 03:05
Chloride 96 mmol/L (98-107) L 01/10/24 03:05
Carbon Dioxide 27 mmol/L (22-30) 01/10/24 03:05
BUN 54 mg/dl (7-17) H 01/10/24 03:05
Creatinine 4.7 mg/dL (0.6-1.0) H* 01/10/24 03:05
eGFR 8.84 01/10/24 03:05
Glucose 153 mg/dl (70-99) H 01/10/24 03:05
Calcium 8.2 mg/dl (8.4-10.2) L 01/10/24 03:05
Phosphorus 7.4 mg/dl (2.5-4.5) H 01/03/24 03:53
Gmh-S-[id number] Pept > 07455 pg/ml 01/03/24 03:53
Albumin 2.8 g/dl (3.5-5.0) L 01/10/24 03:05
Physical Exam
-
Vital Signs:
Vital Signs
Temp Pulse Resp BP Pulse Ox
98.2 F 60 18 113/66 100
01/10/24 11:11 01/10/24 10:02 01/10/24 11:11 01/10/24 10:02 01/10/24 11:11
Cardiovascular:: Regular rate and rhythm
Respiratory:: Bilateral: CTA
Lung Excursion:: Normal
Abdomen:: Nontender and Soft
Bowel Sounds:: Normal
Extremity Edema:: None: Bilateral:
Gross Catheter: No
--- NOTE | 2024-01-10 11:22 | W.DCSUMMARY ---
Discharge Summary
Discharge Data
Date of Admission: 01/01/24
Date of Discharge: 01/10/24
-
Pending Results: Yes
Additional Pending Results:
pathology ascitic fluid
Hospital Course
83yo F with PMHX of pulmonary HTN, HLD, chronic HFpEF, cardiogenic liver cirrhosis s/p recurrent paracentesis, ESRD, DM, afib, PAD came with lethargy and bradycardia, found complete AVB, had PPM placed. HD reinitialized. US liver showed lesion that
GI will follow in the clinic. also they will arrange recurrent paracentesis and EGD/Colonoscopy. Brother was informed and verbalized understanding of the instructions. Paracentesis on 01/10/24 showed transudative fluid with low WBC that does not meed
SBP criteria. Echo showed progressive MS and that will be followed with cardiology upon d/c - referral provided. No added salt diet enforced. Lasix was not reinitiated by cardio 2/2 hypotension. Volume mgmt with HD
Medically stable for D/C. I have spent at least 36min preparing D/C
Patient was managed for:
#Complete AVB
#Afib, paroxysmal
#Chronic HFpEF
#Cardiogenic liver cirrhosis with ascites
#Liver lesion
#Pancolitis on GT
#Gastritis on CT
#Anemia 2/2 ESRD
#non-ischemic miocardial injury
#Sacral pressure ulcer, stage 2, POA
#HLD
#Pulm HTN
#CHronic thrombocytopenia 2/2 liver cirrhosis (since 11/26)
#chonic Alk.phos elevation 2/2 liver cirrhosis
#Moderate MS
#Moderate
Discharge Plan
-
Patient Disposition: Assisted Living
Discharge Diagnosis/Procedures: Complete AVB
Diet: No added salt
Activity: As tolerated
Driving Restrictions: As prior to admission
Referrals:
[facility] [Other] ( )
Linwood Chavez DO [Family Provider] -
Aundrea Rider MD [Active] - in one week
Alyssa Rodriguez PA-C [Specified Professional Personl] - 02/09/24 11:00 am (follow up with Alyssa Rodriguez as scheduled. obtain follow up labs prior to visit as planned. )
Additional Discharge Medication Instructions: call interventional radiology at [facility] for paracentesis as needed for abdominal distention [phone]
Prescriptions:
New
midodrine 5 mg Tablet
10 mg PO TID@0800,1300,1800 30 Days Qty: 90 0RF
Continued
isosorbide mononitrate 30 mg tablet extended release 24 hr
15 mg PO DAILY
montelukast 10 mg tablet
10 mg PO DAILY
insulin aspart U-100 [Novolog FlexPen U-100 Insulin] 100 unit/mL (3 mL) insulin pen
5 unit SC AC
rosuvastatin 10 mg Tablet
10 mg PO HS
polyethylene glycol 3350 17 gram Powder In Packet
17 g PO DAILYPRN PRN (Reason: CONSTIPATION)
insulin glargine [Lantus Solostar U-100 Insulin] 100 unit/mL (3 mL) Insulin Pen
10 unit SC HS
calcium acetate(phosphat bind) 667 mg Capsule
1,334 mg PO MEALS
dextromethorphan-guaifenesin [Chest Congestion Relief DM] 10-100 mg/5 mL Syrup
5 ml PO Q6HPRN PRN (Reason: COUGH)
metoprolol succinate [Toprol XL] 25 mg Tablet Extended Release 24 Hr
25 mg PO QPM
sodium chloride 0.65 % Aerosol,[place]
2 spray INTRANASAL QIDPRN PRN (Reason: nasal conjestion)
Eliquis 2.5 mg Tablet
2.5 mg PO BID
Ocuvite with Lutein 300 mcg-200 mg-27 mg-2 mg Tablet
1 tab PO BID
Discontinued
furosemide 40 mg Tablet
40 mg PO DAILY
magnesium oxide 400 mg (241.3 mg magnesium) Tablet
400 mg PO DAILY
ergocalciferol (vitamin D2) 1,250 mcg (50,000 unit) Capsule
1,250 mcg PO QWEEK
loperamide 2 mg Capsule
2 mg PO Q4HPRN MDD 16 mg PRN (Reason: loose stools)
midodrine 5 mg Tablet
5 mg PO DAILYPRN PRN (Reason: FOR LOW BP LESS THAN 100)
Discharge Orders:
Discharge Patient (As Directed); Ordered 01/10/24
Ordered By: Ramo Prieto
Care Plan Goals
Care Plan Goals:
Problem: Readiness for enhanced knowledge related to diagnosis and treatment plan
Goal: Understand your diagnosis and treatment plan needs, including medications if applicable.
Instructions: Know your diagnosis, underlying causes and treatment plan options, including medications if applicable. Consult with your health care team to learn about your diagnosis and treatment plan, including medications if applicable.
Discharge Date and Time
Print Language: ICELANDIC
[2024-01-10] MEDS: TOPROL XL PO (11:24)
[2024-01-10 12:12] LABS: Glucose - Point of Care 159 mg/dl (70-99)
--- NOTE | 2024-01-10 12:30 | CM ---
Reviewed chart. Met with Ms. Salas to review discharge plans. Ms. Salas is ready for transfer back to [facility] today. Telephone call to [facility] to update them. Will need a paper script for any new medications and
would like [facility]. Telephone call to [facility] to make the referral. Sent the referral. Will need to call report to [facility], )[phone]) and fax number for discharge paperwork is ([phone]). Fax discharge instructions to [facility] ([phone]). Telephone call to Tahir Andreaenoch to update hime regarding discharge plans. He will provide transportation blaze to [facility]. He will be here in the Afternoon. Updated R.N. Medical work-up in progress. The discharge
plan is to return to [facility] with [facility] when medically stable.
[2024-01-10 13:36] LABS: Body Fluid Amylase 58 U/L
--- NOTE | 2024-01-10 14:21 | VATNOTE ---
Midline D/C'd with no issues. TCL retrieved was 11cm.
--- NOTE | 2024-01-10 15:17 | W.PN.UPDATE ---
Update Note
Progress Note Update
pt already discharged. spoke with brother reviewed plan for MRI as already precerted per office then office visit with Alyssa schmidt in February . Order has been sent to IR for para weekly as needed.
== END 2024-01-10 14:42 | disposition home health service (06) | DRG 242 ==
LOC: IVU 15:43
PROVIDERS: Internal Medicine Cardiovascular Disease; Internal Medicine Critical Care Medicine; Nurse Practitioner Adult Health; Nurse Practitioner Family; Radiology Diagnostic Radiology; ADMITTING PHYSICIAN Internal Medicine; ATTENDING PHYSICIAN Internal Medicine; CONSULT PHYSICIAN Internal Medicine; CONSULT PHYSICIAN Internal Medicine Hospice and Palliative Medicine; EMERGENCY PHYSICIAN Emergency Medicine; FAMILY PHYSICIAN Specialist; OTHER PHYSICIAN Internal Medicine Cardiovascular Disease; OTHER PHYSICIAN Internal Medicine Critical Care Medicine
PROC: 02H63JZ Insertion of Pacemaker Lead into Right Atrium, Percutaneous Approach (ICD-10-PCS; 2024-01-01)
PROC: 0JH606Z Insertion of Pacemaker, Dual Chamber into Chest Subcutaneous Tissue and Fascia, Open Approach (ICD-10-PCS; 2024-01-01)
PROC: 02HK3JZ Insertion of Pacemaker Lead into Right Ventricle, Percutaneous Approach (ICD-10-PCS; 2024-01-01)
PROC: 5A1D70Z Performance of Urinary Filtration, Intermittent, Less than 6 Hours Per Day (ICD-10-PCS; 2024-01-02)
PROC: 0W9G3ZX Drainage of Peritoneal Cavity, Percutaneous Approach, Diagnostic (ICD-10-PCS; 2024-01-10)
DX: I44.2 Atrioventricular block, complete (principal); I50.33 Acute on chronic diastolic (congestive) heart failure; N18.6 End stage renal disease; J96.01 Acute respiratory failure with hypoxia; R57.0 Cardiogenic shock; E87.1 Hypo-osmolality and hyponatremia; I13.2 Hypertensive heart and chronic kidney disease with heart failure and with stage 5 chronic kidney disease, or end stage renal disease; I85.10 Secondary esophageal varices without bleeding; R18.8 Other ascites; I5A Non-ischemic myocardial injury (non-traumatic); I27.20 Pulmonary hypertension, unspecified; Z51.5 Encounter for palliative care; D63.1 Anemia in chronic kidney disease; D69.59 Other secondary thrombocytopenia; E11.22 Type 2 diabetes mellitus with diabetic chronic kidney disease; E11.51 Type 2 diabetes mellitus with diabetic peripheral angiopathy without gangrene; E11.65 Type 2 diabetes mellitus with hyperglycemia; I08.3 Combined rheumatic disorders of mitral, aortic and tricuspid valves; Z99.2 Dependence on renal dialysis; L89.152 Pressure ulcer of sacral region, stage 2; E88.09 Other disorders of plasma-protein metabolism, not elsewhere classified; I95.9 Hypotension, unspecified; K76.1 Chronic passive congestion of liver; E87.8 Other disorders of electrolyte and fluid balance, not elsewhere classified; D72.819 Decreased white blood cell count, unspecified; E78.00 Pure hypercholesterolemia, unspecified; I49.8 Other specified cardiac arrhythmias; I48.0 Paroxysmal atrial fibrillation; I25.10 Atherosclerotic heart disease of native coronary artery without angina pectoris; K29.70 Gastritis, unspecified, without bleeding; K42.9 Umbilical hernia without obstruction or gangrene; K59.00 Constipation, unspecified; K80.20 Calculus of gallbladder without cholecystitis without obstruction; M47.816 Spondylosis without myelopathy or radiculopathy, lumbar region; K52.9 Noninfective gastroenteritis and colitis, unspecified; R79.1 Abnormal coagulation profile; R79.89 Other specified abnormal findings of blood chemistry; Z79.01 Long term (current) use of anticoagulants; Z79.4 Long term (current) use of insulin; Z79.899 Other long term (current) drug therapy; Z86.711 Personal history of pulmonary embolism
CPT/HCPCS: 88305; 33208; 49083; 71045; 74176; 76700; 80048; 80051; 80053; 82042; 82105; 82150; 82248; 82728; 82962; 83036; 83540; 83550; 83735; 83880; 84100; 84157; 84484; 85014; 85018; 85025; 85027; 85610; 85730; 87015; 87070; 87205; 88112; 88341; 88342; 89051; 93005; 93306; 93975; 96361; 96374; 96375; 99291; C1785; C1892; C1898; G0257; P9047; Q5106

== ENCOUNTER → 2024-02-14 06:49 | Outpatient (REF) | payer OTHER, SELFPAY ==
[2024-02-14 07:12] VITALS: BP 109/56; BP_SYST 67
[2024-02-14 08:02] VITALS: BP 109/47
[2024-02-14 08:48] LABS: Body Fluid Mononuclear 84.5 %; Body Fluid Polymorphonuclear 15.5 %; Body Fluid WBC 232 /CUMM
[2024-02-14 08:49] LABS: Body Fluid Second Tech RLT
== END ==
LOC: RADI 06:49
PROVIDERS: ATTENDING PHYSICIAN Nurse Practitioner Adult Health; FAMILY PHYSICIAN Family Medicine; OTHER PHYSICIAN Specialist; REFERRING PHYSICIAN Internal Medicine Gastroenterology
DX: R18.8 Other ascites (principal)
CPT/HCPCS: 49083; 87015; 87070; 87205; 89051

== ENCOUNTER → 2024-02-22 08:12 | Outpatient (REF) | payer OTHER, SELFPAY | LOC: MRI 08:12 | PROVIDERS: ATTENDING PHYSICIAN Internal Medicine Gastroenterology; FAMILY PHYSICIAN Family Medicine | DX: K76.9 Liver disease, unspecified (principal) | CPT/HCPCS: 74183; A9575 ==

== ENCOUNTER → 2024-03-13 06:59 | Outpatient (REF) | payer OTHER, SELFPAY ==
[2024-03-13 07:41] VITALS: BP 102/52; BP_SYST 61
[2024-03-13 08:35] VITALS: BP 101/40; BP_SYST 60
[2024-03-13 09:11] LABS: Body Fluid Mononuclear 81.8 %; Body Fluid Polymorphonuclear 18.2 %; Body Fluid WBC 242 /CUMM
[2024-03-13 09:12] VITALS: BP 101/40
[2024-03-13 09:12] LABS: Body Fluid Second Tech JMK
== END ==
LOC: RADI 06:59
PROVIDERS: ATTENDING PHYSICIAN Nurse Practitioner Adult Health
DX: R18.8 Other ascites (principal)
CPT/HCPCS: 49083; 87015; 87070; 87205; 89051

== ENCOUNTER 2024-03-13 09:11 | Outpatient (RCR) | payer OTHER, SELFPAY ==
[2024-03-13 09:32] VITALS: BP 86/35
[2024-03-13] MEDS: FLEXBUMIN 100 IV (09:32)
[2024-03-13 09:45] VITALS: BP 86/35
[2024-03-13] MEDS: FLEXBUMIN 50 IV (11:17)
[2024-03-13 11:19] VITALS: BP 99/44
[2024-03-13 13:35] VITALS: BP 95/39
== END 2024-03-31 23:59 | disposition home or self-care (01) ==
LOC: OID 09:11
PROVIDERS: ATTENDING PHYSICIAN Nurse Practitioner Family; FAMILY PHYSICIAN Family Medicine
DX: R18.8 Other ascites (principal); N18.6 End stage renal disease
CPT/HCPCS: 49083; 87015; 87070; 87205; 89051; 96365; 96366; P9047

== ENCOUNTER 2024-03-13 15:19 | Emergency (ER) | payer OTHER, SELFPAY ==
[2024-03-13 15:24] VITALS: BP 86/40
[2024-03-13 15:27] VITALS: BP 86/40
[2024-03-13 15:28] VITALS: BP 86/40
--- NOTE | 2024-03-13 15:58 | ED.GENMED ---
History of Present Illness
<Ruchi Allred PA-C - Last Filed: 03/13/24 23:44>
General
Chief Complaint: Abdominal Symptoms
Source: patient
Exam Limitations: none
Time Seen by Provider: 03/13/24 15:41
Nursing documentation reviewed up to this point in time: agreed with
History of Present Illness
History of Present Illness:
83-year-old female with history of CHF, CAD, hypertension, cirrhosis, diabetes presents to the emergency department via EMS from [facility] due to nausea and vomiting. Patient states that starting last night she has had multiple episodes
of nausea and vomiting. She does endorse some diffuse pain throughout her abdomen. Patient denies any fever, pain, shortness of breath, urinary symptoms, diarrhea, or constipation. Patient does report a mild chronic cough.
Patient did have a scheduled paracentesis where 4 L were drained from her abdomen earlier today. She did have another episode of vomiting following the paracentesis.
Past History
<Ruchi Allred PA-C - Last Filed: 03/13/24 23:44>
Past History
ED Past Medical History: CHF, HTN, NIDDM, Valvular disease (Moderate aortic stenosis. Moderate TR) and Other (ESRD)
ED Past Surgical History: Other (Paracentesis)
Social History
Tobacco: Non-smoker
Alcohol: None
Review of Systems
<Ruchi Allred PA-C - Last Filed: 03/13/24 23:44>
Review of Systems
Allergies reviewed?: Yes
All Other Systems: ROS reviewed and negative except as documented in HPI and ROS
Phy Exam
<Ruchi Allred PA-C - Last Filed: 03/13/24 23:44>
Physical Exam
Physical Exam:
Vitals: BP soft, otherwise vital signs stable. Afebrile
General: Patient is frail appearing, no acute distress
Skin: Warm and dry, no rashes or lesions
Head: Normocephalic, atraumatic
Eyes: Sclera nonicteric. EOMs intact. No nystagmus.
Throat: Protecting airway
Neck: Normal ROM, no cervical spine tenderness, no meningismus
Cardiac: Regular rate and rhythm, no murmurs.
Pulm: Normal respiratory effort, no wheezes, rales, rhonchi heard on exam.
Abdomen: Moderately distended. Abdomen soft with mild diffuse tenderness. No rebound tenderness or guarding.
Extremities: No evidence of cyanosis or edema. Great distal pulse
Neuro: Arousable.
Psychiatric: Normal affect.
Course
<Ruchi Allred PA-C - Last Filed: 03/13/24 23:44>
Orders/Labs/Results
Orders:
Orders
03/13/24 16:10
Electrocardiogram (*1) Urgent
Reason for Study: QTc Monitoring
EKG- Treatment ONCE
0.9% Sodium Chloride 1000 ml [Nss] 1,000 ml IV BOLUS
Ondansetron Injectable [Zofran] 4 mg IV NOW STA
03/13/24 16:12
Ammonia Urgent
Complete Blood Count/With Diff Urgent
Comprehensive Metabolic Panel Urgent
03/13/24 16:27
pacemaker [Interrogate Pacemaker- Treatment] ONCE
03/13/24 16:59
Pantoprazole [Protonix IV] 40 mg IV NOW STA
03/13/24 17:01
US Abdomen Complete/Upper Urgent
Comment: hx known gallstones
Reason For Exam: nausea/vomiting
Abnormal Lab Results
03/13/24
16:12
RBC 2.96 L 10^6/uL
(4.20-5.40)
Hgb 8.3 L g/dL
(12.0-16.0)
Hct 27.1 L %
(37.0-47.0)
MCHC 30.6 L g/dL
(33.0-37.0)
RDW 18.5 H %
(11.5-14.5)
Plt Count 122 L 10^3/uL
(130-400)
MPV 11.6 H fL
(7.4-10.4)
Absolute Monos (auto) 1.1 H 10^3/uL
(0.1-0.6)
Absolute Eos (auto) 0.9 H 10^3/uL
(0-0.7)
Lymphocytes % 15.2 L %
(20.5-51.1)
Monocytes % 12.6 H %
(1.7-9.3)
Eosinophils % 9.8 H %
(0-6)
Potassium 3.4 L mmol/L
(3.5-5.1)
Chloride 91 L mmol/L
(98-107)
BUN 43 H mg/dl
(7-17)
Creatinine 5.7 H* mg/dL
(0.6-1.0)
Glucose 185 H mg/dl
(70-99)
Total Bilirubin 1.6 H mg/dl
(0.2-1.3)
Alkaline Phosphatase 188 H U/L
(38-126)
Ammonia 38 H umol/L
(9-30)
03/13/24 16:12
03/13/24 16:12
Vital Signs
Initial and Last Documented VS:
Initial Vital Signs
BP
86/40
03/13/24 15:24
Last Documented Vital Signs
Temp Pulse Resp BP Pulse Ox
98.0 F 84 26 95/50 98
03/13/24 15:28 03/13/24 19:00 03/13/24 19:00 03/13/24 18:00 03/13/24 19:00
<Luc Valadez, DO - Last Filed: 03/13/24 17:04>
Orders/Labs/Results
Orders:
Orders
03/13/24 16:10
Electrocardiogram (*1) Urgent
Reason for Study: QTc Monitoring
EKG- Treatment ONCE
0.9% Sodium Chloride 1000 ml [Nss] 1,000 ml IV BOLUS
Ondansetron Injectable [Zofran] 4 mg IV NOW STA
03/13/24 16:12
Ammonia Urgent
Complete Blood Count/With Diff Urgent
Comprehensive Metabolic Panel Urgent
03/13/24 16:27
pacemaker [Interrogate Pacemaker- Treatment] ONCE
03/13/24 16:59
Pantoprazole [Protonix IV] 40 mg IV NOW STA
03/13/24 17:01
US Abdomen Complete/Upper Urgent
Comment: hx known gallstones
Reason For Exam: nausea/vomiting
Abnormal Lab Results
03/13/24
16:12
RBC 2.96 L 10^6/uL
(4.20-5.40)
Hgb 8.3 L g/dL
(12.0-16.0)
Hct 27.1 L %
(37.0-47.0)
MCHC 30.6 L g/dL
(33.0-37.0)
RDW 18.5 H %
(11.5-14.5)
Plt Count 122 L 10^3/uL
(130-400)
MPV 11.6 H fL
(7.4-10.4)
Absolute Monos (auto) 1.1 H 10^3/uL
(0.1-0.6)
Absolute Eos (auto) 0.9 H 10^3/uL
(0-0.7)
Lymphocytes % 15.2 L %
(20.5-51.1)
Monocytes % 12.6 H %
(1.7-9.3)
Eosinophils % 9.8 H %
(0-6)
Potassium 3.4 L mmol/L
(3.5-5.1)
Chloride 91 L mmol/L
(98-107)
BUN 43 H mg/dl
(7-17)
Creatinine 5.7 H* mg/dL
(0.6-1.0)
Glucose 185 H mg/dl
(70-99)
Total Bilirubin 1.6 H mg/dl
(0.2-1.3)
Alkaline Phosphatase 188 H U/L
(38-126)
Ammonia 38 H umol/L
(9-30)
03/13/24 16:12
03/13/24 16:12
Vital Signs
Initial and Last Documented VS:
Initial Vital Signs
BP
86/40
03/13/24 15:24
Last Documented Vital Signs
Temp Pulse Resp BP Pulse Ox
98.0 F 84 26 95/50 98
03/13/24 15:28 03/13/24 19:00 03/13/24 19:00 03/13/24 18:00 03/13/24 19:00
<Ruchi Allred PA-C - Last Filed: 03/13/24 23:44>
MDM/Problems Addressed
Differential Diagnosis Includes:
Not limited to: GERD, gastritis, viral gastroenteritis, cholelithiasis, SBP, etc.
MDM/Problems Addressed:
83-year-old female with history as documented presenting to the emergency department with intractable nausea/vomiting. Patient did receive scheduled paracentesis today where 4 L of fluid were drained. BP soft although appears to be around baseline
for patient. Otherwise VSS- patient afebrile. Physical exam as above. Patient in no apparent distress, conversational and nontoxic. Abdomen distended with mild diffuse tenderness. No peritoneal signs. Patient perfusing well. Will treat symptoms with
IVF, zofran, protonix. Abdominal exam benign - will check labs and hold off on CT at this time. Will closely monitor and reasses.
Chronic conditions affecting care:
CHF, Cirrhosis
Acute Exacerbation and/or Progression of Chronic Illness:
N/A
<Ruchi Allred PA-C - Last Filed: 03/13/24 23:44>
*Radiology
Radiology exam reviewed: preliminary read by ED provider and radiology read reviewed
*Pulse Oximetry
Patient hypoxic: no
*EKG
Interpreted by ED Provider?: Yes
EKG Intrepretation Date: 03/13/24
Interpretation: abnormal
Heart Rate: 79
Rhythm: ventricular paced
Ischemia: non-specific ST changes
*Critical Care Note
Total Time (30-74mins, 75-104mins- exclusive of procedures): Not Applicable
Data Reviewed
Review of Other/Old Records Reveals: Operative Reports (Paracentesis report 03/13/24)
<Ruchi Allred PA-C - Last Filed: 03/13/24 23:44>
Update Note
Update Note:
Update: Labs reviewed. Anemia noted with hemoglobin of 8.3�essentially stable. No leukocytosis. Chemistry shows stable CKD with creatinine of 5.7. Mild elevation in bilirubin of 1.6. Otherwise findings stable. Given elevation in bilirubin and
history of nausea/vomiting with known gallstones�will check abdominal ultrasound. Pacemaker interrogated with few atrial tachycardia episodes. Patient currently anticoagulated on Eliquis. Otherwise no acute abnormalities.
6:42 PM: Abdominal ultrasound report reviewed. Gallstones noted with some thickening of gallbladder wall which I suspect to be secondary to ascites as patient is afebrile with no leukocytosis. Do not suspect acute cholecystitis. On
reassessment�patient feeling better following Protonix. Suspect probable acid reflux component. She has not had any episodes of vomiting since arrival to the emergency department. Abdomen remains soft. Vital signs remained stable. Will p.o.
challenge and plan for discharge home with outpatient follow-up.
Update 7 PM: Patient tolerated p.o. intake well without nausea or vomiting. Patient stable for discharge back to nursing facility with GI, primary care follow-up. Return precautions discussed. Patient seen alongside attending physician who agrees
with plan.
ED Attending Note
<Ruchi Allred PA-C - Last Filed: 03/13/24 23:44>
-
Portions of this chart may have been created with voice recognition software.� Occasional wrong word or��sound alike� substitutions may have occurred due to the inherent limitations of voice recognition software.
<Luc Valadez DO - Last Filed: 03/13/24 17:04>
ED Attending Note
Patient seen and examined by attending physician: Yes
I performed the substantive portion of visit, reviewed & personally made and approve the management plan that is documented in note by myself or GABBY.: Yes
ED Attending Note:
Seen with the PA examined independently 83-year-old female with cirrhosis palliative care, underwent a paracentesis today, states she felt better from her chronic shortness of breath, then developed nausea vomiting came into the ER here blood
pressure soft which is a chronic issue labs are noted essentially at her baseline, will hydrate, she has a paced EKG, states she has been having pain in her chest for months was worse after vomiting, will try some Protonix see if she can eat
Discharge Plan
Departure
Patient Disposition: Home (Routine Discharge)
Date of Disposition: 03/13/24
Time of Disposition: 19:01
Patient with high blood pressure during this ER visit?: No
Discharge Problem:
Nausea & vomiting, ESRD (end stage renal disease) on dialysis, Abdominal ascites
Instructions: Dehydration, Adult (DC), Nausea and Vomiting, Adult (DC), Fluid in the Belly (Ascites) (DC)
Prescriptions:
New
pantoprazole [Protonix] 40 mg tablet,delayed release (DR/EC)
40 mg PO DAILY 14 Days Qty: 14 0RF
No Action
isosorbide mononitrate 30 mg tablet extended release 24 hr
15 mg PO DAILY
Rx Instructions:
hold for SBP<95
montelukast 10 mg tablet
10 mg PO DAILY
insulin aspart U-100 [Novolog FlexPen U-100 Insulin] 100 unit/mL (3 mL) insulin pen
5 unit SC AC
rosuvastatin 10 mg Tablet
10 mg PO HS
polyethylene glycol 3350 17 gram Powder In Packet
17 g PO DAILYPRN PRN (Reason: CONSTIPATION)
insulin glargine [Lantus Solostar U-100 Insulin] 100 unit/mL (3 mL) Insulin Pen
10 unit SC HS
calcium acetate(phosphat bind) 667 mg Capsule
2,001 mg PO MEALS
dextromethorphan-guaifenesin [Chest Congestion Relief DM] 10-100 mg/5 mL Syrup
5 ml PO Q6HPRN PRN (Reason: COUGH)
metoprolol succinate [Toprol XL] 25 mg Tablet Extended Release 24 Hr
25 mg PO QPM
sodium chloride 0.65 % Aerosol,[place]
2 spray INTRANASAL QIDPRN PRN (Reason: nasal conjestion)
Eliquis 2.5 mg Tablet
2.5 mg PO BID
Ocuvite with Lutein 300 mcg-200 mg-27 mg-2 mg Tablet
1 tab PO BID
loperamide 2 mg Capsule
2 mg PO Q4HPRN MDD 16 mg PRN (Reason: loose stool)
Patient Comments:
03/13/24: take 2 after each loose stool, not to exceed 16 mg in 24 hours
ondansetron HCl 4 mg Tablet
4 mg PO Q8HPRN PRN (Reason: nausea)
midodrine 10 mg Tablet
10 mg PO TID
magnesium oxide 400 mg magnesium Tablet
400 mg PO DAILY
midodrine 5 mg tablet
10 mg PO DAILYPRN PRN (Reason: SBP<100)
Referrals:
UNKNOWN - PT NOT,INTERVIEWE [Family Provider] -
Activity Restrictions/Additional Instructions:
RETURN TO THE EMERGENCY DEPARTMENT WITH ANY FEVERS, CHILLS, INTRACTABLE NAUSEA/VOMITING, SIGNS OF SEVERE DEHYDRATION, SEVERE ABDOMINAL PAIN, WORSENING IN CURRENT SYMPTOMS, OR ANY OTHER CONCERNS
-You can take the pantoprazole once a day for the next few weeks. It is important stay well-hydrated. You should eat a bland diet over the next few days.
-Continue to take all your medications as prescribed and resume dialysis as scheduled tomorrow
-Follow-up with your GI doctor and primary care provider for further evaluation/management.
Monitor your symptoms closely return to the emergency department with any acute worsening/new symptoms
Interventions
Interventions:
*Risk Screen - Suicide Last Done: 03/13/24 16:06
*General Assessment Last Done: 03/13/24 16:06
*Neglect/Abuse Screening Last Done: 03/13/24 16:06
*ED COVID-19 Vaccine History Last Done: 03/13/24 16:06
RD-Txigso-Fdytmdurah Assessment Last Done: 03/13/24 16:05
Discharge Date and Time
Print Language: SWEDISH
[2024-03-13 16:00] VITALS: BP 87/40
[2024-03-13 16:08] VITALS: BMI 20.9
[2024-03-13] MEDS: NSS 1000 IV (16:15)
[2024-03-13 16:25] LABS: % Basophils 0.9 % (0-2); % Eosinophils 9.8 % (0-6); % Immature Granulocytes 0.4 % (0-0.5); % Lymphocytes 15.2 % (20.5-51.1); % Monocytes 12.6 % (1.7-9.3); % Neutrophils 61.1 % (42.2-75.2); Absolute Basophils 0.1 10^3/uL (0-0.2); Absolute Eosinophils 0.9 10^3/uL (0-0.7); Absolute Lymphocytes 1.4 10^3/uL (1.2-3.4); Absolute Monocytes 1.1 10^3/uL (0.1-0.6); Absolute Neutrophils 5.5 10^3/uL (1.4-6.5); Hematocrit 27.1 % (37.0-47.0); Hemoglobin 8.3 g/dL (12.0-16.0); Mean Corp Hgb Conc. 30.6 g/dL (33.0-37.0); Mean Corpuscular Volume 91.6 fL (81.0-99.0); Mean Platelet Volume 11.6 fL (7.4-10.4); Nucleated Red Blood Cells % 0 %; Platelet Count 122 10^3/uL (130-400); Red Blood Cell Count 2.96 10^6/uL (4.20-5.40); Red Cell Dist. Width 18.5 % (11.5-14.5)
[2024-03-13] MEDS: ZOFRAN 4 MG IV (16:26)
[2024-03-13 16:36] LABS: Ammonia 38 umol/L (9-30)
[2024-03-13 16:55] LABS: ALT (SGPT) 18 U/L (0-35); AST (SGOT) 33 U/L (14-36); Albumin 3.9 g/dl (3.5-5.0); Alkaline Phosphatase 188 U/L (38-126); Blood Urea Nitrogen 43 mg/dl (7-17); Calcium 8.8 mg/dl (8.4-10.2); Carbon Dioxide 29 mmol/L (22-30); Chloride 91 mmol/L (98-107); Estimated Creatinine Clearance 6 ml/min; Glucose 185 mg/dl (70-99); Potassium 3.4 mmol/L (3.5-5.1); Sodium 142 mmol/L (135-145); Total Bilirubin 1.6 mg/dl (0.2-1.3); Total Protein 7.3 g/dl (6.3-8.2); eGFR 7.01
[2024-03-13 17:00] VITALS: BP 98/49
[2024-03-13 18:00] VITALS: BP 95/50
[2024-03-13] MEDS: PROTONIX IV 40 MG IV (18:31)
[2024-03-14 00:52] VITALS: BP 91/52
== END 2024-03-14 03:56 | disposition home or self-care (01) ==
LOC: EMR 15:19
PROVIDERS: Physician Assistant; EMERGENCY PHYSICIAN Emergency Medicine
DX: R11.2 Nausea with vomiting, unspecified (principal); I13.2 Hypertensive heart and chronic kidney disease with heart failure and with stage 5 chronic kidney disease, or end stage renal disease; I50.9 Heart failure, unspecified; E11.22 Type 2 diabetes mellitus with diabetic chronic kidney disease; N18.6 End stage renal disease; R18.8 Other ascites; I25.10 Atherosclerotic heart disease of native coronary artery without angina pectoris; K74.60 Unspecified cirrhosis of liver; Z95.0 Presence of cardiac pacemaker; Z99.2 Dependence on renal dialysis; Z51.5 Encounter for palliative care
CPT/HCPCS: 99284; 49083; 96374; 96375; 96361; 76700; 80053; 82140; 85025; 93005

== ENCOUNTER 2024-03-19 22:23 | Observation (INO) | payer OTHER, SELFPAY ==
[2024-03-19] VITALS (9 sets, daily range): BP systolic 81–110; BP diastolic 43–59; BMI 22.8; BMI 23.7
--- NOTE | 2024-03-19 15:31 | ED.GENMED ---
ED Provider Triage
<MARQUES Bates Last Filed: 03/19/24 15:33>
-
Patient seen by provider in Triage?: Seen in Triage
83-year-old male presents via EMS from dialysis. She just finished her dialysis session and developed chest pain. She states he did have chest pain ongoing for several weeks but it was worse today. She presents for evaluation. She is on eliquis.
She notes abdominal distention but this is not new.
Will obtain EKG and labs through triage. Vital signs are stable.
History of Present Illness
<Kodak Ward PA-C - Last Filed: 03/19/24 15:33>
General
Chief Complaint: Chest Pain
Time Seen by Provider: 03/19/24 19:04
<Felix Chadwick Jr., PA-C - Last Filed: 03/19/24 19:47>
General
Source: patient
Exam Limitations: none
Nursing documentation reviewed up to this point in time: agreed with
History of Present Illness
History of Present Illness:
83-year-old female past medical history of aortic stenosis CHF CAD hypertension end-stage renal disease and studies presenting to the emergency department today with concerns of central chest pressure that occurred just prior to arrival. Today was
worse than usual but has had this intermittently over the past month. Some mild ongoing chest pain at this point described as pressure but significantly improved since its onset a few hours ago.
Past History
<Kodak Ward PA-C - Last Filed: 03/19/24 15:33>
Past History
ED Past Medical History: CHF, HTN, NIDDM, Valvular disease (Moderate aortic stenosis. Moderate TR) and Other (ESRD)
ED Past Surgical History: Other (Paracentesis)
Social History
Tobacco: Non-smoker
Alcohol: None
Review of Systems
<Felix Chadwick Jr., PA-C - Last Filed: 03/19/24 19:47>
Review of Systems
Allergies reviewed?: Yes
All Other Systems: ROS reviewed and negative except as documented in HPI and ROS
Phy Exam
<Felix Chadwick Jr., PA-C - Last Filed: 03/19/24 19:47>
Physical Exam
Physical Exam:
GENERAL: Alert , in no apparent distress
EYE: pupils equal and reactive
NECK: Supple, no significant adenopathy.
ENT: o/p clr, mmm.
CARDIAC: Pansystolic murmur
LUNGS: Clear breath sounds bilaterally, no acute respiratory distress, no wheezes/rales/rhonchi
ABDOMEN: Soft, without focal tenderness, no r/g, no cvat
NEUROLOGICAL: Alert and oriented, no focal neuro deficits
SKIN: Warm and dry, skin intact.
MUSCULOSKELETAL: No edema, well perfused.
PSYCH: Normal and appropriate interaction.
Scores
<Felix Chadwick Jr., PA-C - Last Filed: 03/19/24 19:47>
Heart Score for Chest Pain Patients
STEMI patient?: No
History: Moderately Suspicious
ECG: Nonspecific Repolarization
Age: >/= 65 years
Risk Factors: >/= 3 Risk Factors or History of CAD
Troponin: >/= 3 x Normal Limit
Heart Score for Chest Pain Patients: 8
Heart Score Risk: 72.7 % MACE over next 6 weeks
Course
<Kodak Ward PA-C - Last Filed: 03/19/24 15:33>
Orders/Labs/Results
Orders:
Orders
03/19/24 15:30
Electrocardiogram (*1) Urgent
Reason for Study: Chest Pain
EKG- Treatment ONCE
CR Chest - 2 Views Urgent
Comment:
Reason For Exam: chest pain
03/19/24 15:53
Complete Blood Count/With Diff Urgent
Comprehensive Metabolic Panel Urgent
Troponin I Urgent
03/19/24 19:36
EKG [Electrocardiogram (*1)] Urgent
Reason for Study: Chest Pain
Interrogate Pacemaker- Treatment ONCE
Troponin I Urgent
03/19/24 19:37
EKG- Treatment ONCE
03/19/24 19:41
Aspirin 325 mg PO NOW STA
Abnormal Lab Results
03/19/24
15:53
RBC 2.97 L 10^6/uL
(4.20-5.40)
Hgb 9.0 L g/dL
(12.0-16.0)
Hct 27.4 L %
(37.0-47.0)
MCHC 32.8 L g/dL
(33.0-37.0)
RDW 18.8 H %
(11.5-14.5)
MPV 11.2 H fL
(7.4-10.4)
Absolute Neuts (auto) 6.8 H 10^3/uL
(1.4-6.5)
Absolute Monos (auto) 1.3 H 10^3/uL
(0.1-0.6)
Lymphocytes % 12.7 L %
(20.5-51.1)
Monocytes % 13.2 H %
(1.7-9.3)
Eosinophils % 6.1 H %
(0-6)
Potassium 3.4 L mmol/L
(3.5-5.1)
Chloride 97 L mmol/L
(98-107)
BUN 23 H mg/dl
(7-17)
Creatinine 2.7 H mg/dL
(0.6-1.0)
Glucose 161 H mg/dl
(70-99)
Calcium 8.0 L mg/dl
(8.4-10.2)
Total Bilirubin 1.6 H mg/dl
(0.2-1.3)
Alkaline Phosphatase 240 H U/L
(38-126)
Troponin I 0.332 H* ng/ml
Albumin 3.1 L g/dl
(3.5-5.0)
03/19/24 15:53
03/19/24 15:53
Vital Signs
Initial and Last Documented VS:
Initial Vital Signs
Temp Pulse Resp BP Pulse Ox
98.6 F 77 18 99/51 98
03/19/24 15:30 03/19/24 15:30 03/19/24 15:30 03/19/24 15:30 03/19/24 15:30
Last Documented Vital Signs
Temp Pulse Resp BP Pulse Ox
97.7 F 72 16 97/45 98
03/19/24 18:40 03/19/24 19:05 03/19/24 19:05 03/19/24 19:05 03/19/24 18:40
<Felix Chadwick Jr., NICOLAS-C - Last Filed: 03/19/24 19:47>
Orders/Labs/Results
Orders:
Orders
03/19/24 15:30
Electrocardiogram (*1) Urgent
Reason for Study: Chest Pain
EKG- Treatment ONCE
CR Chest - 2 Views Urgent
Comment:
Reason For Exam: chest pain
03/19/24 15:53
Complete Blood Count/With Diff Urgent
Comprehensive Metabolic Panel Urgent
Troponin I Urgent
03/19/24 19:36
EKG [Electrocardiogram (*1)] Urgent
Reason for Study: Chest Pain
Interrogate Pacemaker- Treatment ONCE
Troponin I Urgent
03/19/24 19:37
EKG- Treatment ONCE
03/19/24 19:41
Aspirin 325 mg PO NOW STA
Abnormal Lab Results
03/19/24
15:53
RBC 2.97 L 10^6/uL
(4.20-5.40)
Hgb 9.0 L g/dL
(12.0-16.0)
Hct 27.4 L %
(37.0-47.0)
MCHC 32.8 L g/dL
(33.0-37.0)
RDW 18.8 H %
(11.5-14.5)
MPV 11.2 H fL
(7.4-10.4)
Absolute Neuts (auto) 6.8 H 10^3/uL
(1.4-6.5)
Absolute Monos (auto) 1.3 H 10^3/uL
(0.1-0.6)
Lymphocytes % 12.7 L %
(20.5-51.1)
Monocytes % 13.2 H %
(1.7-9.3)
Eosinophils % 6.1 H %
(0-6)
Potassium 3.4 L mmol/L
(3.5-5.1)
Chloride 97 L mmol/L
(98-107)
BUN 23 H mg/dl
(7-17)
Creatinine 2.7 H mg/dL
(0.6-1.0)
Glucose 161 H mg/dl
(70-99)
Calcium 8.0 L mg/dl
(8.4-10.2)
Total Bilirubin 1.6 H mg/dl
(0.2-1.3)
Alkaline Phosphatase 240 H U/L
(38-126)
Troponin I 0.332 H* ng/ml
Albumin 3.1 L g/dl
(3.5-5.0)
03/19/24 15:53
03/19/24 15:53
Vital Signs
Initial and Last Documented VS:
Initial Vital Signs
Temp Pulse Resp BP Pulse Ox
98.6 F 77 18 99/51 98
03/19/24 15:30 03/19/24 15:30 03/19/24 15:30 03/19/24 15:30 03/19/24 15:30
Last Documented Vital Signs
Temp Pulse Resp BP Pulse Ox
97.7 F 72 16 97/45 98
03/19/24 18:40 03/19/24 19:05 03/19/24 19:05 03/19/24 19:05 03/19/24 18:40
<Felix Chadwick Jr., PA-C - Last Filed: 03/19/24 19:47>
MDM/Problems Addressed
MDM/Problems Addressed:
83-year-old female presenting to the emergency department today with concerns of central chest pressure without radiation no significant associated shortness of breath nausea vomiting. On arrival blood pressure slightly low but patient does have a
low blood pressure at baseline other vital signs are normal. Labs at patient's baseline patient is anemic and has end-stage renal disease with labs that are consistent with this. Troponin resulting at 0.332 is above patient's baseline of 0.2 and
below. Concerning the patient's chest pain and elevated troponin level plan to admit for further assessment and cardiology consultation.
<Felix Chadwick Jr., PA-C - Last Filed: 03/19/24 19:47>
*Critical Care Note
Total Time (30-74mins, 75-104mins- exclusive of procedures): Not Applicable
ED Attending Note
<Kodak Ward PA-C - Last Filed: 03/19/24 15:33>
-
Portions of this chart may have been created with voice recognition software.� Occasional wrong word or��sound alike� substitutions may have occurred due to the inherent limitations of voice recognition software.
Discharge Plan
Departure
Patient Disposition: Admit
Date of Disposition: 03/19/24
Time of Disposition: 19:46
Admit to: Telemetry
Admit to doctor: Dexter
Presentation/result/management discussed w/ accepting MD/DO: Hospitalist
Patient with high blood pressure during this ER visit?: No
Condition: Good
Covid-19: Not Applicable
Discharge Problem:
Chest pain
Prescriptions:
No Action
isosorbide mononitrate 30 mg tablet extended release 24 hr
15 mg PO DAILY
Rx Instructions:
hold for SBP<95
montelukast 10 mg tablet
10 mg PO DAILY
insulin aspart U-100 [Novolog FlexPen U-100 Insulin] 100 unit/mL (3 mL) insulin pen
5 unit SC AC
rosuvastatin 10 mg Tablet
10 mg PO HS
polyethylene glycol 3350 17 gram Powder In Packet
17 g PO DAILYPRN PRN (Reason: CONSTIPATION)
insulin glargine [Lantus Solostar U-100 Insulin] 100 unit/mL (3 mL) Insulin Pen
10 unit SC HS
calcium acetate(phosphat bind) 667 mg Capsule
2,001 mg PO MEALS
dextromethorphan-guaifenesin [Chest Congestion Relief DM] 10-100 mg/5 mL Syrup
5 ml PO Q6HPRN PRN (Reason: COUGH)
metoprolol succinate [Toprol XL] 25 mg Tablet Extended Release 24 Hr
25 mg PO QPM
sodium chloride 0.65 % Aerosol,[place]
2 spray INTRANASAL QIDPRN PRN (Reason: nasal conjestion)
Eliquis 2.5 mg Tablet
2.5 mg PO BID
Ocuvite with Lutein 300 mcg-200 mg-27 mg-2 mg Tablet
1 tab PO BID
loperamide 2 mg Capsule
2 mg PO Q4HPRN MDD 16 mg PRN (Reason: loose stool)
Patient Comments:
03/13/24: take 2 after each loose stool, not to exceed 16 mg in 24 hours
ondansetron HCl 4 mg Tablet
4 mg PO Q8HPRN PRN (Reason: nausea)
midodrine 10 mg Tablet
10 mg PO TID
magnesium oxide 400 mg magnesium Tablet
400 mg PO DAILY
midodrine 5 mg tablet
10 mg PO DAILYPRN PRN (Reason: SBP<100)
pantoprazole [Protonix] 40 mg tablet,delayed release (DR/EC)
40 mg PO DAILY 14 Days Qty: 14 0RF
Referrals:
Chris Rasheed DO [Family Provider] -
Interventions
Interventions:
*Risk Screen - Suicide Last Done: 03/19/24 15:30
*General Assessment Last Done: 03/19/24 15:30
*Neglect/Abuse Screening Last Done: 03/19/24 15:30
ED- Fall Risk Assessment Last Done: 03/19/24 19:27
*ED COVID-19 Vaccine History Last Done: 03/19/24 15:30
ED- Cardiac Assessment Last Done: 03/19/24 19:27
Discharge Date and Time
Print Language: PORTUGUESE
[2024-03-19 16:01] LABS: % Eosinophils 6.1 % (0-6); % Immature Granulocytes 0.3 % (0-0.5); % Lymphocytes 12.7 % (20.5-51.1); % Monocytes 13.2 % (1.7-9.3); % Neutrophils 66.7 % (42.2-75.2); Absolute Basophils 0.1 10^3/uL (0-0.2); Absolute Eosinophils 0.6 10^3/uL (0-0.7); Absolute Lymphocytes 1.3 10^3/uL (1.2-3.4); Absolute Monocytes 1.3 10^3/uL (0.1-0.6); Absolute Neutrophils 6.8 10^3/uL (1.4-6.5); Hematocrit 27.4 % (37.0-47.0); Mean Corp Hgb Conc. 32.8 g/dL (33.0-37.0); Mean Corpuscular Hgb 30.3 pg (27.0-31.0); Mean Corpuscular Volume 92.3 fL (81.0-99.0); Mean Platelet Volume 11.2 fL (7.4-10.4); Nucleated Red Blood Cells % 0 %; Platelet Count 154 10^3/uL (130-400); Red Blood Cell Count 2.97 10^6/uL (4.20-5.40); Red Cell Dist. Width 18.8 % (11.5-14.5); White Blood Cell Count 10.1 10^3/uL (4.8-10.8)
[2024-03-19 16:15] LABS: ALT (SGPT) 19 U/L (0-35); AST (SGOT) 35 U/L (14-36); Albumin 3.1 g/dl (3.5-5.0); Alkaline Phosphatase 240 U/L (38-126); Blood Urea Nitrogen 23 mg/dl (7-17); Carbon Dioxide 28 mmol/L (22-30); Chloride 97 mmol/L (98-107); Glucose 161 mg/dl (70-99); Potassium 3.4 mmol/L (3.5-5.1); Sodium 139 mmol/L (135-145); Total Bilirubin 1.6 mg/dl (0.2-1.3); Total Protein 6.6 g/dl (6.3-8.2); eGFR 17.19
[2024-03-19 16:30] LABS: Troponin I 0.332 ng/ml
[2024-03-19] MEDS: ASPIRIN 325 MG PO (20:36)
--- NOTE | 2024-03-19 21:03 | HPS.HSE ---
Family Physician
-
Family Physician: Chris Rasheed
Chief Complaint
-
Chest pain
History of Present Illness
Patient is a 83-year-old female who presented via EMS following dialysis session. Patient developed chest pain at end of dialysis session today. She reported to ED staff that chest pain has been on going for several weeks but was worse today. At
assessment patient denies any chest pain at this time, does admit to chest pain over past several weeks, does present slightly confused as she does not remember going to dialysis earlier today.
Medical History
Past Medical History
Past Medical History: Reports Other
Additional Past Medical History:
CHF
HTN
Hyperlipidemia
DM
GERD
Valvular disease (moderate aortic stenosis, moderate TR)
ESRD
Past Surgical History: Reports Other
Additional Past Surgical History:
Paracentesis
Social History
Tobacco: Non-smoker
Living: Assisted Living
Family History
Family History: Unable to Obtain
Allergies / Home Medications
Allergies reflects when Allergies were last updated in [employer].
Home Medications with original date entered in [employer]
Allergy/Medication List:
Allergies
Allergy/AdvReac Type Severity Reaction Status Date / Time
No Known Allergies Allergy Verified 03/19/24 15:31
Home Medications Table - record
�Medication �Instructions �Recorded �Confirmed
insulin aspart U-100 100 unit/mL 5 unit SC AC Diabetes 11/26/22 03/19/24
(3 mL) subcutaneous pen (Novolog
FlexPen U-100 Insulin aspart)
isosorbide mononitrate 30 mg 15 mg PO DAILY Heart 11/26/22 03/19/24
tablet,extended release 24 hr Disease/Condition
montelukast 10 mg tablet 10 mg PO DAILY Allergies 11/26/22 03/19/24
rosuvastatin 10 mg tablet 10 mg PO HS High Cholesterol 11/26/22 03/19/24
insulin glargine 100 unit/mL (3 10 unit SC HS Diabetes 01/25/23 03/19/24
mL) subcutaneous pen (Lantus
Solostar U-100 Insulin)
polyethylene glycol 3350 17 gram 17 g PO DAILYPRN PRN CONSTIPATION 01/25/23 03/19/24
oral powder packet
calcium acetate(phosphat bind) 667 2,001 mg PO MEALS Kidney Disease 07/14/23 03/19/24
mg capsule
apixaban 2.5 mg tablet (Eliquis) 2.5 mg PO BID Blood Clot 11/04/23 03/19/24
Prevention/Tx
dextromethorphan-guaifenesin 10 5 ml PO Q6HPRN PRN COUGH 11/04/23 03/19/24
mg-100 mg/5 mL oral syrup (Chest
Congestion Relief DM)
metoprolol succinate 25 mg 25 mg PO QPM Blood Pressure 11/04/23 03/19/24
tablet,extended release 24 hr
(Toprol XL)
sodium chloride 0.65 % nasal spray 2 spray intranasal QIDPRN PRN 11/04/23 03/19/24
aerosol nasal conjestion
vit A 300 mcg-C 200 mg-E 27 1 tab PO BID Supplement 01/01/24 03/19/24
mg-lutein 2 mg and minerals tablet
(Ocuvite with Lutein)
loperamide 2 mg capsule 2 mg PO Q4HPRN PRN loose stool 03/13/24 03/19/24
magnesium oxide 400 mg PO DAILY 03/13/24 03/19/24
midodrine 10 mg tablet 10 mg PO TID 03/13/24 03/19/24
midodrine 5 mg tablet 10 mg PO DAILYPRN PRN SBP<100 03/13/24 03/19/24
ondansetron HCl 4 mg tablet 4 mg PO Q8HPRN PRN nausea 03/13/24 03/19/24
pantoprazole 40 mg tablet,delayed 40 mg PO DAILY 2 weeks #14 tabs 10/08/24 10/14/24
release (Protonix)
Review of Systems
-
History Source: Patient
Constitutional: Reports No Symptoms and See HPI
EENT: Reports No Symptoms and See HPI
Respiratory: Reports No Symptoms and See HPI
Cardiac: Reports See HPI and Chest Pain
Abdomen/GI: Reports See HPI and Other (abdominal distention)
: Reports No Symptoms and See HPI
Musculoskeletal: Reports No Symptoms and See HPI
Skin: Reports No Symptoms and See HPI
Neurological: Reports No Symptoms and See HPI
Endocrine: Reports No Symptoms and See HPI
Hematologic/Lymphatic: Reports No Symptoms and See HPI
Psych: Reports No Symptoms and See HPI
Physical Exam
Vital Signs
Vital Signs
Temp Pulse Resp BP Pulse Ox
97.7 F 74 19 93/48 98
03/19/24 18:40 03/19/24 20:45 03/19/24 20:45 03/19/24 20:00 03/19/24 20:30
Physical Exam
General: No Apparent Distress, Comfortable and Conversant
HEENT: NormoCephalic, Moist mucous membranes, PERRLA, [place] Conjunctivae, Nose Appears Normal and Ears Appear Normal
Respiratory: Clear and Non Labored Respirations; No Wheezes, Rales, Rhonchi or Crackles
Cardiac: S1/S2, Regular Rhythm and Murmur
Breast: Deferred by me
GI: Soft, Normal Bowel Sounds and Distended (hx ascites with paracentesis)
Rectal: Deferred by Provider
Genito-urinary: Deferred by me
Musculoskeletal: No Clubbing, No Cyanosis and No Edema
Skin: Warm, Dry and IV/Catheter Site
Neuro: Awake, Alert and Cranial Nerves Intact
Hematologic/Lymphatic: No Lymphadenopathy
Psych: Calm
Laboratory Results
-
03/19/24 15:53
10/14/24 15:53
Laboratory Results
Total Bilirubin 1.6 mg/dl (0.2-1.3) H 03/19/24 15:53
AST 35 U/L (14-36) 03/19/24 15:53
ALT 19 U/L (0-35) 03/19/24 15:53
Alkaline Phosphatase 240 U/L (38-126) H 03/19/24 15:53
Troponin I 0.332 ng/ml H* 03/19/24 15:53
Data Reviewed
-
Diagnostic Radiology: Report Reviewed by me (Small right pleural effusion with adjacent atelectasis versus mild pneumonia. Suspected mild pulmonary vascular congestion.)
Lab Data: Labs Reviewed by me
Impression/Plan
-
IMPRESSION/PLAN:
#Chest pain/CHF/HTN/Hyperlipidemia/Valvular disease (moderate aortic stenosis, moderate TR)
- Admit to telemetry for observation
- Elevated troponin 0.332/0.366
- continue isosorbide-mononitrate, magnesium oxide, metoprolol, midodrine, rosuvastatin, eliquis
- trend troponins
#DM
- continue insulin
- Accuchecks with SSI
#GERD
- continue pantoprazole
#ESRD
- monitor BMP
- Continue M-W-F diaylsis
#Ascites
-abdomen soft and distended
- follow up with out patient GI
Full code per facility documentation
DVT Px: Eliquis
[2024-03-19 21:12] LABS: Troponin I 0.366 ng/ml
--- NOTE | 2024-03-19 21:44 | W.PN.UPDATE ---
Update Note
Progress Note Update
Patient seen in conjunction with FLOOR WINDER agree with findings on history and physical as well as assessment and plan stated otherwise.
Briefly, 83yo F with PMHX of pulmonary HTN, HLD, chronic HFpEF, cardiogenic liver cirrhosis s/p recurrent paracentesis, ESRD, DM, afib, PAD, AVB, s/p PPM placed comes in with episode of substernal chest pain and right sided chest pain after
hemodialysis today. Denies nausea vomiting diaphoresis. When I saw the patient she had been chest pain-free. She had received only 325 of aspirin in the emergency department.
ECG showed AV paced breathing at [address] or T wave changes. Troponin was 0.3, CBC was unremarkable. Chemistries consistent with recent hemodialysis. Chest x-ray shows a small right-sided pleural effusion and possibly atelectasis.
Assessment and plan
Chest pain appears atypical to me. Patient is generally volume overloaded and likely has frequent current barriers to aggressive ultrafiltration. Troponin slightly increased compared to prior. No CHF pulm hypertension and cardiogenic liver
cirrhosis. She has significant ascites on exam but there is no tenseness and no tenderness to palpation. She has outpatient paracentesis per GI.
- admit to telemetry
- cycle enzymes, if no significant rise and no further cp, no indication for repeat cardiology consultation
- continue fluid and salt restriction
- consider renal consult for additional dialysis given volume overload, last HD today at [facility] was complete.
DVT ppx - on AC
code Status - Full Code
[2024-03-19] MEDS: ZOFRAN 4 MG IV (23:14)
[2024-03-20] VITALS (8 sets, daily range): BP systolic 68–103; BP diastolic 33–53; BMI 23.7; BMI 23.6
--- NOTE | 2024-03-20 00:29 | PTCARENOTE ---
pt admitted to room 2241. Pt was able to stand and pivot. AAOx3 with confusion. VSS. Denies chest pain. C/o occasional caught that she stated she has for a year. Pt placed on bed alarm. Oriented to the room. call olivares in reach.
[2024-03-20] MEDS: ELIQUIS 2.5 MG PO ×2 (00:42→08:44)
[2024-03-20] MEDS: CRESTOR 10 MG PO (00:42)
[2024-03-20] MEDS: TOPROL XL 25 MG PO (00:43)
--- NOTE | 2024-03-20 00:57 | PTCARENOTE ---
Pt c/o CP after she took her scheduled meds. When asked to point to the area where the pain is. pt. pointed to her upper stomach area. Pt fell asleep right after the conversation. No s/s of distress noted.
[2024-03-20] MEDS: TYLENOL 1000 MG PO (02:30)
[2024-03-20] MEDS: ROBITUSSIN DM 5 ML PO (02:31)
[2024-03-20 03:21] LABS: % Basophils 0.8 % (0-2); % Eosinophils 4.1 % (0-6); % Immature Granulocytes 0.5 % (0-0.5); % Lymphocytes 8.8 % (20.5-51.1); % Monocytes 8.7 % (1.7-9.3); % Neutrophils 77.1 % (42.2-75.2); Absolute Basophils 0.1 10^3/uL (0-0.2); Absolute Eosinophils 0.5 10^3/uL (0-0.7); Absolute Immature Granulocytes 0.1 10^3/uL (0-0.05); Absolute Lymphocytes 1.2 10^3/uL (1.2-3.4); Absolute Monocytes 1.1 10^3/uL (0.1-0.6); Hemoglobin 8.6 g/dL (12.0-16.0); Mean Corp Hgb Conc. 31.9 g/dL (33.0-37.0); Mean Corpuscular Hgb 29.6 pg (27.0-31.0); Mean Corpuscular Volume 92.8 fL (81.0-99.0); Mean Platelet Volume 11.8 fL (7.4-10.4); Nucleated Red Blood Cells % 0 %; Platelet Count 177 10^3/uL (130-400); Red Blood Cell Count 2.91 10^6/uL (4.20-5.40); Red Cell Dist. Width 18.9 % (11.5-14.5)
[2024-03-20 03:50] LABS: ALT (SGPT) 18 U/L (0-35); AST (SGOT) 32 U/L (14-36); Alkaline Phosphatase 196 U/L (38-126); Blood Urea Nitrogen 33 mg/dl (7-17); Calcium 8.5 mg/dl (8.4-10.2); Carbon Dioxide 27 mmol/L (22-30); Chloride 96 mmol/L (98-107); Estimated Creatinine Clearance 9 ml/min; Glucose 168 mg/dl (70-99); Potassium 3.8 mmol/L (3.5-5.1); Sodium 139 mmol/L (135-145); Total Bilirubin 1.5 mg/dl (0.2-1.3); Total Protein 6.4 g/dl (6.3-8.2); eGFR 11.77
[2024-03-20 03:53] LABS: Troponin I 0.283 ng/ml
[2024-03-20] MEDS: ProAmatine 10 MG PO ×2 (07:01→11:27)
[2024-03-20 07:57] LABS: Glycohemoglobin (HgbA1c) 5.5 % (4.0-5.6)
[2024-03-20] MEDS: OCUVITE SOFTGEL 1 CAP PO (08:45)
[2024-03-20] MEDS: PROTONIX 40 MG PO (08:45)
[2024-03-20] MEDS: MAGNESIUM OXIDE 500 MG PO (08:45)
[2024-03-20] MEDS: PHOSLO 2001 MG PO ×2 (08:45→11:28)
[2024-03-20] MEDS: NOVOLOG FLEXPEN-LOW RESISTANCE 1 UNITS SC (08:50)
[2024-03-20] MEDS: NOVOLOG FLEXPEN 5 UNITS SC ×2 (08:50→12:30)
[2024-03-20 08:51] LABS: Glucose - Point of Care 151 mg/dl (70-99)
[2024-03-20] MEDS: SINGULAIR 10 MG PO (08:56)
--- NOTE | 2024-03-20 10:34 | W.PN.HOSP.TC ---
Today's Communication/Plan
-
Discharge
Assessment / Plan
Assessment / Plan
Gen-AAOx3, NAD
HEENT-NC, AT, anicteric, clear oral mm
Neck-supple
CV-reg, no M, +S1/S2
Lungs-clear B/L
Abd-soft, NT, ND
Ext-no edema
Musculoskeletal-no cyanosis, clubbing
Skin-warm and dry
Neuro-grossly non-focal
Psych-calm, cooperative
Atypical chest pain -doubt ACS. Troponins are always elevated likely due to ESRD. No significant EKG changes. Stable for discharge today. Outpatient follow-up. Discussed with patient and family.
ESRD -on dialysis Tuesday, Tuesday, Tuesday.
Chronic hypotension -continue midodrine.
Complete heart block -has pacemaker.
Paroxysmal atrial fibrillation -continue Eliquis.
Chronic heart failure preserved EF
Pulmonary hypertension
Cardiac cirrhosis
DM2
Full code
Dispo -back to [facility] today. Discussed with brother on the phone.
Anticipated Discharge: Today
Subjective/Interval History
-
Date of Service: March 20, 2024
Patient seen and examined. Denies further chest pain. Requesting to use the bathroom. No complaints.
Objective Data
-
Labs:
Laboratory Results
03/20/24
02:51
WBC 13.0 H
Hgb 8.6 L
Hct 27.0 L
Plt Count 177
Sodium 139
Potassium 3.8
Chloride 96 L
Carbon Dioxide 27
BUN 33 H
Creatinine 3.7 H
Glucose 168 H
Calcium 8.5
Total Bilirubin 1.5 H
AST 32
ALT 18
Alkaline Phosphatase 196 H
Vital Signs:
Vital Signs
Temp Pulse Resp BP Pulse Ox
98.0 F 69 16 103/49 92
03/20/24 06:50 03/20/24 10:10 03/20/24 06:50 03/20/24 10:10 03/20/24 06:50
Review of Systems
-
History Source: Patient
All other systems: Reviewed and negative
--- NOTE | 2024-03-20 10:39 | W.DS.TRANS ---
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
-
Discharge Instructions:
Sleep Apnea Risk Low
Discharge Diagnosis/Procedures Atypical chest pain
Diet 2 Gram Sodium,Low Cholesterol,Low Fat
Activity As tolerated
Driving Restrictions No driving
Bathing Restrictions None
Instructions:
Stand-Alone Forms:
Changes to Home Medications: No
Discharge Medications:
DC Medications w/original date entered in [employer]
insulin aspart U-100 100 unit/mL (3 mL) subcutaneous pen (Novolog FlexPen U-100 Insulin aspart) 5 unit SC AC Diabetes 11/26/22
isosorbide mononitrate 30 mg tablet,extended release 24 hr 15 mg PO DAILY Heart Disease/Condition 11/26/22
montelukast 10 mg tablet 10 mg PO DAILY Allergies 11/26/22
rosuvastatin 10 mg tablet 10 mg PO HS High Cholesterol 11/26/22
insulin glargine 100 unit/mL (3 mL) subcutaneous pen (Lantus Solostar U-100 Insulin) 10 unit SC HS Diabetes 01/25/23
polyethylene glycol 3350 17 gram oral powder packet 17 g PO DAILYPRN PRN CONSTIPATION 01/25/23
calcium acetate(phosphat bind) 667 mg capsule 2,001 mg PO MEALS Kidney Disease 07/14/23
apixaban 2.5 mg tablet (Eliquis) 2.5 mg PO BID Blood Clot Prevention/Tx 11/04/23
dextromethorphan-guaifenesin 10 mg-100 mg/5 mL oral syrup (Chest Congestion Relief DM) 5 ml PO Q6HPRN PRN COUGH 11/04/23
metoprolol succinate 25 mg tablet,extended release 24 hr (Toprol XL) 25 mg PO QPM Blood Pressure 11/04/23
sodium chloride 0.65 % nasal spray aerosol 2 spray intranasal QIDPRN PRN nasal conjestion 11/04/23
vit A 300 mcg-C 200 mg-E 27 mg-lutein 2 mg and minerals tablet (Ocuvite with Lutein) 1 tab PO BID Supplement 01/01/24
loperamide 2 mg capsule 2 mg PO Q4HPRN PRN loose stool 10/08/24
magnesium oxide 400 mg PO DAILY 03/13/24
midodrine 10 mg tablet 10 mg PO TID 03/13/24
midodrine 5 mg tablet 10 mg PO DAILYPRN PRN SBP<100 03/13/24
ondansetron HCl 4 mg tablet 4 mg PO Q8HPRN PRN nausea 03/13/24
pantoprazole 40 mg tablet,delayed release (Protonix) 40 mg PO DAILY 2 weeks #14 tabs 03/13/24
Home Medication Changes
Pending Results: No
--- NOTE | 2024-03-20 11:49 | CM ---
spoke to pt in room, she lives alone in an asst living at [facility]. call placed to [facility], spoke to her nurse, there are no new meds, the only thing they need is her dc instructions upon arrival to [facility]. her brother is driving her back.
[2024-03-20 12:06] LABS: Glucose - Point of Care 218 mg/dl (70-99)
[2024-03-20] MEDS: NOVOLOG FLEXPEN-LOW RESISTANCE 2 UNITS SC (12:30)
--- NOTE | 2024-03-20 15:45 | PTCARENOTE ---
Pt discharged back to [facility] with her son. Discharge instructions given and reviewed with pt and her son with good understanding.
== END 2024-03-20 15:50 | disposition home or self-care (01) ==
LOC: IVU 22:23
PROVIDERS: Nurse Practitioner Family; Physician Assistant; ADMITTING PHYSICIAN Internal Medicine; ATTENDING PHYSICIAN Hospitalist; EMERGENCY PHYSICIAN Emergency Medicine; FAMILY PHYSICIAN Family Medicine
DX: R07.89 Other chest pain (principal); I35.0 Nonrheumatic aortic (valve) stenosis; I13.2 Hypertensive heart and chronic kidney disease with heart failure and with stage 5 chronic kidney disease, or end stage renal disease; I25.10 Atherosclerotic heart disease of native coronary artery without angina pectoris; E11.22 Type 2 diabetes mellitus with diabetic chronic kidney disease; I27.20 Pulmonary hypertension, unspecified; I50.32 Chronic diastolic (congestive) heart failure; R18.8 Other ascites; I44.2 Atrioventricular block, complete; I48.0 Paroxysmal atrial fibrillation; K76.1 Chronic passive congestion of liver; J90 Pleural effusion, not elsewhere classified; N18.6 End stage renal disease; J98.11 Atelectasis; I95.89 Other hypotension; E78.5 Hyperlipidemia, unspecified; K21.9 Gastro-esophageal reflux disease without esophagitis; R41.0 Disorientation, unspecified; Z99.2 Dependence on renal dialysis; Z79.4 Long term (current) use of insulin; Z79.01 Long term (current) use of anticoagulants; Z95.0 Presence of cardiac pacemaker; Z60.2 Problems related to living alone
CPT/HCPCS: 71046; 80053; 82962; 83036; 84484; 85025; 87070; 93005; 99285; G0378

== ENCOUNTER 2024-03-26 16:46 | Inpatient (IN) | payer OTHER, SELFPAY ==
[2024-03-26] VITALS (63 sets, daily range): BP systolic 50–110; BP diastolic 12–58; BMI 26.3
[2024-03-26] MEDS: NSS 250 IV (11:31)
--- NOTE | 2024-03-26 11:33 | ED.GENMED ---
History of Present Illness
General
Chief Complaint: Weakness
Time Seen by Provider: 03/26/24 11:11
History of Present Illness
History of Present Illness:
83-year-old female with history of end-stage renal disease on hemodialysis, hypertension, CHF, diabetes, cirrhosis with history of ascites presenting to the emergency department for generalized weakness. Patient arrives from nursing facility, where
she hit her life alert alarm. She was post to go to dialysis today, however had been complaining of generalized weakness and was subsequently sent to the emergency department. Patient also noted productive cough and shortness of breath for the
past few days. On arrival, noted to be hypotensive by medics with 500 cc fluid bolus infusing. Patient herself is a very limited historian given clinical condition. Again reporting generalized weakness and fatigue, as well as cough and shortness
of breath. Denies chest pain. No additional history obtained at this time
Past History
Past History
ED Past Medical History: CHF, HTN, NIDDM, Valvular disease (Moderate aortic stenosis. Moderate TR) and Other (ESRD)
ED Past Surgical History: Other (Paracentesis)
Social History
Tobacco: Non-smoker
Alcohol: None
Phy Exam
Physical Exam
Physical Exam:
General: Lethargic, however responsive
HEENT: protecting airway
Neck: appears supple
CV: Normal heart rate, regular rhythm, murmur, +murmur
Resp: No accessory muscle use, no increased work of breathing, lungs clear to auscultation bilaterally
Abd: Soft and non-distended, no tenderness to palpation
Extremities: No deformities, no swelling, no erythema. Global weakness to all extremities
Neuro: alert, lethargic, but answering questions and responsive to pain
: deferred
Rectal: deferred
Psych: Normal affect
Skin: Intact
Course
Orders/Labs/Results
Orders:
Orders
03/26/24 11:08
Electrocardiogram (*1) Urgent
Reason for Study: Fatigue / Weakness
EKG- Treatment ONCE
03/26/24 11:22
Complete Blood Count/With Diff Urgent
Comprehensive Metabolic Panel Urgent
03/26/24 11:26
0.9% Sodium Chloride 250 ml [Nss] 250 ml IV BOLUS
03/26/24 11:51
Lactic Acid Q4H
Comment: CANCEL 2nd LACTIC ACID IF 1st LACTIC ACID IS LESS THAN 2
PTT Urgent
Prothrombin Time Urgent
Blood Culture Routine
QUAN Source: Blood/Venous
Specimen Description:
Blood Culture Urgent
QUAN Source: Blood/Venous
Specimen Description:
Influenza A+B Rapid Molecular Urgent
QUAN Source: Nasal Swab
Specimen Description:
03/26/24 11:53
COVID-19 Antigen Urgent
Source: Nasal Swab
03/26/24 12:33
CR Chest Portable - 1 View Urgent
Comment:
Reason For Exam: hypoxic, cough
Reason Study Needs to be Portable: Patient Unstable
03/26/24 12:43
0.9% Sodium Chloride 250 ml [Nss] 250 ml IV BOLUS
Cefepime HCl [Maxipime] 2,000 mg IV NOW STA
03/26/24 12:48
0.9% Sodium Chloride 500 ml [Nss] 500 ml IV BOLUS
03/26/24 12:52
Sterile Water [Sterile Water For Injection] 10 ml .ROUTE .[facility]
03/26/24 12:58
Vancomycin [Vancocin] 1,500 mg 0.9% Sodium Chloride [Nss] 20 ml 0.9% Sodium Chloride 250 ml [Nss] 250 ml IV NOW
03/26/24 13:45
NORepinephrine 4 MG/250 ML [Levophed] 4 mg in 250 ml IV PER PROTOCOL
Initial dose in mcg/min, then titrate:: 5
Titrate to keep:: MAP > 65 mmHg
Titrate by mcg/min:: 1-2 mcg/min
Frequency of titrations (minutes):: 5
Maximum dose in ICU in mcg/min:: 30
Maximum dose in IMU in mcg/min:: 8
Maximum dose in IVU in mcg/min:: 4
Begin to taper infusion when:: Remained at goal for 4hrs
Taper by mcg/min:: 1-2 mcg/min
Frequency of taper (minutes) if patient maintains goal:: 30
Taper to off?: Yes
If infusion off & no longer maintaining goal:: Contact Provider
03/26/24 16:12
Admit/Transfer Patient As Directed
Co-Sign Provider:
Level of Care: Inpatient admission
Assign to:: ICU
Physician / Group: Hospitalist
Diagnosis: Hypotension
Reason for Hospitalization: Hypotension
Expected length of stay greater than two midnights?: Yes
ELOS- Estimated Length of Stay in days: 3
I certify the patient meets the requirements for IP care: Yes
PRN Pain Medication Management As Directed
May give lesser potent ordered pain med per pt: Yes
preference::
Protocol:: Medication orders for pain may be administered in a
manner that supports deferring to patient preference
when the pt is:
- Requesting an ordered lesser potent pain medication.
Least to most potent pain medications are defined
as: acetaminophen < NSAID < tramadol < opioids
(morphine, oxycodone, hydromorphone).
- Requesting a lesser dose of the same medication IF
ORDERED.
- Requesting a less intrusive route of administration
if both routes are prescribed by the provider (PO <
IV).
03/26/24 16:17
Code Status As Directed
Resuscitation Status: Full Code
03/26/24 20:02
Lactic Acid Q4H
Comment: CANCEL 2nd LACTIC ACID IF 1st LACTIC ACID IS LESS THAN 2
03/26/24 20:27
Acetaminophen [Tylenol] 650 mg PO Q4HPRN PRN
Apixaban [Eliquis] 2.5 mg PO BID
Bisacodyl [Dulcolax] 10 mg RECTAL [id number] PRN
Docusate W/Senna [Senokot-S] 1 tablet PO BIDPRN PRN
Loperamide [Imodium] 2 mg PO Q4HPRN PRN
Polyethylene Glycol Powder [Miralax] 17 grams PO DAILYPRN PRN
Vit C/Vit E/Lutein/Min/[place]-3 [Ocuvite Softgel] 1 cap PO BID
03/26/24 20:27
Self Defense Instructor Consult Routine
Consulting Provider: Shawn Gunderson
Was physician already notified: Yes
NEPHROLOGY CONSULT Routine
Consulting Provider: Ciarra Collazo
Was physician already notified: Yes
VTE Contraindication Routine
VTE Mechanical Device Contraindication: Medical Contraindication
Pharmocologic Contraindication: Medical Contraindication
Activity As Directed
Activity Level: Bedrest
Intake/ Output As Directed
Frequency: Per unit guidelines
Vital Signs As Directed
Frequency: Per unit guidelines
Weight As Directed
Frequency: Daily
03/26/24 21:23
Ammonia Routine
Cortisol, Random Routine
Troponin I Q8H
03/26/24 22:00
Rosuvastatin Calcium [Crestor] 10 mg PO HS
03/27/24 03:47
Complete Blood Count/With Diff IN AM
Comprehensive Metabolic Panel IN AM
Troponin I Q8H
03/27/24 08:00
Calcium Acetate [Phoslo] 667 mg PO MEALS
Ferrous Sulfate [Feosol] 325 mg PO DAILY
Magnesium Oxide 500 mg PO DAILY
Montelukast Sodium [Singulair] 10 mg PO DAILY
03/27/24 12:51
Troponin I Q8H
03/28/24 05:24
Comprehensive Metabolic Panel IN AM
03/28/24 08:00
Ergocalciferol [Drisdol (Vitamin D2)] 50,000 units PO WE
03/29/24 04:01
Comprehensive Metabolic Panel IN AM
Abnormal Lab Results
03/26/24 03/26/24
11:22 11:51
WBC 12.8 H 10^3/uL
(4.8-10.8)
RBC 2.71 L 10^6/uL
(4.20-5.40)
Hgb 7.9 L g/dL
(12.0-16.0)
Hct 25.7 L %
(37.0-47.0)
MCHC 30.7 L g/dL
(33.0-37.0)
RDW 20.2 H %
(11.5-14.5)
MPV 12.5 H fL
(7.4-10.4)
Abs Immat Gran (auto) 0.1 H 10^3/uL
(0-0.05)
Absolute Neuts (auto) 10.3 H 10^3/uL
(1.4-6.5)
Absolute Lymphs (auto) 1.1 L 10^3/uL
(1.2-3.4)
Absolute Monos (auto) 1.2 H 10^3/uL
(0.1-0.6)
Immature Gran % 0.6 H %
(0-0.5)
Neutrophils % 80.3 H %
(42.2-75.2)
Lymphocytes % 8.9 L %
(20.5-51.1)
PT 27.4 H Sec
(11.4-14.6)
APTT 43.5 H Sec
(23.4-35.0)
Potassium 5.5 H mmol/L
(3.5-5.1)
Chloride 95 L mmol/L
(98-107)
Carbon Dioxide 18 L mmol/L
(22-30)
BUN 63 H mg/dl
(7-17)
Creatinine 5.7 H* mg/dL
(0.6-1.0)
Glucose 127 H mg/dl
(70-99)
Lactic Acid 4.5 H* mmol/L
(0.7-2.0)
Total Bilirubin 1.4 H mg/dl
(0.2-1.3)
AST 51 H U/L
(14-36)
Alkaline Phosphatase 230 H U/L
(38-126)
03/26/24 11:22
03/26/24 11:22
Vital Signs
Initial and Last Documented VS:
Initial Vital Signs
Temp Pulse Resp BP Pulse Ox
97.4 F 64 20 75/48 89
03/26/24 11:15 03/26/24 11:15 03/26/24 11:15 03/26/24 11:15 03/26/24 11:15
Last Documented Vital Signs
Temp Pulse Resp BP Pulse Ox
97.7 F 61 20 92/44 95
03/29/24 15:55 03/29/24 14:21 03/29/24 14:12 03/29/24 14:21 03/29/24 15:01
Procedures
Central Line
Right Femoral:
Indication for procedure:: hypotension, septic shock
Procedure completed by: Tara John DO
Consent form signed: Yes
Anesthesia: 1% Lidocaine
Central line lumen: triple
Number of attempts: 1
Central line complications: none
Sterile dressing applied?: Yes
MDM/Problems Addressed
MDM/Problems Addressed:
83-year-old female with history of end-stage renal disease on hemodialysis, hypertension, CHF, diabetes, cirrhosis with history of ascites presenting for generalized weakness, cough, fatigue. Vital signs and arrival significant for hypotension and
hypoxia.
On exam, patient is generally ill-appearing, lethargic, however responsive and protecting airway. Vital signs concerning for infectious pathology with suspected source being pulmonary given presenting hypoxia. Although known end-stage renal
disease history, in the setting of hypotension, will start gentle fluid resuscitation. Patient placed on nasal cannula given hypoxia, improvement of saturations. Plan for laboratory analysis including blood cultures, lactic acid, viral swabs.
Will also obtain chest x-ray imaging for further evaluation of potential pneumonia.
13:40 -patient is lactic acid is 4.5. Patient also has leukocytosis, again consistent with sepsis. Patient meeting criteria for severe sepsis/septic shock. Chest x-ray shows evidence of pulmonary edema, so do not want to proceed with further
fluid resuscitation. Blood pressure however remains low. Central line placed in the right femoral groin, no complications. Please see procedure note. Will start Levophed. Broad-spectrum antibiotics ordered. Plan for admission
*EKG
Interpreted by ED Provider?: Yes
EKG Intrepretation Date: 03/26/24
EKG Intrepretation Time: 11:37
Interpretation: normal
Comparison EKG: no changes (03/20/24)
Heart Rate: 69
Rate: normal
Rhythm: sinus and other (atrial sensed, ventricular paced)
[place]: normal axis
Interval: long QT
QRS Pattern: normal QRS
Ischemia: other (lateral TWI)
*Critical Care Note
Total Time (30-74mins, 75-104mins- exclusive of procedures): 62 (37)
comment:
The high probability of a clinically significant, sudden or life threatening deterioration of the respiratory/infectious system(s) required my full and direct attention, intervention and personal management. The aggregate critical care time was 62
minutes. This time is in addition to time spent performing reported procedures but includes the following:
[x] Data Review and interpretation
[x] Patient assessment and monitoring of vital signs
[x] Documentation
[x] Medication orders and management
ED Attending Note
-
Portions of this chart may have been created with voice recognition software.� Occasional wrong word or��sound alike� substitutions may have occurred due to the inherent limitations of voice recognition software.
Discharge Plan
Departure
Patient Disposition: Admit
Date of Disposition: 03/26/24
Time of Disposition: 13:54
Presentation/result/management discussed w/ accepting MD/DO: Hospitalist
Condition: Serious
Discharge Problem:
Septic shock, Hypoxia
Interventions
Interventions:
*Risk Screen - Suicide Last Done: 03/26/24 11:14
*General Assessment Last Done: 03/26/24 11:14
*Neglect/Abuse Screening Last Done: 03/26/24 11:14
*ED COVID-19 Vaccine History Last Done: 03/26/24 20:30
*Nursing Disposition Last Done: 03/26/24 20:35
ED- Cardiac Assessment Last Done: 03/26/24 11:26
ED- Neurological Assessment Last Done: 03/26/24 11:26
ED- Pulmonary Assessment Last Done: 03/26/24 11:26
Discharge Date and Time
Discharge Date/Time: 03/26/24 20:36
[2024-03-26 11:39] LABS: % Basophils 0.2 % (0-2); % Eosinophils 0.9 % (0-6); % Immature Granulocytes 0.6 % (0-0.5); % Lymphocytes 8.9 % (20.5-51.1); % Monocytes 9.1 % (1.7-9.3); % Neutrophils 80.3 % (42.2-75.2); Absolute Eosinophils 0.1 10^3/uL (0-0.7); Absolute Immature Granulocytes 0.1 10^3/uL (0-0.05); Absolute Lymphocytes 1.1 10^3/uL (1.2-3.4); Absolute Monocytes 1.2 10^3/uL (0.1-0.6); Absolute Neutrophils 10.3 10^3/uL (1.4-6.5); Hematocrit 25.7 % (37.0-47.0); Hemoglobin 7.9 g/dL (12.0-16.0); Mean Corp Hgb Conc. 30.7 g/dL (33.0-37.0); Mean Corpuscular Hgb 29.2 pg (27.0-31.0); Mean Corpuscular Volume 94.8 fL (81.0-99.0); Mean Platelet Volume 12.5 fL (7.4-10.4); Nucleated Red Blood Cells % 0 %; Platelet Count 145 10^3/uL (130-400); Red Blood Cell Count 2.71 10^6/uL (4.20-5.40); Red Cell Dist. Width 20.2 % (11.5-14.5); White Blood Cell Count 12.8 10^3/uL (4.8-10.8)
[2024-03-26 11:49] LABS: ALT (SGPT) 24 U/L (0-35); AST (SGOT) 51 U/L (14-36); Albumin 3.5 g/dl (3.5-5.0); Alkaline Phosphatase 230 U/L (38-126); Blood Urea Nitrogen 63 mg/dl (7-17); Calcium 8.7 mg/dl (8.4-10.2); Carbon Dioxide 18 mmol/L (22-30); Chloride 95 mmol/L (98-107); Estimated Creatinine Clearance 7 ml/min; Glucose 127 mg/dl (70-99); Potassium 5.5 mmol/L (3.5-5.1); Sodium 135 mmol/L (135-145); Total Bilirubin 1.4 mg/dl (0.2-1.3); Total Protein 7.3 g/dl (6.3-8.2); eGFR 7.01
[2024-03-26 12:29] LABS: INR 2.56; PT 27.4 Sec (11.4-14.6)
[2024-03-26 12:30] LABS: APTT 43.5 Sec (23.4-35.0)
[2024-03-26 12:33] LABS: Lactic Acid 4.5 mmol/L (0.7-2.0)
[2024-03-26 12:38] LABS: COVID-19 Antigen Negative (Negative)
[2024-03-26] MEDS: NSS 500 IV (12:49)
[2024-03-26] MEDS: MAXIPIME 2000 MG IV (12:52)
[2024-03-26] MEDS: VANCOCIN 300 MG IV (13:33)
[2024-03-26] MEDS: VANCOCIN 300 ML IV (13:33)
[2024-03-26] MEDS: LEVOPHED 250 IV (13:43)
--- NOTE | 2024-03-26 17:40 | W.CON.NEPH ---
Consultation
-
Date/Time Consultation Requested: 03/26/24 1626
Date/Time Consultation Performed: 03/26/24 1710
Requesting Provider: adis Best
Performing Provider: Ciarra Looney
Reason for Consultation: ESRD
Medical History
-
Chief Complaint: hypotension, bradycardia
History of Present Illness:
Ms. Salas is an 83 YOF with PMH of ESRD on HD MWF at [facility] through left AVF, HTN but now hypotension on prn midodrine, off nifedipine, remains on BB, DLD, HFpEF, hx of PE, PAF on ELiquis, cardiac cirrhosis with history of ascites and
paracentesis presenting to the emergency department for generalized weakness. Patient arrives from nursing facility, where she hit her life alert alarm. She was post to go to dialysis today, however had been complaining of generalized weakness and
was subsequently sent to the emergency department. Patient reported productive cough and shortness of breath for the past few days. On arrival, noted to be hypotensive in 70s s/p 1500 cc fluid bolus and CXR noted pulm edema and started on
pressors. Received empiric antibiotics and bld cx sent. She is letharigc and unable to provide any history. Most of the history is obtained through ER notes.
Previously HD team discussed with pt brothers who are POA and reviewed poor terminologist prognosis and seem to understand the clinical decline. She missed HD since came to ER.
Her k is at 5.5, bicarb 18.
NOte she was admitted at and d/c last on 03/21 for atypical C, felt non cardiac.
Past Medical History
End-stage renal disease on dialysis
hypertension
hyperlipidemia
diastolic heart failure
moderate TR/mild to moderate aortic stenosis
severe pulmonary hypertension
diabetes
history of ascites and cardiogenic cirrhosis
chronic thrombocytopenia
history of PE
CHB s/p PPM 01/02/24
Past Medical History: Other
Past Surgical History: Other (AVF left UE and PPM )
Social History
lives at [place]
Tobacco: Non-Smoker
Alcohol: None
Drug: None
Personal: Single
Living: Halfway
Employment: Not Employed
Family History
Family History: Not Pertinent
Allergies / Home Medications
Allergy/AdvReac Type Severity Reaction Status Date / Time
No Known Allergies Allergy Verified 03/19/24 15:31
�Medication �Instructions �Recorded �Confirmed �Type
insulin aspart U-100 100 unit/mL 5 unit SC AC Diabetes 11/26/22 03/26/24 History
(3 mL) subcutaneous pen (Novolog
FlexPen U-100 Insulin aspart)
isosorbide mononitrate 30 mg 15 mg PO DAILY Heart 11/26/22 03/26/24 History
tablet,extended release 24 hr Disease/Condition
montelukast 10 mg tablet 10 mg PO DAILY Allergies 11/26/22 03/26/24 History
rosuvastatin 10 mg tablet 10 mg PO HS High Cholesterol 11/26/22 03/26/24 History
insulin glargine 100 unit/mL (3 10 unit SC HS Diabetes 01/25/23 03/26/24 History
mL) subcutaneous pen (Lantus
Solostar U-100 Insulin)
polyethylene glycol 3350 17 gram 17 g PO DAILYPRN PRN CONSTIPATION 01/25/23 03/26/24 History
oral powder packet
calcium acetate(phosphat bind) 667 667 mg PO MEALS Kidney Disease 07/14/23 03/26/24 History
mg capsule
apixaban 2.5 mg tablet (Eliquis) 2.5 mg PO BID Blood Clot 11/04/23 03/26/24 History
Prevention/Tx
dextromethorphan-guaifenesin 10 5 ml PO Q6HPRN PRN COUGH 11/04/23 03/26/24 History
mg-100 mg/5 mL oral syrup (Chest
Congestion Relief DM)
metoprolol succinate 25 mg 25 mg PO QPM Blood Pressure 11/04/23 03/26/24 History
tablet,extended release 24 hr
(Toprol XL)
sodium chloride 0.65 % nasal spray 2 spray intranasal QIDPRN PRN 11/04/23 03/26/24 History
aerosol nasal conjestion
vit A 300 mcg-C 200 mg-E 27 1 tab PO BID Supplement 01/01/24 03/26/24 History
mg-lutein 2 mg and minerals tablet
(Ocuvite with Lutein)
loperamide 2 mg capsule 2 mg PO Q4HPRN PRN loose stool 03/13/24 03/26/24 History
magnesium oxide 400 mg PO DAILY 03/13/24 03/26/24 History
ergocalciferol (vitamin D2) 1,250 1,250 mcg PO WE 03/26/24 03/26/24 History
mcg (50,000 unit) capsule
ferrous sulfate 325 mg (65 mg 325 mg PO DAILY 03/26/24 03/26/24 History
iron) tablet
furosemide 40 mg tablet (Lasix) 40 mg PO DAILY 03/26/24 03/26/24 History
nifedipine 30 mg tablet,extended 30 mg PO DAILY 03/26/24 03/26/24 History
release 24 hr
Review of Systems
-
unable to obtain, pt is lethargic
Physical Exam
Vital Signs
Vital Signs
Temp Pulse Resp BP Pulse Ox
97.4 F 60 16 95/52 94
03/26/24 11:15 03/26/24 16:45 03/26/24 16:45 03/26/24 16:45 03/26/24 16:45
Lab Results
WBC 12.8 10^3/uL (4.8-10.8) H 03/26/24 11:22
RBC 2.71 10^6/uL (4.20-5.40) L 03/26/24 11:22
Hgb 7.9 g/dL (12.0-16.0) L 03/26/24 11:22
Hct 25.7 % (37.0-47.0) L 03/26/24 11:22
Plt Count 145 10^3/uL (130-400) 03/26/24 11:22
Sodium 135 mmol/L (135-145) 03/26/24 11:22
Potassium 5.5 mmol/L (3.5-5.1) H 03/26/24 11:22
Chloride 95 mmol/L (98-107) L 03/26/24 11:22
Carbon Dioxide 18 mmol/L (22-30) L 03/26/24 11:22
BUN 63 mg/dl (7-17) H 03/26/24 11:22
Creatinine 5.7 mg/dL (0.6-1.0) H* 03/26/24 11:22
eGFR 7.01 03/26/24 11:22
Glucose 127 mg/dl (70-99) H 03/26/24 11:22
Calcium 8.7 mg/dl (8.4-10.2) 03/26/24 11:22
Albumin 3.5 g/dl (3.5-5.0) 03/26/24 11:22
CXR:
IMPRESSION:
Pulmonary edema with small right pleural effusion, slightly increased from prior.
Physical Exam
General: No Distress and Other (altered and lethargic)
Assessment/Plan
-
Assessment:
Hypotension
Acute on chr DCHF
mild hyperkalemia
mild met acidosis/ L acidosis
ESRD-from 12/2022 MWF HD [facility]
LUE AVF
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
h/o Ascites and paracentesis monthly
History DCHF
Type 2 diabetes
Primary hypertension
Likely history of coronary artery disease
History of heart valve problem
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
Severe pulmonary hypertension
Mild to moderate aortic stenosis
Moderate TR
Chronic thrombocytopenia
HLD
Plan:
A/w hypotension, gen weakness
w/u initiated to r/o infection , bld cx sent and s/p abx , L acid high
cont pressors to keep MAP >65, she was discontinued on nifedipine in out pt
missed HD today
plan HD tomorrow
avoid IVF with pulm edema
ok for LOkelma if she takes po
wean O2 as able
Perviously HD unit team discussed with brothers who are POA and reviewed poor prison prognosis
They seem to understand and likely chose comfort care if needed
Will have to see her clinical course this time
high risk encounter
--- NOTE | 2024-03-26 19:33 | HPS.HSE ---
Addendum entered and electronically signed by Estee Locke MD 03/26/24 21:43:
I personally performed a history and physical exam of the patient and discussed management with the resident. I reviewed the resident's note and agree with the documented findings and plan of care HPI/CC.
GENERAL: well developed, well nourished, chronically ill appearing female in no apparent distress
HEENT: NC/AT--O2 NC in place
HEART: regular rate and rhythm, +S1, +S2 4/6 tight NANCY
LUNGS : clear to auscultation bilaterally
ABDOM: soft, tender RUQ, distended, + bowel sounds + fluid wave
EXT: no clubbing, or edema--fingers dusky blue
NEUROLOGIC: grossly intact
SKIN: femoral triple lumen cath in place (placed by ED), stage 1 blanching red sacral early pressure injury POA
Hypotension requiring pressors--pt does not meet criteria for SIRS but still cannot rule out septic shock--doubt hypovolemic shock as pt due to HD and has evidence of volume overload--cardiogenic shock possible--pt on both midodrine and BP meds as
outpt--started on levophed and admitted to ICU--received 1L IVF in ED--consult manager of information and renal--check echo--follow cultures--check TSH and AM cortisol--cont vanco/cefepime renally dosed by pharmacy--hold BP meds--consider stress dose
steroids--trend lactates and troponins--further consults based on results
ESRD on HD- Due for outpatient HD today, however unable to attend session due to presenting to ED- Limited IV resuscitation- Consult nephrology for HD inpatient and further recs--apparently pt was told on recent admission of poor prognosis but
remains full code at this time
Leukocytosis- Unclear etiology- WBC 12.8 on admission- Afebrile, no tachycardia (though her hear rate is paced), no tachypnea. Does not meet SIRS criteria on admission. No clear source of infection--follow CBC
Cirrhosis, decompensated with Ascites--check US and consult IR for possible paracentesis--ABX will cover for SBP as well--consider GI consult --check ammonia
Altered mental status--likely combination of encephalopathy and possible dementia--need to find baseline from family if able--check head CT--consider LP if strongly suspect infection and no other source-- NPO at this time, oral meds OK if patient
tolerates. Anticipate speech eval pending initial stabilization and workup of patient
Acute Hypoxemic respiratory insufficiency--likely due to acute CHF exacerbation--CXR c/w that and not PNA--on 3L--wean to off as able--await manager of information input
acute on chronic HFpEF with Moderate mitral stenosis/Moderate aortic stenosis/Moderate tricuspid regurgitation- Most recent echo in December showed preserved EF, >75%--given change, will update ECHO--consider cards--sees Dr. Stoner as outpt
History of arrhythmia, unknown type- Pacemaker in place, rate is paced
Type 2 Diabetes--insulin requiring- On insulin prior to admission- Continue basal dose, hold mealtime doses while NPO- Will reevaluate prn and with eventual diet advancement
Hyperlipidemia- continue home statin
Stage 1 decubitus ulcer on sacrum (POA)- Offload pressure points, routine care--consult wound care
Likely caloric malnutrition- Nutrition consult when patient is stabilized
Code staus-- Full, will discuss with medical decision maker
DVT proph -- continue home eliquis 2.5 BID if able
Original Note:
Family Physician
-
Family Physician: Angel Holder PA-C
Chief Complaint
-
'my legs,' 'I'm hungry'
History of Present Illness
83yo F with PMH ESRD on HD, HFpEF, HTN, diabetes, cirrhosis with ascites, who presented to ED 03/26/24 for generalized weakness. In ED she was lethargic and hypotensive supine, with mentation worsening and systolic BP dropping to 50s when head of
bed elevated. She was started on levophed, broad spectrum antibiotics. She is a poor historian and unable to report symptoms or medical history.
Medical History
Past Medical History
Past Medical History: Reports Arrhythmia, CHF, HTN, Hypercholesterolemia, NIDDM and Valvular Disease
Additional Past Medical History:
HFpEF
essential htn
hypotension
diabetes type 2 on insulin
moderate aortic stenosis
moderate tricuspid regurg
hyperlipidemia
cirrhosis, ascites
Past Surgical History: Reports Other
Additional Past Surgical History:
pacemaker
paracentesis
Social History
Unable to obtain full social history at this time due to: Other ([facility])
Family History
Family History: Unable to Obtain
Allergies / Home Medications
Allergies reflects when Allergies were last updated in [facility].
Home Medications with original date entered in [facility]
Allergy/Medication List:
Allergies
Allergy/AdvReac Type Severity Reaction Status Date / Time
No Known Allergies Allergy Verified 03/19/24 15:31
Home Medications
insulin aspart U-100 100 unit/mL (3 mL) subcutaneous pen (Novolog FlexPen U-100 Insulin aspart) 5 unit SC AC Diabetes 11/26/22
isosorbide mononitrate 30 mg tablet,extended release 24 hr 15 mg PO DAILY Heart Disease/Condition 11/26/22
montelukast 10 mg tablet 10 mg PO DAILY Allergies 11/26/22
rosuvastatin 10 mg tablet 10 mg PO HS High Cholesterol 11/26/22
insulin glargine 100 unit/mL (3 mL) subcutaneous pen (Lantus Solostar U-100 Insulin) 10 unit SC HS Diabetes 01/25/23
polyethylene glycol 3350 17 gram oral powder packet 17 g PO DAILYPRN PRN CONSTIPATION 01/25/23
calcium acetate(phosphat bind) 667 mg capsule 667 mg PO MEALS Kidney Disease 07/14/23
apixaban 2.5 mg tablet (Eliquis) 2.5 mg PO BID Blood Clot Prevention/Tx 11/04/23
dextromethorphan-guaifenesin 10 mg-100 mg/5 mL oral syrup (Chest Congestion Relief DM) 5 ml PO Q6HPRN PRN COUGH 11/04/23
metoprolol succinate 25 mg tablet,extended release 24 hr (Toprol XL) 25 mg PO QPM Blood Pressure 11/04/23
sodium chloride 0.65 % nasal spray aerosol 2 spray intranasal QIDPRN PRN nasal conjestion 11/04/23
vit A 300 mcg-C 200 mg-E 27 mg-lutein 2 mg and minerals tablet (Ocuvite with Lutein) 1 tab PO BID Supplement 01/01/24
loperamide 2 mg capsule 2 mg PO Q4HPRN PRN loose stool 03/13/24
magnesium oxide 400 mg PO DAILY 03/13/24
ergocalciferol (vitamin D2) 1,250 mcg (50,000 unit) capsule 1,250 mcg PO WE 03/26/24
ferrous sulfate 325 mg (65 mg iron) tablet 325 mg PO DAILY 03/26/24
furosemide 40 mg tablet (Lasix) 40 mg PO DAILY 03/26/24
nifedipine 30 mg tablet,extended release 24 hr 30 mg PO DAILY 03/26/24
Review of Systems
-
Unable to obtain full review of systems at this time due to: Other (limited by [facility])
History Source: Patient
Respiratory: Reports Trouble Breathing
Cardiac: Denies Chest Pain
Abdomen/GI: Reports Other (hungry, abdominal distension, abdominal pain)
Musculoskeletal: Reports Other (both legs bothering her, endorses weakness, denies pain)
Physical Exam
Vital Signs
Vital Signs
Temp Pulse Resp BP Pulse Ox
97.4 F 60 15 101/46 100
03/26/24 11:15 03/26/24 19:00 03/26/24 19:00 03/26/24 19:00 03/26/24 19:00
Physical Exam
General: Appears Chronically Ill, Cachectic and Other (appears uncomfortable)
HEENT: NormoCephalic, Atraumatic, Hearing Impaired and Oxygen (NC at 3L)
Respiratory: Clear (anterior lung rahman) and Other (labored respirations)
Cardiac: Regular Rhythm and Murmur (systolic murmur); No Calf Tenderness
GI: Soft, Non Tender, Distended and Other (+fluid wave)
Musculoskeletal: Other (LUE +bruit, palpable thrill)
Skin: Warm, Dry, Decubitus Ulcers (sacral stage 1) and Other (fingers slightly dusky)
Neuro: Awake (lethargic, somnelent; arousable to loud verbal stimuli (hearing impaired) and physical stimuli) and Oriented (to person and place)
Psych: Confused (unclear baseline mental status)
Laboratory Results
-
03/26/24 11:22
03/26/24 11:22
Laboratory Results
PT 27.4 Sec (11.4-14.6) H 03/26/24 11:51
INR 2.56 03/26/24 11:51
APTT 43.5 Sec (23.4-35.0) H 03/26/24 11:51
Lactic Acid 4.5 mmol/L (0.7-2.0) H* 03/26/24 11:51
Total Bilirubin 1.4 mg/dl (0.2-1.3) H 03/26/24 11:22
AST 51 U/L (14-36) H 03/26/24 11:22
ALT 24 U/L (0-35) 03/26/24 11:22
Alkaline Phosphatase 230 U/L (38-126) H 03/26/24 11:22
Data Reviewed
-
Diagnostic Radiology: Image Personally Visualized and interpreted, Report Reviewed by me and Discussed with Physician
Lab Data: Labs Reviewed by me and Discussed with Physician
Impression/Plan
-
A/P
Hypotension requiring pressors
- Patient has history of hypotension based on chart review of vitals from prior admissions. Noted to be acutely worse with significant decrease in mentation upon sitting up in ED, and started on levophed.
- Unknown etiology. Differential includes sepsis, cardiac, iatrogenic. No obvious source of infection at this time, does not meet SIRS or septic shock criteria. Unclear if patient has been on antihypertensive regimen outpatient vs midodrine.
- S/p 1L IV NS
- Given levophed requirement of 7 mcg/min, will admit to ICU. Consult manager of information.
- Blood cultures pending. Unable to obtain urine culture in ED, straight cath negative. Continue broad spectrum antibiotics at this time. Pharmacy dosing for vanc, will renally dose cefepime.
- Hold all antihypertensives. Will attempt to discuss with [facility] and family regarding outpatient medication regimen.
- Obtain echo, troponin, baseline cortisol, repeat lactate, check ABG
ESRD on HD
- Due for outpatient HD today, however unable to attend session due to presenting to ED.
- Limit IV resuscitation
- Consult nephrology for HD inpatient and further recs
Leukocytosis
- Unclear etiology
- WBC 12.8 on admission
- Afebrile, no tachycardia (though her hear rate is paced), no tachypnea. Does not meet SIRS criteria on admission. No clear source of infection.
- Repeat CBC with diff tomorrow, follow temperature curve, monitor vitals
Cirrhosis, decompensated
Asccites
- Notable abdominal distension on admission
- Obtain abdominal US and consider IR consult for paracentesis if appropriate
- Check ammonia level
- Follow CMP
- Consider GI consult pending initial stabilization and workup of patient
Altered mental status
- Unclear baseline, will attempt to discuss with penitentiary and family
- Check head CT
- Possible etiologies include infectious or hepatic encephalopathy, poor perfusion
- Management as above
- NPO at this time, oral meds OK if patient tolerates. Anticipate speech eval pending initital stabilization and workup of patient
Hypoxemic respiratory insufficiency
- In ED initially required 3L NC
- Weaned to RA with SpO2 >94%
- Continue to monitor on RA; resume supplemental O2 if needed
HFpEF
Moderate mitral stenosis
Moderate aortic stenosis
Moderate tricuspid regurgitation
- Most recent echo in December showed preserved EF, >75%
- Obtain updated echo
- Consider cardiology consult pending initial stabilization and workup of patient
History of arrhythmia
- Pacemaker in place, rate is paced
- Will review prior records and consider cardiology consult if appropriate
Diabetes
- On insulin prior to admission
- Continue basal dose, hold mealtime doses while NPO
- Will reevaluate prn and with eventual diet advancement
Hyperlipidema- continue home statin
Stage 1 decubitus ulcer on sacrum- Offload pressure points, routine care
Likely caloric malnutrition- Nutrition consult when patient is stabilized
Code staus: Full, will discuss with medical decision maker
VTE ppx: continue home eliquis 2.5 BID
Diet: NPO
Dispo planning: TBD
[2024-03-26 20:26] LABS: Lactic Acid 2.6 mmol/L (0.7-2.0)
--- NOTE | 2024-03-26 20:30 | PTCARENOTE ---
rec`d pt from ED AAOx3. pt slow speech to answer but answers questions correctly. paced rhythm on monitor, 100% paced. left AV fistula. BL extrem edema. levo gtt titrated to keep MAP > 65. pt on 3L NC POX 97%. coarse breath sounds. umbilical hernia
noted. left knee scabbed and rt knee abrasion previous to admission. rt femoral triple luman line running with levo. call olivares in reach, safe environment maintained.
[2024-03-26 21:42] LABS: Ammonia 21 umol/L (9-30)
[2024-03-26] MEDS: STERILE WATER FOR INJECTION IV (21:49)
[2024-03-26 22:26] LABS: Glucose - Point of Care 145 mg/dl (70-99)
[2024-03-26] MEDS: LANTUS 0.1 UNITS SC (22:52)
[2024-03-26] MEDS: OCUVITE SOFTGEL 1 CAP PO (22:52)
[2024-03-26] MEDS: CRESTOR 10 MG PO (22:52)
[2024-03-26] MEDS: ELIQUIS 2.5 MG PO (22:52)
[2024-03-26] MEDS: NOVOLOG FLEXPEN-MODERATE RESISTANCE 1 UNITS SC (23:12)
[2024-03-26] MEDS: PITRESSIN 100 IV (23:12)
--- NOTE | 2024-03-26 23:15 | PTCARENOTE ---
vaso started to maintain MAP > 65. running through fem line
[2024-03-26 23:19] LABS: Glucose - Point of Care 182 mg/dl (70-99)
[2024-03-27] VITALS (83 sets, daily range): BP systolic 69–116; BP diastolic 42–85; BMI 25.7
[2024-03-27] MEDS: LEVOPHED 250 IV ×3 (00:46→08:48)
[2024-03-27 04:03] LABS: % Basophils 0.2 % (0-2); % Eosinophils 0.9 % (0-6); % Immature Granulocytes 0.5 % (0-0.5); % Lymphocytes 8.6 % (20.5-51.1); % Monocytes 9.3 % (1.7-9.3); % Neutrophils 80.5 % (42.2-75.2); Absolute Eosinophils 0.1 10^3/uL (0-0.7); Absolute Immature Granulocytes 0.1 10^3/uL (0-0.05); Absolute Lymphocytes 1.2 10^3/uL (1.2-3.4); Absolute Monocytes 1.3 10^3/uL (0.1-0.6); Hematocrit 24.6 % (37.0-47.0); Hemoglobin 7.6 g/dL (12.0-16.0); Mean Corp Hgb Conc. 30.9 g/dL (33.0-37.0); Mean Corpuscular Hgb 28.6 pg (27.0-31.0); Mean Corpuscular Volume 92.5 fL (81.0-99.0); Nucleated Red Blood Cells % 0.3 %; Platelet Count 176 10^3/uL (130-400); Red Blood Cell Count 2.66 10^6/uL (4.20-5.40); White Blood Cell Count 13.7 10^3/uL (4.8-10.8)
--- NOTE | 2024-03-27 04:17 | PTCARENOTE ---
pt turned and cleaned up since pt had a BM. pt desatted to the low 70s. NC maxed and non rebreather placed.
[2024-03-27 04:23] LABS: Lactic Acid 3.3 mmol/L (0.7-2.0)
[2024-03-27 04:24] LABS: ALT (SGPT) 23 U/L (0-35); AST (SGOT) 42 U/L (14-36); Albumin 3.2 g/dl (3.5-5.0); Alkaline Phosphatase 194 U/L (38-126); Blood Urea Nitrogen 70 mg/dl (7-17); Calcium 8.5 mg/dl (8.4-10.2); Carbon Dioxide 19 mmol/L (22-30); Chloride 94 mmol/L (98-107); Estimated Creatinine Clearance 7 ml/min; Glucose 169 mg/dl (70-99); Potassium 5.3 mmol/L (3.5-5.1); Sodium 134 mmol/L (135-145); Total Bilirubin 1.5 mg/dl (0.2-1.3); Total Protein 6.9 g/dl (6.3-8.2); eGFR 7.01
[2024-03-27 04:27] LABS: Vancomycin Random 16.8 ug/ml
[2024-03-27 06:13] LABS: Anisocytosis 2+; Hypochromasia 1+; Normal RBC Morphology No; Target Cells 1+
[2024-03-27 06:14] LABS: Acanthocytes Occasional; Ovalocytes Occasional; Polychromasia Occasional
[2024-03-27 06:15] LABS: Hypersegmented Neutrophil Occasional
[2024-03-27] MEDS: NOVOLOG FLEXPEN-MODERATE RESISTANCE 1 UNITS SC (06:29)
[2024-03-27 06:41] LABS: Glucose - Point of Care 157 mg/dl (70-99)
[2024-03-27] MEDS: PITRESSIN 100 IV ×2 (07:41→17:56)
[2024-03-27] MEDS: SINGULAIR 10 MG PO (07:42)
[2024-03-27] MEDS: OCUVITE SOFTGEL 1 CAP PO ×2 (07:42→22:20)
[2024-03-27] MEDS: PHOSLO PO ×2 (07:42→12:39)
[2024-03-27] MEDS: MAGNESIUM OXIDE 500 MG PO (07:42)
[2024-03-27] MEDS: FEOSOL 325 MG PO (07:42)
[2024-03-27] MEDS: ELIQUIS 2.5 MG PO (07:42)
[2024-03-27] MEDS: ProAmatine 5 MG PO (07:44)
--- NOTE | 2024-03-27 08:34 | W.PN.HOSP.TC ---
Addendum entered and electronically signed by Estee Locke MD 03/27/24 16:10:
I saw and evaluated the patient independently. I reviewed the resident�s note and agree with findings and plan as documented by Dr. Boles
GENERAL: well developed, well nourished, chronically ill appearing female in no apparent distress
HEENT: NC/AT--O2 NC in place
HEART: regular rate and rhythm, +S1, +S2 4/6 tight NANCY
LUNGS : clear to auscultation bilaterally
ABDOM: soft, tender RUQ, distended, + bowel sounds + fluid wave
EXT: no clubbing, or edema--fingers dusky blue and cold to touch on left hand--toes dusky blue too
NEUROLOGIC: grossly intact
SKIN: femoral triple lumen cath in place (placed by ED), stage 1 blanching red sacral early pressure injury POA
Hypotension requiring pressors--shock physiology but unclear type (septic but doesn't meet SIRS and cultures are negative, cardiogenic possible with elevated troponin and vegetations on mitral valve, doubt hypovolemic shock as pt due to HD and has
evidence of volume overload)---started on levophed and vasopressin--apprec communications technician/cards/renal/vascular/ID-- echo shows MV vegetations c/w endocarditis-- cultures negative so far--TSH pending and cortisol WNL--cont vanco/cefepime renally dosed
by pharmacy--hold BP meds--consider stress dose steroids--trend lactates and troponins (elevated , peaked at 2.030)
ESRD on HD--apprec renal--HD as able--apparently pt was told on recent admission of poor prognosis but remains full code at this time
Leukocytosis- Unclear etiology- WBC 12.8 on admission- Afebrile, no tachycardia (though her hear rate is paced), no tachypnea. Does not meet SIRS criteria on admission---follow CBC
Cirrhosis, decompensated with Ascites--US with moderate amt--consult IR for paracentesis--ammonia WNL
Altered mental status--likely combination of encephalopathy and possible dementia--given MV vegetations, head CT to rule out emboli pending-- await speech eval/PT/OT
Acute Hypoxemic respiratory insufficiency--likely due to acute CHF exacerbation--CXR consistent with that and not PNA--on 3L--wean to off as able--apprec communications technician input
concern for ischemic left hand/fingers--has fistula--starting IV heparin and getting US as per vascular--apprec input
acute on chronic HFpEF with Moderate mitral stenosis/Moderate aortic stenosis/Moderate tricuspid regurgitation- Most recent echo in December showed preserved EF, >75%-- updated ECHO with MV vegetations--apprec cards--sees Dr. Stoner as outpt
History of arrhythmia, unknown type- Pacemaker in place, rate is paced--placed December 2023
Type 2 Diabetes--insulin requiring- On insulin prior to admission- Continue basal dose, hold mealtime doses while NPO- Will reevaluate prn and with eventual diet advancement
Hyperlipidemia- continue home statin
Stage 1 decubitus ulcer on sacrum (POA)- Offload pressure points, routine care--consult wound care
Likely caloric malnutrition- Nutrition consult when patient is stabilized
Code status-- Full code--had conversation with Yasir (brother) about septic shock, heart valve infection, full code status, etc--he will update his bothers
DVT proph --stop eliquis 2.5 BID and start IV heparin drip
Total Critical Care Time 40 minutes. I was immediately available to the patient and staff. I personally examined, reviewed labs, diagnostic images/reports, interpretations, treatment plans, discussed patient care with other providers and family
or caregivers (if patient is unable to make decisions), entered orders as appropriate and documented the medical record.
Original Note:
Today's Communication/Plan
-
.
Assessment / Plan
Assessment / Plan
Assessment/Plan
#Hypotension requiring pressors
-Does not meet SIRS criteria. Although cannot rule out septic shock. Source of infection unknown
-Initiated on Levophed and vasopressin overnight.
-ID consulted, currently on cefepime. Vancomycin can be started due to creatinine level
-Cardiology consulted, troponin 1.890 on presentation, now 2.030. Continue to trend.
-Update echocardiogram
-Trend lactate level
-Follow cultures
-Consult vascular to evaluate discoloration on fingers of left hand
#ESRD on HD
-Seen on HD today
-Nephrology input appreciated
-Limit IV resuscitation
#Cirrhosis decompensated with ascites
-Ultrasound evaluation pending, will possible need paracentesis
-Antibiotics coverage for SBP ongoing
-Ammonia level 21
#Altered mental status
-Likely combination of encephalopathy versus possible dementia
-Will discuss with family today to determine baseline
-Head CT scan pending
-Speech eval
#Acute hypoxemic respiratory insufficiency likely due to acute CHF exacerbation
-Chest x-ray in ED with pulmonary edema
-Hemodialysis today
-Update echo
-Wean O2 as tolerated
-[place] following
#Acute on chronic HFpEF
#Moderate mitral stenosis
#Moderate tricuspid regurg
-Echo in December with LVEF greater than 75%
-Update echocardiogram, ordered, pending
-Cardiology consult
-Sees Dr. Stoner as an outpatient
#History of arrhythmia, unknown type
-Pacemaker in place, rate is paced
#Type 2 Diabetes insulin requiring
-On insulin prior to admission
-Continue basal dose, hold mealtime doses while NPO
-Will reevaluate prn and with eventual diet advancement
#Hyperlipidemia
-continue home statin
#Stage 1 decubitus ulcer on sacrum (POA)
-Offload pressure points, routine care
-consult wound care
#Likely caloric malnutrition- Nutrition consult when patient is stabilized
DVT prophylaxis-Eliquis
CODE STATUS-full code
Spoke to patient's brother aYsir regarding ongoing medical problems including infectious etiology, blood pressure, code status, and aggressiveness of therapy. Patient has an advance directive in place. Patient's brother Yasir will discuss with his
other siblings with plans to bring documents tomorrow.
Anticipated Discharge: > 48 hours
Subjective/Interval History
-
Date of Service: March 27, 2024
Objective Data
-
Labs:
Laboratory Results
03/27/24
03:47
WBC 13.7 H
Hgb 7.6 L
Hct 24.6 L
Plt Count 176 D
Sodium 134 L
Potassium 5.3 H
Chloride 94 L
Carbon Dioxide 19 L
BUN 70 H
Creatinine 5.7 H*
Glucose 169 H
Calcium 8.5
Total Bilirubin 1.5 H
AST 42 H
ALT 23
Alkaline Phosphatase 194 H
Vital Signs:
Vital Signs
Temp Pulse Resp BP Pulse Ox
97.3 F 60 15 109/53 100
03/27/24 08:26 03/27/24 06:15 03/27/24 06:15 03/27/24 06:15 03/27/24 06:15
I&O
03/26/24 03/27/24 03/28/24
06:59 06:59 06:59
Intake Total 543 / 543
Balance 543 / 543
Review of Systems
-
All other systems: Reviewed and negative (except as documented)
Physical Exam
-
General: Appears Chronically Ill
HEENT: Oxygen
Respiratory: Clear to Auscultation and Decreased Breath Sounds
Cardiac: Regular Rhythm, S1/S2 and Murmur
GI: Soft, Nondistended, Normal Bowel Sounds, Distended and Other (fluid wave)
Musculoskeletal: No Edema and Other (mottled fingers on the left hand. )
Neuro: Awake and Alert
--- NOTE | 2024-03-27 08:40 | CON.INTV ---
Consultation
Consultation Request
Date/Time Consultation Requested: 03/26/2024 - 2026
Date/Time Consultation Performed: 03/27/2024832
Requesting Provider: Dr. Wade
Performing Provider: Dr. Gunderson
Reason for Consultation: Shock
Medical History
-
Chief Complaint: Fall/weakness
History of Present Illness:
83-year-old female with PMHx of cardiac cirrhosis, ESRD on HD MWF, recurrent ascites requiring paracentesis, chronic HFpEF, CAD, anemia, aortic stenosis and a-fib on Eliquis who presents with weakness and fall, found to be hypotensive in the ER with
BP: 75/48, and was afebrile, ID: 64, RR: 20, and SpO2 89% on RA. She was placed onto 2L/min with sats improving to 100%. Labs showed leukocytosis with WBC 12.8, Hb 7.9, INR 2.56, K: 5.5, Cr: 5.7, lactate 4.5, T. bili: 1.4, troponin 1.89, and
covid-19 antigen negative. Blood cultures collected, and CXR shows concern for pulmonary edema with small R-sided pleural effusion. In the ER she was given ABx with cefepime/vanco, and IVF with NS 0.9% with 250cc bolus, and levophed started due to
hypotension with SBP in 70s. She was TRX to ICU for further care, and hospital medicine director consulted for further recommendations.
When I saw the pt this AM she was resting in bed in NAD. She is a limited historian and appears confused. She did desaturate overnight while on 3 L/min and briefly required nonrebreather. She did miss HD yesterday due to events stated above. She
normally gets HD MWF. Currently on Levophed at 18mcg/min and vaso at 0.03 units/min. HR 60, BP 101/57 and SpO2 93% on 5L/min. She mainly complains of 'butt pain,' but denies SOB, chest pain, LONGORIA, N/V/f/c. She does have duskiness in her upper
extremities with mottled appearing legs as well.
PMHx: Cirrhosis with Hx of recurrent ascites requiring paracentesis (last on 03/13/2024), chronic HFpEF, DM type II, HTN, CAD, anemia, PH, aortic stenosis, thrombocytopenia, ESRD on HD M/W/F, A-fib on Eliquis
PSHx: AVF creation, s/p PPM
Past Medical History
Past Medical History: Other (Above as per HPI)
Past Surgical History: Other (Above as per HPI)
Social History
Tobacco: Non-smoker
Alcohol: None
Drug: None
Family History
Family History: CAD (Father) and Other (Mother : CKD)
Allergies / Home Medications
Allergies
Allergy/AdvReac Type Severity Reaction Status Date / Time
No Known Allergies Allergy Verified 03/19/24 15:31
Home Medications
�Medication �Instructions �Recorded �Confirmed �Last Taken �Type
insulin aspart U-100 100 unit/mL 5 unit SC AC Diabetes 11/26/22 03/26/24 03/13/24 History
(3 mL) subcutaneous pen (Novolog
FlexPen U-100 Insulin aspart)
isosorbide mononitrate 30 mg 15 mg PO DAILY Heart 11/26/22 03/26/24 03/13/24 History
tablet,extended release 24 hr Disease/Condition
montelukast 10 mg tablet 10 mg PO DAILY Allergies 11/26/22 03/26/24 03/13/24 History
rosuvastatin 10 mg tablet 10 mg PO HS High Cholesterol 11/26/22 03/26/24 03/12/24 History
insulin glargine 100 unit/mL (3 10 unit SC HS Diabetes 01/25/23 03/26/24 03/12/24 History
mL) subcutaneous pen (Lantus
Solostar U-100 Insulin)
polyethylene glycol 3350 17 gram 17 g PO DAILYPRN PRN CONSTIPATION 01/25/23 03/26/24 11/28/23 History
oral powder packet
calcium acetate(phosphat bind) 667 667 mg PO MEALS Kidney Disease 07/14/23 03/26/24 03/13/24 History
mg capsule
apixaban 2.5 mg tablet (Eliquis) 2.5 mg PO BID Blood Clot 11/04/23 03/26/24 03/13/24 History
Prevention/Tx
dextromethorphan-guaifenesin 10 5 ml PO Q6HPRN PRN COUGH 11/04/23 03/26/24 12/24/23 History
mg-100 mg/5 mL oral syrup (Chest
Congestion Relief DM)
metoprolol succinate 25 mg 25 mg PO QPM Blood Pressure 11/04/23 03/26/24 03/12/24 History
tablet,extended release 24 hr
(Toprol XL)
sodium chloride 0.65 % nasal spray 2 spray intranasal QIDPRN PRN 11/04/23 03/26/24 03/12/24 History
aerosol nasal conjestion
vit A 300 mcg-C 200 mg-E 27 1 tab PO BID Supplement 01/01/24 03/26/24 03/13/24 History
mg-lutein 2 mg and minerals tablet
(Ocuvite with Lutein)
loperamide 2 mg capsule 2 mg PO Q4HPRN PRN loose stool 03/13/24 03/26/24 Unknown History
magnesium oxide 400 mg PO DAILY 03/13/24 03/26/24 03/13/24 History
ergocalciferol (vitamin D2) 1,250 1,250 mcg PO WE 03/26/24 03/26/24 Unknown History
mcg (50,000 unit) capsule
ferrous sulfate 325 mg (65 mg 325 mg PO DAILY 03/26/24 03/26/24 Unknown History
iron) tablet
furosemide 40 mg tablet (Lasix) 40 mg PO DAILY 03/26/24 03/26/24 Unknown History
nifedipine 30 mg tablet,extended 30 mg PO DAILY 03/26/24 03/26/24 Unknown History
release 24 hr
sodium chloride 0.65 % nasal spray 2 spray intranasal QID PRN 03/27/24 03/27/24 Unknown History
aerosol (Deep Sea Nasal) congestion
Review of Systems
-
Unable to Obtain full review of systems at this time due to: Acuity
Vitals / Labs / Diagnostic Testing
Vital Signs
Temp Pulse Resp BP Pulse Ox
97.3 F 60 15 109/53 100
03/27/24 08:26 03/27/24 06:15 03/27/24 06:15 03/27/24 06:15 03/27/24 06:15
Lab Data
03/27/24 03:47
03/27/24 03:47
Laboratory Results
03/26/24
11:51
PT 27.4 H
INR 2.56
APTT 43.5 H
Microbiology
03/26/24 11:51 Nasal Swab Influenza Types A & B (LC) - Final
Negative for Influenza A & B, NAAT
Negative results must be combined with clinical observations
and patient history.
Nucleic Acid Amplification test (NAAT)performed on the
Pager platform.
Diagnostic Testing:
Physical Exam
-
HEENT: Normocephalic and Anicteric
Cardiovascular: Murmur (NANCY heard across precordium from LUSB to left 5th ICS), Peripheral Edema (negative) and Other (normal heart rate)
Respiratory: Wheeze (negative), Rales (bibasilar), Rhonchi (negative) and Accessory Resp Muscle Use (negative)
GI: Soft, Distended, Non Tender and Normal Bowel Sounds
Neurology: Awake, Alert, Tremors (negative) and Other (confused)
Skin: Warm, Dry, Other (LUE AVF) and Other (Dusky left fingers and b/l toes)
General: Respiratory Distress (negative), Comfortable, Fever (negative) and Chills (negative)
Assessment
-
Assessment: 83-year-old female with PMHx of cardiac cirrhosis, ESRD on HD MWF, recurrent ascites requiring paracentesis, chronic HFpEF, CAD, anemia, aortic stenosis and a-fib on Eliquis who presents with weakness and fall, found to be hypotensive
in the ER with BP: 75/48, and was afebrile, ID: 64, RR: 20, and SpO2 89% on RA. She was placed onto 2L/min with sats improving to 100%. Labs showed leukocytosis with WBC 12.8, Hb 7.9, INR 2.56, K: 5.5, Cr: 5.7, lactate 4.5, T. bili: 1.4, troponin
1.89, and covid-19 antigen negative. Blood cultures collected, and CXR shows concern for pulmonary edema with small R-sided pleural effusion. In the ER she was given ABx with cefepime/vanco, and IVF with NS 0.9% with 250cc bolus, and levophed
started due to hypotension with SBP in 70s. She was TRX to ICU for further care, and hospital medicine director consulted for further recommendations.
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
Impression:
#Septic shock due to suspected mitral valve endocarditis
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
#Acute respiratory failure with hypoxia likely due to pulmonary edema; unable to rule out possible RLL PNA
#Lactic acidosis
#Transaminitis with hyperbilirubinemia
#Elevated troponin
#Hyponatremia
#Elevated INR, likely related to cirrhosis in setting of Eliquis use
#ESRD on HD M/W/F
#Decompensated cirrhosis, suspected to be cardiac in etiology
#Anemia (Hb baseline 8-9.5)
#DM type II on insulin
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
Plan:
- Getting HD today
- Continue Abx (currently on vancomycin + cefepime - both started 03/26/2024)
- Given the anterior MV leaflet mobile vegetation seen on echo today, ID + cardiology both consulted � recommendations appreciated
- Follow up blood Cx; collect sputum Cx if pt can provide a decent sample, and check UA with reflex to UCx if pt can urinate, otherwise may need to steraight cath
- Continue trending troponin until begins to downtrend
- Maintain SpO2 >90-94%
- She is currently on Levophed at 18mcg/min and vasopressin, and this should be continued and wean down as tolerated
- If pressor requirements increase then would start hydrocortisone; little concern for current adrenal insufficiency given her random cortisol level is 45 (03/26/24)
- Maintain MAP>65
- Continue midodrine
- She has a Hx of cirrhosis with recurrent ascites, and her abdomen appears distended --> check abd US and if present then consult IR for paracentesis to r/o SBP
- Trend LFTs
- Pain control
- Vascular consult for hand duskiness
- DIRECTOR FIELD SERVICES eval
- Replete electrolytes with K>4, Mg>2
- Maintain euglycemia with goal BG 140-180
- Trend H/H and transfuse if needed to keep Hb>7g/dL; kep plt>20k, unless there is concern for bleeding then keep plt>50k
- prn nebulized bronchodilators - not currently bronchospastic
- Incentive spirometer encouraged 10x per hour for at least 4 hrs a day
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
factor + factor C/S deficiency, and we do not have access tp TEG here in this hospital
IV access: She has a femoral CVC --> she also is having diarrhea --> advised RN to placed FMS for now, and if she continues to require a central line then we can change out her femoral CVC to an IJ.
Critical care statement: A total of 42 minutes of critical care time was provided for this patient today. This includes management of unstable vital signs, evaluation of the patient at bedside, reviewing the patient's pertinent medical records
including radiographs, microbiology, laboratory evaluations, and discussion with primary team, consultants, pharmacy, nutrition, physical therapy, case management, charge nurse, critical care nursing, and respiratory therapy.
Patient was seen and evaluated at bedside on 03/27/2024.
Data:
Transthoracic echocardiogram 03/27/2024:
Normal LV size and systolic function. LVEF 55-60%. Mild concentric LV
hypertrophy.
Normal RV size and function.
Heavily calcified mitral valve with anterior leaflet mobile vegetations.
Mild to moderate mitral stenosis (peak/mean 27/8 mmHg).
Severe mitral regurgitation.
Moderate to severe paradoxical low-flow low gradient (peak/mean 49/26 mmHg,
BRIANDA 0.7 cm2, SVI 33 mL/m2).
Moderate to severe TR.
Severe pulmonary hypertension (PASP 71 mmHg).
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
endocarditis. Mitral stenosis is stable. Mitral regurgitation has increased
from mild/moderate to severe. Aortic valve gradients are unchanged, but there
is now a reduced stroke-volume which makes it difficult to determine the
severity (likely moderate to severe). Degree of tricuspid regurgitation has
increased slightly as has PASP (70 mmHg from 60-65 mmHg).
[2024-03-27 08:43] LABS: Lactic Acid 2.4 mmol/L (0.7-2.0)
[2024-03-27] MEDS: RETACRIT 10000 UNITS IV (09:26)
[2024-03-27] MEDS: FLEXBUMIN 25% FOR HEMODIALYSIS 12.5 GRAMS IV (09:34)
--- NOTE | 2024-03-27 09:47 | PTCARENOTE ---
son Yasir called and was given update.
Call placed to confirm that ultrasound would be up to see pt, given she was npo.
Echo being done at bedside currently.
Pt on HD
--- NOTE | 2024-03-27 11:30 | W.PN.NEPH.PH ---
Today's Communication / Plan
-
HD today and tomorrow
Assessment/Plan
-
Assessment:
Hypotension-?septic shock
Acute on chr DCHF
mild hyperkalemia
mild met acidosis/ L acidosis
ESRD-from 12/2022 MWF HD at [facility]
LUE AVF
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
h/o Ascites and paracentesis monthly
History DCHF
Type 2 diabetes
Primary hypertension
Likely history of coronary artery disease
History of heart valve problem
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
Severe pulmonary hypertension
Mild to moderate aortic stenosis
Moderate TR
Chronic thrombocytopenia
HLD
Plan:
A/w hypotension, gen weakness
pending w/u of infection, L acid improving
cont pressors to keep MAP >65,start midodrine
HD today and again tomorrow
minimize IVF , concentrate gtts
echo pending report
likely paracentesis needed
poor prognosis
d/w nursing
-
-
Date of Service: March 27, 2024
CC / HPI / ROS
-
Chief Complaint:
ESRD
History of Present Illness:
hb low 7.6, on 2 pressors
no fever, k at 5.3
Review of Systems:
no fever, no cp
no abd pain, had BM
Labs
-
Labs:
WBC 13.7 10^3/uL (4.8-10.8) H 03/27/24 03:47
RBC 2.66 10^6/uL (4.20-5.40) L 03/27/24 03:47
Hgb 7.6 g/dL (12.0-16.0) L 03/27/24 03:47
Hct 24.6 % (37.0-47.0) L 03/27/24 03:47
Plt Count 176 10^3/uL (130-400) D 03/27/24 03:47
Sodium 134 mmol/L (135-145) L 03/27/24 03:47
Potassium 5.3 mmol/L (3.5-5.1) H 03/27/24 03:47
Chloride 94 mmol/L (98-107) L 03/27/24 03:47
Carbon Dioxide 19 mmol/L (22-30) L 03/27/24 03:47
BUN 70 mg/dl (7-17) H 03/27/24 03:47
Creatinine 5.7 mg/dL (0.6-1.0) H* 03/27/24 03:47
eGFR 7.01 03/27/24 03:47
Glucose 169 mg/dl (70-99) H 03/27/24 03:47
Calcium 8.5 mg/dl (8.4-10.2) 03/27/24 03:47
Albumin 3.2 g/dl (3.5-5.0) L 03/27/24 03:47
Physical Exam
-
Vital Signs:
Vital Signs
Temp Pulse Resp BP Pulse Ox
97.3 F 63 18 99/49 100
03/27/24 08:26 03/27/24 11:00 03/27/24 11:00 03/27/24 11:00 03/27/24 10:45
Cardiovascular:: Regular rate and rhythm
Respiratory:: Bilateral: CTA (decreased)
Lung Excursion:: Normal
Abdomen:: Distended, Nontender and Soft
Extremity Edema:: +1: Bilateral:
Gross Catheter: No
--- NOTE | 2024-03-27 11:36 | W.PN.NEPH.HD ---
Assessment
-
pt seen during HD
SBP 100, with UF of 1.5kg on pressors
AVF functions well
high dose DIOGO for anemia
Progress Note - Hemodialysis
-
Date of Service: March 27, 2024
Duration: 30 minutes and 3 hours
Potassium Bath: 2
Calcium Bath: 2.5
Opti-Dialyzer: 160
Ultrafiltration: Other (1.5kg)
Blood Flow: 400
Dialysate Flow: 600
Heparin: no
EPO: [id number]
[2024-03-27 11:56] LABS: Glucose - Point of Care 116 mg/dl (70-99)
--- NOTE | 2024-03-27 12:19 | VATNOTE ---
PICC line ordered. Patient has a left arm AVF and a pacemaker placed on the right 12/14/23. Discussed with PCN placing a PICC on the same side of a recently placed pacemaker could be problematic. Analytical Lab Technician will place an IJ 03/28 if patient remains
on pressors.
--- NOTE | 2024-03-27 12:38 | PHA.VAN.IN ---
Assessment
- Assessment
Renal Function: Patient has ESRD, on chronic Hemodialysis (patient missed HD yesterday - nephrology currently plans for HD today and tomorrow)
Hemodialysis Schedule: MWF
Concomitant Antimicrobials: cefepime
Laboratory Tests
03/27/24
03:47
Random Vancomycin 16.8
Level is pre-HD level
Drawn ~14H after 1500mg loading dose
Plan
- Plan
Initial / Loading Dose: 1500mg - 03/26 13:33
Maintenance Regimen: dosing by level / HD
Monitoring: pre-HD 03/28
Will re-dose with 500mg at end of HD today
Obtain level prior to HD tomorrow
Pharmacokinetics Vancomycin I
- -
Patient Age: 83
Patient Sex: Female
Vancomycin Day #: 1
Indication: Other
Requesting Provider: Dr. Wade (resident)
Pertinent Antimicrobial Allergies:
NKDA
Height / Weight:
Height 5 ft 1 in
Actual Weight 61.7 kg
Pertinent Past Medical History: ESRD on HD MWF, DM
- Vital Signs / Lab Results
Temp Pulse Resp BP Pulse Ox
96.6 F L 63 18 99/49 100
03/27/24 12:09 03/27/24 11:00 03/27/24 11:00 03/27/24 11:00 03/27/24 10:45
Lab Results - Hematology
03/26/24 03/27/24
11: 03:47
WBC 12.8 H 13.7 H
Lab Results - Chemistry
03/26/24 03/27/24
11:22 03:47
BUN 63 H 70 H
Creatinine 5.7 H* 5.7 H*
Estimated Creat Clear 7 7
Albumin 3.5 3.2 L
03/26/24 03/26/24 03/27/24
11:51 20:02 03:47
Lactic Acid 4.5 H* 2.6 H 3.3 H
03/27/24
08:18
Lactic Acid 2.4 H
Lab Results - Urine
03/26/24
11:51
Urine Nitrite (Reflex) Cancelled
Leukocyte Esterase Rfl Cancelled
Microbiology Results
03/26/24 11:51 Blood Culture - Preliminary
Blood/Venous No Growth in 24 hours- Final report to follow
03/26/24 11:51 Blood Culture - Preliminary
Blood/Venous No Growth in 24 hours- Final report to follow
03/26/24 11:51 Influenza Types A & B (CL) - Final
Nasal Swab Negative for Influenza A & B, NAAT
Negative results must be combined with clinical observations
and patient history.
Nucleic Acid Amplification test (NAAT)performed on the
[employer] platform.
[2024-03-27] MEDS: VANCOCIN HCL 500 MG 100 IV (12:39)
[2024-03-27] MEDS: LEVOPHED 258 MG IV ×2 (12:39→20:31)
[2024-03-27] MEDS: NOVOLOG FLEXPEN-MODERATE RESISTANCE SC ×2 (12:39→17:58)
[2024-03-27 13:12] LABS: Lactic Acid 2.9 mmol/L (0.7-2.0)
[2024-03-27] MEDS: PROTONIX 40 MG PO (13:33)
[2024-03-27] MEDS: ProAmatine 10 MG PO ×2 (13:34→17:56)
--- NOTE | 2024-03-27 14:03 | CON.CAR ---
Addendum entered and electronically signed by Rahat Jamil MD (Ellie) 03/27/24 18:59:
I saw and examined the patient.
The GENERAL SURGEON's note was reviewed and I agree with the note.
Comment:
83-year-old female (known to her primary home aide, Dr. Stoner), with HFpEF, paroxysmal atrial fibrillation, mitral regurgitation, mitral stenosis, aortic stenosis, tricuspid regurgitation, hypertension, dyslipidemia, cirrhosis of the liver with
scheduled paracentesis, complete heart block status post Medtronic pacemaker (01/02/2024), type 2 diabetes mellitus requiring insulin, anemia of chronic disease, and ESRD on HD presented with a chief complaint of weakness.
She was found to have mitral valve endocarditis on her echocardiogram today and is requiring vasopressors for blood pressure support. Agree with infectious disease consult. Antibiotics per primary team. She will likely not be a surgical candidate
due to advanced age and ESRD. She has a mildly elevated troponin that is likely due to a nonischemic myocardial injury in the setting of valvular disease and acute heart failure. Her volume will be managed with dialysis. She has severe valvular
disease including moderate to severe , severe MR, mild to moderate MS, and moderate to severe TR. Again she will likely not be a surgical candidate given her age and ESRD but we will continue to manage medically. She has paroxysmal atrial
fibrillation for which she is on reduced dose apixaban. This should be continued. She has a paced rhythm currently.
Original Note:
Consultation
Consultation Request
Date/Time Consultation Requested: 03/27/2024 13:00
Date/Time Consultation Performed: 03/27/2024 13:30
Requesting Provider: Dr. Boles
Performing Provider: MARIA L Gottlieb for Dr. Jamil
Reason for Consultation: Acute heart failure
Medical History
-
Chief Complaint: Weakness
History of Present Illness:
Maryjo Salas is an 83-year-old female (known to her primary home aide, Dr. Stoner), with HFpEF, paroxysmal atrial fibrillation, mitral regurgitation, mitral stenosis, aortic stenosis, tricuspid regurgitation, hypertension, dyslipidemia,
cirrhosis of the liver with scheduled paracentesis, complete heart block status post Medtronic pacemaker (01/02/2024), type 2 diabetes mellitus requiring insulin, anemia of chronic disease, and ESRD on HD presented with a chief complaint of weakness.
She had associated hypotension and was referred to the emergency room for evaluation. Facility staff at [facility] endorsed worsening mentation. BP requires support with vasopressin and Levophed. Cardiology was consulted for abnormal troponin.
Other notable labs are a hemoglobin of 7.6, initial lactate of 4.5, creatinine 5.7, and her initial troponin of 1.890. EKG with paced rhythm. She has no complaints other than being hungry.
Past Medical History
Past Medical History: Arrhythmias (Paroxysmal atrial fibrillation), CHF, HTN, Hypercholesterolemia, IDDM, Renal Failure (ESRD on HD), Valvular Disease (Aortic stenosis, tricuspid regurgitation) and Other (Ascites with scheduled paracentesis, PVD/PAD)
Social History
Tobacco: Non-Smoker
Alcohol: None
Drug: None
Living: Intermediate ([facility])
Family History
Family History: Unable to Obtain
Allergies / Home Medications
Allergy/AdvReac Type Severity Reaction Status Date / Time
No Known Allergies Allergy Verified 03/19/24 15:31
�Medication �Instructions �Recorded �Confirmed �Type
insulin aspart U-100 100 unit/mL 5 unit SC AC Diabetes 11/26/22 03/26/24 History
(3 mL) subcutaneous pen (Novolog
FlexPen U-100 Insulin aspart)
isosorbide mononitrate 30 mg 15 mg PO DAILY Heart 11/26/22 03/26/24 History
tablet,extended release 24 hr Disease/Condition
montelukast 10 mg tablet 10 mg PO DAILY Allergies 11/26/22 03/26/24 History
rosuvastatin 10 mg tablet 10 mg PO HS High Cholesterol 11/26/22 03/26/24 History
insulin glargine 100 unit/mL (3 10 unit SC HS Diabetes 01/25/23 03/26/24 History
mL) subcutaneous pen (Lantus
Solostar U-100 Insulin)
polyethylene glycol 3350 17 gram 17 g PO DAILYPRN PRN CONSTIPATION 01/25/23 03/26/24 History
oral powder packet
calcium acetate(phosphat bind) 667 667 mg PO MEALS Kidney Disease 07/14/23 03/26/24 History
mg capsule
apixaban 2.5 mg tablet (Eliquis) 2.5 mg PO BID Blood Clot 11/04/23 03/26/24 History
Prevention/Tx
dextromethorphan-guaifenesin 10 5 ml PO Q6HPRN PRN COUGH 11/04/23 03/26/24 History
mg-100 mg/5 mL oral syrup (Chest
Congestion Relief DM)
metoprolol succinate 25 mg 25 mg PO QPM Blood Pressure 11/04/23 03/26/24 History
tablet,extended release 24 hr
(Toprol XL)
sodium chloride 0.65 % nasal spray 2 spray intranasal QIDPRN PRN 11/04/23 03/26/24 History
aerosol nasal conjestion
vit A 300 mcg-C 200 mg-E 27 1 tab PO BID Supplement 01/01/24 03/26/24 History
mg-lutein 2 mg and minerals tablet
(Ocuvite with Lutein)
loperamide 2 mg capsule 2 mg PO Q4HPRN PRN loose stool 03/13/24 03/26/24 History
magnesium oxide 400 mg PO DAILY Electrolyte 03/13/24 03/26/24 History
Repletion
ergocalciferol (vitamin D2) 1,250 1,250 mcg PO WE Supplement 03/26/24 03/26/24 History
mcg (50,000 unit) capsule
ferrous sulfate 325 mg (65 mg 325 mg PO DAILY Supplement 03/26/24 03/26/24 History
iron) tablet
furosemide 40 mg tablet (Lasix) 40 mg PO DAILY Fluid 03/26/24 03/26/24 History
Retention/Swelling
nifedipine 30 mg tablet,extended 30 mg PO DAILY Blood Pressure 03/26/24 03/26/24 History
release 24 hr
sodium chloride 0.65 % nasal spray 2 spray intranasal QID PRN 03/27/24 03/27/24 History
aerosol (Deep Sea Nasal) congestion
Review of Systems
-
History Source: Patient
All other systems: Negative unless noted
Constitutional: Fatigue
EENT: No Symptoms
Respiratory: No Symptoms
Cardiac: No Symptoms
Abdomen/GI: No Symptoms
: No Symptoms
Musculoskeletal: No Symptoms
Skin: No Symptoms
Neurological: No Symptoms
Endocrine: No Symptoms
Physical Exam
Vital Signs
Temp Pulse Resp BP Pulse Ox
96.6 F L 63 18 99/49 100
03/27/24 12:09 03/27/24 11:00 03/27/24 11:00 03/27/24 11:00 03/27/24 10:45
Lab Results
03/27/24 03:47
03/27/24 03:47
Troponin I 2.010 ng/ml H* 03/27/24 12:51
Physical Exam
General: Well Developed, No Apparent Distress and Comfortable
HEENT: Normocephalic, Anicteric and Moist Mucous Membranes
Respiratory: Crackles and Non Labored Respirations
Cardiac: S1/S2, Regular Rhythm, Murmur and Peripheral Edema
Breast: Deferred by me
GI: Normal Bowel Sounds and Distended
Rectal: Deferred by Provider
Genito-urinary: No Costovertebral Tender
Musculoskeletal: Edema (non pitting)
Skin: Warm and Dry
Neuro: Awake, Alert and Oriented (self and place)
Hematologic/Lymphatic: No Lymphadenopathy
Psych: Calm
Impression / Plan
-
BACKGROUND:83F with HFpEF, paroxysmal atrial fibrillation, mitral regurgitation, mitral stenosis, aortic stenosis, tricuspid regurgitation, hypertension, dyslipidemia, cirrhosis of the liver with scheduled paracentesis, complete heart block status
post Medtronic pacemaker (01/02/2024), type 2 diabetes mellitus requiring insulin, anemia of chronic disease, and ESRD on HD presented with hypotension.
Small Business Banking Officer: Dr. Stoner
PLAN:
Septic shock
-She has hypotension requiring vasopressin at 0.3 u/min and vasopressin at 18 mcg/min
-Persistent lactic acidosis
-Blood culture with no growth to date
-ID consult pending
Endocarditis, mitral valve
-Heavily calcified valve with dense mitral annular calcification and probable mobile vegetations on anterior leaflet
HFpEF, acute on chronic
-Fluid management with hemodialysis
-Trend daily weight, I/O, and BMP
Valvular heart disease (TTE 03/27/2024)
-Moderate to severe paradoxical low-flow low gradient aortic stenosis (peak/mean 49/26 mmHg, BRIANDA 0.7 cm�, SVI 33 mm/m2)
-Severe mitral regurgitation with systolic flow reversal in the pulmonary veins, mild to moderate mitral stenosis (peak/mean gradient 27/8 mmHg)
-Tricuspid regurgitation, moderate to severe
Abnormal troponin, nonischemic myocardial injury in the setting of severe aortic valve disease, end-stage renal disease on hemodialysis, acute illness, and acute heart failure
-Peak troponin 2.030
-No chest pain
-No plans for ischemic evaluation
Paroxysmal atrial fibrillation
-Sinus rhythm
-Oral Anticoagulation: Apixaban 2.5 mg twice daily (age 83, creatinine >1.5)
-[id number]: score at least 7 (Heart failure, HTN, age 75 or more, Diabetes Mellitus, Vascular disease, female gender)
Hypertension, now hypotension, in the setting of sepsis as above
ESRD on HD
-Nephrology following, HD today
Cirrhosis of the liver
-Follows with GI
-Abdomen full, US pending
Complete heart block status post Medtronic pacemaker (01/02/2024)
-EP updated about endocarditis
Type 2 diabetes mellitus requiring insulin, per primary
Anemia of chronic disease
DATA:
Transthoracic echocardiogram, 03/27/2024:
Normal LV size and systolic function. LVEF 55-60%. Mild concentric LV
hypertrophy.
Normal RV size and function.
Heavily calcified mitral valve with anterior leaflet mobile vegetations.
Mild to moderate mitral stenosis (peak/mean 27/8 mmHg).
Severe mitral regurgitation.
Moderate to severe paradoxical low-flow low gradient (peak/mean 49/26 mmHg,
BRIANDA 0.7 cm2, SVI 33 mL/m2).
Moderate to severe TR.
Severe pulmonary hypertension (PASP 71 mmHg).
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
endocarditis. Mitral stenosis is stable. Mitral regurgitation has increased
from mild/moderate to severe. Aortic valve gradients are unchanged, but there
is now a reduced stroke-volume which makes it difficult to determine the
severity (likely moderate to severe). Degree of tricuspid regurgitation has
increased slightly as has PASP (70 mmHg from 60-65 mmHg).
--- NOTE | 2024-03-27 14:14 | PTCARENOTE ---
Pt has been incontinent of stool mult times/soft/loose at times. Discussed in rounds placing PICC and removing femoral central line but when discussing with VAT team they report picc line not good choice since it is only 3 months since pacer
placed. Decision made to place fecal management system in attempts to keep groin iv clean. After placing fecal management system, attempted to st cath for urine specimen. very minimall blood tinged urine obtained and sent but qns for sample
ordered. Pt remains mottled t/o shift. Levophed has been double concentrated. Midodrine added. Sats difficult to obtain given mottled extremities, pt denies sob. Sats mid 90s on 5l. Otherwise assessment unchanged.
--- NOTE | 2024-03-27 14:28 | CM ---
Addendum entered by Mari Deshpande 03/27/24 14:37:
Per Patient brother Yasir, patient has an advance directive and he will discuss with patient siblings about plan and bring in the document or a copy of it.
Original Note:
Patient seen at bedside in ICU with physicians. Patient currently in ICU. Patient is from [facility]. Patient is on O2 and blood pressure medications. CM and physicians called and spoke with Yasir, patient brother. Patient other brother
VANNESSA Mccann left via phone message. Physicians reviewed medical treatment plan and options with brother. CM will continue to follow for discharge planning needs.
Plan; pending medical treatment plan, possible need for IV antibiotics
--- NOTE | 2024-03-27 14:39 | CON.VAS ---
Addendum entered and electronically signed by Yasir Gross III, MD 03/28/24 09:22:
This patient was seen and examined with MARIA L Prasad. I agree with the history and physical exam as well as the assessment and plan. I have the following additions:
Asked to see patient for ischemic fingers on the left hand
83-year-old female with end-stage renal disease on hemodialysis via left upper extremity arteriovenous fistula
Currently admitted with hypotension and possible sepsis
She is currently on 2 high-dose pressors (Levophed and vasopressin)
No A-line. Monitored via peripheral noninvasive cuff
Noted to have dusky fingers throughout on the left hand
She reports some discomfort in the digits of the left hand
There is no ulceration or open wound present
Her fistula is patent and is being used for intermittent hemodialysis
She does not have a palpable radial pulse on the left
Unfortunately this is a difficult problem given her high dose pressor requirement
Consider placing invasive arterial pressure monitoring (not on the ischemic side) to help with more accurate pressure monitoring and weaning of pressors
Wean pressors aggressively as tolerated
Heparin drip with therapeutic PTT goal
Would recommend resting the fistula given the digital ischemia on the ipsilateral side. Can place temporary dialysis catheter to this end.
Obtain duplex of the dialysis access and left upper extremity
Will follow along
Signed:
Yasir Gross III, MD
[facility] Surgery
[phone] ([facility]mbd)
Original Note:
Consultation
Consultation Request
Performing Provider: Renato
Reason for Consultation: Dusky left fingers
Medical History
-
Chief Complaint: Generalized weakness
History of Present Illness:
83-year-old female known to vascular service for history of left upper extremity brachiocephalic AV fistula creation by Dr. Clifford on 01/23/2023. Pt admitted through the ER yesterday for lethargy and hypotension requiring pressors. Patient being
managed in the ICU on Levophed and vasopressin. Patient was noted to have left hand/finger discoloration. Vascular consult for this finding.
Patient seen at bedside this afternoon with Dr. Gross. Left fingers all dusky, cool to the touch. 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 Absent radial pulse on the left side. Patient unsure if hand/fingers are painful. Left upper
extremity fistula with palpable thrill. Per nephrology worked well during HD session today. Patient's bilateral toes slightly dusky as well. Patient able to answer some questioning but not completely oriented.
Past Medical History
Past Medical History: Arrhythmias, CHF, HTN (hypotension), Hypercholesterolemia, NIDDM, Renal Failure (On HD), Valvular Disease and Other (cirrhosis, ascites)
Past Surgical History: Cardiac (pacemaker) and Other (Paracentesis)
Social History
Living: Assisted Living
Allergies / Home Medications
Allergy/AdvReac Type Severity Reaction Status Date / Time
No Known Allergies Allergy Verified 03/19/24 15:31
�Medication �Instructions �Recorded �Confirmed �Type
insulin aspart U-100 100 unit/mL 5 unit SC AC Diabetes 11/26/22 03/26/24 History
(3 mL) subcutaneous pen (Novolog
FlexPen U-100 Insulin aspart)
isosorbide mononitrate 30 mg 15 mg PO DAILY Heart 11/26/22 03/26/24 History
tablet,extended release 24 hr Disease/Condition
montelukast 10 mg tablet 10 mg PO DAILY Allergies 11/26/22 03/26/24 History
rosuvastatin 10 mg tablet 10 mg PO HS High Cholesterol 11/26/22 03/26/24 History
insulin glargine 100 unit/mL (3 10 unit SC HS Diabetes 01/25/23 03/26/24 History
mL) subcutaneous pen (Lantus
Solostar U-100 Insulin)
polyethylene glycol 3350 17 gram 17 g PO DAILYPRN PRN CONSTIPATION 01/25/23 03/26/24 History
oral powder packet
calcium acetate(phosphat bind) 667 667 mg PO MEALS Kidney Disease 07/14/23 03/26/24 History
mg capsule
apixaban 2.5 mg tablet (Eliquis) 2.5 mg PO BID Blood Clot 11/04/23 03/26/24 History
Prevention/Tx
dextromethorphan-guaifenesin 10 5 ml PO Q6HPRN PRN COUGH 11/04/23 03/26/24 History
mg-100 mg/5 mL oral syrup (Chest
Congestion Relief DM)
metoprolol succinate 25 mg 25 mg PO QPM Blood Pressure 11/04/23 03/26/24 History
tablet,extended release 24 hr
(Toprol XL)
sodium chloride 0.65 % nasal spray 2 spray intranasal QIDPRN PRN 11/04/23 03/26/24 History
aerosol nasal conjestion
vit A 300 mcg-C 200 mg-E 27 1 tab PO BID Supplement 01/01/24 03/26/24 History
mg-lutein 2 mg and minerals tablet
(Ocuvite with Lutein)
loperamide 2 mg capsule 2 mg PO Q4HPRN PRN loose stool 03/13/24 03/26/24 History
magnesium oxide 400 mg PO DAILY Electrolyte 03/13/24 03/26/24 History
Repletion
ergocalciferol (vitamin D2) 1,250 1,250 mcg PO WE Supplement 03/26/24 03/26/24 History
mcg (50,000 unit) capsule
ferrous sulfate 325 mg (65 mg 325 mg PO DAILY Supplement 03/26/24 03/26/24 History
iron) tablet
furosemide 40 mg tablet (Lasix) 40 mg PO DAILY Fluid 03/26/24 03/26/24 History
Retention/Swelling
nifedipine 30 mg tablet,extended 30 mg PO DAILY Blood Pressure 03/26/24 03/26/24 History
release 24 hr
sodium chloride 0.65 % nasal spray 2 spray intranasal QID PRN 03/27/24 03/27/24 History
aerosol (Deep Sea Nasal) congestion
Review of Systems
-
History Source: Patient
All other systems: Negative unless noted
Vascular: Denies Leg Pain / Claudication
Skin: Reports Other (Left fingers dusky)
Physical Exam
Vital Signs
Temp Pulse Resp BP Pulse Ox
96.6 F L 60 19 105/46 92
03/27/24 12:09 03/27/24 14:00 03/27/24 14:00 03/27/24 14:00 03/27/24 13:30
Lab Results
03/27/24 03:47
Troponin I 2.010 ng/ml H* 03/27/24 12:51
Physical Exam
General: No Apparent Distress
HEENT: Normocephalic and Atraumatic
Respiratory: Non Labored Respirations
Cardiac: Other (Left upper extremity AV fistula with palpable thrill, absent radial pulse); Negative JVD
GI: Soft
Musculoskeletal: No Clubbing, Cyanosis (Left fingers, slightly dusky bilateral toes) and No Edema
Skin: Warm and Dry
Neuro: Awake and Alert
Psych: Calm
Assessment / Plan
-
83-year-old female with possible left upper extremity steal syndrome
Plan:
-Fistula ultrasound to rule out steal
-Heparin drip
-Would consider other HD access while left fingers may be at risk
[2024-03-27] MEDS: HEPARIN 25000 UNITS/250 ML IV (15:05)
--- NOTE | 2024-03-27 16:05 | PTOTSP ---
Speech Language Pathology
Pt seen for clinical bedside swallow evaluation. P.O. trials of puree, regular solids, and thin liquids provided. Adequate mastication, bolus formation, and A-P transit noted with no oral residue. No overt signs of aspiration.
Recommend:
(1) Regular solids/thin liquids
(2) General aspiration precautions
(3) Meds as tolerated
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
[2024-03-27] MEDS: MAXIPIME 1000 MG IV (17:55)
[2024-03-27] MEDS: PHOSLO 667 MG PO (17:56)
[2024-03-27] MEDS: STERILE WATER FOR INJECTION 10 ML IV (17:56)
[2024-03-27 18:09] LABS: Glucose - Point of Care 144 mg/dl (70-99)
[2024-03-27 19:12] LABS: TSH 2.28 uIU/ml (0.47-4.68)
--- NOTE | 2024-03-27 20:00 | PTCARENOTE ---
Resumed care of pt this evening. Received pt on vaso and levo gtt infusing via rt femoral triple lumen cath. Pt is A&Ox3, can move all 4 extremities, and can make needs known. Pt is however forgetful. Pt is V-paced on tele monitor, has +1 edema B/L
lower extremities, and has B/L DP pulses present via doppler. Pt on 5 L of O2 satting at 97% pulse ox. On auscultation pt lungs sound diminished and coarse TO. Pt's abdomen is round, distended, and has ascites. Pt's BS are hypoactive. FMS in place
draining loose and watery green/brown stool. Pt is oliguric. Pt's sacrum is red and has a protective foam. 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
[2024-03-27 21:57] LABS: Glucose - Point of Care 156 mg/dl (70-99)
[2024-03-27 22:08] LABS: APTT 164.6 Sec (23.4-35.0)
[2024-03-27] MEDS: CRESTOR 10 MG PO (22:20)
[2024-03-27] MEDS: LANTUS 0.1 UNITS SC (22:20)
[2024-03-28] VITALS (53 sets, daily range): BP systolic 80–106; BP diastolic 38–91; PULSE 65; O2SAT 96; BMI 26.1
[2024-03-28 01:56] LABS: Lactic Acid 5.3 mmol/L (0.7-2.0)
[2024-03-28] MEDS: PITRESSIN 100 IV ×2 (05:09→16:33)
[2024-03-28] MEDS: LEVOPHED 258 MG IV ×3 (05:10→23:46)
[2024-03-28 05:44] LABS: APTT 88.2 Sec (23.4-35.0)
[2024-03-28 05:47] LABS: Lactic Acid 5.2 mmol/L (0.7-2.0)
[2024-03-28 05:56] LABS: Vancomycin Random 16.9 ug/ml
[2024-03-28 06:09] LABS: ALT (SGPT) 22 U/L (0-35); AST (SGOT) 40 U/L (14-36); Albumin 3.1 g/dl (3.5-5.0); Alkaline Phosphatase 168 U/L (38-126); Blood Urea Nitrogen 45 mg/dl (7-17); Calcium 8.8 mg/dl (8.4-10.2); Carbon Dioxide 19 mmol/L (22-30); Chloride 94 mmol/L (98-107); Estimated Creatinine Clearance 8 ml/min; Glucose 142 mg/dl (70-99); Potassium 4.9 mmol/L (3.5-5.1); Sodium 134 mmol/L (135-145); Total Bilirubin 1.8 mg/dl (0.2-1.3); Total Protein 6.6 g/dl (6.3-8.2); eGFR 9.31
[2024-03-28 06:49] LABS: Hematocrit 22.4 % (37.0-47.0); Hemoglobin 7.1 g/dL (12.0-16.0); Mean Corp Hgb Conc. 31.7 g/dL (33.0-37.0); Mean Corpuscular Hgb 30.2 pg (27.0-31.0); Mean Corpuscular Volume 95.3 fL (81.0-99.0); Red Blood Cell Count 2.35 10^6/uL (4.20-5.40); Red Cell Dist. Width 19.9 % (11.5-14.5); White Blood Cell Count 13.5 10^3/uL (4.8-10.8)
[2024-03-28 06:50] LABS: Mean Platelet Volume 12.9 fL (7.4-10.4); Platelet Count 122 10^3/uL (130-400)
--- NOTE | 2024-03-28 08:20 | W.PN.INTV ---
Today's Communication / Plan
Recommendations
Abx per ID
HD
Vasopressors titrating to MAP>65
May eventually need CRISTINA if further assessment is needed of her mitral valve
Eliquis
Guarded prognosis
Assessment
-
Assessment: 83-year-old female with PMHx of cardiac cirrhosis, ESRD on HD MWF, recurrent ascites requiring paracentesis, chronic HFpEF, CAD, anemia, aortic stenosis and a-fib on Eliquis who presents with weakness and fall, found to be hypotensive
in the ER with BP: 75/48, and was afebrile, MS: 64, RR: 20, and SpO2 89% on RA. She was placed onto 2L/min with sats improving to 100%. Labs showed leukocytosis with WBC 12.8, Hb 7.9, INR 2.56, K: 5.5, Cr: 5.7, lactate 4.5, T. bili: 1.4, troponin
1.89, and covid-19 antigen negative. Blood cultures collected, and CXR shows concern for pulmonary edema with small R-sided pleural effusion. In the ER she was given ABx with cefepime/vanco, and IVF with NS 0.9% with 250cc bolus, and levophed
started due to hypotension with SBP in 70s. She was TRX to ICU for further care, and shipping team leader consulted for further recommendations.
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
Impression:
#Shock - suspect cardiogenic from severe VHD in setting of sepsis due to suspected mitral valve endocarditis however she also has evidence of SBP (PMNs: 340 via paracentesis today)
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
#Acute respiratory failure with hypoxia likely due to pulmonary edema; unable to rule out possible RLL PNA
#Lactic acidosis - worsening
#Valvular heart disease with mild�moderate MS, severe MR, and moderate�severe paradoxical low-flow, low gradient aortic stenosis with moderate�severe TR and severe PH (per TTE from 03/27/2024)
#Transaminitis with hyperbilirubinemia
#Elevated troponin
#Hyponatremia
#Elevated INR, likely related to cirrhosis in setting of Eliquis use
#ESRD on HD M//
#Decompensated cirrhosis, suspected to be cardiac in etiology
#Acute on chronic anemia (Hb baseline 8-9.5)
#DM type II on insulin
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
Plan:
- s/p HD yesterday, and is scheduled for HD again today
- Continue Abx (currently on vancomycin + cefepime - both started 03/26/2024)
- Given the anterior MV leaflet mobile vegetation seen on echo from 03/27, ID + cardiology both consulted � recommendations appreciated
- Follow up blood Cx; collect sputum Cx if pt can provide a decent sample, and she is anuric from straight cath from 03/27, hence unable to collect UA/UCx
- No need to continue trending troponin given it peaked at 2.03 on 03/27/2024
- Maintain SpO2 >90-94%
- She is currently on Levophed at 12mcg/min from 18mcg/min yesterday and vasopressin, and this should be continued and wean down as tolerated
- If pressor requirements increase then would start hydrocortisone; little concern for current adrenal insufficiency given her random cortisol level is 45 (03/26/24)
- Paracentesis performed today removing 5.4 L of fluid. 340 PMNs seen on cell count, indicative of SBP. ID consulted, continue with cefepime (+ vanco)
- Maintain MAP>65
- Continue midodrine
- Trend LFTs
- The patient endorses vision loss in her right eye, which she told her her brother. Consider neurology consultation
- Pain control
- Vascular consult for hand duskiness --> not currently a surgical candidate
- [employer] eval --> passed for regular solids/thin liquids via eval on 03/27/2024
- Replete electrolytes with K>4, Mg>2
- Maintain euglycemia with goal BG 140-180
- Trend H/H and transfuse if needed to keep Hb>7g/dL; kep plt>20k, unless there is concern for bleeding then keep plt>50k
- prn nebulized bronchodilators - not currently bronchospastic
- Incentive spirometer encouraged 10x per hour for at least 4 hrs a day
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
factor + factor C/S deficiency, and we do not have access to TEG here in this hospital
Code status: now DNR/DNI
IV access: She has a femoral CVC --> she also is having diarrhea --> advised RN to maintain FMS for now; if she continues to require a central line then we can change out her femoral CVC to an IJ.
Critical care statement: A total of 44 minutes of critical care time was provided for this patient today. This includes management of unstable vital signs, evaluation of the patient at bedside, reviewing the patient's pertinent medical records
including radiographs, microbiology, laboratory evaluations, and discussion with primary team, consultants, pharmacy, nutrition, physical therapy, case management, charge nurse, critical care nursing, and respiratory therapy.
Data:
Transthoracic echocardiogram 03/27/2024:
Normal LV size and systolic function. LVEF 55-60%. Mild concentric LV
hypertrophy.
Normal RV size and function.
Heavily calcified mitral valve with anterior leaflet mobile vegetations.
Mild to moderate mitral stenosis (peak/mean 27/8 mmHg).
Severe mitral regurgitation.
Moderate to severe paradoxical low-flow low gradient (peak/mean 49/26 mmHg,
BRIANDA 0.7 cm2, SVI 33 mL/m2).
Moderate to severe TR.
Severe pulmonary hypertension (PASP 71 mmHg).
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
endocarditis. Mitral stenosis is stable. Mitral regurgitation has increased
from mild/moderate to severe. Aortic valve gradients are unchanged, but there
is now a reduced stroke-volume which makes it difficult to determine the
severity (likely moderate to severe). Degree of tricuspid regurgitation has
increased slightly as has PASP (70 mmHg from 60-65 mmHg).
Subjective Dataa
Subjective Data
Date of Service:
Date of Service: March 28, 2024
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
Subjective:
Patient was seen and evaluated this morning. Heart rate 63, BP 90/44, saturating 97% on 5 L minute. Currently on vasopressin at 0.03 units/min, and Levophed at 12mcg/min. Also on heparin drip. No acute events reported from overnight. Underwent
paracentesis this morning, removing 5.4 L of clear, higinio-colored ascitic transudative fluid. The patient's brother, Kenneth, was present at bedside and I answered all of his questions.
Review of Systems
General: Other (Unable to obtain given patient's acute clinical status/confusion)
Objective Data
Data Reviewed
Vital Signs / I&O / Oxygen:
Vital Signs
Temp Pulse Resp BP Pulse Ox
98.4 F 68 21 101/52 88
03/28/24 07:00 03/28/24 06:30 03/28/24 06:30 03/28/24 06:30 03/28/24 06:30
Intake and Output
03/27/24 03/28/24 03/29/24
06:59 06:59 06:59
Intake Total 543 / 612 1547.1 / 1547.1
Balance 543 / 612 1547.1 / 1547.1
SaO2 88
Nasal Cannula flow liters per 5
minute
Physical Exam
General: Respiratory Distress (negative), Comfortable, Chills (negative) and Sweats (negative)
HEENT: Normocephalic and Anicteric
Cardiovascular: Murmur (NANCY heard across precordium from LUSB to left fifth intercostal space), Peripheral Edema (negative) and Other (Normal heart rate)
Respiratory: Wheeze (negative), Crackles (Bibasilar), Rhonchi and Non-Labored Respirations
GI: Soft, Non Distended, Non Tender and Normal Bowel Sounds
Neurology: Awake and Other (Confused)
Skin: Warm, Dry, Other (Dusky left fingers + bilateral toes) and Other (LUE aVF)
Labs/Micro/Reports
Lab Data
03/28/24 05:24
03/28/24 05:24
Laboratory Results
03/27/24 03/27/24 03/27/24
14:31 14:52 21:28
APTT Cancelled Cancelled 164.6 H*
03/28/24
05:24
APTT 88.2 H
Microbiology
03/27/24 03:47 Nose MRSA Screen - Final
No Methicillin Resistant Staphylococcus aureus isolated.
03/26/24 11:51 Blood/Venous Blood Culture - Preliminary
No Growth in 24 hours- Final report to follow
03/26/24 11:51 Blood/Venous Blood Culture - Preliminary
No Growth in 24 hours- Final report to follow
03/26/24 11:51 Nasal Swab Influenza Types A & B (CL) - Final
Negative for Influenza A & B, NAAT
Negative results must be combined with clinical observations
and patient history.
Nucleic Acid Amplification test (NAAT)performed on the
[employer] platform.
[2024-03-28 08:23] LABS: Glucose - Point of Care 156 mg/dl (70-99)
--- NOTE | 2024-03-28 08:36 | PHA.VAN.FU ---
Vancomycin Assessment / Plan
- Assessment
Hemodialysis Schedule: MWF
Last Hemodialysis performed: 03/27 (supplemental since missed Tue session)
WBC's are: Stable
In the past 24 hrs, patient has been: Afebrile
Concomitant Antimicrobials: cefepime
- Assessment - Therapeutic Drug Monitoring
Random Level: pre-HD = 16.9 (received 500mg with HD yesterday)
- Dosing Plan
Dosing by Level: Re-dose today (Vanc 500mg)
- Monitoring Plan
No level(s) ordered at this time: consider pre-HD level for Tuesday
- Follow Up
Pharmacy will continue to follow.
Vancomycin Follow UP
- -
Patient Age: 83
Patient Sex: Female
Vancomycin Day #: 2
Indication: Other
Requesting Provider: Dr. Wade (resident)
Pertinent Antimicrobial Allergies:
NKDA
Height / Weight:
Height 5 ft 1 in
Actual Weight 62.7 kg
Pertinent Past Medical History: ESRD on HD MWF, DM
- Vital Signs / Lab Results
Temp Pulse Resp BP Pulse Ox
98.4 F 68 21 101/52 88
03/28/24 07:00 03/28/24 06:30 03/28/24 06:30 03/28/24 06:30 03/28/24 06:30
Lab Results - Hematology
03/26/24 03/27/24 03/27/24
11:22 03:47 14:31
WBC 12.8 H 13.7 H Cancelled
03/27/24 03/28/24
14:52 05:24
WBC Cancelled 13.5 H
Lab Results - Chemistry
03/26/24 03/27/24 03/28/24
11:22 03:47 05:24
BUN 63 H 70 H 45 H
Creatinine 5.7 H* 5.7 H* 4.5 H*
Estimated Creat Clear 7 7 8
Albumin 3.5 3.2 L 3.1 L
03/26/24 03/26/24 03/27/24
11:51 20:02 03:47
Lactic Acid 4.5 H* 2.6 H 3.3 H
03/27/24 03/27/24 03/27/24
08:18 12:51 21:28
Lactic Acid 2.4 H 2.9 H 4.0 H*
03/28/24 03/28/24
01:37 05:24
Lactic Acid 5.3 H* 5.2 H*
Lab Results - Urine
03/27/24
13:11
Urine Nitrite (Reflex) Cancelled
Leukocyte Esterase Rfl Cancelled
Microbiology Results
03/26/24 11:51 Blood Culture - Preliminary
Blood/Venous No Growth in 24 hours- Final report to follow
03/26/24 11:51 Blood Culture - Preliminary
Blood/Venous No Growth in 24 hours- Final report to follow
03/26/24 11:51 Influenza Types A & B (CL) - Final
Nasal Swab Negative for Influenza A & B, NAAT
Negative results must be combined with clinical observations
and patient history.
Nucleic Acid Amplification test (NAAT)performed on the
[employer] platform.
Therapeutic Drug Monitoring
Random Vancomycin 16.9 ug/ml 03/28/24 05:24
--- NOTE | 2024-03-28 08:36 | W.PN.CD ---
Today's Communication / Plan
-
- Blood cultures
Impression / Plan
-
BACKGROUND:83F with HFpEF, paroxysmal atrial fibrillation, mitral regurgitation, mitral stenosis, aortic stenosis, tricuspid regurgitation, hypertension, dyslipidemia, cirrhosis of the liver with scheduled paracentesis, complete heart block status
post Medtr[employer] pacemaker (01/02/2024), type 2 diabetes mellitus requiring insulin, anemia of chronic disease, and ESRD on HD presented with hypotension.
Manager Payment: Dr. Stoner
PLAN:
Septic shock
-Hypotension requiring pressors.
-Persistent lactic acidosis
-Blood culture with no growth to date
-ID consult pending
-ECHO 03/27/24: LVEF 55%; low-flow low gradient (peak/mean 49/26 mmHg, BRIANDA 0.7 cm2, SVI 33 mL/m2); Heavily calcified mitral valve with anterior leaflet mobile vegetations. Mild to moderate mitral stenosis (peak/mean 27/8 mmHg). Severe mitral
regurgitation
Endocarditis, mitral valve
-Heavily calcified valve with dense mitral annular calcification and probable mobile growth on anterior leaflet
-Diff include torn chordae with calcification, non infectious fibrous growth and vegetations.
-Blood cultures are negative but clinically behaving septic with leukocytosis with left shift, hypotension and need for pressors.
-Patient is PPM dependent and no obvious infection noted on the PPM leads.
-Serial blood cultures - ID consult
-Given the frailty of the patient, conservative management is better.
-If clinically needed for further assessment, CRISTINA can be obtained but probably will provide limited significance.
HFpEF, acute on chronic
-Fluid management with hemodialysis
-Trend daily weight, I/O, and BMP
Valvular heart disease (TTE 03/27/2024)
-Moderate to severe paradoxical low-flow low gradient aortic stenosis (peak/mean 49/26 mmHg, BRIANDA 0.7 cm�, SVI 33 mm/m2)
-Severe mitral regurgitation with systolic flow reversal in the pulmonary veins, mild to moderate mitral stenosis (peak/mean gradient 27/8 mmHg)
-Tricuspid regurgitation, moderate to severe
Abnormal troponin, nonischemic myocardial injury in the setting of severe aortic valve disease, end-stage renal disease on hemodialysis, acute illness, and acute heart failure
-Peak troponin 2.030
-No chest pain
-No plans for ischemic evaluation
Paroxysmal atrial fibrillation
-Sinus rhythm
-Oral Anticoagulation: Apixaban 2.5 mg twice daily (age 83, creatinine >1.5)
-[id number]: score at least 7 (Heart failure, HTN, age 75 or more, Diabetes Mellitus, Vascular disease, female gender)
Hypertension, now hypotension, in the setting of sepsis as above
ESRD on HD
-Nephrology following
Cirrhosis of the liver
-Follows with GI
-Abdomen full, US pending
Complete heart block status post Medtronic pacemaker (01/02/2024)
-EP updated about endocarditis
Type 2 diabetes mellitus requiring insulin, per primary
Anemia of chronic disease
Subjective:
Feeling better today. Denies chest pain. Abd distention
DATA:
Transthoracic echocardiogram, 03/27/2024:
Normal LV size and systolic function. LVEF 55-60%. Mild concentric LV
hypertrophy.
Normal RV size and function.
Heavily calcified mitral valve with anterior leaflet mobile vegetations.
Mild to moderate mitral stenosis (peak/mean 27/8 mmHg).
Severe mitral regurgitation.
Moderate to severe paradoxical low-flow low gradient (peak/mean 49/26 mmHg,
BRIANDA 0.7 cm2, SVI 33 mL/m2).
Moderate to severe TR.
Severe pulmonary hypertension (PASP 71 mmHg).
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
endocarditis. Mitral stenosis is stable. Mitral regurgitation has increased
from mild/moderate to severe. Aortic valve gradients are unchanged, but there
is now a reduced stroke-volume which makes it difficult to determine the
severity (likely moderate to severe). Degree of tricuspid regurgitation has
increased slightly as has PASP (70 mmHg from 60-65 mmHg).
Physical Exam
Vital Signs/Labs
Vital Signs
Temp Pulse Resp BP Pulse Ox
98.4 F 68 21 101/52 88
03/28/24 07:00 03/28/24 06:30 03/28/24 06:30 03/28/24 06:30 03/28/24 06:30
03/27/24 03/28/24 03/29/24
06:59 06:59 06:59
Actual Weight 61.7 kg 62.7 kg
03/28/24 05:24
03/28/24 05:24
PT 27.4 Sec (11.4-14.6) H 03/26/24 11:51
INR 2.56 03/26/24 11:51
APTT 88.2 Sec (23.4-35.0) H 03/28/24 05:24
TSH 2.28 uIU/ml (0.47-4.68) 03/27/24 03:47
LAB Results
03/26/24 03/27/24 03/27/24
21:23 03:47 12:51
Troponin I 1.890 H* 2.030 H* 2.010 H*
Physical Exam
Constitutional: No acute distress and Comfortable
EENT: Anicteric and Moist mucous membranes
Cardiovascular: Rhythm & rate is regular, Pedal edema is absent, JVD present, Systolic murmur present and Diastolic murmur present
Respiratory: Respiratory effort normal, Crackles Present and Rhonchi Present
GI: Soft and Distention present
Neuro/Psych: Alert, Oriented and AO x 3
Data Reviewed
-
Date of Service: March 28, 2024
Medical Decision Making: Reviewed Test Results, Independent Historian Assessment, Test Interpretation and Review of Case with other Provider
EKG: Tracing Personally Visualized and interpreted
Labs: Labs Reviewed by me
Old Records: Reviewed
Critical Care Time (in minutes): 45
--- NOTE | 2024-03-28 08:39 | W.PN.HOSP.TC ---
Addendum entered and electronically signed by Pravin Boles MD, Resident 03/28/24 18:55:
Contacted patient's brother Eliezer to obtain consent for Blood transfusion as patient's Hgb 7.1 today. Consent obtained. Transfuse 2 units during Hemodialysis tomorrow 03/29. Consent form placed in chart.
Addendum entered and electronically signed by Estee Locke MD 03/28/24 18:37:
I saw and evaluated the patient independently. I reviewed the resident�s note and agree with findings and plan as documented by Dr. Boles
GENERAL: well developed, well nourished, chronically ill appearing female in no apparent distress
HEENT: NC/AT--O2 NC in place
HEART: regular rate and rhythm, +S1, +S2 4/6 tight NANCY
LUNGS : clear to auscultation bilaterally
ABDOM: soft, tender RUQ, distended, + bowel sounds + fluid wave
EXT: no clubbing, or edema--fingers dusky blue and cold to touch on left hand--toes dusky blue too--both much improved
NEUROLOGIC: grossly intact
SKIN: femoral triple lumen cath in place (placed by ED), stage 1 blanching red sacral early pressure injury POA
Hypotension requiring pressors--shock physiology but unclear type (septic but doesn't meet SIRS and cultures are negative, cardiogenic possible with elevated troponin and vegetations on mitral valve, doubt hypovolemic shock as pt due to HD and has
evidence of volume overload)---started on levophed and vasopressin--apprec log marker/cards/renal/vascular/ID-- echo shows MV vegetations c/w endocarditis-- cultures negative so far--TSH and cortisol WNL--cont vanco/cefepime renally dosed by
pharmacy--hold BP meds--consider stress dose steroids--lactates worsening and no need to trend troponins further as suspected to me nonmyocardial injury elevation
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
ID/cards evals
ESRD on HD--apprec renal--HD as able--apparently pt was told on recent admission of poor prognosis
Leukocytosis- Unclear etiology- WBC 12.8 on admission- Afebrile, no tachycardia (though her hear rate is paced), no tachypnea. Does not meet SIRS criteria on admission---follow CBC
Cirrhosis, decompensated with Ascites--US with moderate amt--consult IR for paracentesis--ammonia WNL
Altered mental status--likely combination of encephalopathy and possible dementia--given MV vegetations, head CT to rule out emboli pending (pt told her brother that she cannot see out of her right eye, likely embolic but would hold on neuro consult
as management would not change)-- await speech eval/PT/OT
Acute Hypoxemic respiratory insufficiency--likely due to acute CHF exacerbation--CXR consistent with that and not PNA--on 3L--wean to off as able--apprec log marker input
concern for ischemic left hand/fingers--has fistula--on IV heparin and US shows possible steal syndrome to left hand as per vascular--apprec input
thrombocytopenia--platelet count has dropped since admission with significant drop since starting heparin (176K to 122K)--await lab in AM and likely d/c heparin and restart Eliquis--send off HIT panel
acute on chronic HFpEF with Moderate mitral stenosis/Moderate aortic stenosis/Moderate tricuspid regurgitation- Most recent echo in December showed preserved EF, >75%-- updated ECHO with MV vegetations--apprec cards--sees Dr. Stoner as outpt
History of arrhythmia, unknown type- Pacemaker in place, rate is paced--placed December 2023
Type 2 Diabetes--insulin requiring- On insulin prior to admission- Continue basal dose, restarted mealtime doses
Hyperlipidemia- continue home statin
Stage 1 decubitus ulcer on sacrum (POA)- Offload pressure points, routine care--consult wound care
Likely caloric malnutrition- Nutrition consult when patient is stabilized
Code status-- Full code--had conversation with Yasir (brother) about septic shock, heart valve infection, full code status, etc--he will update his bothers --had conversation with Tahir today, made pt DNR/DNI--if no improvement will need ongoing GOC
discussion
DVT proph --stop eliquis 2.5 BID and IV heparin drip
Total Critical Care Time 43 minutes. I was immediately available to the patient and staff. I personally examined, reviewed labs, diagnostic images/reports, interpretations, treatment plans, discussed patient care with other providers and family
or caregivers (if patient is unable to make decisions), entered orders as appropriate and documented the medical record.
Original Note:
Today's Communication/Plan
-
.
Assessment / Plan
Assessment / Plan
Assessment/Plan
#Hypotension requiring pressors
-Does not meet SIRS criteria. Although cannot rule out septic shock. Source of infection unknown
-Requiring pressors. Now on Levophed and vasopressin
-ID consulted, Input appreciated. currently on cefepime and Vancomycin
-Cardiology consulted, input appreciated.
-Update echocardiogram 03/27/24: LVEF 55%; low-flow low gradient , Heavily calcified mitral valve with anterior leaflet mobile vegetations. Mild to moderate mitral stenosis. Severe mitral regurgitation
-Trend lactate level
-Follow Blood cultures. Preliminary result negative so far.
#Endocarditis, mitral valve
-Heavily calcified mitral valve with anterior leaflet mobile vegetations on Echo.
-Blood Cultures preliminary negative.
-ID consulted. Input appreciated. On Cefepime and Vanc
-Follow Blood cultures
-Cards on Board.
#Concern for ischemic left hand/fingers
-Vascular consulted. Input appreciated .
-HD access Duplex Ultrasound 03/27-Diminished and reversed flow within the radial artery with no waveforms seen within any digit. Findings are concerning for steal syndrome
-Likely pressor related worsening of physiologic steal related to the fistula.
-Started On IV heparin Drip.
-improvement in fingers today.
#Anemia
#Thrombocytopenia.
-Hgb today 7.1, Plt count dropped to 122.
-Was initiated on Heparin IV yesterday.
-Concern for HIT?? cHECK HIT panel.
#ESRD on HD
-Session of HD yesterday. Cre today 4.9
-Lactate trending up, now 5.3. Continue to trend
-Nephrology input appreciated
-Limit IV resuscitation.
#Cirrhosis decompensated with ascites
-Ultrasound 03/27 Moderate volume of ascites is present, greatest in the left lower quadrant.
-s/p PARACENTESIS today 03/28- 5400 cc of clear higinio ascitic fluid was evacuated.
-Fluid culture analysis pending,
-Albumin today
-Antibiotics coverage for SBP ongoing
-Ammonia level 21
#Altered mental status
-Likely combination of encephalopathy versus possible dementia
-Will discuss with family today to determine baseline
-Head CT scan- No acute intracranial abnormality.
-Speech eval. P.O. trials of puree, regular solids, and thin liquids provided. Adequate mastication. No overt signs of aspiration.
#Acute hypoxemic respiratory insufficiency likely due to acute CHF exacerbation
-Chest x-ray in ED with pulmonary edema
-Wean O2 as tolerated
-[employer] Coordinator following
#Acute on chronic HFpEF
#Moderate mitral stenosis
#Moderate tricuspid regurg
- echocardiogram 03/27/24: LVEF 55%; low-flow low gradient , Heavily calcified mitral valve with anterior leaflet mobile vegetations. Mild to moderate mitral stenosis. Severe mitral regurgitation
-Fluid management with hemodialysis
-Sees Dr. Stoner as an outpatient
#Paroxysmal atrial fibrillation
-Sinus rhythm
-Oral Anticoagulation: Apixaban 2.5 mg twice daily on Hold. Now on Heparin IV.
#History of arrhythmia, unknown type
-Pacemaker in place, rate is paced
#Type 2 Diabetes insulin requiring
-On insulin prior to admission
-Continue basal dose, coverage with SSI
#Hyperlipidemia
-continue home statin
#Stage 1 decubitus ulcer on sacrum (POA)
-Offload pressure points, routine care
-Wound care following
#Likely caloric malnutrition- Nutrition consult when patient is stabilized
DVT prophylaxis-Heparin
CODE STATUS-full code
Discussion with family regarding code status to take place today.
Anticipated Discharge: > 48 hours
Subjective/Interval History
-
Patient seen at bedside. Awake and alert today compared to previous day. States she's hungry.
Objective Data
-
Labs:
Laboratory Results
03/27/24 03/28/24
21:28 05:24
WBC 13.5 H
Hgb 7.1 L
Hct 22.4 L
Plt Count 122 L D
APTT 164.6 H* 88.2 H
Sodium 134 L
Potassium 4.9
Chloride 94 L
Carbon Dioxide 19 L
BUN 45 H
Creatinine 4.5 H*
Glucose 142 H
Calcium 8.8
Total Bilirubin 1.8 H
AST 40 H
ALT 22
Alkaline Phosphatase 168 H
Vital Signs:
Vital Signs
Temp Pulse Resp BP Pulse Ox
98.4 F 68 21 101/52 88
03/28/24 07:00 03/28/24 06:30 03/28/24 06:30 03/28/24 06:30 03/28/24 06:30
I&O
03/27/24 03/28/24 03/29/24
06:59 06:59 06:59
Intake Total 543 / 612 1547.1 / 1547.1
Balance 543 / 612 1547.1 / 1547.1
Review of Systems
-
All other systems: Reviewed and negative (except as documented)
Physical Exam
-
General: No Apparent Distress
Respiratory: Crackles and Decreased Breath Sounds; Negative Wheezes
Cardiac: Regular Rhythm and S1/S2
GI: Soft and Distended
Genito-urinary: Gross
Musculoskeletal: Other (1+ edema b/l)
Neuro: Awake
[2024-03-28] MEDS: NOVOLOG FLEXPEN-MODERATE RESISTANCE 1 UNITS SC (08:54)
[2024-03-28] MEDS: SINGULAIR 10 MG PO (08:55)
[2024-03-28] MEDS: PROTONIX 40 MG PO (08:55)
[2024-03-28] MEDS: ProAmatine 10 MG PO ×3 (08:55→17:38)
[2024-03-28] MEDS: TYLENOL 650 MG PO (08:55)
[2024-03-28] MEDS: OCUVITE SOFTGEL 1 CAP PO ×2 (08:55→21:53)
[2024-03-28] MEDS: MAGNESIUM OXIDE 500 MG PO (08:55)
[2024-03-28] MEDS: FEOSOL 325 MG PO (08:55)
[2024-03-28] MEDS: PHOSLO 667 MG PO ×2 (08:55→12:57)
--- NOTE | 2024-03-28 08:56 | W.PN.VS ---
Addendum entered and electronically signed by Mono Clifford MD 03/28/24 11:30:
Seen and examined with OKSANA Wynn and OKSANA Wang. Agree with findings as noted below. Left upper extremity fistula with reasonable thrill/slightly pulsatile. Hand is warmer with good dopplerable ulnar signal and palmar arch signal. Fifth finger
(pinky) with continued cyanotic discoloration. The other fingers looked pink today. However there is some cap refill even in the fifth finger. Plan/as discussed and noted below. Likely pressor related worsening of physiologic steal related to
the fistula. If worsening or not improving and she remains critical, would require urgent ligation of the access. I think with improvement, that is not necessary at this time. However please let us know if things are worsening and that would be
the next course of action.
Original Note:
Today's Communication / Plan
-
Patient seen and examined at bedside with Dr. Mono Clifford, who agrees with below plan.
Assessment/Plan
-
Assessment: 83 year old female admitted with hypotension and LUE AVF with suspected steal syndrome on vasopressin and Levophed
Plan:
Suspect pressor induced steal syndrome at LUE AVF, markedly improved today on exam. If persists or worsens AVF will need to be ligated and port placement would be required, given improvement in symptoms and present Doppler signal would recommend at
this time continue use of AVF for HD access, if physial exam worsens (cyanosis or pulse exam change) please notify vascular team immediately.
Continue neovascular checks
Subjective Data
-
Date of Service: March 28, 2024
Patient seen and examined at bedside, reports discomfort from rectal tube otherwise offers no complaints and denies left hand pain.
Objective Data
-
Vital Signs
Temp Pulse Resp BP Pulse Ox
98.4 F 68 21 101/52 88
03/28/24 07:00 03/28/24 06:30 03/28/24 06:30 03/28/24 06:30 03/28/24 06:30
Intake and Output
03/27/24 03/28/24 03/29/24
06:59 06:59 06:59
Intake Total 543 / 612 1547.1 / 1547.1
Balance 543 / 612 1547.1 / 1547.1
Intake:
IV fluids (Total) 543 / 612 1267.1 / 1267.1
heparin 96.5 / 96.5
levo 480 / 540 954.6 / 954.6
vaso 63 / 72 216 / 216
IV piggybacks 100 / 100
Fecal management system 180 / 180
irrigation (mL)
Rectum 180 / 180
Lab Results
03/28/24 05:24
03/28/24 05:24
Calcium 8.8 mg/dl (8.4-10.2) 03/28/24 05:24
Total Bilirubin 1.8 mg/dl (0.2-1.3) H 03/28/24 05:24
AST 40 U/L (14-36) H 03/28/24 05:24
ALT 22 U/L (0-35) 03/28/24 05:24
Alkaline Phosphatase 168 U/L (38-126) H 03/28/24 05:24
Total Protein 6.6 g/dl (6.3-8.2) 03/28/24 05:24
Albumin 3.1 g/dl (3.5-5.0) L 03/28/24 05:24
Physical Exam
-
oriented to self
no tachycardia
no tachypnea
abd rotund
left AVF +thrill, left hand cyanotic digits vastly improved from prior exam, now only 5th digit is dusky, hand warm, doppler radial, ulnar, and palmar arch signal
--- NOTE | 2024-03-28 09:12 | CM ---
Addendum entered by Mari Deshpande 03/28/24 14:43:
Patient brother Eliezer here with POA/Advance directive in hand, scanned onto the chart. Patient family spoke with physician and plan is for transition to DNR and continued assessment to clarify level of care needs. Patient from [facility], most
likely will need SNF at discharge. Patient brother is primary contact and will continue to update patient other brothers. Patient likes [employer]hi 'om papa' music per patient brother. CM will continue to follow for discharge planning needs.
Plan; SNF vs [facility], pending continued medical treatment plan updates
Original Note:
Patient seen at bedside in ICU. Awaiting family discussion. CM will continue to follow for discharge planning needs.
Plan; family meeting; pending medical treatment plan
--- NOTE | 2024-03-28 11:12 | CON.ID ---
Consultation
-
Date/Time Consultation Requested: 03/27/2024 1257
Date/Time Consultation Performed: 03/28/2024 1054
Requesting Provider: Dr. Locke
Performing Provider: Dr. Roman
Reason for Consultation: Leukocytosis
Chief Complaint / Past History
History of Present Illness
Maryjo Salas is an 83-year-old female being evaluated the request of Dr. Locke in regards to leukocytosis. History is obtained through chart review, along with patient interview, although patient was found to provide very little in the way
of history.
The patient has a significant past medical history of end-stage renal disease and is on hemodialysis. She was supposed to go to hemodialysis on 03/26, but had significant weakness and pressed her life alert alarm. When EMS arrived they found her
to be hypotensive and administered a 500 cc fluid bolus. Additional history indicates that she has been having somewhat productive cough and some shortness of breath over the prior several days. No reported history of chest pain noted.
In the ER she was found to be lethargic and hypotensive, requiring the initiation of Levophed. White count was noted to be elevated, and broad-spectrum antibiotics were initiated. Leukocytosis has persisted since admission, and Infectious Diseases
is asked to comment upon further antimicrobial therapy.
Past History
Additional Past Medical History:
ESRD�HD
HTN
CHF
DM
Hx cirrhosis
Valvulopathy (/TR)
Additional Past Surgical History:
Paracentesis
L UE AV fistula
Allergy History:
No Known Allergies Allergy (Verified 03/19/24 15:31)
Medications Reviewed: Yes
Current Antibiotics:
Vancomycin (dosing per pharmacy)
Cefepime 1 g IV every 24 hours
Social History
Tobacco: Non-Smoker
Alcohol: None
Drug: None
Living: Detention
Employment: Retired
Family History
Family History: Not Pertinent
Review of Systems
Vital Signs
Temp Pulse Resp BP Pulse Ox
98.2 F 66 22 103/91 100
03/28/24 11:00 03/28/24 10:00 03/28/24 10:00 03/28/24 10:00 03/28/24 09:30
Physical Exam
Physical Exam
Constitutional: Comfortable, Acutely Ill, Chronically Ill and Non-toxic
Head: Normocephalic
Eyes: Pupils Equal, Pupils Round, No Conjunctival Hemorrhage and Sclera Anicteric
Oral: No Thrush and No Ulcers
Cardiovascular: Regular Rate, S1/S2 and Murmur; Negative S3/S4
Pulmonary: Clear; Negative Wheezes, Rales or Rhonchi
Gastrointestinal: Soft, Non Tender, Distended, Normal Bowel Sounds, No Rebound and No Guarding
Genito-Urinary: Negative Gross, CVA Tenderness or Clear Urine
Extremities: Negative Edema, Cyanosis or Erythema
Musculoskeletal: Negative Joint Swelling or Joint Effusion
Skin: Warm, Dry and Other (Sacral wound (stage I-2) plus suspected DTI)
Neurological: Awake
Psychological: Calm
.
Lab / Diagnostic Study Results
03/28/24 05:24
03/28/24 05:24
Abs Immat Gran (auto) 0.1 10^3/uL (0-0.05) H 03/27/24 03:47
Absolute Neuts (auto) 11.0 10^3/uL (1.4-6.5) H 03/27/24 03:47
Absolute Lymphs (auto) 1.2 10^3/uL (1.2-3.4) 03/27/24 03:47
Absolute Monos (auto) 1.3 10^3/uL (0.1-0.6) H 03/27/24 03:47
Absolute Basos (auto) 0.0 10^3/uL (0-0.2) 03/27/24 03:47
Immature Gran % 0.5 % (0-0.5) 03/27/24 03:47
Neutrophils % 80.5 % (42.2-75.2) H 03/27/24 03:47
Lymphocytes % 8.6 % (20.5-51.1) L 03/27/24 03:47
Monocytes % 9.3 % (1.7-9.3) 03/27/24 03:47
Eosinophils % 0.9 % (0-6) 03/27/24 03:47
Basophils % 0.2 % (0-2) 03/27/24 03:47
PT 27.4 Sec (11.4-14.6) H 03/26/24 11:51
INR 2.56 03/26/24 11:51
Lactic Acid Cancelled 03/28/24 09:30
Microbiology Results
Micro:
03/27/24 03:47 MRSA Screen - Final
Nose No Methicillin Resistant Staphylococcus aureus isolated.
03/26/24 11:51 Blood Culture - Preliminary
Blood/Venous No Growth in 24 hours- Final report to follow
03/26/24 11:51 Blood Culture - Preliminary
Blood/Venous No Growth in 24 hours- Final report to follow
03/26/24 11:51 Influenza Types A & B (CL) - Final
Nasal Swab Negative for Influenza A & B, NAAT
Negative results must be combined with clinical observations
and patient history.
Nucleic Acid Amplification test (NAAT)performed on the
[employer] NOW platform.
Imaging:
03/27/2024 CT head without contrast: No acute intracranial abnormality noted. There is mild bilateral symmetric prominence of ventricles and extra-axial CSF spaces representing volume loss. Please see full dictation for additional detail.
03/27/2024 Abdominal ultrasound: Limited examination was performed to evaluate for ascites. Moderate volume of ascites is present, with greatest in the left lower quadrant. The liver shows nodular capsular contour consistent with his underlying
cirrhosis.
Assessment / Plan
Leukocytosis
Hypotension; remains on 2 pressors
Lactic acidosis
Suspected deep tissue injury
ESRD�HD
HTN
CHF
DM
Hx cirrhosis
Valvulopathy (/TR)
Recommendations:
Current source of leukocytosis unclear, although may be reactive
Agree with decision to pursue paracentesis to assess for possible underlying SBP. Please send for culture in addition to cell count and differential.
Continue with pressor therapy to keep MAP >65
Trend lactate
Monitor white count and temperature curve.
Continue with current empiric antibiotics pending further culture data.
Patient remains critically ill on 2 pressor therapy in intensive care unit.
Care Review
Plan reviewed with: Physician (Nephrology) and Other (Wound care nurse)
--- NOTE | 2024-03-28 11:26 | WOUNDNOTE ---
[facility] RN note: Patient admitted with hypoxia and sepsis.
See H&P for complete history. From [facility].
PMH: NIDDM, serial paracenteses, HTN, CHF,CAD, ESRD-dialysis, Pressure injury on sacrum and mitral stenosis.
Wound Location and type/assessment: Patient admitted with: DTI suspected on sacrum, dark maroon discolored skin. Patient turned with assist to sides, PT and OT working with patient. Dr. Roman at bedside and aware of DTI. B/L ischium with stage 1
non blanchable red skin. L heel intact, boggy. R heel with suspected DTI vs Purple Mottling due to pressors. Toes also with purple mottling, nurse reports improved compared to yesterday.
Appetite: TBD. Encourage protein in diet.
Pressure redistribution devices in place: On Air mattress, recommend keep on air mattress. Pillow under calves.
Plan: Sacral silicone foam applied to Sacrum. Adhesive foams applied to heels. Offloading.
Will confirm orders with hospitalist and update nurse. Updated care plan and will follow as needed.
Note to case management of equipment requested for discharge: TBD.
Recommend follow up at wound care center upon discharge.
[2024-03-28] MEDS: FLEXBUMIN 50 IV (12:01)
--- NOTE | 2024-03-28 12:02 | PTCARENOTE ---
brother janet in to see pt and updated. participated in rounds. he reported pt was c/o unable to see out of r eye. +corneal/pupil reaction equal b/l, startle present. Dr Gunderson aware, pt inconsistent with exam/questions. FMS flushed and
leaked some of flush, but stool remains in tubing. Repositioned for comfort. Abdomen greatly improved s/p 5400ml paracentesis. BP borderline on current doses of pressors, albumin initiated. copy of advanced directives given to self contained behavior unit teacher and
Cornelia aware.
[2024-03-28 12:11] LABS: Body Fluid Mononuclear 30.8 %; Body Fluid Polymorphonuclear 69.2 %; Body Fluid WBC 494 /CUMM
[2024-03-28 12:21] LABS: Body Fluid Second Tech AMA
[2024-03-28 12:30] LABS: Body Fluid Albumin < 1.0 g/dl; Body Fluid Protein < 2.0 g/dl
[2024-03-28 12:32] LABS: APTT 89.9 Sec (23.4-35.0)
[2024-03-28] MEDS: FLEXBUMIN 100 IV (12:53)
[2024-03-28] MEDS: DRISDOL (VITAMIN D2) 50000 UNITS PO (12:54)
[2024-03-28 13:00] LABS: Body Fluid Amylase < 30 U/L; Body Fluid LDH 116 U/L
[2024-03-28 13:01] LABS: Lactic Acid 7.2 mmol/L (0.7-2.0)
[2024-03-28 13:09] LABS: Glucose - Point of Care 233 mg/dl (70-99)
[2024-03-28] MEDS: NOVOLOG FLEXPEN-MODERATE RESISTANCE 3 UNITS SC (13:10)
--- NOTE | 2024-03-28 15:46 | W.PN.NEPH.PH ---
Today's Communication / Plan
-
HD tomorrow
pressor support
Assessment/Plan
-
Assessment:
Hypotension-?septic shock
Acute on chr DCHF
mild hyperkalemia
mild met acidosis/ L acidosis
ESRD-from 12/2022 MWF HD at [facility]
LUE AVF
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
h/o Ascites and paracentesis monthly
History DCHF
Type 2 diabetes
Primary hypertension
Likely history of coronary artery disease
History of heart valve problem
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
Severe pulmonary hypertension
Mild to moderate aortic stenosis
Moderate TR
Chronic thrombocytopenia
HLD
Heart valve vegetations
Plan:
A/w hypotension, gen weakness
pending w/u of infection, Lactic acid improving
HD tomorrow,orders provided
s/p paracentesis for ~ 5L , albumin infusion afterwards
minimize IVF , concentrate gtts,maintain MAP >60 with pressor support
Blood cultures negative (remains on vanco and cefipime), case discussed with infectious disease
echo report reviewed: Normal LV function normal RV function heavily calcified mitral valve anterior leaflet mobile vegetation
Monitoring left access hand for steal exacerbated by pressor support ( vascular note reviewed): duplex notes patency of AVF
poor prognosis
Patient critically ill on pressor support
32 minutes critical care time spent with patient
d/w nursing
-
-
Date of Service: March 28, 2024
CC / HPI / ROS
-
Chief Complaint:
ESRD
History of Present Illness:
hb low 7.1, on 2 pressors
MWF ESRD
Status post paracentesis for 5.1 liters
Review of Systems:
no fever, no cp
no abd pain, had BM
Labs
-
Labs:
WBC 13.5 10^3/uL (4.8-10.8) H 03/28/24 05:24
RBC 2.35 10^6/uL (4.20-5.40) L 03/28/24 05:24
Hgb 7.1 g/dL (12.0-16.0) L 03/28/24 05:24
Hct 22.4 % (37.0-47.0) L 03/28/24 05:24
Plt Count 122 10^3/uL (130-400) L D 03/28/24 05:24
Sodium 134 mmol/L (135-145) L 03/28/24 05:24
Potassium 4.9 mmol/L (3.5-5.1) 03/28/24 05:24
Chloride 94 mmol/L (98-107) L 03/28/24 05:24
Carbon Dioxide 19 mmol/L (22-30) L 03/28/24 05:24
BUN 45 mg/dl (7-17) H 03/28/24 05:24
Creatinine 4.5 mg/dL (0.6-1.0) H* 03/28/24 05:24
eGFR 9.31 03/28/24 05:24
Glucose 142 mg/dl (70-99) H 03/28/24 05:24
Calcium 8.8 mg/dl (8.4-10.2) 03/28/24 05:24
Albumin 3.1 g/dl (3.5-5.0) L 03/28/24 05:24
Physical Exam
-
Vital Signs:
Vital Signs
Temp Pulse Resp BP Pulse Ox
98.2 F 60 15 98/51 95
03/28/24 11:00 03/28/24 14:30 03/28/24 14:30 03/28/24 14:30 03/28/24 12:30
Cardiovascular:: Regular rate and rhythm
Respiratory:: Bilateral: CTA (decreased)
Lung Excursion:: Normal
Abdomen:: Distended, Nontender and Soft
Extremity Edema:: +1: Bilateral:
Gross Catheter: No
--- NOTE | 2024-03-28 16:25 | PTCARENOTE ---
pt without complaint this evening. l arm neurovascular check very sensitive to temperature. doppler pulses t/o shift. fistula with good bruit/thrill t/o shift. 5th finger posteriorly may be starting to blister. otherwise assessment unchanged.
[2024-03-28 17:15] LABS: Glucose - Point of Care 259 mg/dl (70-99)
[2024-03-28] MEDS: MAXIPIME 1000 MG IV (17:38)
[2024-03-28] MEDS: PHOSLO PO (17:38)
[2024-03-28] MEDS: NOVOLOG FLEXPEN-MODERATE RESISTANCE 5 UNITS SC (17:38)
[2024-03-28] MEDS: STERILE WATER FOR INJECTION 10 ML IV (17:39)
--- NOTE | 2024-03-28 17:39 | PTCARENOTE ---
discussed case with Dr Chavez. Approved titrating pressors to sbp 90
--- NOTE | 2024-03-28 20:00 | PTCARENOTE ---
rec`d pt at 1900. pt sleeping but arousable to verbal stimuli. vascular checks continued. pt left pinky becoming narcrotic. left arm fistula +bruit and thrill. rt femoral triple luman with vaso and double concentrated levo. heparin gtt as well.
doppler pulses for left hand. +1 lower extrem edema. 5L NC, coarse BS. FMS, thick brown stool. rectal probe. anuric. scaral foam w/ q2 turns. rt FA IV flushed and patent. call olivares in reach. safe environment maintained.
[2024-03-28] MEDS: LANTUS 0.1 UNITS SC (21:53)
[2024-03-28] MEDS: CRESTOR 10 MG PO (21:53)
[2024-03-28 22:03] LABS: Glucose - Point of Care 280 mg/dl (70-99)
[2024-03-28 22:19] LABS: Glucose - Point of Care 302 mg/dl (70-99)
[2024-03-29] VITALS (58 sets, daily range): BP systolic 80–102; BP diastolic 42–82; BMI 24.0
[2024-03-29] MEDS: PITRESSIN 100 IV ×2 (02:24→14:47)
[2024-03-29 04:30] LABS: APTT 84.5 Sec (23.4-35.0)
[2024-03-29 04:41] LABS: Vancomycin Random 14.3 ug/ml
[2024-03-29 04:44] LABS: ALT (SGPT) 20 U/L (0-35); AST (SGOT) 39 U/L (14-36); Albumin 3.3 g/dl (3.5-5.0); Alkaline Phosphatase 138 U/L (38-126); Blood Urea Nitrogen 59 mg/dl (7-17); Calcium 8.9 mg/dl (8.4-10.2); Carbon Dioxide 17 mmol/L (22-30); Chloride 92 mmol/L (98-107); Estimated Creatinine Clearance 7 ml/min; GGTP 164 U/L (12-43); Glucose 228 mg/dl (70-99); Magnesium 2.4 mg/dl (1.6-2.3); Phosphorus 8.1 mg/dl (2.5-4.5); Potassium 5.4 mmol/L (3.5-5.1); Sodium 130 mmol/L (135-145); Total Protein 6.5 g/dl (6.3-8.2); eGFR 8.01
[2024-03-29 04:46] LABS: Hematocrit 21.6 % (37.0-47.0); Hemoglobin 6.9 g/dL (12.0-16.0); Mean Corp Hgb Conc. 32.2 g/dL (33.0-37.0); Mean Platelet Volume 12.7 fL (7.4-10.4); Platelet Count 117 10^3/uL (130-400); Red Cell Dist. Width 19.6 % (11.5-14.5)
[2024-03-29] MEDS: ROBITUSSIN AC 10 ML PO ×2 (05:57→22:06)
--- NOTE | 2024-03-29 06:45 | W.PN.HOSP.TC ---
Addendum entered and electronically signed by Estee Locke MD 03/29/24 13:30:
I saw and evaluated the patient independently. I reviewed the resident�s note and agree with findings and plan as documented by Dr. Wade.
GENERAL: well developed, well nourished, chronically ill appearing female in no apparent distress
HEENT: NC/AT--O2 NC off
HEART: regular rate and rhythm, +S1, +S2 4/6 tight NANCY
LUNGS : clear to auscultation bilaterally
ABDOM: soft, tender RUQ, distended, + bowel sounds + fluid wave
EXT: no clubbing, or edema--fingers dusky blue and cold to touch on left hand--toes dusky blue too--both much improved
NEUROLOGIC: grossly intact
SKIN: stage 1 blanching red sacral early pressure injury POA
Hypotension requiring pressors with worsening lactic acidosis--shock physiology but unclear type (septic but doesn't meet SIRS and cultures are negative, cardiogenic possible with elevated troponin and vegetations on mitral valve, doubt hypovolemic
shock as pt with HD and has evidence of volume overload)-- on levophed and vasopressin with rising requirements--apprec oiler and greaser/cards/renal/vascular/ID-- echo shows MV vegetations c/w endocarditis-- cultures negative so far--TSH and cortisol
WNL--cont vanco/cefepime renally dosed by pharmacy--hold BP meds--consider stress dose steroids-- no need to trend troponins further as suspected to me nonmyocardial injury elevation
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
ID/cards evals
ESRD on HD--apprec renal--HD as able--apparently pt was told on recent admission of poor prognosis
Leukocytosis- Unclear etiology- WBC 12.8 on admission- Afebrile, no tachycardia (though her hear rate is paced), no tachypnea. Does not meet SIRS criteria on admission---follow CBC
Cirrhosis, decompensated with Ascites--US with moderate amt--consult IR for paracentesis--ammonia WNL
Altered mental status--likely combination of encephalopathy and possible dementia--given MV vegetations, head CT to rule out emboli negative (pt told her brother that she cannot see out of her right eye, likely embolic but would hold on neuro
consult as management would not change)-- await speech eval/PT/OT
Acute Hypoxemic respiratory insufficiency--likely due to acute CHF exacerbation--CXR consistent with that and not PNA--on 3L--wean to off as able--apprec oiler and greaser input
concern for ischemic left hand/fingers--has fistula--on IV heparin and US shows possible steal syndrome to left hand as per vascular--apprec input
thrombocytopenia--platelet count has dropped since admission with significant drop since starting heparin (176K to 122K)--await lab in AM and likely d/c heparin and restart Eliquis--send off HIT panel
acute on chronic HFpEF with Moderate mitral stenosis/Moderate aortic stenosis/Moderate tricuspid regurgitation- Most recent echo in December showed preserved EF, >75%-- updated ECHO with MV vegetations--apprec cards--sees Dr. Stoner as outpt
History of arrhythmia, unknown type- Pacemaker in place, rate is paced--placed December 2023
Type 2 Diabetes--insulin requiring- On insulin prior to admission- Continue basal dose, restarted mealtime doses
Hyperlipidemia- continue home statin
Stage 1 decubitus ulcer on sacrum (POA)- Offload pressure points, routine care--consult wound care
Likely caloric malnutrition- Nutrition consult when patient is stabilized
Code status--now DNR/DNI-- --had conversation with Tahir 03/28, made pt DNR/DNI-- need ongoing GOC discussion as pt pressor requirements rising and lactic acidosis worsening....
DVT proph --stop eliquis 2.5 BID and IV heparin drip
Total Critical Care Time 32 minutes. I was immediately available to the patient and staff. I personally examined, reviewed labs, diagnostic images/reports, interpretations, treatment plans, discussed patient care with other providers and family
or caregivers (if patient is unable to make decisions), entered orders as appropriate and documented the medical record.
Original Note:
Today's Communication/Plan
-
Stop heparin, restart home eliquis. Transfuse pRBC with dialysis. Goals of care discussions with family ongoing
Assessment / Plan
Assessment / Plan
83yo F with PMH HFpEF, HTN, ESRD on HD, cirrhosis with ascites, diabetes, valvular disease, afib, who presented to ED 03/26/24 for generalized weakness. Admitted to ICU for hypotension requiring pressor support. On admission, did not meet SIRS
criteria and no obvious source of infection.
Assessment/Plan
#Hypotension requiring pressors, concern for septic shock
#Lactic acidosis
- Unclear shock type- possible septic though does not meet SIRS criteria vs cardiogenic. Sources of infection include endocarditis, SBP. Less likely hypovolemic shock given volume overload on admission.
- Pressor requirements increased from admission --> now on levophed 14 mcg/min and vasopressin 0.03.
- ID and oiler and greaser following, appreciate recs.
- Currently on cefepime (renally dosed) and Vancomycin (pharmacy dosing)
- Lactate level persistently elevated
- Blood cultures no growth to date, final result pending.
#Endocarditis, mitral valve
- Echocardiogram 03/27/24: LVEF 55%; low-flow low gradient , Heavily calcified mitral valve with anterior leaflet mobile vegetations. Mild to moderate mitral stenosis. Severe mitral regurgitation
- Blood cultures no growth to date, final result pending.
- ID following, appreciate recs. On Cefepime and Vanc
- Cardiology following, EP aware given implanted pacemaker
#Concern for ischemic left hand/fingers-
- Likely secondary to emboli from endocarditis
- Vascular consulted. Input appreciated .
-HD access Duplex Ultrasound 03/27-Diminished and reversed flow within the radial artery with no waveforms seen within any digit. Findings are concerning for steal syndrome
-Likely pressor related worsening of physiologic steal related to the fistula.
- S/p IV heparin. Improvement in physical exam.
#Acute on chronic anemia
#Anemia of chronic disease
#Thrombocytopenia
- Hgb 7.9 on admission --> 6.9 today
- S/p IV heparin; concern for HIT. Heparin discontinued and eliquis resumed 03/29
- No source of acute blood loss, bleeding, bruising
- Will transfuse 2u pRBC today with HD; consent in chart
#ESRD on HD
- Continue HD inpatient per nephrology.
- Limit IV resuscitation.
#Cirrhosis decompensated with ascites
#Spontaneous bacterial peritonitis
- Ultrasound 03/27 moderate ascites, greatest in LLQ
- s/p paracentesis 03/28- drained 5400 cc of clear higinio ascitic fluid; s/p albumin
- PMN count 340
-Antibiotics coverage for SBP ongoing
-Ammonia level 21
#Altered mental status
-Likely combination of encephalopathy versus possible dementia
-Head CT scan- No acute intracranial abnormality.
-Speech eval. P.O. trials of puree, regular solids, and thin liquids provided. Adequate mastication. No overt signs of aspiration.
#Acute hypoxemic respiratory insufficiency likely due to acute CHF exacerbation
- Chest x-ray in ED with pulmonary edema
- Wean O2 as tolerated
- [employer] Membership Sales Agent following
#Acute on chronic HFpEF
#Moderate mitral stenosis
#Moderate tricuspid regurg
- echocardiogram 03/27/24: LVEF 55%; low-flow low gradient , Heavily calcified mitral valve with anterior leaflet mobile vegetations. Mild to moderate mitral stenosis. Severe mitral regurgitation
-Fluid management with hemodialysis
-Sees Dr. Stoner as an outpatient
#Paroxysmal atrial fibrillation
-Sinus rhythm
-Oral Anticoagulation: Apixaban 2.5 mg twice daily
#History of bradyarrhythmia
-Pacemaker in place, rate is paced
#Type 2 Diabetes insulin requiring
-On insulin prior to admission
-Continue basal dose, coverage with SSI
#Hyperlipidemia
-continue home statin
#Stage 1 decubitus ulcer on sacrum (POA)
-Offload pressure points, routine care
-Wound care following
#Likely caloric malnutrition- Nutrition consult when patient is stabilized
#Acute visual changes
- Patient reported to family decreased vision in R eye
- Possibly due to emboli from endocarditis vs CVA
- S/p IV heparin. Now continuing home eliquis 2.5 mg BID
- Continue to monitor symptoms. Will defer neurology consult at this time as it is unlikely to policy change clerks supervisor. Will consider neurology consult if appropriate
Code status: DNR
VTE ppx: eliquis 2.5 bid
Diet: low sodium
Dispo planning: TBD
Anticipated Discharge: > 48 hours
Subjective/Interval History
-
Date of Service: March 29, 2024
No acute events overnight. She says she is feeling much better. She is comfortable. Only complaint is her bottom and left 4th/5th fingers. She states her lungs can't fill up well, but this is normal for her and not new. She denies lightheadedness,
dizziness, chest pain, nausea, vomiting. She is tolerating PO diet though both patient and nursing report taking long time to chew solid foods. Not ambulatory.
Objective Data
-
Labs:
Laboratory Results
03/29/24
04:01
WBC 15.0 H
Hgb 6.9 L*
Hct 21.6 L
Plt Count 117 L
APTT 84.5 H
Sodium 130 L
Potassium 5.4 H
Chloride 92 L
Carbon Dioxide 17 L
BUN 59 H
Creatinine 5.1 H*
Glucose 228 H
Calcium 8.9
Total Bilirubin 2.0 H
AST 39 H
ALT 20
Alkaline Phosphatase 138 H
Microbiology Results
03/28/24 11:21 Peritoneal Fluid Body Fluid Culture - Preliminary
No Growth After 18-24 Hours
03/28/24 11:21 Peritoneal Fluid Gram Stain - Preliminary
03/26/24 11:51 Blood/Venous Blood Culture - Preliminary
No Growth in 48 hours- Final report to follow
03/26/24 11:51 Blood/Venous Blood Culture - Preliminary
No Growth in 48 hours- Final report to follow
03/27/24 03:47 Nose MRSA Screen - Final
No Methicillin Resistant Staphylococcus aureus isolated.
Vital Signs:
Vital Signs
Temp Pulse Resp BP Pulse Ox
97.5 F 61 18 96/50 95
03/29/24 05:02 03/29/24 06:00 03/29/24 06:00 03/29/24 06:00 03/29/24 06:00
I&O
03/27/24 03/28/24 03/29/24
06:59 06:59 06:59
Intake Total 543 / 612 1547.1 / 1591.6 1907.6 / 1907.6
Balance 543 / 612 1547.1 / 1591.6 1907.6 / 1907.6
Review of Systems
-
History Source: Patient
All other systems: Not reviewed unless documented
Physical Exam
-
General: No Apparent Distress and Comfortable
Respiratory: Clear to Auscultation (anterior lung rahman)
Cardiac: Regular Rhythm, S1/S2 and Murmur (systolic murmur)
GI: Soft, Normal Bowel Sounds, Tender and Distended
Musculoskeletal: Other (L fistula +bruit, +thrill; radial pulses intact bilaterally)
Skin: Warm (L fingers cool to touch, 5th digit cyanotic), Dry, Decubitus Ulcers (POA) and IV Access / Catheter Site (femoral catheter)
Neuro: Awake and Alert
Psych: Calm and Apparent Dementia
Data Reviewed
-
Diagnostic Radiology: Image personally visualized and interpreted, Report Reviewed by me and Discussed with Physician
CT Scan: Image personally visualized and interpreted, Report Reviewed by me and Discussed with Physician
Ultrasound: Image personally visualized and interpreted, Report Reviewed by me and Discussed with Physician
Medical Tests (Nuc Med, Echo etc): Report Reviewed by me
Labs: Labs Reviewed by me and Discussed with Physician
--- NOTE | 2024-03-29 08:03 | W.PN.INTV ---
Today's Communication / Plan
Recommendations
Abx per ID
HD
1 U PRBC to be transfused today during HD ---> check CBC afterwards to trend Hb
Vasopressors titrating to MAP>65
May eventually need CRISTINA if further assessment is needed of her mitral valve
Eliquis
Guarded prognosis
Assessment
-
Assessment: 83-year-old female with PMHx of cardiac cirrhosis, ESRD on HD MWF, recurrent ascites requiring paracentesis, chronic HFpEF, CAD, anemia, aortic stenosis and a-fib on Eliquis who presents with weakness and fall, found to be hypotensive
in the ER with BP: 75/48, and was afebrile, NE: 64, RR: 20, and SpO2 89% on RA. She was placed onto 2L/min with sats improving to 100%. Labs showed leukocytosis with WBC 12.8, Hb 7.9, INR 2.56, K: 5.5, Cr: 5.7, lactate 4.5, T. bili: 1.4, troponin
1.89, and covid-19 antigen negative. Blood cultures collected, and CXR shows concern for pulmonary edema with small R-sided pleural effusion. In the ER she was given ABx with cefepime/vanco, and IVF with NS 0.9% with 250cc bolus, and levophed
started due to hypotension with SBP in 70s. She was TRX to ICU for further care, and federal appellate clerk consulted for further recommendations.
Chronic conditions EKG MANAGER: Cirrhosis with Hx of recurrent ascites requiring paracentesis (last on 03/13/2024), chronic HFpEF, DM type II, HTN, CAD, anemia, PH, aortic stenosis, thrombocytopenia, ESRD on HD M/W/F, A-fib on Eliquis
Impression:
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
#Acute respiratory failure with hypoxia likely due to pulmonary edema; unable to rule out possible RLL PNA
#Lactic acidosis - worsening
#Valvular heart disease with mild�moderate MS, severe MR, and moderate�severe paradoxical low-flow, low gradient aortic stenosis with moderate�severe TR and severe PH (per TTE from 03/27/2024)
#Transaminitis with hyperbilirubinemia
#Elevated troponin - peaked at 2.03 on 03/27/2024
#Hyponatremia
#Elevated INR, likely related to cirrhosis in setting of Eliquis use
#ESRD on HD M/W/
#Decompensated cirrhosis, suspected to be cardiac in etiology
#Acute on chronic anemia (Hb baseline 8-9.5)
#DM type II on insulin
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
Plan:
- s/p HD on admission; getting another session today; continue with HD as per nephrology
- Continue Abx (currently on vancomycin + cefepime - both started 03/26/2024)
- Given the anterior MV leaflet mobile vegetation seen on echo from 03/27, ID + cardiology both consulted � recommendations appreciated
- Follow up blood Cx (NGTD - collected 03/26/2024); collect sputum Cx if pt can provide a decent sample, and she is anuric from straight cath from 03/27, hence unable to collect UA/UCx
- Follow up paracentesis fluid Cx (NGTD - 03/28/2024)
- No need to continue trending troponin given it peaked at 2.03 on 03/27/2024
- Maintain SpO2 >90-94%
- She is currently on Levophed at 14mcg/min from 12mcg/min yesterday and vasopressin, and this should be continued and wean down as tolerated
- If pressor requirements increase then would start hydrocortisone; little concern for current adrenal insufficiency given her random cortisol level is 45 (03/26/24)
- Paracentesis performed today removing 5.4 L of fluid. 340 PMNs seen on cell count, indicative of SBP. ID consulted, continue with cefepime (+ vanco)
- Maintain MAP>65
- Continue midodrine
- Trend LFTs
- The patient endorses vision loss in her right eye, which she told her her brother. Consider neurology consultation
- She endorses a dry cough --> start tessalon perles
- Pain control
- Vascular consult for hand duskiness --> not currently a surgical candidate; this is likely due to AVF steal
- VETERINARY LIVESTOCK INSPECTOR eval --> passed for regular solids/thin liquids via eval on 03/27/2024
- Replete electrolytes with K>4, Mg>2
- Maintain euglycemia with goal BG 140-180
- Trend H/H and transfuse if needed to keep Hb>7g/dL; keep plt>20k, unless there is concern for bleeding then keep plt>50k
- getting 1 U PRBC today; no clinical signs of bleeding; re-check H/H s/p transfusion
- prn nebulized bronchodilators - not currently bronchospastic
- Incentive spirometer encouraged 10x per hour for at least 4 hrs a day
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
not have access to TEG here in this hospital
Code status: now DNR/DNI
Guarded prognosis
IV access: She has a femoral CVC --> she also is having diarrhea --> advised RN to maintain FMS for now; if she continues to require a central line then we can change out her femoral CVC to an IJ.
Critical care statement: A total of 41 minutes of critical care time was provided for this patient today. This includes management of unstable vital signs, evaluation of the patient at bedside, reviewing the patient's pertinent medical records
including radiographs, microbiology, laboratory evaluations, and discussion with primary team, consultants, pharmacy, nutrition, physical therapy, case management, charge nurse, critical care nursing, and respiratory therapy.
Data:
Transthoracic echocardiogram 03/27/2024:
Normal LV size and systolic function. LVEF 55-60%. Mild concentric LV
hypertrophy.
Normal RV size and function.
Heavily calcified mitral valve with anterior leaflet mobile vegetations.
Mild to moderate mitral stenosis (peak/mean 27/8 mmHg).
Severe mitral regurgitation.
Moderate to severe paradoxical low-flow low gradient (peak/mean 49/26 mmHg,
BRIANDA 0.7 cm2, SVI 33 mL/m2).
Moderate to severe TR.
Severe pulmonary hypertension (PASP 71 mmHg).
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
endocarditis. Mitral stenosis is stable. Mitral regurgitation has increased
from mild/moderate to severe. Aortic valve gradients are unchanged, but there
is now a reduced stroke-volume which makes it difficult to determine the
severity (likely moderate to severe). Degree of tricuspid regurgitation has
increased slightly as has PASP (70 mmHg from 60-65 mmHg).
Hemodialysis graft ultrasound 03/27/2024:
Patent arteriovenous fistula. Persistent velocity elevation at the arterial anastomosis, currently measuring 545 cm/s, previously 440 cm/s.
Diminished and reversed flow within the radial artery with no waveforms seen within any digit. Findings are concerning for steal syndrome.
Subjective Dataa
Subjective Data
Date of Service:
Date of Service: March 29, 2024
Chief Complaint: Dredge Captain Follow Up
Subjective:
Patient seen and evaluated this morning. Hb 6.9 this morning, heparin drip was stopped, and 1 unit PRBC to be transfused during HD. No clinical signs of bleeding seen. This morning, heart rate is 85, BP 139/88 and saturating 98% on room air.
Currently on levophed at 14mcg/min, and vasopressin at 0.03 units/min. Still saying she has some visual loss in her right eye.
Review of Systems
General: Other (Unable to obtain given patient's acute clinical status/confusion)
Objective Data
Data Reviewed
Vital Signs / I&O / Oxygen:
Vital Signs
Temp Pulse Resp BP Pulse Ox
98.3 F 61 18 96/50 95
03/29/24 08:29 03/29/24 06:00 03/29/24 06:00 03/29/24 06:00 03/29/24 06:00
Intake and Output
03/28/24 03/29/24 03/30/24
06:59 06:59 06:59
Intake Total 1547.1 / 1591.6 1907.6 / 1907.6
Balance 1547.1 / 1591.6 1907.6 / 1907.6
SaO2 95
Nasal Cannula flow liters per 98
minute
Physical Exam
General: Respiratory Distress (negative), Comfortable, Chills (negative) and Sweats (negative)
HEENT: Normocephalic and Anicteric
Cardiovascular: Murmur (NANCY heard across precordium from LUSB to left fifth intercostal space), Peripheral Edema (negative) and Other (Normal heart rate)
Respiratory: Wheeze (negative), Crackles (Bibasilar), Rhonchi (negative) and Non-Labored Respirations
GI: Soft, Non Distended, Non Tender and Normal Bowel Sounds
Neurology: Awake and Other (Confused)
Skin: Warm, Dry, Other (Dusky left fingers + bilateral toes) and Other (LUE aVF)
Labs/Micro/Reports
Lab Data
03/29/24 04:01
03/29/24 04:01
Laboratory Results
03/28/24 03/29/24
12:07 04:01
APTT 89.9 H 84.5 H
Microbiology
03/28/24 11:21 Peritoneal Fluid Body Fluid Culture - Preliminary
No Growth After 18-24 Hours
03/28/24 11:21 Peritoneal Fluid Gram Stain - Preliminary
03/26/24 11:51 Blood/Venous Blood Culture - Preliminary
No Growth in 48 hours- Final report to follow
03/26/24 11:51 Blood/Venous Blood Culture - Preliminary
No Growth in 48 hours- Final report to follow
03/27/24 03:47 Nose MRSA Screen - Final
No Methicillin Resistant Staphylococcus aureus isolated.
03/26/24 11:51 Nasal Swab Influenza Types A & B (CL) - Final
Negative for Influenza A & B, NAAT
Negative results must be combined with clinical observations
and patient history.
Nucleic Acid Amplification test (NAAT)performed on the
[employer] platform.
[2024-03-29 08:26] LABS: Glucose - Point of Care 228 mg/dl (70-99)
--- NOTE | 2024-03-29 08:28 | PTCARENOTE ---
Pt received @ 0700. AAOx3. Slow to respond. Drowsy but rouses easily. Hard of hearing B/L. Pt stating visual deficit in right eye. Levophed gtt received @ 14 mcg/min with goal of SBP > 90. Vasopressin @ 0.03 units. Heparin gtt @ 550 unit/hr. SaO2 @
99% on 5L NC. Lungs dry diminished. Intermittent nonproductive dry couch. Abdomen soft, round, distended. Fecal management system in place; FMS leaked, repositioned and flushed. Anuric. (R) TL femoral catheter with gtt's infusing.
--- NOTE | 2024-03-29 08:43 | PHA.VAN.FU ---
Vancomycin Assessment / Plan
- Assessment
Hemodialysis Schedule: Other (off schedule due to scheduling issues)
Last Hemodialysis performed: 03/27, 03/29
WBC's are: Trending Up
In the past 24 hrs, patient has been: Afebrile
Concomitant Antimicrobials: cefepime
- Assessment - Therapeutic Drug Monitoring
Random Level: 14.3 - drawn ~23H after previous level of 16.9
Calculated ke: 0.0074
Calculated half life (H): 93.8 (in between HD sessions)
HD postponed yesterday to today - no dose administered yesterday
- Dosing Plan
Dosing by Level: Re-dose today (Vanc 500mg with HD)
- Monitoring Plan
Random Level: 03/30 0600 - possible HD tomorrow
- Follow Up
Pharmacy will continue to follow.
Vancomycin Follow UP
- -
Patient Age: 83
Patient Sex: Female
Vancomycin Day #: 3
Indication: Other
Requesting Provider: Dr. Wade (resident) / Abel
Pertinent Antimicrobial Allergies:
NKDA
Height / Weight:
Height 5 ft 1 in
Actual Weight 57.5 kg
Pertinent Past Medical History: ESRD on HD MWF, DM
- Vital Signs / Lab Results
Temp Pulse Resp BP Pulse Ox
98.3 F 61 18 96/50 95
03/29/24 08:29 03/29/24 06:00 03/29/24 06:00 03/29/24 06:00 03/29/24 06:00
Lab Results - Hematology
03/26/24 03/27/24 03/27/24
11:22 03:47 14:31
WBC 12.8 H 13.7 H Cancelled
03/27/24 03/28/24 03/29/24
14:52 05:24 04:01
WBC Cancelled 13.5 H 15.0 H
Lab Results - Chemistry
03/26/24 03/27/24 03/28/24
11:22 03:47 05:24
BUN 63 H 70 H 45 H
Creatinine 5.7 H* 5.7 H* 4.5 H*
Estimated Creat Clear 7 7 8
Albumin 3.5 3.2 L 3.1 L
03/29/24
04:01
BUN 59 H
Creatinine 5.1 H*
Estimated Creat Clear 7
Albumin 3.3 L
03/26/24 03/26/24 03/27/24
11:51 20:02 03:47
Lactic Acid 4.5 H* 2.6 H 3.3 H
03/27/24 03/27/24 03/27/24
08:18 12:51 21:28
Lactic Acid 2.4 H 2.9 H 4.0 H*
03/28/24 03/28/24 03/28/24
01:37 05:24 09:30
Lactic Acid 5.3 H* 5.2 H* Cancelled
03/28/24
12:07
Lactic Acid 7.2 H*
Lab Results - Urine
03/28/24
06:00
Urine Nitrite (Reflex) Cancelled
Leukocyte Esterase Rfl Cancelled
Microbiology Results
03/28/24 11:21 Body Fluid Culture - Preliminary
Peritoneal Fluid No Growth After 18-24 Hours
Gram Stain - Preliminary
03/26/24 11:51 Blood Culture - Preliminary
Blood/Venous No Growth in 48 hours- Final report to follow
03/26/24 11:51 Blood Culture - Preliminary
Blood/Venous No Growth in 48 hours- Final report to follow
03/27/24 03:47 MRSA Screen - Final
Nose No Methicillin Resistant Staphylococcus aureus isolated.
Therapeutic Drug Monitoring
Random Vancomycin 14.3 ug/ml 03/29/24 04:01
[2024-03-29] MEDS: NOVOLOG FLEXPEN 5 UNITS SC (08:53)
[2024-03-29] MEDS: NOVOLOG FLEXPEN-MODERATE RESISTANCE 3 UNITS SC ×2 (08:53→14:43)
[2024-03-29] MEDS: PROTONIX 40 MG PO (08:56)
[2024-03-29] MEDS: OCUVITE SOFTGEL 1 CAP PO ×2 (08:56→22:08)
[2024-03-29] MEDS: MAGNESIUM OXIDE 500 MG PO (08:56)
[2024-03-29] MEDS: FEOSOL 325 MG PO (08:56)
[2024-03-29] MEDS: SINGULAIR 10 MG PO (08:57)
[2024-03-29] MEDS: PHOSLO 667 MG PO ×2 (08:57→17:48)
[2024-03-29] MEDS: ProAmatine 10 MG PO ×3 (08:58→17:46)
[2024-03-29] MEDS: ELIQUIS 2.5 MG PO ×2 (09:00→22:07)
[2024-03-29] MEDS: LEVOPHED 258 MG IV ×2 (09:49→17:52)
--- NOTE | 2024-03-29 11:05 | W.PN.VS ---
Addendum entered and electronically signed by Mono Clifford MD 03/29/24 14:34:
Seen and examined earlier this a.m. with OKSANA Wang. Agree with findings as noted below. Patient denies any symptoms in the left hand. Denies any pain in her fingers or hand. Left hand exam findings improved. All fingers were pink, except for
fifth/pinky slightly cyanotic still but improved overall. Excellent dopplerable ulnar signal still. Plan/as discussed and noted below.
Original Note:
Today's Communication / Plan
-
Seen and assessed with Dr. Clifford
Assessment/Plan
-
Assessment: 83 year old female admitted with hypotension and LUE AVF with suspected steal syndrome on vasopressin and Levophed
Plan:
Suspect pressor induced steal syndrome at LUE AVF, markedly improved today on exam. If persists or worsens AVF will need to be ligated and port placement would be required, given improvement in symptoms and present Doppler signal would recommend at
this time continue use of AVF for HD access, if physial exam worsens (cyanosis or pulse exam change) please notify vascular team immediately.
Continue neovascular checks
Subjective Data
-
Date of Service: March 29, 2024
Patient seen at bedside this a.m. with Dr. Clifford. Remains on 2 pressors. Left fingers less dusky this a.m. no events overnight. Paracentesis yesterday
Objective Data
-
Vital Signs
Temp Pulse Resp BP Pulse Ox
98.3 F 61 18 96/50 99
03/29/24 08:29 03/29/24 06:00 03/29/24 06:00 03/29/24 06:00 03/29/24 08:17
Intake and Output
03/28/24 03/29/24 03/30/24
06:59 06:59 06:59
Intake Total 1547.1 / 1591.6 1907.6 / 1948.4 388.4 / 388.4
Balance 1547.1 / 1591.6 1907.6 / 1948.4 388.4 / 388.4
Intake:
Oral fluids 720 / 720 240 / 240
IV fluids (Total) 1267.1 / 1311.6 967.6 / 1008.4 148.4 / 148.4
heparin 96.5 / 102.0 132.0 / 137.5 11.0 / 11.0
levo 954.6 / 984.6 619.6 / 645.9 101.4 / 101.4
vaso 216 / 225 216 / 225 36 / 36
IV piggybacks 100 / 100
Fecal management system 180 / 180 60 / 60
irrigation (mL)
Rectum 180 / 180 60 / 60
Blood Products 160 / 160
Albumin 25% 160 / 160
Lab Results
03/29/24 04:01
03/29/24 04:01
Calcium 8.9 mg/dl (8.4-10.2) 03/29/24 04:01
Phosphorus 8.1 mg/dl (2.5-4.5) H 03/29/24 04:01
Magnesium 2.4 mg/dl (1.6-2.3) H 03/29/24 04:01
Total Bilirubin 2.0 mg/dl (0.2-1.3) H 03/29/24 04:01
AST 39 U/L (14-36) H 03/29/24 04:01
ALT 20 U/L (0-35) 03/29/24 04:01
Alkaline Phosphatase 138 U/L (38-126) H 03/29/24 04:01
Total Protein 6.5 g/dl (6.3-8.2) 03/29/24 04:01
Albumin 3.3 g/dl (3.5-5.0) L 03/29/24 04:01
Physical Exam
-
Oriented to self
No tachycardia
No tachypnea
Abd soft, nontender, flat
left AVF +thrill, left hand cyanotic digits vastly improved from prior exam, now only 5th digit is slightly dusky, hand warm, doppler radial, ulnar
--- NOTE | 2024-03-29 11:52 | W.PN.ID1 ---
Date of Service
Date of Service: March 29, 2024
Today's Communication
Continue antibiotics.
Assessment / Plan
Leukocytosis
Hypotension; remains on 2 pressors
Lactic acidosis
Suspected deep tissue injury (sacral area)
Mitral valve vegetations on anterior leaflet
ESRD�HD
HTN
CHF
DM
Hx cirrhosis
Valvulopathy (/TR)
Recommendations:
Current source of leukocytosis unclear, although may be reactive.
Echocardiogram noted. Patient with suspected anterior mitral valve vegetation. Blood cultures negative thus far.
Paracentesis results noted. Patient fits criteria for SBP.
Continue with pressor therapy to keep MAP >65
Trend lactate
Monitor white count and temperature curve.
Continue with current empiric antibiotics pending further culture data.
Patient remains critically ill on 2 pressor therapy in intensive care unit.
Chief Complaint
-: Leukocytosis
Subjective / Review of Systems
Patient seen and examined. Reports overall feels tired.
Vital Signs / Physical Exam
Vital Signs
Vital Signs
Temp Pulse Resp BP Pulse Ox
98.3 F 61 18 96/50 99
03/29/24 08:29 03/29/24 06:00 03/29/24 06:00 03/29/24 06:00 03/29/24 08:17
Physical Exam
Constitutional: Comfortable, Chronically Ill, Non-toxic and Cachetic
Eyes: Pupils Equal, Pupils Round, No Conjunctival Hemorrhage and Sclera Anicteric
Oropharyngeal: Poor Dention; Negative Thrush
Cardiovascular: S1/S2 and Murmur; Negative S3/S4
Pulmonary: Coarse and Non Labored
Gastrointestinal: Soft and Non Tender
Extremities: Negative Splinter Hemorrhage, Venous Insufficiency or Janeway Lesions
Musculoskeletal: Negative Joint Swelling or Joint Effusion
Neurological: Awake and Alert
Psychological: Calm
Objective Data
Lab Data
Lab Results
03/29/24 04:01
03/29/24 04:01
PT 27.4 Sec (11.4-14.6) H 03/26/24 11:51
INR 2.56 03/26/24 11:51
APTT 84.5 Sec (23.4-35.0) H 03/29/24 04:01
Estimated Creat Clear 7 ml/min 03/29/24 04:01
Lactic Acid 7.2 mmol/L (0.7-2.0) H* 03/28/24 12:07
Total Bilirubin 2.0 mg/dl (0.2-1.3) H 03/29/24 04:01
GGT 164 U/L (12-43) H 03/29/24 04:01
AST 39 U/L (14-36) H 03/29/24 04:01
ALT 20 U/L (0-35) 03/29/24 04:01
Alkaline Phosphatase 138 U/L (38-126) H 03/29/24 04:01
Most recent labs reviewed.
Micro Results:
03/28/24 11:21 Body Fluid Culture - Preliminary
Peritoneal Fluid No Growth After 18-24 Hours
Gram Stain - Preliminary
03/26/24 11:51 Blood Culture - Preliminary
Blood/Venous No Growth in 48 hours- Final report to follow
03/26/24 11:51 Blood Culture - Preliminary
Blood/Venous No Growth in 48 hours- Final report to follow
03/27/24 03:47 MRSA Screen - Final
Nose No Methicillin Resistant Staphylococcus aureus isolated.
03/26/24 11:51 Influenza Types A & B (CL) - Final
Nasal Swab Negative for Influenza A & B, NAAT
Negative results must be combined with clinical observations
and patient history.
Nucleic Acid Amplification test (NAAT)performed on the
[employer] platform.
Imaging:
03/27/2024 ECHO (TTE): Normal RV size and function. A heavily calcified mitral valve is noted with 'probable' anterior leaflet mobile vegetations.
03/27/2024 CT head without contrast: No acute intracranial abnormality noted. There is mild bilateral symmetric prominence of ventricles and extra-axial CSF spaces representing volume loss. Please see full dictation for additional detail.
03/27/2024 Abdominal ultrasound: Limited examination was performed to evaluate for ascites. Moderate volume of ascites is present, with greatest in the left lower quadrant. The liver shows nodular capsular contour consistent with his underlying
cirrhosis.
Care Review
Plan reviewed with: Physician (Critical care; Nephrology)
[2024-03-29 12:07] LABS: Glucose - Point of Care 204 mg/dl (70-99)
--- NOTE | 2024-03-29 12:32 | W.PN.NEPH.HD ---
Assessment
-
Patient seen for dialysis
Systolic blood pressure at 92
Continues with vasopressin support for hypotension
For 2 units of blood on dialysis
Attempting 2kilogram UF but this will be hemodynamically limiting
Progress Note - Hemodialysis
-
Date of Service: March 29, 2024
Duration: 30 minutes and 3 hours
Potassium Bath: 2
Calcium Bath: 2.5
Opti-Dialyzer: 160
Ultrafiltration: Other (Attempt 2 kg as hemodynamically tolerated)
Blood Flow: 400
Dialysate Flow: 600
Heparin: None
EPO: 10,000
--- NOTE | 2024-03-29 12:33 | PTCARENOTE ---
Pt reassessed. Unable to wean Levophed gtt and maintain goal of SBP > 90. Levophed gtt back to 14 mcg/min. Vasopressin continues. Heparin gtt D/C'd and Eliquis restarted. Neurovascular assessments continues Q2H on LUE.
--- NOTE | 2024-03-29 13:09 | W.PN.CD ---
Today's Communication / Plan
-
- Dialysis today
- Wean off pressors as tolerated.
- Will need to repeat ECHO once clinically stable.
Impression / Plan
-
BACKGROUND:83F with HFpEF, paroxysmal atrial fibrillation, mitral regurgitation, mitral stenosis, aortic stenosis, tricuspid regurgitation, hypertension, dyslipidemia, cirrhosis of the liver with scheduled paracentesis, complete heart block status
post Medtronic pacemaker (01/02/2024), type 2 diabetes mellitus requiring insulin, anemia of chronic disease, and ESRD on HD presented with hypotension.
China Painter: Dr. Stoner
PLAN:
Septic shock
-Hypotension requiring pressors.
-Persistent lactic acidosis
-Blood culture with no growth to date
-On Levophed and Vasopressin.
-ECHO 03/27/24: LVEF 55%; low-flow low gradient (peak/mean 49/26 mmHg, BRIANDA 0.7 cm2, SVI 33 mL/m2); Heavily calcified mitral valve with anterior leaflet mobile vegetations. Mild to moderate mitral stenosis (peak/mean 27/8 mmHg). Severe mitral
regurgitation
Mitral valve growth.
-Heavily calcified valve with dense mitral annular calcification and probable mobile growth on anterior leaflet
-Diff include torn chordae with calcification, non infectious fibrous growth and vegetations.
-Blood cultures are negative but clinically behaving septic with leukocytosis with left shift, hypotension and need for pressors.
-Patient is PPM dependent and no obvious infection noted on the PPM leads.
-Serial blood cultures - negative.
-Given the frailty of the patient, conservative management is better.
-If clinically needed for further assessment, CRISTINA can be obtained but probably will provide limited significance.
HFpEF, acute on chronic
-Fluid management with hemodialysis
-Trend daily weight, I/O, and BMP
Valvular heart disease (TTE 03/27/2024)
-Moderate to severe paradoxical low-flow low gradient aortic stenosis (peak/mean 49/26 mmHg, BRIANDA 0.7 cm�, SVI 33 mm/m2)
-Severe mitral regurgitation with systolic flow reversal in the pulmonary veins, mild to moderate mitral stenosis (peak/mean gradient 27/8 mmHg)
-Tricuspid regurgitation, moderate to severe
Abnormal troponin, nonischemic myocardial injury in the setting of severe aortic valve disease, end-stage renal disease on hemodialysis, acute illness, and acute heart failure
-Peak troponin 2.030
-No chest pain
-No plans for ischemic evaluation
Paroxysmal atrial fibrillation
-Sinus rhythm
-Oral Anticoagulation: Apixaban 2.5 mg twice daily (age 83, creatinine >1.5)
-[id number]: score at least 7 (Heart failure, HTN, age 75 or more, Diabetes Mellitus, Vascular disease, female gender)
Hypertension, now hypotension, in the setting of sepsis as above
ESRD on HD
-Nephrology following
Cirrhosis of the liver
-Follows with GI
-Abdomen full, US pending
Complete heart block status post Medtronic pacemaker (01/02/2024)
-EP updated about endocarditis
Type 2 diabetes mellitus requiring insulin, per primary
Anemia of chronic disease
Subjective:
Feeling better today. Denies chest pain. Abd distention
DATA:
Transthoracic echocardiogram, 03/27/2024:
Normal LV size and systolic function. LVEF 55-60%. Mild concentric LV
hypertrophy.
Normal RV size and function.
Heavily calcified mitral valve with anterior leaflet mobile vegetations.
Mild to moderate mitral stenosis (peak/mean 27/8 mmHg).
Severe mitral regurgitation.
Moderate to severe paradoxical low-flow low gradient (peak/mean 49/26 mmHg,
BRIANDA 0.7 cm2, SVI 33 mL/m2).
Moderate to severe TR.
Severe pulmonary hypertension (PASP 71 mmHg).
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
endocarditis. Mitral stenosis is stable. Mitral regurgitation has increased
from mild/moderate to severe. Aortic valve gradients are unchanged, but there
is now a reduced stroke-volume which makes it difficult to determine the
severity (likely moderate to severe). Degree of tricuspid regurgitation has
increased slightly as has PASP (70 mmHg from 60-65 mmHg).
Physical Exam
Vital Signs/Labs
Vital Signs
Temp Pulse Resp BP Pulse Ox
97.7 F 60 23 88/42 98
03/29/24 12:05 03/29/24 13:06 03/29/24 13:06 03/29/24 13:06 03/29/24 13:06
03/28/24 03/29/24 03/30/24
06:59 06:59 06:59
Actual Weight 62.7 kg 57.5 kg
03/29/24 04:01
03/29/24 04:01
PT 27.4 Sec (11.4-14.6) H 03/26/24 11:51
INR 2.56 03/26/24 11:51
APTT 84.5 Sec (23.4-35.0) H 03/29/24 04:01
Magnesium 2.4 mg/dl (1.6-2.3) H 03/29/24 04:01
TSH 2.28 uIU/ml (0.47-4.68) 03/27/24 03:47
LAB Results
03/26/24 03/27/24 03/27/24
21:23 03:47 12:51
Troponin I 1.890 H* 2.030 H* 2.010 H*
Physical Exam
Constitutional: No acute distress and Comfortable
EENT: Anicteric and Moist mucous membranes
Cardiovascular: JVD pressure is normal, Rhythm/rate is irregular and Systolic murmur present
Respiratory: Respiratory effort normal and Crackles Present
GI: Distention present
Neuro/Psych: Alert, Oriented, AO x 3 and Motor deficits absent
Data Reviewed
-
Date of Service: March 29, 2024
Medical Decision Making: Reviewed Test Results, Independent Historian Assessment, Test Interpretation and Review of Case with other Provider
EKG: Tracing Personally Visualized and interpreted
Medical Tests (PFT, Pathology etc): Discussed with Patient
Labs: Labs Reviewed by me
Old Records: Reviewed
Critical Care Time (in minutes): 32
--- NOTE | 2024-03-29 13:37 | CM ---
Addendum entered by Mari Deshpande 03/29/24 16:53:
referral requested for hospice consult. liaison to meet with family at 10:00am
Addendum entered by Mari Deshpande 03/29/24 16:38:
Physician called and updated patient regarding updated clinical information.
Addendum entered by Mari Deshpande 03/29/24 14:36:
Patient dwain Martins will be available today at 4:30pm and will be coming to see patient between 10:30 and 11 tomorrow.
Addendum entered by Mari Deshpande 03/29/24 14:27:
CM left VM for patient dwain Martins about contact/family meeting today at 4:30pm.
Original Note:
Patient seen at bedside with physician. Patient continues in ICU and no family at present. CM will continue to follow for discharge planning needs.
Plan; SNF pending assessments.
[2024-03-29] MEDS: RETACRIT 10000 UNITS IV (14:14)
[2024-03-29] MEDS: MANNITOL 25% 12.5 GRAMS IV (14:15)
[2024-03-29] MEDS: NOVOLOG FLEXPEN SC (14:37)
[2024-03-29] MEDS: PHOSLO PO (14:42)
[2024-03-29] MEDS: NOVOLOG FLEXPEN 8 UNITS SC ×2 (14:42→17:48)
[2024-03-29] MEDS: TESSALON PERLES 200 MG PO ×2 (14:43→22:06)
[2024-03-29] MEDS: NOVOLIN N vial 0.1 UNITS SC (14:50)
[2024-03-29 16:58] LABS: Glucose - Point of Care 143 mg/dl (70-99)
[2024-03-29] MEDS: VANCOCIN HCL 500 MG 100 IV (17:44)
[2024-03-29] MEDS: MAXIPIME 1000 MG IV (17:47)
[2024-03-29] MEDS: STERILE WATER FOR INJECTION 10 ML IV (17:47)
[2024-03-29] MEDS: NOVOLOG FLEXPEN-MODERATE RESISTANCE SC (17:48)
[2024-03-29 17:54] LABS: Glucose - Point of Care 121 mg/dl (70-99)
--- NOTE | 2024-03-29 18:23 | PTCARENOTE ---
Pt underwent HD; 2 units of PRBC's infused during HD. Levophed gtt increased to maintain goal SBP > 90; Levophed gtt increased to 18 mcg/min. Vasopressin gtt continues. Novolog increased to 8 units standing with meal with moderate sliding scale.
Lantus increased to 15 units. Pt with small episode of green brown emesis. Oral care provided. Pt denies nausea.
--- NOTE | 2024-03-29 20:00 | PTCARENOTE ---
rec`d pt at 1900. pt sleeping but arousable to verbal stimuli. pt left pinky narcrotic. lower extremities both mottled. pt is able to move them. left arm fistula +bruit and thrill. rt femoral triple luman with vaso and double concentrated levo.
doppler pulses for left hand. trace extrem edema. RA, coarse BS. FMS, thick brown stool. rectal probe. anuric. scaral foam w/ q2 turns. rt FA IV flushed and patent. call olivares in reach. safe environment maintained.
[2024-03-29 21:55] LABS: Hematocrit 28.1 % (37.0-47.0); Hemoglobin 9.3 g/dL (12.0-16.0); Mean Corp Hgb Conc. 33.1 g/dL (33.0-37.0); Mean Corpuscular Hgb 29.2 pg (27.0-31.0); Mean Corpuscular Volume 88.1 fL (81.0-99.0); Mean Platelet Volume 12.9 fL (7.4-10.4); Platelet Count 71 10^3/uL (130-400); Red Blood Cell Count 3.19 10^6/uL (4.20-5.40); Red Cell Dist. Width 19.2 % (11.5-14.5); White Blood Cell Count 17.3 10^3/uL (4.8-10.8)
[2024-03-29] MEDS: CRESTOR 10 MG PO (22:08)
[2024-03-29] MEDS: LANTUS 0.15 UNITS SC (22:08)
[2024-03-29 22:16] LABS: Glucose - Point of Care 304 mg/dl (70-99)
[2024-03-30] VITALS (12 sets, daily range): BP systolic 94–115; BP diastolic 45–57; BMI 24.0
--- NOTE | 2024-03-30 | PTCARENOTE ---
all IV tubing changed. pt reassessed. no changes in pt assessment. call olivares in reach.
[2024-03-30] MEDS: PITRESSIN 100 IV (00:27)
[2024-03-30] MEDS: LEVOPHED 258 MG IV ×2 (00:27→05:27)
[2024-03-30 05:30] LABS: Hematocrit 27.5 % (37.0-47.0); Hemoglobin 9.2 g/dL (12.0-16.0); Mean Corp Hgb Conc. 33.5 g/dL (33.0-37.0); Mean Corpuscular Hgb 29.5 pg (27.0-31.0); Mean Corpuscular Volume 88.1 fL (81.0-99.0); Mean Platelet Volume 13.2 fL (7.4-10.4); Platelet Count 73 10^3/uL (130-400); Red Blood Cell Count 3.12 10^6/uL (4.20-5.40); Red Cell Dist. Width 19.4 % (11.5-14.5); White Blood Cell Count 16.3 10^3/uL (4.8-10.8)
--- NOTE | 2024-03-30 05:36 | PTCARENOTE ---
pt reassessed. no changes in pt assessment. pt still drowsy but awakens to verbal stimuli. unable to titrate levo down.
[2024-03-30 05:42] LABS: ALT (SGPT) 25 U/L (0-35); AST (SGOT) 60 U/L (14-36); Albumin 3.3 g/dl (3.5-5.0); Alkaline Phosphatase 148 U/L (38-126); Blood Urea Nitrogen 39 mg/dl (7-17); Carbon Dioxide 21 mmol/L (22-30); Chloride 92 mmol/L (98-107); Estimated Creatinine Clearance 8 ml/min; Glucose 82 mg/dl (70-99); Magnesium 2.3 mg/dl (1.6-2.3); Phosphorus 5.9 mg/dl (2.5-4.5); Potassium 4.4 mmol/L (3.5-5.1); Sodium 130 mmol/L (135-145); Total Bilirubin 4.9 mg/dl (0.2-1.3); Total Protein 6.8 g/dl (6.3-8.2); eGFR 10.99
[2024-03-30 07:37] LABS: Erythrocyte Sed Rate 36 mm/hour (0-20)
--- NOTE | 2024-03-30 07:45 | W.PN.HOSP.TC ---
Addendum entered and electronically signed by Arpita Wade MD, Resident 03/30/24 14:46:
Discussed with distribution designer, nursing, Dr. Tucker. Returned to bedside to update family (TahirYasir, Kelli present for discussion). They would like to proceed with inpatient hospice. They had no further questions at this time. Orders placed.
Addendum for CDI: bilateral ischium with stage 1 non blanchable red skin
Original Note:
Today's Communication/Plan
-
Patient's brother Tahir visiting today, interested in meeting with distribution designer. Goals of care discussion ongoing.
Assessment / Plan
Assessment / Plan
83yo F with PMH HFpEF, HTN, ESRD on HD, cirrhosis with ascites, diabetes, valvular disease, afib, who presented to ED 03/26/24 for generalized weakness. Admitted to ICU for hypotension requiring pressor support. On admission, did not meet SIRS
criteria and no obvious source of infection.
Assessment/Plan
#Hypotension requiring pressors, septic shock
#Lactic acidosis
#Leukocytosis
- Unclear shock type on admission- possible septic though does not meet SIRS criteria vs cardiogenic. Sources of infection include endocarditis, SBP. Less likely hypovolemic shock given volume overload on admission.
- Pressor requirements have been increasing --> now on levophed 18 mcg/min and vasopressin 0.03.
- ID and mva still operator following, appreciate recs.
- Currently on cefepime (renally dosed) and Vancomycin (pharmacy dosing)
- Lactate level persistently elevated.
- Blood cultures no growth to date at 72h, final result pending.
- Continue pressor support and antibiotics. Continue trending daily cbc and monitor temperature curve.
- Guarded prognosis, unable to wean pressors. Brother updated on phone yesterday with Dr. Locke. He and his will be arriving to hospital today, interested in meeting with distribution designer. CM and hospice aware. Goals of care discussion
ongoing.
#Endocarditis, mitral valve
- Echocardiogram 03/27/24: LVEF 55%; low-flow low gradient , Heavily calcified mitral valve with anterior leaflet mobile vegetations. Mild to moderate mitral stenosis. Severe mitral regurgitation
- Blood cultures no growth to date at 72h, final result pending.
- ID following, appreciate recs. Antibiotics as above
- Cardiology following, appreciate recs. EP aware given implanted pacemaker
- Elevated troponin, likely nonischemic myocardial injury. No plan for ischemic evaluation.
#Cirrhosis decompensated with ascites
#Spontaneous bacterial peritonitis
- Ultrasound 03/27 moderate ascites, greatest in LLQ
- s/p paracentesis 03/28- drained 5400 cc of clear higinio ascitic fluid; s/p albumin
- PMN count 340, consistent with SBP
-Antibiotics coverage for SBP ongoing
-Ammonia level 21
#Concern for ischemic left hand/fingers
- Likely physiologic steal syndrome related to HD fistula vs emboli form endocarditis
- Vascular consulted. Input appreciated. S/p IV heparin.
- HD access Duplex Ultrasound 03/27-Diminished and reversed flow within the radial artery with no waveforms seen within any digit.
- Improvement in warmth of digits on physical exam except L 5th finger which remains cyanotic. Comfortable.
#Acute on chronic anemia
#Anemia of chronic disease
#Thrombocytopenia
- Hgb 7.9 on admission --> mylene of 6.9 on 03/29 --> 9.2 today
- S/p IV heparin; concern for HIT. Heparin discontinued and eliquis resumed 03/29
- No source of acute blood loss, bleeding, bruising
- S/p pRBC 03/29 with dialysis, followed by appropriate rise in hgb
- Continue to monitor daily cbc
#ESRD on HD
- Continue HD inpatient per nephrology.
- Dialysis limited by hemodynamic instability
#Altered mental status
-Likely combination of encephalopathy versus possible dementia
-Head CT scan- No acute intracranial abnormality.
-Speech eval. P.O. trials of puree, regular solids, and thin liquids provided. Adequate mastication. No overt signs of aspiration.
- Speech eval cleared pt for regular texture diet. Diet changed to mechanical soft per patient preference, though will defer further updates to speech recs.
#Acute hypoxemic respiratory insufficiency likely due to acute CHF exacerbation
- Chest x-ray in ED with pulmonary edema
- Wean O2 as tolerated
- Lead Java Software Engineer following
#Acute on chronic HFpEF
#Moderate mitral stenosis
#Moderate tricuspid regurg
- echocardiogram 03/27/24: LVEF 55%; low-flow low gradient , Heavily calcified mitral valve with anterior leaflet mobile vegetations. Mild to moderate mitral stenosis. Severe mitral regurgitation
-Fluid management with hemodialysis. Cardiology following, appreciate recs
-Sees Dr. tSoner as an outpatient
#Paroxysmal atrial fibrillation
-Sinus rhythm
-Oral Anticoagulation: Apixaban 2.5 mg twice daily
#History of bradyarrhythmia
-Pacemaker in place, rate is paced
#Type 2 Diabetes insulin requiring
-On insulin prior to admission
-Continue basal dose, coverage with SSI
#Hyperlipidemia
-continue home statin
#Stage 1 decubitus ulcer on sacrum (POA)
-Offload pressure points, routine care
-Wound care following
#Likely caloric malnutrition- Nutrition consult when patient is stabilized
#Decreased visual acuity
- Patient reported to family decreased vision in R eye
- Initially thought to be due to emboli from endocarditis vs CVA- however patient now reports this has been a chronic issue, no acute change
- S/p IV heparin. Now continuing home eliquis 2.5 mg BID
- Continue to monitor symptoms. Will defer neurology consult at this time as it is unlikely to change management facilitator. Will consider neurology consult if appropriate
#Chronic cough
- Continue home Robitussin
Code status: DNR
VTE ppx: eliquis 2.5 bid
Diet: low sodium, diabetic, mechanical soft
Dispo planning: TBD
Anticipated Discharge: > 48 hours
Subjective/Interval History
-
Date of Service: March 30, 2024
No acute events overnight. Yesterday her pressor requirement increased during dialysis and was unable to be weaned. She says she is feeling 'pretty good.' She is comfortable. Only complaint this morning is chronic cough and postnasal drip. She says
she only sees a little bit out of her right eye, but it has been like this for a while. Her breathing feels like baseline, no new shortness of breath. She denies lightheadedness, dizziness, chest pain, nausea, vomiting. Tolerating PO diet but takes
long time to chew, she would like to try softer diet. Not ambulatory
Objective Data
-
Labs:
Laboratory Results
03/29/24 03/30/24
21:45 04:53
WBC 17.3 H 16.3 H
Hgb 9.3 L D 9.2 L
Hct 28.1 L 27.5 L
Plt Count 71 L D 73 L
Sodium 130 L
Potassium 4.4
Chloride 92 L
Carbon Dioxide 21 L
BUN 39 H
Creatinine 3.9 H
Glucose 82
Calcium 9.0
Total Bilirubin 4.9 H D
AST 60 H
ALT 25
Alkaline Phosphatase 148 H
Microbiology Results
03/26/24 11:51 Blood/Venous Blood Culture - Preliminary
No Growth in 72 hours- Final report to follow
03/26/24 11:51 Blood/Venous Blood Culture - Preliminary
No Growth in 72 hours- Final report to follow
03/28/24 11:21 Peritoneal Fluid Body Fluid Culture - Preliminary
No Growth After 18-24 Hours
03/28/24 11:21 Peritoneal Fluid Gram Stain - Preliminary
Vital Signs:
Vital Signs
Temp Pulse Resp BP Pulse Ox
97.8 F 63 19 101/52 94
03/29/24 23:28 03/30/24 05:30 03/30/24 05:30 03/30/24 05:30 03/29/24 20:00
I&O
03/29/24 03/30/24 03/31/24
06:59 06:59 06:59
Intake Total 1907.6 / 1948.4 2259.4 / 2259.4
Balance 1907.6 / 8.4 2259.4 / 2259.4
Review of Systems
-
History Source: Patient
All other systems: Not reviewed unless documented
Physical Exam
-
General: No Apparent Distress, Comfortable and Appears Chronically Ill
HEENT: Oxygen (2L NC)
Respiratory: Clear to Auscultation (anterior lung rahman) and Non Labored Respirations
Cardiac: Regular Rhythm, S1/S2 and Murmur (systolic murmur)
GI: Soft, Nontender, Normal Bowel Sounds and Distended
Musculoskeletal: Other (L fistula +bruit, +thrill; radial pulses intact bilaterally)
Skin: Warm (L 5th digit cyanotic), Dry and IV Access / Catheter Site (femoral catheter)
Neuro: Awake and Alert
Psych: Calm and Apparent Dementia
Data Reviewed
-
Diagnostic Radiology: Image personally visualized and interpreted, Report Reviewed by me and Discussed with Physician
CT Scan: Image personally visualized and interpreted, Report Reviewed by me and Discussed with Physician
Ultrasound: Image personally visualized and interpreted, Report Reviewed by me and Discussed with Physician
Medical Tests (Nuc Med, Echo etc): Report Reviewed by me
Labs: Labs Reviewed by me and Discussed with Physician
[2024-03-30] MEDS: NOVOLOG FLEXPEN-MODERATE RESISTANCE SC (08:10)
[2024-03-30] MEDS: OCUVITE SOFTGEL 1 CAP PO (08:11)
[2024-03-30] MEDS: PROTONIX 40 MG PO (08:11)
[2024-03-30] MEDS: ELIQUIS 2.5 MG PO (08:11)
[2024-03-30] MEDS: ProAmatine 10 MG PO (08:11)
[2024-03-30] MEDS: ROBITUSSIN 100 MG PO (08:11)
[2024-03-30] MEDS: FEOSOL 325 MG PO (08:11)
[2024-03-30] MEDS: PHOSLO 667 MG PO (08:11)
[2024-03-30] MEDS: SINGULAIR 10 MG PO (08:11)
[2024-03-30] MEDS: TESSALON PERLES 200 MG PO (08:11)
[2024-03-30] MEDS: MAGNESIUM OXIDE 500 MG PO (08:11)
[2024-03-30] MEDS: NOVOLOG FLEXPEN 8 UNITS SC (08:18)
[2024-03-30 08:19] LABS: Glucose - Point of Care 85 mg/dl (70-99)
--- NOTE | 2024-03-30 08:31 | W.PN.INTV ---
Today's Communication / Plan
Recommendations
Patient is being transitioned to hospice/comfort care
Stop all medications unless tailored for comfort
Emotional support provided to the family
No additional recommendations at this time. Entry Processor/Pulmonary service will now sign off. Please call back with any questions or concerns.
Assessment
-
Assessment: 83-year-old female with PMHx of cardiac cirrhosis, ESRD on HD MWF, recurrent ascites requiring paracentesis, chronic HFpEF, CAD, anemia, aortic stenosis and a-fib on Eliquis who presents with weakness and fall, found to be hypotensive
in the ER with BP: 75/48, and was afebrile, CT: 64, RR: 20, and SpO2 89% on RA. She was placed onto 2L/min with sats improving to 100%. Labs showed leukocytosis with WBC 12.8, Hb 7.9, INR 2.56, K: 5.5, Cr: 5.7, lactate 4.5, T. bili: 1.4, troponin
1.89, and covid-19 antigen negative. Blood cultures collected, and CXR shows concern for pulmonary edema with small R-sided pleural effusion. In the ER she was given ABx with cefepime/vanco, and IVF with NS 0.9% with 250cc bolus, and levophed
started due to hypotension with SBP in 70s. 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
Impression:
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
#Acute respiratory failure with hypoxia likely due to pulmonary edema; unable to rule out possible RLL PNA
#Lactic acidosis - worsening
#Valvular heart disease with mild�moderate MS, severe MR, and moderate�severe paradoxical low-flow, low gradient aortic stenosis with moderate�severe TR and severe PH (per TTE from 03/27/2024)
#Transaminitis with hyperbilirubinemia
#Elevated troponin - peaked at 2.03 on 03/27/2024
#Hyponatremia
#Elevated INR, likely related to cirrhosis in setting of Eliquis use
#ESRD on HD M/W/
#Decompensated cirrhosis, suspected to be cardiac in etiology
#Acute on chronic anemia (Hb baseline 8-9.5)
#DM type II on insulin
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
Plan:
- Discussion held this morning and patient is being transitioned to comfort care
- Stop all medications unless tailored for comfort
- Recommend using Dilaudid versus fentanyl for air hunger as morphine is not best option given her ESRD
- Continue/start anxiolytics for agitation/anxiety
- prn glycopyrrolate for excessive oral secretions
- Emotional support was provided to the family
- Cleaner services offered
Patient is being transitioned to comfort care/hospice. No additional recommendations at this time. Entry Processor/Pulmonary service will now sign off. Thank you for allowing us to be involved in the care of this patient. Please call back with any
questions or concerns.
Total time spent today was 42 minutes for this encounter. Time includes reviewing laboratory test/imaging results, reviewing pertinent medical records, obtaining and reviewing medical history, performing an appropriate exam, ordering medications,
tests and procedures. Time also includes documentation of this encounter, coordinating patient care and communicating with other healthcare professionals. Total time does not include separately billed tests performed on this date of service.
Data:
Transthoracic echocardiogram 03/27/2024:
Normal LV size and systolic function. LVEF 55-60%. Mild concentric LV
hypertrophy.
Normal RV size and function.
Heavily calcified mitral valve with anterior leaflet mobile vegetations.
Mild to moderate mitral stenosis (peak/mean 27/8 mmHg).
Severe mitral regurgitation.
Moderate to severe paradoxical low-flow low gradient (peak/mean 49/26 mmHg,
BRIANDA 0.7 cm2, SVI 33 mL/m2).
Moderate to severe TR.
Severe pulmonary hypertension (PASP 71 mmHg).
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
endocarditis. Mitral stenosis is stable. Mitral regurgitation has increased
from mild/moderate to severe. Aortic valve gradients are unchanged, but there
is now a reduced stroke-volume which makes it difficult to determine the
severity (likely moderate to severe). Degree of tricuspid regurgitation has
increased slightly as has PASP (70 mmHg from 60-65 mmHg).
Hemodialysis graft ultrasound 03/27/2024:
Patent arteriovenous fistula. Persistent velocity elevation at the arterial anastomosis, currently measuring 545 cm/s, previously 440 cm/s.
Diminished and reversed flow within the radial artery with no waveforms seen within any digit. Findings are concerning for steal syndrome.
Subjective Dataa
Subjective Data
Date of Service:
Date of Service: March 30, 2024
Chief Complaint: Entry Processor Follow Up
Subjective:
Patient was seen and evaluated today at bedside. Heart rate 60, BP 85/46 and saturating 95% on 2.5 L/min nasal cannula. Conversation held between family this morning and they want to transition to comfort care/hospice. Patient appears comfortable
currently and is in no acute distress.
Review of Systems
General: Other (Unable to obtain given patient's acute clinical status/somnolence/confusion)
Objective Data
Data Reviewed
Vital Signs / I&O / Oxygen:
Vital Signs
Temp Pulse Resp BP Pulse Ox
97.8 F 63 19 101/52 94
03/29/24 23:28 03/30/24 05:30 03/30/24 05:30 03/30/24 05:30 03/29/24 20:00
Intake and Output
03/29/24 03/30/24 03/31/24
06:59 06:59 06:59
Intake Total 1907.6 / 1948.4 2259.4 / 2259.4
Balance 1907.6 / 1948.4 2259.4 / 2259.4
SaO2 94
Nasal Cannula flow liters per 5
minute
Physical Exam
General: Respiratory Distress (negative), Comfortable, Chills (negative) and Sweats (negative)
HEENT: Normocephalic and Anicteric
Cardiovascular: Murmur (NANCY heard across precordium from LUSB to left fifth intercostal space), Peripheral Edema (negative) and Other (Normal heart rate)
Respiratory: Wheeze (negative), Crackles (Bibasilar), Rhonchi (negative) and Non-Labored Respirations
GI: Soft, Non Distended, Non Tender and Normal Bowel Sounds
Neurology: Lethargic and Other (Confused)
Skin: Warm, Dry, Other (Dusky left fingers + bilateral toes) and Other (LUE aVF)
Labs/Micro/Reports
Lab Data
03/30/24 04:53
03/30/24 04:53
Microbiology
03/28/24 11:21 Peritoneal Fluid Body Fluid Culture - Preliminary
No Growth After 48 Hours
03/28/24 11:21 Peritoneal Fluid Gram Stain - Preliminary
03/26/24 11:51 Blood/Venous Blood Culture - Preliminary
No Growth in 72 hours- Final report to follow
03/26/24 11:51 Blood/Venous Blood Culture - Preliminary
No Growth in 72 hours- Final report to follow
03/27/24 03:47 Nose MRSA Screen - Final
No Methicillin Resistant Staphylococcus aureus isolated.
--- NOTE | 2024-03-30 09:29 | CM ---
Patient seen at bedside. Patient resting comfortably. Patient family coming at 10am to meet with operations liaison. CM will continue to follow for discharge planning needs.
Plan; pending Hospice meeting
--- NOTE | 2024-03-30 09:43 | HOSPNOTE ---
Family meeting at 10am, more information to follow.
--- NOTE | 2024-03-30 10:18 | W.PN.CD ---
Today's Communication / Plan
-
continue current medications
Impression / Plan
-
BACKGROUND:83F with HFpEF, paroxysmal atrial fibrillation, mitral regurgitation, mitral stenosis, aortic stenosis, tricuspid regurgitation, hypertension, dyslipidemia, cirrhosis of the liver with scheduled paracentesis, complete heart block status
post Medtronic pacemaker (01/02/2024), type 2 diabetes mellitus requiring insulin, anemia of chronic disease, and ESRD on HD presented with hypotension.
Insurance Verification Clerk: Dr. Stoner
PLAN:
Septic shock
-Hypotension requiring pressors--still on vasopressin and levo at 33
-Persistent lactic acidosis
-Blood culture with no growth to date
-On Levophed and Vasopressin.
-ECHO 03/27/24: LVEF 55%; low-flow low gradient (peak/mean 49/26 mmHg, BRIANDA 0.7 cm2, SVI 33 mL/m2); Heavily calcified mitral valve with anterior leaflet mobile vegetations. Mild to moderate mitral stenosis (peak/mean 27/8 mmHg). Severe mitral
regurgitation
Mitral valve growth.
-Heavily calcified valve with dense mitral annular calcification and probable mobile growth on anterior leaflet
-Diff include torn chordae with calcification, non infectious fibrous growth and vegetations.
-Blood cultures are negative but clinically behaving septic with leukocytosis with left shift, hypotension and need for pressors.
-Patient is PPM dependent and no obvious infection noted on the PPM leads.
-Serial blood cultures - negative.
-Given the frailty of the patient, conservative management is better.
-If clinically needed for further assessment, CRISTINA can be obtained but probably will provide limited significance.
HFpEF, acute on chronic
-Fluid management with hemodialysis
-Trend daily weight, I/O, and BMP
Valvular heart disease (TTE 03/27/2024)
-Moderate to severe paradoxical low-flow low gradient aortic stenosis (peak/mean 49/26 mmHg, BRIANDA 0.7 cm�, SVI 33 mm/m2)
-Severe mitral regurgitation with systolic flow reversal in the pulmonary veins, mild to moderate mitral stenosis (peak/mean gradient 27/8 mmHg)
-Tricuspid regurgitation, moderate to severe
Abnormal troponin, nonischemic myocardial injury in the setting of severe aortic valve disease, end-stage renal disease on hemodialysis, acute illness, and acute heart failure
-Peak troponin 2.030
-No chest pain
-No plans for ischemic evaluation
Paroxysmal atrial fibrillation
-Sinus rhythm
-Oral Anticoagulation: Apixaban 2.5 mg twice daily (age 83, creatinine >1.5)
-[id number]: score at least 7 (Heart failure, HTN, age 75 or more, Diabetes Mellitus, Vascular disease, female gender)
Hypertension, now hypotension, in the setting of sepsis as above
ESRD on HD
-Nephrology following
Cirrhosis of the liver
-Follows with GI
-Abdomen full, US pending
Complete heart block status post Medtronic pacemaker (01/02/2024)
-EP updated about endocarditis
Type 2 diabetes mellitus requiring insulin, per primary
Anemia of chronic disease
Subjective:
Feeling better today. Denies chest pain. Abd distention
DATA:
Transthoracic echocardiogram, 03/27/2024:
Normal LV size and systolic function. LVEF 55-60%. Mild concentric LV
hypertrophy.
Normal RV size and function.
Heavily calcified mitral valve with anterior leaflet mobile vegetations.
Mild to moderate mitral stenosis (peak/mean 27/8 mmHg).
Severe mitral regurgitation.
Moderate to severe paradoxical low-flow low gradient (peak/mean 49/26 mmHg,
BRIANDA 0.7 cm2, SVI 33 mL/m2).
Moderate to severe TR.
Severe pulmonary hypertension (PASP 71 mmHg).
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
endocarditis. Mitral stenosis is stable. Mitral regurgitation has increased
from mild/moderate to severe. Aortic valve gradients are unchanged, but there
is now a reduced stroke-volume which makes it difficult to determine the
severity (likely moderate to severe). Degree of tricuspid regurgitation has
increased slightly as has PASP (70 mmHg from 60-65 mmHg).
Physical Exam
Vital Signs/Labs
Vital Signs
Temp Pulse Resp BP Pulse Ox
97.8 F 63 19 101/52 94
03/29/24 23:28 03/30/24 05:30 03/30/24 05:30 03/30/24 05:30 03/29/24 20:00
03/29/24 03/30/24 03/31/24
06:59 06:59 06:59
Actual Weight 57.5 kg 57.7 kg
03/30/24 04:53
03/30/24 04:53
PT 27.4 Sec (11.4-14.6) H 03/26/24 11:51
INR 2.56 03/26/24 11:51
APTT 84.5 Sec (23.4-35.0) H 03/29/24 04:01
Magnesium 2.3 mg/dl (1.6-2.3) 03/30/24 04:53
TSH 2.28 uIU/ml (0.47-4.68) 03/27/24 03:47
LAB Results
03/27/24
12:51
Troponin I 2.010 H*
Physical Exam
Constitutional: No acute distress
Cardiovascular: Rhythm & rate is regular and Systolic murmur present
Respiratory: Respiratory effort normal, Lungs clear to auscul., Wheeze Absent, Crackles Absent and Rhonchi Absent
Neuro/Psych: AO x 3
Data Reviewed
-
Date of Service: March 30, 2024
Medical Decision Making: Review of Case with other Provider (Dr Tucker, no new cardiology reccs)
EKG: Other
--- NOTE | 2024-03-30 10:27 | W.PN.NEPH.PH ---
Today's Communication / Plan
-
HD tomorrow
Assessment/Plan
-
Assessment:
Hypotension-?septic shock
Acute on chr DCHF
mild hyperkalemia
mild met acidosis/ L acidosis
ESRD-from 12/2022 MWF HD at [facility]
LUE AVF
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
h/o Ascites and paracentesis monthly
History DCHF
Type 2 diabetes
Primary hypertension
Likely history of coronary artery disease
History of heart valve problem
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
Severe pulmonary hypertension
Mild to moderate aortic stenosis
Moderate TR
Chronic thrombocytopenia
HLD
Heart valve vegetations
Plan:
A/w hypotension, gen weakness
cx are neg, abx per ID
HD tomorrow, off schedule this week
minimize IVF , concentrate gtts,maintain MAP >60 with pressor support
echo report reviewed: Normal LV function normal RV function heavily calcified mitral valve anterior leaflet mobile vegetation
Monitoring left access hand for steal exacerbated by pressor support ( vascular note reviewed): duplex notes patency of AVF
poor prognosis
Patient critically ill on pressor support
31 minutes critical care time spent with patient
-
-
Date of Service: March 30, 2024
CC / HPI / ROS
-
Chief Complaint:
ESRD
History of Present Illness:
hb better at 9.2, on 2 pressors
MWF ESRD-out pt
Status post paracentesis for 5.1 liters 03/28
Review of Systems:
no fever, no cp
no abd pain,
hungry and wants to eat
Labs
-
Labs:
WBC 16.3 10^3/uL (4.8-10.8) H 03/30/24 04:53
RBC 3.12 10^6/uL (4.20-5.40) L 03/30/24 04:53
Hgb 9.2 g/dL (12.0-16.0) L 03/30/24 04:53
Hct 27.5 % (37.0-47.0) L 03/30/24 04:53
Plt Count 73 10^3/uL (130-400) L 03/30/24 04:53
Sodium 130 mmol/L (135-145) L 03/30/24 04:53
Potassium 4.4 mmol/L (3.5-5.1) 03/30/24 04:53
Chloride 92 mmol/L (98-107) L 03/30/24 04:53
Carbon Dioxide 21 mmol/L (22-30) L 03/30/24 04:53
BUN 39 mg/dl (7-17) H 03/30/24 04:53
Creatinine 3.9 mg/dL (0.6-1.0) H 03/30/24 04:53
eGFR 10.99 03/30/24 04:53
Glucose 82 mg/dl (70-99) 03/30/24 04:53
Calcium 9.0 mg/dl (8.4-10.2) 03/30/24 04:53
Phosphorus 5.9 mg/dl (2.5-4.5) H 03/30/24 04:53
Albumin 3.3 g/dl (3.5-5.0) L 03/30/24 04:53
Physical Exam
-
Vital Signs:
Vital Signs
Temp Pulse Resp BP Pulse Ox
97.8 F 63 19 101/52 94
03/29/24 23:28 03/30/24 05:30 03/30/24 05:30 03/30/24 05:30 03/29/24 20:00
Cardiovascular:: Regular rate and rhythm (murmur)
Respiratory:: Bilateral: CTA (anteriorly)
Lung Excursion:: Abnormal
Abdomen:: Distended, Nontender and Soft
Extremity Edema:: +1: Bilateral:
Gross Catheter: No
Other Findings::
left UE cyanosis of digits noted, capillary refill worse on little finger
--- NOTE | 2024-03-30 10:35 | PN.CDI ---
CDI
- -
CDI:
Physician Documentation Request
Admit Date: 03/26/24 16:46
Dear Doctor Sheri,
Patient admitted for sepsis.
03/28 Wound Care Note: 'B/L ischium with stage 1 non blanchable red skin.'
Physician documentation of the type and location of wounds is required for compliant documentation. Based on the above clinical findings and your assessment, please provide the following in your progress note:
1. Location of the ulcer/wound, including laterality.
2. Type (etiology) of ulcer/wound:
- Diabetic ulcer
- Arterial (ischemic) ulcer
- Traumatic wound
- Venous stasis ulcer
- Pressure (decubitus) ulcer
- Non-healing surgical wound
- Other
- Unable to determine
3. For a non-pressure ulcer, please indicate the depth/severity:
- Limited to the breakdown of skin
- With fat layer exposed
- With necrosis of muscle
- With necrosis of bone
- Other
- Unable to determine
4. If a pressure ulcer, please also include the stage* of the ulcer:
- Stage 1 - Skin intact, non-blanchable redness
- Stage 2 - Partial thickness loss of dermis, includes intact or open blister
- Stage 3 - Full thickness tissue not including bone, tendon or muscle
- Stage 4 - Full thickness tissue loss, including exposed bone, tendon or muscle
- Unstageable - Full thickness loss in which the base of the ulcer is covered by slough (yellow, gil, arroyo, green or brown) and/or eschar (gil, brown or black) in the wound bed.
- Unable to determine
Use of terms such as suspected, likely, concern for, or probable (associated with a specific diagnosis that is being evaluated, monitored, or treated as if it exists) are acceptable and can be coded in the inpatient setting, when documented at the
time of discharge.
Thank you,
Concepcion Andres RN, BSN
CDI Specialist
Available via [place] text
Please use your independent medical judgment in providing your response.
*Source: National Pressure Ulcer Advisory Panel (NPUAP)
--- NOTE | 2024-03-30 10:46 | W.PN.UPDATE ---
Addendum entered and electronically signed by Eric Tucker MD 03/30/24 11:12:
B/L ischium with stage 1 non blanchable red skin
Original Note:
Update Note
Progress Note Update
I saw and evaluated the patient. I reviewed the resident�s note and agree with findings and plan as documented in the resident�s note.
Patient denies acute complaints. States she feels 'better.'
Gen: NAD, Awake and alert, appears chronically ill
Eyes: EOMI, no scleral icterus.
Neck: supple.
CV: RRR, +S1/S2, 3/6 NANCY
Resp: CTAB anteriorly, no rales, wheezes, or rhonchi.
Abd: +BS, soft, NT, mod distention with ascites
Skin: No rashes.
Neuro: CN 2-12 intact, non-focal.
Psych: Normal mood and affect.
Shock:
-pt did meet SIRS criteria on admission with RR 20 and leukocytosis
-requiring vasopressors, currently on midodrine/vasopressin/levophed
-etiology of shock remains unclear but most likely a component of culture-negative septic shock. Patient has mitral valve lesions and culture-negative endocarditis could be the etiology of septic shock. Likely also component of cardiogenic shock
due to acute on chronic HFpEF.
-currently on Vanco/Cefepime
-cards/ID/renal following
-pt and family have decided to transition to inpt hospice
Other problems:
ESRD on HD
Leukocytosis
Cirrhosis, decompensated with Ascites: s/p paracentesis for 5400cc on 03/28/24
Altered mental status: likely combination of acute metabolic encephalopathy due to septic shock and possible dementia
Acute Hypoxemic respiratory insufficiency, likely due to acute CHF exacerbation
Concern for ischemic left hand/fingers due to possible steal syndrome to left hand as per vascular
Thrombocytopenia, worsening: HIT panel pending, was on Heparin, now on Eliquis
History of arrhythmia, unknown type: Pacemaker placed December 2023, rhythm is paced
DM2: cont basal/bolus insulin
Hyperlipidemia: continue home statin
Stage 1 decubitus ulcer on sacrum (POA): wound care
Severe protein calorie malnutrition
As above, patient and family have decided to transition to inpatient hospice which will occur today. Discussed with director hospice operations.
Total time spent on today's encounter was 50 minutes which included time spent in counseling the patient/family regarding diagnosis and treatment plan as listed above, goals of care, and symptom management. Case was discussed with nursing staff,
specialists, and care coordinators/case management. All labs and imaging personally reviewed by me. Remainder the time spent in detailed review of previous records, lab data, imaging, and other medical provider documentation.
--- NOTE | 2024-03-30 10:49 | W.PN.UPDATE ---
Update Note
Progress Note Update
Patient being transitioned to hospice care. Dr. Tucker aware. Emotional support provided to the family.
--- NOTE | 2024-03-30 11:02 | W.PN.UPDATE ---
Update Note
Progress Note Update
Chart reviewed. Case discussed with Critical Care.
Patient now hospice level care.
Will discontinue further antibiotics.
Little more to offer from a Infectious Diseases standpoint. Will sign off. Please call with any questions.
--- NOTE | 2024-03-30 11:18 | CM ---
Patient now for [facility] hospice per clinical rn liaison. CM will continue to follow for discharge planning needs.
Plan; [facility]
--- NOTE | 2024-03-30 11:58 | PTOTSP ---
Speech Therapy Follow-up
RN reported MD downgraded pt's diet to soft and bite sized solids and that pt is going on hospice. Pt's family reported no difficulty with breakfast this morning. At bedside, pt's oropharyngeal swallow function appears WFL. Pt appears to be
tolerating recommended diet level. STONE ROUGHER to sign off
Recommend:
1. Continue IDDSI 6 (soft and bite sized) solids/thin liquids, per MD discretion
2. General aspiration precautions
3. Meds as tolerated
4. No further ST indicated. STONE ROUGHER to sign off
--- NOTE | 2024-03-30 12:44 | HOSPNOTE ---
Spoke at length with family and patient and all in agreement with hospice and the philosophy. Will admit to [facility]. Attending and case management aware.
--- NOTE | 2024-03-30 13:12 | W.DCSUMMARY ---
Addendum entered and electronically signed by Eric Tucker MD 03/30/24 13:38:
Read, reviewed, and agree. See same day progress note for additional details.
Original Note:
Discharge Summary
Discharge Data
Date of Admission: 03/26/24
Date of Discharge: 03/30/24
-
Pending Results: Yes
Additional Pending Results:
Blood cultures 03/26/24 Preliminary: No growth in 4 days- Final report to follow.
Peritoneal fluid culture 03/28/24 Preliminary: No growth after 48 hours
Hospital Course
Discharging Physician : Dr. Wade, Dr. Tucker
Disposition : Inpatient Hospice
Primary care physician : Unknown
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
ischemic left hand/fingers, stage 1 decubitus ulcer present on admission, lactic acidosis
Chronic Discharge diagnosis : Cirrhosis decompensated with ascites, end stage renal disease on hemodialysis, arrhythmia, diabetes type 2, hyperlipidemia, thrombocytopenia, severe protein calorie malnutrition
Hospital Course : Patient presented on 03/26/24 via EMS for generalized weakness and hypotension. In the ED she received IV fluid resuscitation, had blood cultures drawn, started on levophed for BP support, and started on empiric antibiotics. Chest
xray showed evidence of pulmonary edema, and as such her fluid resuscitation was conservative. She was admitted to ICU. Nephrology, pet care technician, cardiology, infectious diseases, vascular surgery, and interventional radiology were consulted this
hospitalization. She received an echocardiogram, abdominal ultrasound, head CT, vascular ultrasound, and paracentesis. Hemodialysis was continued throughout hospitalization. She remained on broad spectrum antibiotics and BP support. Though she felt
better, she had increasing pressor requirements and was unable to be weaned from BP medications. Family including POA brother Tahir decided to transition to hospice care on 03/30/24.
Important imaging findings :
Chest xray 03/26/24
IMPRESSION:
Pulmonary edema with small right pleural effusion, slightly increased from prior.
CONCLUSIONS
Normal LV size and systolic function. LVEF 55-60%. Mild concentric LV
hypertrophy.
Normal RV size and function.
Heavily calcified mitral valve with anterior leaflet mobile vegetations.
Mild to moderate mitral stenosis (peak/mean 27/8 mmHg).
Severe mitral regurgitation.
Moderate to severe paradoxical low-flow low gradient (peak/mean 49/26 mmHg,
BRIANDA 0.7 cm2, SVI 33 mL/m2).
Moderate to severe TR.
Severe pulmonary hypertension (PASP 71 mmHg).
Abd US 03/27/24
FINDINGS/IMPRESSION: Limited examination was performed to evaluate for ascites. Moderate volume of ascites is present, greatest in the left lower quadrant. Limited images of the liver show nodular capsular contour consistent with cirrhosis.
Head CT 03/27/24
FINDINGS:
There is mild bilaterally symmetric prominence of ventricles and extra-axial CSF spaces representing volume loss. There are bilateral white matter hypodensities which are nonspecific, but most likely related to chronic small vessel ischemic disease.
There is no acute bleed, mass effect, or midline shift. There is incidental small rounded calcification along the left tentorium which was present prior. The posterior fossa structures are within normal limits. No acute loss of arroyo-white
differentiation is identified. There is no skull fracture. There is incidental hyperostosis frontalis interna.
IMPRESSION: No acute intracranial abnormality.
Hemodialysis access duplex US LUE 03/27/24
IMPRESSION:
Patent arteriovenous fistula. Persistent velocity elevation at the arterial anastomosis, currently measuring 545 cm/s, previously 440 cm/s.
Diminished and reversed flow within the radial artery with no waveforms seen within any digit. Findings are concerning for steal syndrome.
Procedure findings :
Echocardiogram 03/27/24
CONCLUSIONS
Normal LV size and systolic function. LVEF 55-60%. Mild concentric LV
hypertrophy.
Normal RV size and function.
Heavily calcified mitral valve with anterior leaflet mobile vegetations.
Mild to moderate mitral stenosis (peak/mean 27/8 mmHg).
Severe mitral regurgitation.
Moderate to severe paradoxical low-flow low gradient (peak/mean 49/26 mmHg,
BRIANDA 0.7 cm2, SVI 33 mL/m2).
Moderate to severe TR.
Severe pulmonary hypertension (PASP 71 mmHg).
Paracentesis 03/28/24
FINDINGS: 5400 cc of clear higinio ascitic fluid was evacuated. Samples sent for analysis as requested.
IMPRESSION: Successful ultrasound guided diagnostic and therapeutic paracentesis.
Discharge Plan
-
Patient Disposition: Hospice - Inpatient [facility]
Discharge Orders:
Discharge Patient (As Directed); Ordered 03/30/24
Ordered By: Eric Tucker
Discharge Date and Time
Discharge Date/Time: 03/30/24 12:23
Print Language: FRENCH
--- NOTE | 2024-03-30 14:34 | PTCARENOTE ---
Pt discharged for Hospice admission. Right femoral central line removed. Report called to Jai.
== END 2024-03-30 12:23 | disposition hospice, inpatient (51) | DRG 871 ==
LOC: ICU 16:46
PROVIDERS: Emergency Medicine; Nurse Practitioner Acute Care; Nurse Practitioner Family; Student in an Organized Health Care Education/Training Program; ADMITTING PHYSICIAN Internal Medicine; ATTENDING PHYSICIAN Internal Medicine; CONSULT PHYSICIAN Internal Medicine; CONSULT PHYSICIAN Internal Medicine Critical Care Medicine; CONSULT PHYSICIAN Student in an Organized Health Care Education/Training Program; EMERGENCY PHYSICIAN Student in an Organized Health Care Education/Training Program; FAMILY PHYSICIAN Physician Assistant; OTHER PHYSICIAN Internal Medicine Infectious Disease; OTHER PHYSICIAN Surgery Vascular Surgery
PROC: 5A1D70Z Performance of Urinary Filtration, Intermittent, Less than 6 Hours Per Day (ICD-10-PCS; 2024-03-27)
DX: A41.9 Sepsis, unspecified organism (principal); E43 Unspecified severe protein-calorie malnutrition; G93.41 Metabolic encephalopathy; I50.33 Acute on chronic diastolic (congestive) heart failure; R65.21 Severe sepsis with septic shock; N18.6 End stage renal disease; K65.2 Spontaneous bacterial peritonitis; J96.01 Acute respiratory failure with hypoxia; E87.20 Acidosis, unspecified; E87.1 Hypo-osmolality and hyponatremia; I13.2 Hypertensive heart and chronic kidney disease with heart failure and with stage 5 chronic kidney disease, or end stage renal disease; I44.2 Atrioventricular block, complete; I5A Non-ischemic myocardial injury (non-traumatic); R18.8 Other ascites; I27.20 Pulmonary hypertension, unspecified; K76.1 Chronic passive congestion of liver; D63.1 Anemia in chronic kidney disease; D69.6 Thrombocytopenia, unspecified; Z99.2 Dependence on renal dialysis; E11.22 Type 2 diabetes mellitus with diabetic chronic kidney disease; E11.51 Type 2 diabetes mellitus with diabetic peripheral angiopathy without gangrene; I08.3 Combined rheumatic disorders of mitral, aortic and tricuspid valves; L89.211 Pressure ulcer of right hip, stage 1; L89.221 Pressure ulcer of left hip, stage 1; L89.151 Pressure ulcer of sacral region, stage 1; E87.5 Hyperkalemia; E78.00 Pure hypercholesterolemia, unspecified; I25.10 Atherosclerotic heart disease of native coronary artery without angina pectoris; I48.0 Paroxysmal atrial fibrillation; M85.80 Other specified disorders of bone density and structure, unspecified site; R79.1 Abnormal coagulation profile; Z68.24 Body mass index [BMI] 24.0-24.9, adult; Z95.0 Presence of cardiac pacemaker; Z79.01 Long term (current) use of anticoagulants; Z79.4 Long term (current) use of insulin; Z79.899 Other long term (current) drug therapy; Z86.711 Personal history of pulmonary embolism; Z82.49 Family history of ischemic heart disease and other diseases of the circulatory system
CPT/HCPCS: 36556; 49083; 70450; 71045; 76705; 80053; 80202; 82042; 82140; 82150; 82533; 82962; 82977; 83605; 83615; 83735; 84100; 84157; 84443; 84484; 85025; 85027; 85610; 85652; 85730; 86022; 86140; 86850; 86900; 86901; 86920; 87015; 87040; 87070; 87205; 87502; 87811; 89051; 92526; 92610; 93005; 93306; 93990; 96365; 96375; 97163; 97167; 99291; G0257; P9016; P9047; Q5106

== ENCOUNTER 2024-03-30 12:24 | Inpatient (IN) | payer OTHER, SELFPAY ==
--- NOTE | 2024-03-30 13:23 | PTCARENOTE ---
Pt punching and hitting staff as they get close. Attempting to exit bed. Unable to orient. Precedex titrated as ordered.
--- NOTE | 2024-03-30 13:32 | CM ---
Patient previously from [place] and now [facility] hospice with RICHAR. Patient primary contact is brother Eliezer. Plan is for transfer to [facility] for hospice. CM will continue to follow for discharge planning needs.
Plan; [facility] hospice
[2024-03-30 15:56] VITALS: BP 84/41
--- NOTE | 2024-03-30 16:20 | PTCARENOTE ---
pt arrived from ICU with 2 RN. skin assessed. drowsy will arouse to verbal for a few moments, placed static overlay and 2 additional foams. AV fistula covered, pressure dressing to left groin CDI. mouth care provided, placed in LLL. HOB >30 degree,
call olivares in reach.
[2024-03-30] MEDS: MORPHINE SULFATE 2 MG IV (18:40)
[2024-03-30 19:05] VITALS: BP 85/65
--- NOTE | 2024-03-30 21:43 | HOSPNOTE ---
Patient admitted [facility] level of hospice care. Patient meets [facility] level of care for the management of pain and shortness of breath with IVP Morphine. Patients brother Eliezer was present for admission. Hospice will visit daily. Emotional support
provided.
[2024-03-31] MEDS: MORPHINE SULFATE 2 MG IV (03:22)
--- NOTE | 2024-03-31 07:40 | PTCARENOTE ---
Upon rounding this am pt found to be unresponsive. Doctor made aware to pronounce. No breath sounds noted or pulse. Pt was on hospice. Hospice nurse made aware this am. Will cont to be available to family to provide support.
--- NOTE | 2024-03-31 07:58 | W.PN.DEATH ---
Addendum entered and electronically signed by Eric Tucker MD 03/31/24 09:07:
I saw and evaluated the patient. I reviewed the resident�s note and agree with findings and plan as documented in the resident�s note.
No spontaneous heart tones or respirations noted.
Patient not responsive to verbal stimuli.
Original Note:
Pronouncement of
-
Called to see patient to pronounce.
No spontaneous heart tones or respirations noted.
Patient not responsive to verbal stimuli.
Patient is pronounced .
Time of : 07:41
Date of : 03/31/24
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
Family Notified: Yes
== END 2024-03-31 07:41 | disposition expired | DRG 871 ==
LOC: 2 NORTH 12:24
PROVIDERS: Student in an Organized Health Care Education/Training Program; ADMITTING PHYSICIAN Internal Medicine
DX: A41.9 Sepsis, unspecified organism (principal); R65.21 Severe sepsis with septic shock; I38 Endocarditis, valve unspecified